=== PATIENT | male | born 1935 | race Caucasian/White ===

== ENCOUNTER → 2016-09-09 | Outpatient (CLI) | payer BC ==
[~2016-09-09] MED LIST: ATOR-54 PO; CEPH500C PO; CHOL20005 PO; CLBPO15 TOP; COEN1CAP17 PO; DPKEC500 PO; MULT-506 PO; PSYL48.59 PO; RANI300T2 PO; SILV1CRE73 TOP; SYN125 PO
[2016-09-09 19:02] LABS: BASO % 0.3 %; BASO ABS # 0.02 K/uL (0-0.2); COMPLETE YES; EOS % 3.1 %; HEMATOCRIT 41.6 % (42-52); IG% 0.2 %; LYMPH % 26.5 %; LYMPH ABS # 1.53 K/uL (1.2-3.4); MEAN CORPUSCULAR HEMOGLOBIN 32.1 pg (25-34); MEAN CORPUSCULAR HGB CONC 32.5 g/dl (32-36); MEAN PLATELET VOLUME 9.9 fL (7.4-10.4); MONO % 13.5 %; NEUT % 56.4 %; PLATELET COUNT 159 K/uL (130-400); WHITE BLOOD COUNT 5.77 K/uL (4.8-10.8)
[2016-09-17 10:37] LABS: ANA TITER 1:40 TITER (<1:40)
== END | disposition home or self-care (01) ==
LOC: C.LAB 18:02
PROVIDERS: ATTEND Physician Assistant
DX: S71.109A Unspecified open wound, unspecified thigh, initial encounter (principal); X58.XXXA Exposure to other specified factors, initial encounter

== ENCOUNTER → 2016-11-10 | Outpatient (CLI) | payer BC ==
[2016-11-10 14:44] VITALS: BP 114/71; PULSE 71; TEMP 36.6; O2SAT 96
--- NOTE | 2016-11-10 16:50 | Radiation Oncology Follow-Up ---
Radiation Oncology Follow-Up Date of Visit Nov 10, 2016. 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 Location: vertex of the scalp Permanent Comment: Development of a skin lesion on the vertex of the scalp Tangential biopsy 08/25/2015 malignant spindle cell neoplasm, consistent with atypical fibroxanthoma Wide excision 09/05/2015 scar and residual spindle cell neoplasm Recurrent malignant spindle cell neoplasm, consistent with pleomorphic dermal sarcoma 04/27/2016 Wide local excision of pleomorphic cell sarcoma of the scalp with 2 centimeter margins, defect 7 x 12 cm, placement of graft 06/11/2016 Status post completion of radiation therapy 09/15/2016 he received 6000 cGy Last Edited By: Chantel Cassidy on Sep 27, 2016 14:37 (Chantel Cassidy PA-C) History of Present Illness Mr. Jacob is a 81-year-old gentleman recently presented last spring with a lesion in the vertex scalp. The patient initially underwent a shave biopsy by Dr. Leal on 08/21/2015 which revealed a malignant spindle cell neoplasm, consistent with atypical fibroxanthoma in the differential diagnosis included a pleomorphic dermal sarcoma. The patient was seen by Dr. Jennifer Spaulding from plastic surgery who performed a reexcision on 09/04/2015 of the scar which revealed residual spindle cell neoplasm and scar extending to the peripheral margin. The patient was then followed with clinical observation. The patient subsequently had a recurrence that was initially biopsied by Dr. 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 The patient then underwent a wide local excision by Dr. Gaurav Borrego on 06/11/2016 which confirmed residual pleomorphic dermal sarcoma ; the sarcoma extended to within 0.3 millimeters of the deep inked margin however all the other margins were free from involvement. The patient subsequently underwent a reexcision with resection of a portion of the calvarium and a split-thickness skin graft on 06/16/2016; as per the operative report, no specimens were sent. We are now seeing the patient in consultation to discuss the role of postoperative radiation therapy. He completed radiation therapy 09/15/2016. He received 6000 cGy. (Chantel Cassidy PA-C) Interim History The past 6 weeks the area of the scalp continues to heal very slowly. He is followed by Dr. Spaulding and is seen every 2 weeks. He continues on daily dressing changes. Xeroform is used with a dry dressing. There is usually a small amount of serous drainage on the dressing per his . There is been no excess drainage. There is been no signs of infection. (Chantel Cassidy PA-C) Allergies Coded Allergies: Adhesives (Verified Allergy, Mild, Rash , 11/10/16) Home Medications Scheduled Atorvastatin (Lipitor), 20 MG PO DAILY Cholecalciferol (Vitamin D3), 1 TAB PO DAILY Coenzyme Q10 (Ubidecarenone) (Co Q 10), 1 CAP PO DAILY Divalproex Sodium Delay Rel (Depakote Delay Rel *), 500 MG PO BIDM Levothyroxine Sodium (Synthroid), 125 MCG PO DAILY Multivitamin (Multivitamin), 1 TAB PO DAILY Psyllium (Metamucil), 1 DOSE PO DAILY Ranitidine Hcl (Zantac), 1 TAB PO HS Scheduled PRN Clobetasol Propionate (Clobetasol Propionate), 1 APPLN TOP BID PRN for Blisters Review of Systems Gastrointestinal: Symptoms: WNL Oral: Symptoms: No Problems Respiratory: Symptoms: WNL Urinary: Symptoms: WNL Skin: Symptoms: No Problems Other Skin Symptoms: Slowly healing - dressing on top of head (Chantel Cassidy PA-C) Physical Exam Vital Signs Date Time Temp Pulse Resp B/P (MAP) Pulse Ox O2 Delivery O2 Flow Rate FiO2 11/10/16 14:44 36.6 71 16 114/71 96 General Appearance: no apparent distress, + pertinent finding (the wound and the vertex of the scalp is steadily improving. There is a 4 cm in diameter region of denuded skin. The Xeroform gauze was removed and a small amount of serous drainage was on the dressing. There were no pinpoint sites of bleeding. There is no foul odor. There is no erythema of the periphery.) (Chantel Cassidy PA-C) Laboratory Studies Test 09/09/16 18:06 White Blood Count 5.77 K/uL (4.8-10.8) Red Blood Count 4.20 M/uL (4.7-6.1) Hemoglobin 13.5 g/dL (14.0-18.0) Hematocrit 41.6 % (42-52) Mean Corpuscular Volume 99.0 fL (80-100) Mean Corpuscular Hemoglobin 32.1 pg (25-34) Mean Corpuscular Hemoglobin Concent 32.5 g/dl (32-36) Platelet Count 159 K/uL (130-400) Mean Platelet Volume 9.9 fL (7.4-10.4) Neutrophils (%) (Auto) 56.4 % Lymphocytes (%) (Auto) 26.5 % Monocytes (%) (Auto) 13.5 % Eosinophils (%) (Auto) 3.1 % Basophils (%) (Auto) 0.3 % Neutrophils # (Auto) 3.25 K/uL (1.4-6.5) Lymphocytes # (Auto) 1.53 K/uL (1.2-3.4) Monocytes # (Auto) 0.78 K/uL (0.11-0.59) Eosinophils # (Auto) 0.18 K/uL (0-0.5) Basophils # (Auto) 0.02 K/uL (0-0.2) RDW Standard Deviation 53.0 fL (36.4-46.3) RDW Coefficient of Variation 14.5 % (11.5-14.5) Immature Granulocyte % (Auto) 0.2 % Immature Granulocyte # (Auto) 0.01 K/uL (0.00-0.02) Erythrocyte Sedimentation Rate 9 mm/hr (0-14) Anti-Nuclear Antibody Screen POSITIVE (NEGATIVE) Anti-Nuclear Antibody Titer 1:40 TITER (<1:40) Anti-Nuclear Antibody Pattern NUCLEOLAR ( ) (Chantel Cassidy PA-C) Assessment & Plan Plan: The patient is also seen and examined by Dr. Aguilar. He'll continue the daily dressing changes with Xeroform and gauze. Continue follow-up with Dr. Spaulding. We asked him to return to our office in 6 months. He may call if he has any questions or concerns in the interim. (Chantel Cassidy PA-C) I agree with note created by Chantel Cassidy PA-C. I reviewed the patient's chart and information with her. I have examined and evaluated the patient. I reviewed relevant clinical information and answered the patient's and/or family' s questions. (Veeral. Aguilar MD) Total Time In Follow-Up I spent 20 minutes speaking to the patient performing examination. I spent 15 minutes reviewing information and completing this note. AK (Chantel Cassidy PA-C) I spent 15 minutes examining and counseling the patient. (Veeral. Aguilar MD) Copy To Balaji Jenkins M.D.; Gaurav Borrego M.D.; Jennifer Spaulding MD
== END | disposition home or self-care (01) ==
LOC: C.ONC 14:40
PROVIDERS: ATTEND Surgery
DX: Z08 Encounter for follow-up examination after completed treatment for malignant neoplasm (principal); Z92.3 Personal history of irradiation; Z85.89 Personal history of malignant neoplasm of other organs and systems

== ENCOUNTER → 2017-01-14 | Outpatient (CLI) | payer BC ==
[~2017-01-14] MED LIST changes: -CEPH500C PO; -SILV1CRE73 TOP
== END | disposition home or self-care (01) ==
LOC: C.LABSPEC 17:08
PROVIDERS: ATTEND Plastic Surgery
DX: S01.00XA Unspecified open wound of scalp, initial encounter (principal); X58.XXXA Exposure to other specified factors, initial encounter

== ENCOUNTER 2017-03-30 19:22 | Inpatient (IN) | payer BC, OTHER ==
[~2017-03-30] VITALS: Ht 177.8 cm; Wt 82.7 kg
[2017-03-30] MEDS ORDERED: ONDANSETRON INJ 2 MG/ML 2 ML VIAL IV STA (19:39)
[2017-03-30] MEDS ORDERED: MoRPHine SULFATE 4 MG/ML 1 ML CARP\\VIAL IV STA ×2 (19:39→22:09)
[2017-03-30] MEDS ORDERED: SODIUM CHLORIDE 0.9% 1000ML 1,000 ML IV STA (19:39)
[2017-03-30] MEDS ORDERED: VBRT100 PO (19:51)
[2017-03-30] MEDS ORDERED: DPKSR/500 PO (19:51)
[2017-03-30 20:01] LABS: BASO % 0.1 %; BASO ABS # 0.01 K/uL (0-0.2); COMPLETE YES; HEMATOCRIT 41.5 % (42-52); IG% 0.4 %; LYMPH % 6.6 %; LYMPH ABS # 0.85 K/uL (1.2-3.4); MEAN CELL VOLUME 100.2 fL (80-100); MEAN CORPUSCULAR HEMOGLOBIN 33.6 pg (25-34); MEAN CORPUSCULAR HGB CONC 33.5 g/dl (32-36); MEAN PLATELET VOLUME 10.3 fL (7.4-10.4); MONO % 9.5 %; NEUT % 83.4 %; PLATELET COUNT 163 K/uL (130-400); RED BLOOD COUNT 4.14 M/uL (4.7-6.1); WHITE BLOOD COUNT 12.86 K/uL (4.8-10.8)
[2017-03-30 20:47] LABS: ALKALINE PHOSPHATASE 209 U/L (45-117); ALT/SGPT 475 U/L (12-78); BLOOD UREA NITROGEN 18 mg/dl (7-18); CALCIUM 9.7 mg/dl (8.5-10.1); CARBON DIOXIDE 26 mmol/L (21-32); CHLORIDE 101 mmol/L (98-107); CREATININE 1.18 mg/dl (0.60-1.40); GLUCOSE 198 mg/dl (70-99); SODIUM 135 mmol/L (136-145)
[2017-03-30] MEDS ORDERED: OPTIRAY 320 IV PRN (21:15)
--- NOTE | 2017-03-30 21:35 | DIAGNOSTIC IMAGING REPORT ---
ABDOMEN AND PELVIS CT WITH IV CONTRAST CT DOSE: 741.29 mGy.cm HISTORY: Acute generalized abdominal pain abd pain TECHNIQUE: Multiaxial CT images of the abdomen and pelvis were performed following the use of intravenous contrast. A dose lowering technique was utilized adhering to the principles of ALARA. COMPARISON STUDY: None. FINDINGS: Mild dependent bibasilar consolidative opacities suggest atelectasis/scarring. Nonspecific 7 mm right hilar lymph node. No pneumatosis or pneumoperitoneum identified. Imaged inferior cardiac chambers are mildly enlarged. Coronary arterial disease. Mild symmetric bilateral gynecomastia. Prior cholecystectomy. Mild intrahepatic and nectar hepatic biliary ductal dilation is noted with the common bile duct measuring up to 12 mm transversely. There are 2 foci of increased attenuation within the distal common bile duct measuring 4 and 6 mm respectively on images 206 and 216 of series 3 suggesting choledocholithiasis. There is a least moderate diffuse pancreatic atrophy with mild stranding surrounding the pancreatic head and neck suspicious for acute pancreatitis. No pancreatic ductal dilation or focal pancreatic mass identified. Spleen is mildly enlarged, 14 cm. 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 Adrenal glands are unremarkable. Nonspecific bilateral perinephric stranding. There is of cortical scarring and parenchymal thinning are noted within the right kidney. Probable cyst of the interpolar right kidney is seen, 4 mm. No renal calculi or hydronephrosis. Ureters are unremarkable. The prostate is enlarged causing mass effect upon the floor of the urinary bladder. Small urachal remnant is noted terminating from the anterosuperior bladder. Mild wall thickening of the bladder, likely secondary to chronic bladder outlet obstruction. Moderate atherosclerosis of the aorta. No aortic aneurysm. No bulky adenopathy identified. Moderate hiatal hernia with fluid-filled distal esophagus. There is no bowel obstruction. No focal bowel wall thickening. Minimal colonic diverticulosis without diverticulitis. The appendix is not definitively seen. No secondary signs of acute appendicitis. Bowel filled. No hernia. Small bowel filled periumbilical hernia. The bones appear mildly demineralized. Multilevel changes of the spine. IMPRESSION: 1. Choledocholithiasis with two biliary stones within the distal common bile duct measuring up to 6 and 4 mm with probable mild associated acute pancreatitis. Correlate with lipase level. 2. Prior cholecystectomy with mild intrahepatic and extrahepatic biliary ductal dilation. Common bile duct measures 12 mm. 3. Mild splenomegaly. 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 4. Moderate hiatal hernia with fluid-filled distal esophagus. 5. Minimal colonic diverticulosis without diverticulitis. 6. Prostamegaly. Electronically signed by: Reilly Barlow M.D. 03/30/2017 9:34 PM Dictated Date/Time: 03/30/2017 9:14 PM
[2017-03-30 21:43] LABS: POTASSIUM 4.3 mmol/L (3.5-5.1)
[2017-03-30] MEDS ORDERED: PIPERACILLIN/TAZOBACTAM 4.5 GM/100ML D5W IV STA (21:48)
[2017-03-30 22:20] LABS: URINE APPEARANCE CLEAR (CLEAR); URINE COLOR DK YELLOW; URINE NITRITE NEG (NEG); URINE SPECIFIC GRAVITY > 1.045 (1.000-1.030); UROBILINOGEN NEG (NEG); ZZUR CULT IF INDIC CLEAN CATCH NO
[2017-03-30 22:23] LABS: URINE BILIRUBIN 2+ (NEG)
[2017-03-30 22:25] LABS: MANUAL MICROSCOPIC REQUIRED? NO; REVIEW REQ? NO
[2017-03-30] MEDS ORDERED: MAGNESIUM HYDROXIDE SUSP 30 ML UDC PO PRN (22:45)
[2017-03-30] MEDS ORDERED: ONDANSETRON INJ 2 MG/ML 2 ML VIAL IV PRN (22:45)
[2017-03-30] MEDS ORDERED: ACETAMINOPHEN 325 MG TAB PO PRN (22:45)
[2017-03-30] MEDS ORDERED: ALUMINUM/MAGNESIUM/SIMETH (MAALOX MAX) 30 ML UDC PO PRN (22:45)
--- NOTE | 2017-03-30 23:44 | EMERGENCY ROOM VISIT NOTE ---
History Report prepared by Robert: Alecia Vaughn Under the Supervision of: Dr. Jose Denise D.O. First contact with patient: 19:29 Chief Complaint: ABDOMINAL PAIN Stated Complaint: PAIN IN BACK AROUND TO ABD History of Present Illness The patient is a 81 year old male who presents to the Emergency Room with complaints of waxing and waning abdominal pain beginning 5 days ago. He states that the pain is similar to when he had gallbladder pain. He reports that taking a deep breath exacerbates his abdominal pain. The patient reports a history of a cholecystectomy, but denies a history of an appendectomy. He also reports having back pain between his shoulder blades. The patient states that laying down alleviates the pain, and cold air exacerbates the pain. He also reports having a runny nose and cough. Pt denies headache, change in vision, fevers, chest pain, shortness of breath, nausea, vomiting, diarrhea, pain with urination, and melena. Source of History: patient Onset: 5 days ago Position: abdomen Timing: waxes/wanes Modifying Factors (Worsening): other (taking a deep breath ) Associated Symptoms: + cough, + back pain, No chest pain, No SOB, No nausea , No vomiting, No diarrhea Review of Systems See HPI for pertinent positives & negatives. A total of 10 systems reviewed and were otherwise negative. Past Medical & Surgical Medical Problems: (1) Choledocholithiasis (2) Pancreatitis (3) Pleomorphic cell sarcoma Surgical Problems: (1) History of cholecystectomy Family History No pertinent family history stated. Social History Smoking Status: Never Smoker Alcohol Use: occasionally Drug Use: none Marital Status: Housing Status: lives with family Occupation Status: retired Current/Historical Medications Scheduled Atorvastatin (Lipitor), 20 MG PO DAILY Cholecalciferol (Vitamin D3), 1 TAB PO DAILY Coenzyme Q10 (Ubidecarenone) (Co Q 10), 1 CAP PO DAILY Divalproex Sodium (Depakote Etended-Release), 500 MG PO BID Doxycycline Hyclate (Doxycycline Hyclate), 100 MG PO BID Levothyroxine Sodium (Synthroid), 125 MCG PO DAILY Multivitamin (Multivitamin), 1 TAB PO DAILY Psyllium (Metamucil), 1 DOSE PO DAILY Ranitidine Hcl (Zantac), 1 TAB PO HS Scheduled PRN Clobetasol Propionate (Clobetasol Propionate), 1 APPLN TOP BID PRN for Blisters Allergies Coded Allergies: Adhesives (Verified Allergy, Mild, Rash , 11/10/16) Physical Exam Vital Signs Date Time Temp Pulse Resp B/P (MAP) Pulse Ox O2 Delivery O2 Flow Rate FiO2 03/30/17 23:01 107 18 116/72 94 03/30/17 22:08 103 18 118/63 93 Nasal Cannula 2.0 03/30/17 20:10 96 Nasal Cannula 2.0 03/30/17 20:09 89 Room Air 03/30/17 20:08 97 18 122/72 90 Room Air 03/30/17 19:24 36.4 96 18 123/84 95 Room Air Physical Exam GENERAL: Sitting up in bed, alert, well appearing, well nourished, no distress, non-toxic EYE EXAM: normal conjunctiva. OROPHARYNX: no exudate, no erythema, lips, buccal mucosa, and tongue normal and mucous membranes are moist NECK: supple, no nuchal rigidity, no adenopathy, non-tender LUNGS: Clear to auscultation. Normal chest wall mechanics HEART: no murmurs, S1 normal and S2 normal ABDOMEN: abdomen soft, tenderness in bilateral flank upon palpation, normo- active bowel sounds, no masses, no rebound or guarding. BACK: Back is symmetrical on inspection and there is no deformity, no midline tenderness, no CVA tenderness. SKIN: no rashes and no bruising UPPER EXTREMITIES: upper extremities are grossly normal. LOWER EXTREMITIES: No pitting edema. NEURO EXAM: Normal sensorium, cranial nerves II-XII grossly intact, normal speech, no gross weakness of arms, no gross weakness of legs. Medical Decision & Procedures ER Provider Diagnostic Interpretation: Radiology results as stated below per my review and the radiologist's interpretation: ABDOMEN AND PELVIS CT WITH IV CONTRAST CT DOSE: 741.29 mGy.cm HISTORY: Acute generalized abdominal pain abd pain TECHNIQUE: Multiaxial CT images of the abdomen and pelvis were performed following the use of intravenous contrast. A dose lowering technique was utilized adhering to the principles of ALARA. COMPARISON STUDY: None. FINDINGS: Mild dependent bibasilar consolidative opacities suggest atelectasis/scarring. Nonspecific 7 mm right hilar lymph node. No pneumatosis or pneumoperitoneum identified. Imaged inferior cardiac chambers are mildly enlarged. Coronary arterial disease. Mild symmetric bilateral gynecomastia. Prior cholecystectomy. Mild intrahepatic and nectar hepatic biliary ductal dilation is noted with the common bile duct measuring up to 12 mm transversely. There are 2 foci of increased attenuation within the distal common bile duct measuring 4 and 6 mm respectively on images 206 and 216 of series 3 suggesting choledocholithiasis. There is a least moderate diffuse pancreatic atrophy with mild stranding surrounding the pancreatic head and neck suspicious for acute pancreatitis. No pancreatic ductal dilation or focal pancreatic mass identified. Spleen is mildly enlarged, 14 cm. 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 Adrenal glands are unremarkable. Nonspecific bilateral perinephric stranding. There is of cortical scarring and parenchymal thinning are noted within the right kidney. Probable cyst of the interpolar right kidney is seen, 4 mm. No renal calculi or hydronephrosis. Ureters are unremarkable. The prostate is enlarged causing mass effect upon the floor of the urinary bladder. Small urachal remnant is noted terminating from the anterosuperior bladder. Mild wall thickening of the bladder, likely secondary to chronic bladder outlet obstruction. Moderate atherosclerosis of the aorta. No aortic aneurysm. No bulky adenopathy identified. Moderate hiatal hernia with fluid-filled distal esophagus. There is no bowel obstruction. No focal bowel wall thickening. Minimal colonic diverticulosis without diverticulitis. The appendix is not definitively seen. No secondary signs of acute appendicitis. Bowel filled. No hernia. Small bowel filled periumbilical hernia. The bones appear mildly demineralized. Multilevel changes of the spine. IMPRESSION: 1. Choledocholithiasis with two biliary stones within the distal common bile duct measuring up to 6 and 4 mm with probable mild associated acute pancreatitis. Correlate with lipase level. 2. Prior cholecystectomy with mild intrahepatic and extrahepatic biliary ductal dilation. Common bile duct measures 12 mm. 3. Mild splenomegaly. 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 4. Moderate hiatal hernia with fluid-filled distal esophagus. 5. Minimal colonic diverticulosis without diverticulitis. 6. Prostamegaly. Electronically signed by: Reilly Barlow M.D. 03/30/2017 9:34 PM Dictated Date/Time: 03/30/2017 9:14 PM Laboratory Results 03/30/17 19:49 Red Blood Count 4.14, Mean Corpuscular Volume 100.2, Mean Corpuscular Hemoglobin 33.6, Mean Corpuscular Hemoglobin Concent 33.5, Mean Platelet Volume 10.3, Neutrophils (%) (Auto) 83.4, Lymphocytes (%) (Auto) 6.6, Monocytes (%) ( Auto) 9.5, Eosinophils (%) (Auto) 0.0, Basophils (%) (Auto) 0.1, Neutrophils # ( Auto) 10.73, Lymphocytes # (Auto) 0.85, Monocytes # (Auto) 1.22, Eosinophils # ( Auto) 0.00, Basophils # (Auto) 0.01 03/30/17 19:49 03/30/17 21:18 Test 03/30/17 19:49 03/30/17 21:18 03/30/17 21:40 White Blood Count 12.86 K/uL (4.8-10.8) Red Blood Count 4.14 M/uL (4.7-6.1) Hemoglobin 13.9 g/dL (14.0-18.0) Hematocrit 41.5 % (42-52) Mean Corpuscular Volume 100.2 fL (80-100) Mean Corpuscular Hemoglobin 33.6 pg (25-34) Mean Corpuscular Hemoglobin Concent 33.5 g/dl (32-36) Platelet Count 163 K/uL (130-400) Mean Platelet Volume 10.3 fL (7.4-10.4) Neutrophils (%) (Auto) 83.4 % Lymphocytes (%) (Auto) 6.6 % Monocytes (%) (Auto) 9.5 % Eosinophils (%) (Auto) 0.0 % Basophils (%) (Auto) 0.1 % Neutrophils # (Auto) 10.73 K/uL (1.4-6.5) Lymphocytes # (Auto) 0.85 K/uL (1.2-3.4) Monocytes # (Auto) 1.22 K/uL (0.11-0.59) Eosinophils # (Auto) 0.00 K/uL (0-0.5) Basophils # (Auto) 0.01 K/uL (0-0.2) RDW Standard Deviation 57.8 fL (36.4-46.3) RDW Coefficient of Variation 15.7 % (11.5-14.5) Immature Granulocyte % (Auto) 0.4 % Immature Granulocyte # (Auto) 0.05 K/uL (0.00-0.02) Anion Gap 8.0 mmol/L (3-11) Estimated GFR () 67.1 Estimated GFR (Non- 57.9 BUN/Creatinine Ratio 15.0 (10-20) Calcium Level 9.7 mg/dl (8.5-10.1) Total Bilirubin 5.2 mg/dl (0.2-1) Alanine Aminotransferase (ALT/SGPT) 475 U/L (12-78) Alkaline Phosphatase 209 U/L (45-117) Total Protein 7.2 gm/dl (6.4-8.2) Albumin 3.8 gm/dl (3.4-5.0) Lipase 4039 U/L (73-393) Direct Bilirubin 4.3 mg/dl (0-0.2) Aspartate Amino Transf (AST/SGOT) 257 U/L (15-37) Urine Color DK YELLOW Urine Appearance CLEAR (CLEAR) Urine pH 6.0 (4.5-7.5) Urine Specific [place] > 1.045 (1.000-1.030) Urine Protein NEG (NEG) Urine Glucose (UA) NEG (NEG) Urine Ketones 1+ (NEG) Urine Occult Blood NEG (NEG) Urine Nitrite NEG (NEG) Urine Bilirubin 2+ (NEG) Urine Urobilinogen NEG (NEG) Urine Leukocyte Esterase NEG (NEG) Urine WBC (Auto) 1-5 /hpf (0-5) Urine RBC (Auto) 10-30 /hpf (0-4) Urine Hyaline Casts (Auto) 1-5 /lpf (0-5) Urine Epithelial Cells (Auto) 10-20 /lpf (0-5) Urine Bacteria (Auto) NEG (NEG) Laboratory results per my review. Medications Administered Medications (Trade) Dose Ordered Sig/Sadie Route Start Time Stop Time Status Last Admin Dose Admin Sodium Chloride 1,000 ml @ 999 mls/hr Q1H1M STAT IV 03/30/17 19:39 03/30/17 20:39 DC 03/30/17 19:52 999 MLS/HR Ondansetron HCl (Zofran Inj) 4 mg NOW STAT IV 03/30/17 19:39 03/30/17 19:41 DC 03/30/17 19:53 4 MG Morphine Sulfate (MoRPHine SULFATE INJ) 4 mg NOW STAT IV 03/30/17 19:39 03/30/17 19:41 DC 03/30/17 19:55 4 MG Piperacillin Sod/ Tazobactam Sod (Zosyn Iv) 4.5 gm NOW STAT IV 03/30/17 21:48 03/30/17 21:49 DC 03/30/17 22:12 4.5 GM Morphine Sulfate (MoRPHine SULFATE INJ) 4 mg NOW STAT IV 03/30/17 22:09 03/30/17 22:10 DC 03/30/17 22:16 4 MG ED Course ED COURSE: Vital signs were reviewed and showed normal vitals. The patients medical record was reviewed The above diagnostic studies were performed and reviewed. ED treatments and interventions as stated above. 1932: The patient was evaluated in room C10. A complete history and physical examination was performed. 1938: Ordered Morphine Sulfate 4 mg IV, Zofran Inj 4 mg IV, Sodium Chloride 1, 000 ml @ 999 mls/hr IV. 2147: Ordered Zosyn Iv 4.5 gm IV. 2149: Upon reevaluation, the patient is resting. I discussed the findings and the treatment plan with the patient. He expresses agreement and understanding. [facility] He will be evaluated for further management. 2151: I reviewed the patient's case with Dr. Keyes. Medical Decision Differential diagnoses includes but is not limited to gastritis, peptic ulcer disease, GERD, gallbladder disease, pancreatitis, small bowel obstruction, acute coronary syndrome, pericarditis, ischemic bowel, irritable bowel disease, irritable bowel syndrome, appendicitis, diverticulitis, malignancy, hernia, urinary tract infection, torsion, [/ectopic (if female)], perforation, trauma, infectious. Patient is an 81-year-old male with bilateral abdominal pain which has been worsening. He notes that it feels like his previous cholecystitis. Previous cholecystectomy in 2015. Vitals were stable not suggesting sepsis. Mild leukocytosis of 13,000. Bilirubin elevated at 5. Transaminitis associated with pancreatitis. CT performed shows choledocholithiasis 2. Discussed with GI. Patient was given IV Zosyn. Discussed with internal medicine. Admitted for further workup and will need ERCP. Patient was given 2 doses of IV morphine with improvement of pain. Medication Reconcilliation Current Medication List: was personally reviewed by me Blood Pressure Screening Patient's blood pressure: Normal blood pressure Consults Time Called: 2139 Consulting Physician: Dr. Mcdaniel-Resident and Returned Call: 2149 I reviewed the patient's case with Dr. Mcdaniel. She will evaluate the patient for further management. Additional Consults: Time Called: 2144 Consulted Physician: Dr. Keyes-Gastroenterology Returned Call: [phone] Additional Comments: I reviewed the patient's case with Dr. Keyes. Impression Primary Impression: Choledocholithiasis Additional Impressions: Pancreatitis Transaminitis Scribe Attestation The scribe's documentation has been prepared under my direction and personally reviewed by me in its entirety. I confirm that the note above accurately reflects all work, treatment, procedures, and medical decision making performed by me. Departure Information Dispostion Being Evaluated By Hospitalist Referrals Balaji Jenkins M.D. (PCP) Patient Instructions [facility] Problem Qualifiers Additional Impressions: Pancreatitis Chronicity: acute Pancreatitis type: unspecified pancreatitis type Acute pancreatitis complication: unspecified Qualified Codes: K85.90 - Acute pancreatitis without necrosis or infection, unspecified
[2017-03-31 00:05] VITALS: BP 135/80; PULSE 114; TEMP 37.3; O2SAT 93; Ht 177.8 cm; Wt 82.7 kg
[2017-03-31] MEDS: LACTATED RINGER'S 1000ML 1,000 ML IV SCH ×4 (00:23→21:44)
[2017-03-31] MEDS ORDERED: MoRPHine SULFATE 4 MG/ML 1 ML CARP\\VIAL IV PRN (01:30)
--- NOTE | 2017-03-31 04:19 | History and Physical ---
History & Physical Date & Time of Service: Mar 30, 2017 at 2100 Chief Complaint: Choledocholithiasis, Panreatitis Primary Care Physician: Balaji Jenkins M.D. History of Present Illness Source: patient, hospital records This is an 81 yo m with a h/o thyroid and seizure disorder that is presenting to us with waxing and waning abdominal pain which started approx 5 days prior. The pain was originially in the RUQ and now is more diffuse in nature. It is a 10/10 and worsens with any movement. The pain has suddenly worsened while he was sleeping the night before and has not improved since. He has has intermittent nausea and one bout of vomiting a few days prior to the abdominal pain starting. Denies fever, chest pain or SOB. He does note he has a history of cholecystectomy. 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 Social History Smoking Status: Never Smoker Smokeless Tobacco Use: No Alcohol Use: none Drug Use: none Marital Status: Housing status: lives with family Occupational Status: retired Immunizations History of Influenza Vaccine: Unknown History of Tetanus Vaccine?: Unknown History of Pneumococcal: Unknown History of Hepatitis B Vaccine: Unknown Multi-Drug Resistant Organisms History of MDRO: No Allergies Coded Allergies: Adhesives (Verified Allergy, Mild, Rash , 11/10/16) Home Medications Scheduled Atorvastatin (Lipitor), 20 MG PO DAILY Cholecalciferol (Vitamin D3), 1 TAB PO DAILY Coenzyme Q10 (Ubidecarenone) (Co Q 10), 1 CAP PO DAILY Divalproex Sodium (Depakote Etended-Release), 500 MG PO BID Doxycycline Hyclate (Doxycycline Hyclate), 100 MG PO BID Levothyroxine Sodium (Synthroid), 125 MCG PO DAILY Multivitamin (Multivitamin), 1 TAB PO DAILY Psyllium (Metamucil), 1 DOSE PO DAILY Ranitidine Hcl (Zantac), 1 TAB PO HS Scheduled PRN Clobetasol Propionate (Clobetasol Propionate), 1 APPLN TOP BID PRN for Blisters Review of Systems Constitutional: No fever, No chills, No sweats Eyes: No worsening of vision ENT: No hearing loss Respiratory: No cough, No sputum, No wheezing, No shortness of breath, No dyspnea on exertion, No dyspnea at rest Cardiovascular: No chest pain Abdomen: + pain, + nausea, + vomiting, No diarrhea, No constipation, No GI bleeding Musculoskeletal: No joint pain, No muscle pain Genitourinary - Male: No hematuria, No dysuria Neurologic: No weakness, No numbness/tingling, No balance problems Psychiatric: No depression symptoms Endocrine: No fatigue Hematologic / Lymphatic: No abnormal bleeding/bruising Integumentary: No rash Physical Exam Vital Signs Date Time Temp Pulse Resp B/P (MAP) Pulse Ox O2 Delivery O2 Flow Rate FiO2 03/31/17 00:05 37.3 114 18 135/80 93 Nasal Cannula 2.0 03/31/17 00:00 Nasal Cannula 2.0 03/30/17 23:01 107 18 116/72 94 03/30/17 22:08 103 18 118/63 93 Nasal Cannula 2.0 03/30/17 20:10 96 Nasal Cannula 2.0 03/30/17 20:09 89 Room Air 03/30/17 20:08 97 18 122/72 90 Room Air 03/30/17 19:24 36.4 96 18 123/84 95 Room Air General Appearance: no apparent distress Head: normocephalic, atraumatic Eyes: normal inspection ENT: normal ENT inspection Neck: supple Respiratory/Chest: normal breath sounds, no respiratory distress, no accessory muscle use Cardiovascular: no murmur, normal peripheral pulses, + tachycardia Abdomen/GI: normal bowel sounds, + tenderness (diffuse without rebound), + guarding Back: normal inspection, no CVA tenderness Extremities/Musculoskelatal: normal inspection, no calf tenderness, no pedal edema, normal range of motion Neurologic/Psych: alert, normal mood/affect, oriented x 3 Skin: normal color, warm/dry, no rash Lymphatic: no adenopathy Diagnostics Laboratory Results Results Past 24 Hours Test 03/30/17 19:49 03/30/17 21:18 03/30/17 21:40 03/31/17 00:13 Range/Units White Blood Count 12.86 4.8-10.8 K/uL Red Blood Count 4.14 4.7-6.1 M/uL Hemoglobin 13.9 14.0-18.0 g/dL Hematocrit 41.5 42-52 % Mean Corpuscular Volume 100.2 80-100 fL Mean Corpuscular Hemoglobin 33.6 25-34 pg Mean Corpuscular Hemoglobin Concent 33.5 32-36 g/dl Platelet Count 163 130-400 K/uL Mean Platelet Volume 10.3 7.4-10.4 fL Neutrophils (%) (Auto) 83.4 % Lymphocytes (%) (Auto) 6.6 % Monocytes (%) (Auto) 9.5 % Eosinophils (%) (Auto) 0.0 % Basophils (%) (Auto) 0.1 % Neutrophils # (Auto) 10.73 1.4-6.5 K/uL Lymphocytes # (Auto) 0.85 1.2-3.4 K/uL Monocytes # (Auto) 1.22 0.11-0.59 K/uL Eosinophils # (Auto) 0.00 0-0.5 K/uL Basophils # (Auto) 0.01 0-0.2 K/uL RDW Standard Deviation 57.8 36.4-46.3 fL RDW Coefficient of Variation 15.7 11.5-14.5 % Immature Granulocyte % (Auto) 0.4 % Immature Granulocyte # (Auto) 0.05 0.00-0.02 K/uL Sodium Level 135 136-145 mmol/L Potassium Level 4.3 3.5-5.1 mmol/L Chloride Level 101 98-107 mmol/L Carbon Dioxide Level 26 21-32 mmol/L Anion Gap 8.0 3-11 mmol/L Blood Urea Nitrogen 18 7-18 mg/dl Creatinine 1.18 0.60-1.40 mg/dl Estimated GFR () 67.1 Estimated GFR (Non- 57.9 BUN/Creatinine Ratio 15.0 10-20 Random Glucose 198 70-99 mg/dl Calcium Level 9.7 8.5-10.1 mg/dl Total Bilirubin 5.2 0.2-1 mg/dl Direct Bilirubin 4.3 0-0.2 mg/dl Aspartate Amino Transf (AST/SGOT) 257 15-37 U/L Alanine Aminotransferase (ALT/SGPT) 475 12-78 U/L Alkaline Phosphatase 209 45-117 U/L Total Protein 7.2 6.4-8.2 gm/dl Albumin 3.8 3.4-5.0 gm/dl Lipase 4039 73-393 U/L Urine Color DK YELLOW Urine Appearance CLEAR CLEAR Urine pH 6.0 4.5-7.5 Urine Specific [place] > 1.045 1.000-1.030 Urine Protein NEG NEG Urine Glucose (UA) NEG NEG Urine Ketones 1+ NEG Urine Occult Blood NEG NEG Urine Nitrite NEG NEG Urine Bilirubin 2+ NEG Urine Urobilinogen NEG NEG Urine Leukocyte Esterase NEG NEG Urine WBC (Auto) 1-5 0-5 /hpf Urine RBC (Auto) 10-30 0-4 /hpf Urine Hyaline Casts (Auto) 1-5 0-5 /lpf Urine Epithelial Cells (Auto) 10-20 0-5 /lpf Urine Bacteria (Auto) NEG NEG Bedside Glucose 198 70-99 mg/dl Diagnostic Radiology [~ rep ct add3]] ABDOMEN AND PELVIS CT WITH IV CONTRAST CT DOSE: 741.29 mGy.cm HISTORY: Acute generalized abdominal pain abd pain TECHNIQUE: Multiaxial CT images of the abdomen and pelvis were performed following the use of intravenous contrast. A dose lowering technique was utilized adhering to the principles of ALARA. COMPARISON STUDY: None. FINDINGS: Mild dependent bibasilar consolidative opacities suggest atelectasis/scarring. Nonspecific 7 mm right hilar lymph node. No pneumatosis or pneumoperitoneum identified. Imaged inferior cardiac chambers are mildly enlarged. Coronary arterial disease. Mild symmetric bilateral gynecomastia. Prior cholecystectomy. Mild intrahepatic and nectar hepatic biliary ductal dilation is noted with the common bile duct measuring up to 12 mm transversely. There are 2 foci of increased attenuation within the distal common bile duct measuring 4 and 6 mm respectively on images 206 and 216 of series 3 suggesting choledocholithiasis. There is a least moderate diffuse pancreatic atrophy with mild stranding surrounding the pancreatic head and neck suspicious for acute pancreatitis. No pancreatic ductal dilation or focal pancreatic mass identified. Spleen is mildly enlarged, 14 cm. 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 Adrenal glands are unremarkable. Nonspecific bilateral perinephric stranding. There is of cortical scarring and parenchymal thinning are noted within the right kidney. Probable cyst of the interpolar right kidney is seen, 4 mm. No renal calculi or hydronephrosis. Ureters are unremarkable. The prostate is enlarged causing mass effect upon the floor of the urinary bladder. Small urachal remnant is noted terminating from the anterosuperior bladder. Mild wall thickening of the bladder, likely secondary to chronic bladder outlet obstruction. Moderate atherosclerosis of the aorta. No aortic aneurysm. No bulky adenopathy identified. Moderate hiatal hernia with fluid-filled distal esophagus. There is no bowel obstruction. No focal bowel wall thickening. Minimal colonic diverticulosis without diverticulitis. The appendix is not definitively seen. No secondary signs of acute appendicitis. Bowel filled. No hernia. Small bowel filled periumbilical hernia. The bones appear mildly demineralized. Multilevel changes of the spine. IMPRESSION: 1. Choledocholithiasis with two biliary stones within the distal common bile duct measuring up to 6 and 4 mm with probable mild associated acute pancreatitis. Correlate with lipase level. 2. Prior cholecystectomy with mild intrahepatic and extrahepatic biliary ductal dilation. Common bile duct measures 12 mm. 3. Mild splenomegaly. 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 4. Moderate hiatal hernia with fluid-filled distal esophagus. 5. Minimal colonic diverticulosis without diverticulitis. 6. Prostamegaly. Impression Assessment and Plan This is an 81 yo m suffering from choledocholithiasis s/p cholecystectomy and pancreatitis Abdominal pain secondary to choledocholithiasis and pancreatitis - med surg admission - consult Gastro for possible ERCP - morphine for pain control - Lipase and CMP in am - Cipro empirically - LR @ 150cc/h and currently NPO Seizure disorder Continue Depakote 500 mg bid Hypothyroidism continue synthroid 125 mcg daily Hyperlipidemia - Continue Atorvastatin 20 mg daily GERD - continue Zantac DVT prophylaxis SCD Attending addendum: I have physically seen this patient, have supervised the medical residents activities, and agree with the H&P unless as otherwise noted. Assessment and Plan: Choledocholithiasis/Pancreatitis-- NPO IVF's Cipro IV LR at 100ml's/hr Follow serial laboratories Consult GI for ERCP Seizure disorder-- Continue Depakote Hypothyroidism-- Continue Synthroid Hyperlipidemia-- Continue atorvastatin GERD-- Continue ranitidine Level of Care Med/Surg Advanced Directives Existing Advance Directive: No Existing Living Will: Yes Existing Power of Oyster Shucker: Yes Resuscitation Status FULL RESUSCITATION VTE Prophylaxis VTE Risk Assessment Done? Y/N: Yes Risk Level: Moderate Given or contraindicated: SCD's Social Service Consult None Apply Note Total Time: Critical Care 30 - 74 minutes Additional Copies To Balaji Jenkins M.D.
[2017-03-31] MEDS: CIPROFLOXACIN / D5W 400 MG in PREMIXED IN D5W 200 ML IV SCH ×2 (06:04→18:13)
[2017-03-31] MEDS: LEVOTHYROXINE 125 MCG TAB PO SCH (06:05)
[2017-03-31 06:43] LABS: BASO % 0.1 %; BASO ABS # 0.01 K/uL (0-0.2); COMPLETE YES; IG% 0.2 %; LYMPH % 3.3 %; LYMPH ABS # 0.42 K/uL (1.2-3.4); MEAN CELL VOLUME 101.1 fL (80-100); MEAN CORPUSCULAR HEMOGLOBIN 32.8 pg (25-34); MEAN CORPUSCULAR HGB CONC 32.4 g/dl (32-36); MEAN PLATELET VOLUME 9.7 fL (7.4-10.4); MONO % 7.1 %; NEUT % 89.3 %; PLATELET COUNT 115 K/uL (130-400); RED BLOOD COUNT 3.66 M/uL (4.7-6.1)
[2017-03-31 07:18] VITALS: BP 115/74; PULSE 103; TEMP 37.3; O2SAT 90
[2017-03-31 07:30] LABS: ALB/GLOB RATIO 0.9 (0.9-2); BUN/CREATININE RATIO 17.3 (10-20); CALCIUM 8.6 mg/dl (8.5-10.1); CREATININE 1.11 mg/dl (0.60-1.40); POTASSIUM 4.3 mmol/L (3.5-5.1)
[2017-03-31] MEDS: PSYLLIUM 58.6% PWD PACK S\\F PO SCH (07:35)
[2017-03-31] MEDS: MULTIVITAMIN TAB PO SCH (07:39)
[2017-03-31] MEDS: ATORVASTATIN 20 MG TAB PO SCH (07:39)
[2017-03-31] MEDS: DIVALPROEX 500 MG EXTENDED RELEASE TAB PO SCH ×2 (07:40→20:32)
[2017-03-31] MEDS: CLOBETASOL~ORDER AWAITING ACTION SCH ×3 (07:40→23:44)
[2017-03-31] MEDS: CHOLECALCIFEROL 1000 INTER.UNIT TAB PO SCH (07:40)
[2017-03-31] MEDS ORDERED: NON-FORMULARY MEDICATION (Coenzyme Q10 (Ubidecarenone) (Co Q 10) 1 CAP) PO SCH (09:00)
--- NOTE | 2017-03-31 13:17 | GASTROINTESTINAL CONSULTATION ---
DATE OF CONSULTATION: 03/31/2017 REASON FOR CONSULTATION: Common bile duct stones and gallstone pancreatitis. HISTORY OF PRESENT ILLNESS: The patient is an 81-year-old male who had cholecystectomy 2 years ago for cholecystitis. He was found to have sludge in his gallbladder. Ever since the surgery, he has been having intermittent epigastric and back pain about twice a month, especially after eating fatty foods. Yesterday evening, the pain became so severe, it was 10/10, and he ended up coming to the hospital, where he was admitted. CT scan demonstrates 2 common duct stones, 4 and 6 mm in diameter with common bile duct measuring 12 mm. There was also evidence of pancreatitis. The pancreas is atrophic, but there was some stranding around the head and his lipase is about 7000. His appetite is poor at this time. The patient was started on IV Cipro and bowel rest and GI consultation obtained. PAST MEDICAL HISTORY: Remarkable for spindle cell cancer on his scalp. He has had excision, radiation therapy and skin grafting. He has had a laparoscopic cholecystectomy. Has a seizure disorder. MEDICATIONS: Lipitor, vitamin D, Depakote, doxycycline, Synthroid, multiple vitamin, Metamucil, Zantac. ALLERGIES: ADHESIVES. SOCIAL HISTORY: The patient is , he is retired. Does not smoke or drink. FAMILY HISTORY: Noncontributory. REVIEW OF SYSTEMS: Positive for epigastric pain and anorexia. The remainder is negative. PHYSICAL EXAMINATION: GENERAL: The patient appears in no acute distress. VITAL SIGNS: Blood pressure is 135/80, pulse 100, he is afebrile. LUNGS: Clear. HEART: Showed a normal S1 and S2. Regular rate and rhythm. ABDOMEN: Shows laparoscopic cholecystectomy scars. There is mild tenderness in the epigastric area. No mass or rebound. EXTREMITIES: Showed no clubbing, cyanosis or edema. NEUROLOGIC: Grossly normal. IMPRESSION: The patient has common bile duct stones with pancreatitis. The patient will be continued on IV fluids, IV Cipro and his aspirin will be held. He will be scheduled for an ERCP tomorrow afternoon with Dr. Chowdhury to remove the stones.
[2017-03-31 15:06] VITALS: BP 130/75; PULSE 92; TEMP 36.9; O2SAT 93
--- NOTE | 2017-03-31 15:19 | Family Medicine Progress Note ---
Progress Note Date of Service Mar 31, 2017. Subjective Pt evaluation today including: conversation w/ patient, physical exam, chart review, lab review, review of inpatient medication list Pain: Abdominal pain PO Intake: NPO Voiding: no voiding problems Mr. Jacob reports that his pain has subsided from yesterday. He states he is only experiencing mild abdominal pain at the moment, diffusely throughout his abdomen. He states he felt feverish, with chills yesterday, but feels better today. He reports that this episode of abdominal pain felt similar to the pain he had before his cholecystectomy 2 years ago, and that he has not had this type of pain since. He reports he no longer feels nauseous and has not vomited. He denies chest pain and SOB. Constitutional: + fever, + chills, + weakness Respiratory: No cough, No sputum, No wheezing, No shortness of breath Cardiovascular: No chest pain, No orthopnea, No PND, No edema Abdomen: + pain, No nausea, No vomiting, No diarrhea, No constipation All Other Systems: Reviewed and Negative Medications Current Inpatient Medications Medications (Trade) Dose Ordered Sig/Sadie Route Start Time Stop Time Status Last Admin Dose Admin Ioversol (Optiray 320) 115 ml UD PRN IV 03/30/17 21:15 04/03/17 21:14 Acetaminophen (Tylenol Tab) 650 mg Q4H PRN PO 03/30/17 22:45 04/29/17 22:44 03/31/17 07:39 650 MG Al Hydrox/Mg Hydrox/Simethicone (Maalox Max Susp) 15 ml Q4H PRN PO 03/30/17 22:45 04/29/17 22:44 Magnesium Hydroxide (Milk Of Magnesia Susp) 30 ml Q6H PRN PO 03/30/17 22:45 04/29/17 22:44 Ondansetron HCl (Zofran Inj) 4 mg Q6H PRN IV 03/30/17 22:45 04/29/17 22:44 Lactated Ringer's 1,000 ml @ 150 mls/hr Q6H40M IV 03/30/17 23:59 04/29/17 23:58 03/31/17 06:05 150 MLS/HR Atorvastatin Calcium (Lipitor Tab) 20 mg DAILY PO 03/31/17 09:00 04/30/17 08:59 12/14/17 07:39 20 MG Divalproex Sodium (Depakote Extended Rel Tab) 500 mg BID PO 03/31/17 09:00 04/30/17 08:59 03/31/17 07:40 500 MG Levothyroxine Sodium (Synthroid Tab) 125 mcg DAILYBB PO 03/31/17 06:00 04/30/17 05:59 03/31/17 06:05 125 MCG Multivitamins (Multivitamin Tab) 1 tab DAILY PO 03/31/17 09:00 04/30/17 08:59 03/31/17 07:39 1 TAB Ranitidine HCl (zANTac TAB) 300 mg HS PO 03/31/17 21:00 04/30/17 20:59 Cholecalciferol (Vitamin D Tab) 2,000 inter.unit DAILY PO 03/31/17 09:00 04/30/17 08:59 03/31/17 07:40 2,000 INTER.UNIT Miscellaneous Information (Order Awaiting Action) 1 ea QS N/A 03/31/17 08:00 04/30/17 07:59 Psyllium Hydrophilic Mucilloid (Metamucil Powder) 1 pkt DAILY PO 03/31/17 09:00 04/30/17 08:59 Morphine Sulfate (MoRPHine SULFATE INJ) 4 mg Q4H PRN IV 03/31/17 01:30 04/14/17 01:29 Ciprofloxacin/ Dextrose 400 mg/ Prmx 200 ml @ 100 mls/hr Q12H IV 03/31/17 06:00 04/02/17 05:59 03/31/17 06:04 100 MLS/HR Objective Vital Signs Date Time Temp Pulse Resp B/P (MAP) Pulse Ox O2 Delivery O2 Flow Rate FiO2 03/31/17 07:45 Room Air 03/31/17 07:18 37.3 103 16 115/74 (88) 90 Room Air 03/31/17 00:05 37.3 114 18 135/80 93 Nasal Cannula 2.0 03/31/17 00:00 Nasal Cannula 2.0 03/30/17 23:01 107 18 116/72 94 03/30/17 22:08 103 18 118/63 93 Nasal Cannula 2.0 03/30/17 20:10 96 Nasal Cannula 2.0 03/30/17 20:09 89 Room Air 03/30/17 20:08 97 18 122/72 90 Room Air 03/30/17 19:24 36.4 96 18 123/84 95 Room Air Physical Exam General Appearance: WD/WN, no apparent distress, + pertinent finding (bandage over back of head) Eyes: + pertinent finding (scleral icterus ) Respiratory/Chest: chest non-tender, lungs clear, normal breath sounds, no respiratory distress, no accessory muscle use Cardiovascular: regular rate, rhythm, no edema, no gallop, no JVD, no murmur Abdomen: normal bowel sounds, non tender, soft, no organomegaly, no pulsatile mass Laboratory Results Last 24 Hours Test 03/30/17 19:49 03/30/17 21:18 03/30/17 21:40 03/31/17 00:13 White Blood Count 12.86 K/uL Red Blood Count 4.14 M/uL Hemoglobin 13.9 g/dL Hematocrit 41.5 % Mean Corpuscular Volume 100.2 fL Mean Corpuscular Hemoglobin 33.6 pg Mean Corpuscular Hemoglobin Concent 33.5 g/dl Platelet Count 163 K/uL Mean Platelet Volume 10.3 fL Neutrophils (%) (Auto) 83.4 % Lymphocytes (%) (Auto) 6.6 % Monocytes (%) (Auto) 9.5 % Eosinophils (%) (Auto) 0.0 % Basophils (%) (Auto) 0.1 % Neutrophils # (Auto) 10.73 K/uL Lymphocytes # (Auto) 0.85 K/uL Monocytes # (Auto) 1.22 K/uL Eosinophils # (Auto) 0.00 K/uL Basophils # (Auto) 0.01 K/uL RDW Standard Deviation 57.8 fL RDW Coefficient of Variation 15.7 % Immature Granulocyte % (Auto) 0.4 % Immature Granulocyte # (Auto) 0.05 K/uL Sodium Level 135 mmol/L Potassium Level mmol/L 4.3 mmol/L Chloride Level 101 mmol/L Carbon Dioxide Level 26 mmol/L Anion Gap 8.0 mmol/L Blood Urea Nitrogen 18 mg/dl Creatinine 1.18 mg/dl Estimated GFR () 67.1 Estimated GFR (Non- 57.9 BUN/Creatinine Ratio 15.0 Random Glucose 198 mg/dl Calcium Level 9.7 mg/dl Total Bilirubin 5.2 mg/dl Direct Bilirubin mg/dl 4.3 mg/dl Aspartate Amino Transf (AST/SGOT) U/L 257 U/L Alanine Aminotransferase (ALT/SGPT) 475 U/L Alkaline Phosphatase 209 U/L Total Protein 7.2 gm/dl Albumin 3.8 gm/dl Lipase 4039 U/L Urine Color DK YELLOW Urine Appearance CLEAR Urine pH 6.0 Urine Specific [place] > 1.045 Urine Protein NEG Urine Glucose (UA) NEG Urine Ketones 1+ Urine Occult Blood NEG Urine Nitrite NEG Urine Bilirubin 2+ Urine Urobilinogen NEG Urine Leukocyte Esterase NEG Urine WBC (Auto) 1-5 /hpf Urine RBC (Auto) 10-30 /hpf Urine Hyaline Casts (Auto) 1-5 /lpf Urine Epithelial Cells (Auto) 10-20 /lpf Urine Bacteria (Auto) NEG Bedside Glucose 198 mg/dl Test 03/31/17 06:32 White Blood Count 12.90 K/uL Red Blood Count 3.66 M/uL Hemoglobin 12.0 g/dL Hematocrit 37.0 % Mean Corpuscular Volume 101.1 fL Mean Corpuscular Hemoglobin 32.8 pg Mean Corpuscular Hemoglobin Concent 32.4 g/dl Platelet Count 115 K/uL Mean Platelet Volume 9.7 fL Neutrophils (%) (Auto) 89.3 % Lymphocytes (%) (Auto) 3.3 % Monocytes (%) (Auto) 7.1 % Eosinophils (%) (Auto) 0.0 % Basophils (%) (Auto) 0.1 % Neutrophils # (Auto) 11.52 K/uL Lymphocytes # (Auto) 0.42 K/uL Monocytes # (Auto) 0.92 K/uL Eosinophils # (Auto) 0.00 K/uL Basophils # (Auto) 0.01 K/uL RDW Standard Deviation 60.7 fL RDW Coefficient of Variation 16.3 % Immature Granulocyte % (Auto) 0.2 % Immature Granulocyte # (Auto) 0.03 K/uL Sodium Level 136 mmol/L Potassium Level 4.3 mmol/L Chloride Level 104 mmol/L Carbon Dioxide Level 24 mmol/L Anion Gap 8.0 mmol/L Blood Urea Nitrogen 19 mg/dl Creatinine 1.11 mg/dl Est Creatinine Clear Calc Drug Dose 54.8 ml/min Estimated GFR () 72.3 Estimated GFR (Non- 62.4 BUN/Creatinine Ratio 17.3 Random Glucose 229 mg/dl Calcium Level 8.6 mg/dl Total Bilirubin 6.4 mg/dl Aspartate Amino Transf (AST/SGOT) 211 U/L Alanine Aminotransferase (ALT/SGPT) 397 U/L Alkaline Phosphatase 161 U/L Total Protein 5.9 gm/dl Albumin 2.8 gm/dl Globulin 3.1 gm/dl Albumin/Globulin Ratio 0.9 Lipase 7023 U/L Assessment and Plan Mr. Jacob is an 81 year old gentleman with a past medical history of seizures, hypothyroidism, hyperlipidemia, GERD, and a prior cholecystectomy who presented with 10/10 abdominal pain. He was subsequently found to have choledocholithiasis s/p cholecystectomy and pancreatitis. Abdominal pain secondary to choledocholithiasis and pancreatitis - Thank you to GI for consult - continue IV fluids, IV Cipro - ERCP tomorrow afternoon with Dr. Chowdhury to remove the stones - NPO after midnight - morphine for pain control, hold acetaminophen - Lipase 7023 - Total bili 6.4, AST 211, ALT 397, Alk phos 161 - continue Ringer's Lactate [id number] Seizure disorder - Continue Depakote 500 mg bid Hypothyroidism - continue synthroid 125 mcg daily Hyperlipidemia - Continue Atorvastatin 20 mg daily GERD - continue Zantac DVT prophylaxis: SCDs Code: Full Dispo: remains on med/surg Resident Tracking Resident Involvement: Resident Care Provided Care Provided: Adult Hospital Medicine Reviewed: Pt Seen/Exam by Me History no abdominal pain no appetite. Constitutional: denies: fever Respiratory: negative: short of breath Cardiovascular: denies chest pain General Appearance: no apparent distress Respiratory: lungs clear, no respiratory distress Cardiovascular: regular rate, rhythm Gastrointestinal: normal bowel sounds, non tender, soft Neurologic/Psychiatric: alert, oriented x 3 Skin Characteristics: warm/dry, jaundice Assessment/Plan Resident Physician Supervision Note: I independently interviewed and examined the patient and verified the sargent history and physical, reviewed labs and image studies, discussed the case with the resident Dr. Tavarez and agree with the findings and care plan.
--- NOTE | 2017-03-31 18:06 | Progress Note ---
Progress Note Date of Service Mar 31, 2017. Progress Note 81 year old patient with CBD stones and acute pancreatitis scheduled for ERCP on 04/[address] Chowdhury. Patient is in excellent health for his age prior to the acute illness. PMH significant for HLD, Hypothyroid, and a well controlled seizure disorder. No cardiopulmonary disease. Airway exam is reassuring. Labs were reviewed and other than a mild thrombocytopenia are unremarkable. Anticipate GETA on 04/01 as planned. Questions answered and consent obtained.
[2017-03-31 19:19] VITALS: O2SAT 100
[2017-03-31] MEDS: RANITIDINE HCL 150 MG TAB PO SCH (20:33)
[2017-03-31 23:14] VITALS: BP 111/68; PULSE 93; TEMP 37.3; O2SAT 92
[2017-04-01] VITALS (8 sets, daily range): BP systolic 123–137; BP diastolic 71–82; PULSE 66–92; TEMP 36.6–37.6; O2SAT 92–97
[2017-04-01] MEDS: LACTATED RINGER'S 1000ML 1,000 ML IV SCH ×4 (02:12→23:47)
[2017-04-01] MEDS ORDERED: INDOMETHACIN 50 MG SUPP PR SCH (06:00)
[2017-04-01] MEDS: LEVOTHYROXINE 125 MCG TAB PO SCH (06:00)
[2017-04-01] MEDS: CIPROFLOXACIN / D5W 400 MG in PREMIXED IN D5W 200 ML IV SCH ×2 (06:19→18:00)
[2017-04-01 06:48] LABS: MEAN CELL VOLUME 99.4 fL (80-100); MEAN CORPUSCULAR HEMOGLOBIN 32.9 pg (25-34); MEAN CORPUSCULAR HGB CONC 33.1 g/dl (32-36); PLATELET COUNT 114 K/uL (130-400); RED BLOOD COUNT 3.22 M/uL (4.7-6.1); WHITE BLOOD COUNT 8.25 K/uL (4.8-10.8)
[2017-04-01 07:22] LABS: CALCIUM 8.5 mg/dl (8.5-10.1); CREATININE 0.78 mg/dl (0.60-1.40); POTASSIUM 3.7 mmol/L (3.5-5.1)
[2017-04-01] MEDS: ATORVASTATIN 20 MG TAB PO SCH (07:22)
[2017-04-01] MEDS: DIVALPROEX 500 MG EXTENDED RELEASE TAB PO SCH ×2 (07:22→20:57)
[2017-04-01] MEDS: CLOBETASOL~ORDER AWAITING ACTION SCH ×2 (07:22→16:00)
[2017-04-01] MEDS: PSYLLIUM 58.6% PWD PACK S\\F PO SCH (07:23)
[2017-04-01] MEDS: MULTIVITAMIN TAB PO SCH (07:23)
[2017-04-01] MEDS: CHOLECALCIFEROL 1000 INTER.UNIT TAB PO SCH (07:23)
--- NOTE | 2017-04-01 09:05 | Clinical Documentation Query ---
CLINICAL DOCUMENTATION QUERY Dr. SOTO, In your clinical opinion is this patient being managed for: ( ) SIRS due to pancreatitis ( ) Not Agree ( ) Other explanation of clinical findings (Please Explain) ( ) Unable to determine (Please Define) ( ) Need to Discuss The medical record reflects the following clinical findings, treatment, and risk factors. Clinical Indicators:81 yo male presenting with a 5 day hx of waxing and waning abd pain. WBC 12.86, lipase 4039-rising to 7023. HR 96-114. Self reported feeling feverish with chills prior to ER presentation. Treatment: 1L NSS bolus then continuous, IV zosyn, IV cipro, NPO, IV morphine, IV zofran, GI consult with plan for ERCP, Indocin suppository pre ERCP Risk Factors: age, gallstone pancreatitis SIRS criteria are present in many hospitalized patients, including those who never develop infection and never incur adverse outcomes. SIRS may simply reflect an appropriate host response that is frequently adaptive. *SIRS may be clinically indicated by any 2 of the 4 following indicators in the presence of an infectious process: 1.Temperature >38*C or <36C 2.Heart Rate >90/min 3.Respiratory Rate >20/min or PaCO2 <32 mm Hg 4.WBC >12,000/mm3 or <4000/mm3 or >10% immature bands Please clarify and document your clinical opinion in the progress notes and discharge summary. Terms such as "probable", "suspected", "likely", "questionable", "possible", or "still to be ruled out" are acceptable. IF IN AGREEMENT, YOU MUST DOCUMENT ABOVE DIAGNOSTIC STATEMENT IN DAILY PROGRESS NOTES AND DISCHARGE SUMMARY. This document is not part of the patient's record. Thank You, Joya Guerra, RN [phone]
--- NOTE | 2017-04-01 09:08 | Clinical Documentation Query ---
CLINICAL DOCUMENTATION QUERY Dr. KHAN, In your clinical opinion is this patient being managed for: (x ) SIRS due to pancreatitis ( ) Not Agree ( ) Other explanation of clinical findings (Please Explain) ( ) Unable to determine (Please Define) ( ) Need to Discuss The medical record reflects the following clinical findings, treatment, and risk factors. Clinical Indicators:81 yo male presenting with a 5 day hx of waxing and waning abd pain. WBC 12.86, lipase 4039-rising to 7023. HR 96-114. Self reported feeling feverish with chills prior to ER presentation. Treatment: 1L NSS bolus then continuous, IV zosyn, IV cipro, NPO, IV morphine, IV zofran, GI consult with plan for ERCP, Indocin suppository pre ERCP Risk Factors: age, gallstone pancreatitis SIRS criteria are present in many hospitalized patients, including those who never develop infection and never incur adverse outcomes. SIRS may simply reflect an appropriate host response that is frequently adaptive. *SIRS may be clinically indicated by any 2 of the 4 following indicators in the presence of an infectious process: 1.Temperature >38*C or <36C 2.Heart Rate >90/min 3.Respiratory Rate >20/min or PaCO2 <32 mm Hg 4.WBC >12,000/mm3 or <4000/mm3 or >10% immature bands Please clarify and document your clinical opinion in the progress notes and discharge summary. Terms such as "probable", "suspected", "likely", "questionable", "possible", or "still to be ruled out" are acceptable. IF IN AGREEMENT, YOU MUST DOCUMENT ABOVE DIAGNOSTIC STATEMENT IN DAILY PROGRESS NOTES AND DISCHARGE SUMMARY. This document is not part of the patient's record. Thank You, Joya Guerra, RN [phone]
--- NOTE | 2017-04-01 15:51 | Family Medicine Progress Note ---
Progress Note Date of Service Apr 01, 2017. Subjective Pt evaluation today including: conversation w/ patient, physical exam, chart review, lab review, review of inpatient medication list Pain: No pain reported PO Intake: NPO Voiding: no voiding problems Mr. Jacob reports he feels slightly better today. He denies abdominal pain, fever , chills, nausea or vomiting. He states his mouth feels dry and that he has a dry cough associated with this. Otherwise, he states his stomach feels empty. Constitutional: No fever, No chills Respiratory: + cough, No sputum, No wheezing, No shortness of breath Cardiovascular: No chest pain Abdomen: No pain, No nausea, No vomiting All Other Systems: Reviewed and Negative Medications Current Inpatient Medications Medications (Trade) Dose Ordered Sig/Sadie Route Start Time Stop Time Status Last Admin Dose Admin Ioversol (Optiray 320) 115 ml UD PRN IV 03/30/17 21:15 04/03/17 21:14 Acetaminophen (Tylenol Tab) 650 mg Q4H PRN PO 03/30/17 22:45 04/29/17 22:44 Future Hold 03/31/17 07:39 650 MG Al Hydrox/Mg Hydrox/Simethicone (Maalox Max Susp) 15 ml Q4H PRN PO 03/30/17 22:45 04/29/17 22:44 Magnesium Hydroxide (Milk Of Magnesia Susp) 30 ml Q6H PRN PO 03/30/17 22:45 04/29/17 22:44 Ondansetron HCl (Zofran Inj) 4 mg Q6H PRN IV 03/30/17 22:45 04/29/17 22:44 Lactated Ringer's 1,000 ml @ 125 mls/hr Q8H IV 03/30/17 23:59 04/29/17 23:58 04/01/17 02:12 150 MLS/HR Atorvastatin Calcium (Lipitor Tab) 20 mg DAILY PO 03/31/17 09:00 04/30/17 08:59 03/31/17 07:39 20 MG Divalproex Sodium (Depakote Extended Rel Tab) 500 mg BID PO 03/31/17 09:00 04/30/17 08:59 03/31/17 20:32 500 MG Levothyroxine Sodium (Synthroid Tab) 125 mcg DAILYBB PO 03/31/17 06:00 04/30/17 05:59 03/31/17 06:05 125 MCG Multivitamins (Multivitamin Tab) 1 tab DAILY PO 03/31/17 09:00 04/30/17 08:59 03/31/17 07:39 1 TAB Ranitidine HCl (zANTac TAB) 300 mg HS PO 03/31/17 21:00 04/30/17 20:59 03/31/17 20:33 300 MG Cholecalciferol (Vitamin D Tab) 2,000 inter.unit DAILY PO 03/31/17 09:00 04/30/17 08:59 03/31/17 07:40 2,000 INTER.UNIT Miscellaneous Information (Order Awaiting Action) 1 ea QS N/A 03/31/17 08:00 04/30/17 07:59 Psyllium Hydrophilic Mucilloid (Metamucil Powder) 1 pkt DAILY PO 03/31/17 09:00 04/30/17 08:59 Morphine Sulfate (MoRPHine SULFATE INJ) 4 mg Q4H PRN IV 03/31/17 01:30 04/14/17 01:29 Ciprofloxacin/ Dextrose 400 mg/ Prmx 200 ml @ 100 mls/hr Q12H IV 03/31/17 06:00 04/02/17 05:59 04/01/17 06:19 100 MLS/HR Indomethacin (Indocin Suppository) 100 mg PREOP NM 04/01/17 06:00 04/01/17 18:00 Objective Vital Signs Date Time Temp Pulse Resp B/P (MAP) Pulse Ox O2 Delivery O2 Flow Rate FiO2 04/01/17 06:57 37.6 92 18 124/71 (88) 92 Room Air 03/31/17 23:40 Room Air 03/31/17 23:14 37.3 93 16 111/68 (82) 92 Room Air 03/31/17 19:19 100 Room Air 03/31/17 15:15 Room Air 03/31/17 15:06 36.9 92 16 130/75 (93) 93 Room Air Physical Exam General Appearance: WD/WN, no apparent distress Eyes: + pertinent finding (improvement in scleral icterus from yesterday) Respiratory/Chest: chest non-tender, lungs clear, normal breath sounds, no respiratory distress, no accessory muscle use Cardiovascular: regular rate, rhythm, no edema, no gallop, no JVD, no murmur Abdomen: normal bowel sounds, non tender, soft, no organomegaly, no pulsatile mass Laboratory Results Last 24 Hours Test 04/01/17 06:17 White Blood Count 8.25 K/uL Red Blood Count 3.22 M/uL Hemoglobin 10.6 g/dL Hematocrit 32.0 % Mean Corpuscular Volume 99.4 fL Mean Corpuscular Hemoglobin 32.9 pg Mean Corpuscular Hemoglobin Concent 33.1 g/dl RDW Standard Deviation 59.1 fL RDW Coefficient of Variation 16.2 % Platelet Count 114 K/uL Mean Platelet Volume 10.0 fL Sodium Level 137 mmol/L Potassium Level 3.7 mmol/L Chloride Level 104 mmol/L Carbon Dioxide Level 26 mmol/L Anion Gap 6.0 mmol/L Blood Urea Nitrogen 16 mg/dl Creatinine 0.78 mg/dl Est Creatinine Clear Calc Drug Dose 78.0 ml/min Estimated GFR () 98.8 Estimated GFR (Non- 85.3 BUN/Creatinine Ratio 20.0 Random Glucose 136 mg/dl Calcium Level 8.5 mg/dl Total Bilirubin 2.8 mg/dl Direct Bilirubin 2.2 mg/dl Aspartate Amino Transf (AST/SGOT) 128 U/L Alanine Aminotransferase (ALT/SGPT) 302 U/L Alkaline Phosphatase 129 U/L Total Protein 5.2 gm/dl Albumin 2.3 gm/dl Assessment and Plan Mr. Jacob is an 81 year old gentleman with a past medical history of seizures, hypothyroidism, hyperlipidemia, GERD, and a prior cholecystectomy who presented with 10/10 abdominal pain. He was subsequently found to have choledocholithiasis s/p cholecystectomy and pancreatitis. Abdominal pain secondary to choledocholithiasis and pancreatitis SIRS due to pancreatitis - Thank you to GI for consult - continue IV fluids, IV Cipro - ERCP today at [address] Chowdhury to remove the stones - morphine for pain control, hold acetaminophen - Lipase 7023 - LFTs improved - Total bili 2.8, AST 128, ALT 302, Alk phos 129 - continue Ringer's Lactate at 125cc/h Seizure disorder - Continue Depakote 500 mg bid Hypothyroidism - continue synthroid 125 mcg daily Hyperlipidemia - Continue Atorvastatin 20 mg daily GERD - continue Zantac DVT prophylaxis: SCDs, Lovenox SQ starting tomorrow Code: Full Dispo: remains on med/surg Resident Tracking Resident Involvement: Resident Care Provided Care Provided: Adult Hospital Medicine Reviewed: Pt Seen/Exam by Me History abdominal pain none. feeling hungry Constitutional: denies: fever Respiratory: negative: short of breath Cardiovascular: denies chest pain General Appearance: no apparent distress Respiratory: lungs clear, no respiratory distress Cardiovascular: regular rate, rhythm Neurologic/Psychiatric: alert, oriented x 3 Skin Characteristics: warm/dry Assessment/Plan Resident Physician Supervision Note: I independently interviewed and examined the patient and verified the sargent history and physical, reviewed labs and image studies, discussed the case with the resident Dr. Tavarez and agree with the findings and care plan.
[2017-04-01 17:02] LABS: INR 1.1 (0.9-1.1); PARTIAL THROMBOPLASTIN RATIO 1.1; PROTHROMBIN TIME (PATIENT) 11.2 SECONDS (9.0-12.0)
[2017-04-01] MEDS ORDERED: MIDAZOLAM HCL 1 MG/ML 2ML VIAL ONE (17:36)
[2017-04-01] MEDS ORDERED: FENTANYL CITRATE INJ 50 MCG/1 ML 2 ML VIAL ONE (17:36)
[2017-04-01] MEDS ORDERED: ONDANSETRON INJ 2 MG/ML 2 ML VIAL IV PRN (17:45)
[2017-04-01] MEDS ORDERED: EpHEDrine SULFATE INJ 50 MG/ML AMP IV PRN (17:45)
[2017-04-01] MEDS ORDERED: FENTANYL CITRATE INJ 50 MCG/1 ML 2 ML VIAL IV PRN (17:45)
[2017-04-01] MEDS ORDERED: ATROPINE SULFATE 0.1 MG/ML 5ML SYR IV PRN (17:45)
--- NOTE | 2017-04-01 18:04 | History & Physical Bridge Note ---
H&P Re-Evaluation Bridge Note: I have examined the patient, reviewed the History & Physical and in the interval since the performance of the History & Physical I have noted the following changes of clinical significance AAO x23 Nl s1s2 Lungs CTa Abd soft NT/ND = Bs - CCE consent obtained risks /benefits alternatives d/w pt agrees to proceed : No changes noted
[2017-04-01] MEDS ORDERED: SUCCINYLCHOLINE CHLORIDE 20 MG/ML 10 ML VIAL IV ONE (18:27)
[2017-04-01] MEDS ORDERED: ONDANSETRON INJ 2 MG/ML 2 ML VIAL ONE (18:27)
[2017-04-01] MEDS ORDERED: PROPOFOL IV EMULSION 10 MG/ML 20 ML VIAL IV ONE (18:27)
[2017-04-01] MEDS ORDERED: LIDOCAINE HCL 2% 2 ML VIAL (20MG/ML) ONE (18:27)
[2017-04-01] MEDS ORDERED: ROCURONIUM BROMIDE 10 MG/ML 5 ML VIAL IV ONE (18:27)
[2017-04-01] MEDS ORDERED: DEXAMETHASONE SOD INJ 4 MG/ML VIAL ONE (18:27)
--- NOTE | 2017-04-01 19:13 | DIAGNOSTIC IMAGING REPORT ---
ERCP BILIARY DUCTAL CLINICAL HISTORY: 81 years-old Male presenting with EXPLORE DUCTS. TECHNIQUE: Fluoroscopy was provided for an intraoperative cholangiogram status post cholecystectomy. Contrast was injected through the cystic duct remnant. COMPARISON: CT from 03/30/2017. FINDINGS: An endoscope projects to the level of the distal descending duodenum. A catheter has been introduced into the common duct, which is partially opacified with contrast. Several filling defects evident in the distal common duct. Subsequently, a balloon was used to clear the apparent filling defects. Contrast extends into the small bowel. There is no intrahepatic bile duct dilatation. Fluoroscopy dosage (mGy): 41.84. Fluoroscopy time: 123.8 seconds. Number of fluoroscopic spot images: 6. IMPRESSION: Fluoroscopy provided for an intraoperative cholangiogram status post cholecystectomy. Additional filling defects at the beginning of the intraoperative cholangiogram without persistent choledocholithiasis at the conclusion of the procedure. Electronically signed by: Ronaldo Thompson M.D. 04/01/2017 7:12 PM Dictated Date/Time: 04/01/2017 7:10 PM
[2017-04-01] MEDS: RANITIDINE HCL 150 MG TAB PO SCH (20:57)
--- NOTE | 2017-04-01 21:10 | GI REPORT ---
Procedure Date: 04/01/2017 6:25 PM Procedure: ERCP Indications: Bile duct stone(s) Medicines: General Anesthesia Complications: No immediate complications. Estimated blood loss: Minimal. Estimated Blood Loss: Estimated blood loss was minimal. Procedure: Pre-Anesthesia Assessment: - Prior to the procedure, a History and Physical was performed, and patient medications and allergies were reviewed. The patient's tolerance of previous anesthesia was also reviewed. The risks and benefits of the procedure and the sedation options and risks were discussed with the patient. All questions were answered, and informed consent was obtained. Prior Anticoagulants: The patient has taken no previous anticoagulant or antiplatelet agents. ASA Grade Assessment: II - A patient with mild systemic disease. After reviewing the risks and benefits, the patient was deemed in satisfactory condition to undergo the procedure. After obtaining informed consent, the scope was passed under direct vision. Throughout the procedure, the patient's blood pressure, pulse, and oxygen saturations were monitored continuously. The Scope was introduced through the mouth, and advanced to the duodenum and used to inject contrast into the bile duct. The ERCP was accomplished without difficulty. The patient tolerated the procedure well. Findings: A child development assistant film of the abdomen was obtained. Surgical clips were seen in the area of the right upper quadrant of the abdomen. The esophagus was successfully intubated under direct vision. The scope was advanced to a normal major papilla in the descending duodenum without detailed examination of the pharynx, larynx and associated structures, and upper GI tract. The upper GI tract was grossly normal. A straight 0.035 inch Tracer [employer] Direct wire was passed into the biliary tree. The short-nosed traction sphincterotome was passed over the guidewire and the bile duct was then deeply cannulated. Contrast was injected. I personally interpreted the bile duct images. Ductal flow of contrast was adequate. Image quality was adequate. Contrast extended to the entire biliary tree. Opacification of the entire biliary tree was successful. The maximum diameter of the ducts was 6 mm. The lower third of the main bile duct contained one stone, which was 6 mm in diameter. A 4 mm biliary sphincterotomy was made with a short-tip traction sphincterotome using ERBE electrocautery. There was no post-sphincterotomy bleeding. The biliary tree was swept with an 8.5 mm balloon and 11.5 mm balloon starting at the bifurcation. All stones were removed. A standard esophagogastroduodenoscopy scope was used for the examination of the upper gastrointestinal tract. The scope was passed under direct vision through the upper GI tract. The esophagus and gastroesophageal junction were examined with white light. 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 These changes involved the mucosa at the upper extent of the gastric folds (40 cm from the incisors) extending to the Z-line (38 cm from the incisors). Hiatal narrowing was identified at 43 cm. The maximum longitudinal extent of these esophageal mucosal changes was 2 cm in length. Localized prominent gastric folds were found in the gastric antrum. The examined duodenum was normal. Biopsies were performed at 39 cm from the incisors through the esophagogastroduodenoscope with a cold forceps for histology. Biopsy was performed in the prepyloric region of the stomach through the esophagogastroduodenoscope with a cold forceps for histology. Impression: - A sphincterotomy was performed. - The biliary tree was swept. - Mucosal changes consistent with Andersen's esophagus. - Enlarged gastric folds. - Normal examined duodenum. - Biopsies were performed at 39 cm from the incisors. - Biopsy was performed in the prepyloric region of the stomach. - Choledocholithiasis was found. Complete removal was accomplished by biliary sphincterotomy and balloon extraction. - THE PD was neither instrumented nor opacified. No biliary samples taken. The 8.5 and 11.5 mm balloons easily traversed the bile duct. No stents placed. Final occlusion cholangiogram revealed no persistent fixed or mobile filling defects. Recommendation: - Return patient to [facility] for ongoing care. - Await path results. - Use a proton pump inhibitor PO daily. - Full liquid diet today. - The patient should not require a repeat ERCP. MD Virgil Nicholas MD 04/01/2017 9:09:35 PM This report has been signed electronically. Note Initiated On: 04/01/2017 6:25 PM I attest to the content of the Intraoperative Record and orders documented therein, exceptions below
[2017-04-02 03:51] VITALS: BP 116/69; TEMP 36.6; O2SAT 94
[2017-04-02] MEDS: CIPROFLOXACIN / D5W 400 MG in PREMIXED IN D5W 200 ML IV SCH (06:07)
[2017-04-02] MEDS: LEVOTHYROXINE 125 MCG TAB PO SCH (06:11)
[2017-04-02] MEDS: CLOBETASOL~ORDER AWAITING ACTION SCH ×3 (07:08→16:00)
[2017-04-02 07:09] VITALS: BP 124/74; PULSE 73; TEMP 36.5; O2SAT 98
[2017-04-02 08:25] LABS: HEMATOCRIT 29.3 % (42-52); MEAN CELL VOLUME 98.7 fL (80-100); MEAN CORPUSCULAR HGB CONC 33.4 g/dl (32-36); MEAN PLATELET VOLUME 9.7 fL (7.4-10.4); PLATELET COUNT 115 K/uL (130-400); RED BLOOD COUNT 2.97 M/uL (4.7-6.1); WHITE BLOOD COUNT 6.84 K/uL (4.8-10.8)
[2017-04-02] MEDS: ENOXAPARIN 40 MG/0.4 ML SYR SQ SCH (08:36)
[2017-04-02] MEDS: CHOLECALCIFEROL 1000 INTER.UNIT TAB PO SCH (08:36)
[2017-04-02] MEDS: DIVALPROEX 500 MG EXTENDED RELEASE TAB PO SCH ×2 (08:36→21:24)
[2017-04-02] MEDS: ATORVASTATIN 20 MG TAB PO SCH (08:36)
[2017-04-02] MEDS: MULTIVITAMIN TAB PO SCH (08:36)
[2017-04-02] MEDS: PSYLLIUM 58.6% PWD PACK S\\F PO SCH (08:36)
[2017-04-02] MEDS: LACTATED RINGER'S 1000ML 1,000 ML IV SCH (08:40)
[2017-04-02 08:59] LABS: BUN/CREATININE RATIO 23.8 (10-20); CALCIUM 8.1 mg/dl (8.5-10.1); CREATININE 0.64 mg/dl (0.60-1.40); POTASSIUM 3.8 mmol/L (3.5-5.1)
[2017-04-02] MEDS ORDERED: PANTOprazole SOD 40 MG TAB PO ONE (11:20)
[2017-04-02 11:36] VITALS: BP 107/64; PULSE 60; TEMP 36.5; O2SAT 96
--- NOTE | 2017-04-02 11:46 | GASTROENTEROLOGY PROGRESS NOTE ---
DATE: 04/02/2017 DATE: 04/02/2017 SUBJECTIVE: The patient's abdominal pain has resolved. He is feeling a little bit hungry, he has been tolerating full liquids. OBJECTIVE: His sphincterotomy and stone extraction from his bile duct yesterday by Dr. Garza was successful. He did notice a possible Andersen's and some thickened folds in the stomach which were biopsied. Those biopsies are pending. Liver tests have improved significantly today. His vital signs are normal. IMPRESSION: The patient had pancreatitis with common bile duct stones. The stones have been removed and he is improving. Plan on advancing him to a low fat diet today and if he tolerates that, he should be able to go home soon.
--- NOTE | 2017-04-02 13:52 | Family Medicine Progress Note ---
Progress Note Date of Service Apr 02, 2017. Subjective Pt evaluation today including: conversation w/ patient, physical exam, chart review, lab review Pain: denies abdominal pain today PO Intake: tolerating full liquid diet Voiding: no voiding problems This AM Mr. Jacob denied any abdominal pain, and was tolerating his full liquid diet without any n/v. Reported passing flatus but not having a BM yet. Reported a chronic and mild dry cough whenever he drinks cold liquids Constitutional: No fever, No chills Respiratory: + cough, No shortness of breath Cardiovascular: No chest pain Abdomen: No pain, No nausea, No vomiting Male : No dysuria Medications Current Inpatient Medications Medications (Trade) Dose Ordered Sig/Sadie Route Start Time Stop Time Status Last Admin Dose Admin Ioversol (Optiray 320) 115 ml UD PRN IV 03/30/17 21:15 04/03/17 21:14 Acetaminophen (Tylenol Tab) 650 mg Q4H PRN PO 03/30/17 22:45 04/29/17 22:44 Future Hold 03/31/17 07:39 650 MG Al Hydrox/Mg Hydrox/Simethicone (Maalox Max Susp) 15 ml Q4H PRN PO 03/30/17 22:45 04/29/17 22:44 Magnesium Hydroxide (Milk Of Magnesia Susp) 30 ml Q6H PRN PO 03/30/17 22:45 04/29/17 22:44 Ondansetron HCl (Zofran Inj) 4 mg Q6H PRN IV 03/30/17 22:45 04/29/17 22:44 Atorvastatin Calcium (Lipitor Tab) 20 mg DAILY PO 03/31/17 09:00 04/30/17 08:59 04/02/17 08:36 20 MG Divalproex Sodium (Depakote Extended Rel Tab) 500 mg BID PO 03/31/17 09:00 04/30/17 08:59 04/02/17 08:36 500 MG Levothyroxine Sodium (Synthroid Tab) 125 mcg DAILYBB PO 03/31/17 06:00 04/30/17 05:59 04/02/17 06:11 125 MCG Multivitamins (Multivitamin Tab) 1 tab DAILY PO 03/31/17 09:00 04/30/17 08:59 04/02/17 08:36 1 TAB Ranitidine HCl (zANTac TAB) 300 mg HS PO 03/31/17 21:00 04/30/17 20:59 04/01/17 20:57 300 MG Cholecalciferol (Vitamin D Tab) 2,000 inter.unit DAILY PO 03/31/17 09:00 04/30/17 08:59 04/02/17 08:36 2,000 INTER.UNIT Miscellaneous Information (Order Awaiting Action) 1 ea QS N/A 03/31/17 08:00 04/30/17 07:59 Psyllium Hydrophilic Mucilloid (Metamucil Powder) 1 pkt DAILY PO 03/31/17 09:00 04/30/17 08:59 Morphine Sulfate (MoRPHine SULFATE INJ) 4 mg Q4H PRN IV 03/31/17 01:30 04/14/17 01:29 Enoxaparin Sodium (Lovenox Inj) 40 mg QAM SQ 04/02/17 09:00 05/02/17 08:59 04/02/17 08:36 40 MG Pantoprazole Sodium (Protonix Tab) 40 mg QAM PO 04/03/17 09:00 04/06/17 08:59 Objective Vital Signs Date Time Temp Pulse Resp B/P (MAP) Pulse Ox O2 Delivery O2 Flow Rate FiO2 04/02/17 11:36 36.5 60 18 107/64 (78) 96 Room Air 04/02/17 07:09 36.5 73 16 124/74 (91) 98 Room Air 04/02/17 07:05 Room Air 04/02/17 03:51 36.6 16 116/69 (85) 94 Room Air 04/01/17 23:45 Room Air 04/01/17 22:53 37.0 81 17 129/74 (92) 94 Room Air 04/01/17 21:53 37.0 78 18 123/73 (90) 93 Room Air 04/01/17 20:18 36.6 66 18 137/81 (99) 96 Nasal Cannula 2.0 04/01/17 19:55 36.6 81 18 133/75 (94) 96 Room Air 04/01/17 19:50 37.2 82 16 133/82 (99) 97 Nasal Cannula 2.0 04/01/17 19:50 Nasal Cannula 2.0 04/01/17 19:45 37.8 86 18 142/82 96 Nasal Cannula 04/01/17 19:35 86 18 142/78 94 Nasal Cannula 04/01/17 19:25 92 18 150/79 94 Oxymask 10 04/01/17 19:15 95 18 148/81 94 Oxymask 10 04/01/17 19:08 37.7 103 18 147/86 95 Oxymask 10 04/01/17 17:27 37.7 86 16 132/68 (89) 93 Room Air 04/01/17 16:15 Room Air 04/01/17 15:42 37.1 84 17 132/77 (95) 93 Room Air Physical Exam General Appearance: no apparent distress Eyes: normal inspection, sclerae normal Neck: supple Respiratory/Chest: lungs clear, normal breath sounds Cardiovascular: regular rate, rhythm Abdomen: normal bowel sounds, non tender, soft Extremities: no pedal edema Neurologic/Psychiatric: alert Laboratory Results 04/02/17 08:04 04/02/17 08:04 Test 04/01/17 16:40 04/02/17 08:04 Prothrombin Time 11.2 SECONDS (9.0-12.0) Prothromb Time International Ratio 1.1 (0.9-1.1) Activated Partial Thromboplast Time 27.8 SECONDS (21.0-31.0) Partial Thromboplastin Ratio 1.1 Red Blood Count 2.97 M/uL (4.7-6.1) Mean Corpuscular Volume 98.7 fL (80-100) Mean Corpuscular Hemoglobin 33.0 pg (25-34) Mean Corpuscular Hemoglobin Concent 33.4 g/dl (32-36) RDW Standard Deviation 57.3 fL (36.4-46.3) RDW Coefficient of Variation 15.9 % (11.5-14.5) Mean Platelet Volume 9.7 fL (7.4-10.4) Anion Gap 7.0 mmol/L (3-11) Est Creatinine Clear Calc Drug Dose 95.1 ml/min Estimated GFR () 107.2 Estimated GFR (Non- 92.5 BUN/Creatinine Ratio 23.8 (10-20) Calcium Level 8.1 mg/dl (8.5-10.1) Total Bilirubin 1.2 mg/dl (0.2-1) Direct Bilirubin 0.8 mg/dl (0-0.2) Aspartate Amino Transf (AST/SGOT) 52 U/L (15-37) Alanine Aminotransferase (ALT/SGPT) 199 U/L (12-78) Alkaline Phosphatase 108 U/L (45-117) Total Protein 5.1 gm/dl (6.4-8.2) Albumin 2.0 gm/dl (3.4-5.0) Assessment and Plan Mr. Jacob is an 81yoM with hx of seizures, hypothyroidism, hyperlipidemia, GERD, and a prior cholecystectomy who presented with 10/10 abdominal pain. Found to have pancreatitis and choledocholithiasis now s/p sphincterotomy and stone extraction from common bile duct. Abdominal pain secondary to choledocholithiasis and pancreatitis SIRS due to pancreatitis - GI consulted - s/p ERCP with sphincterotomy and stone extraction day 1 - Tolerated full liquid diet - advanced to low fat diet - Morphine PRN for pain control, holding acetaminophen - Lipase 7023 - recheck tomorrow AM - LFTs improving - Total bili 1.2, Direct Bili 0.8, AST 52, ALT 199, Alk phos 108 - 04/02 Seizure disorder - Continue Depakote 500 mg bid Hypothyroidism - continue Synthroid 125 mcg daily Hyperlipidemia - Continue Atorvastatin 20 mg daily GERD - Started on Protonix 40mg QAM per GI given possible Andersen's and some thickened folds in the stomach which were biopsied - continue Zantac DVT prophylaxis: SCDs, Lovenox SQ Code: Full Dispo: remains on med/surg pending diet advancement and clinical improvement Continued [facility] stay due to: other (pending clinical improvement and advancement of diet) Discharge planning: home Resident Involvement: Resident Care Provided Care Provided: Adult Hospital Medicine Reviewed: Pt Seen/Exam by Me History no concerns overnight Constitutional: denies: fever Respiratory: negative: short of breath Cardiovascular: denies chest pain Gastrointestinal/Abdominal: negative: abdominal pain General Appearance: no apparent distress Respiratory: lungs clear, no respiratory distress Cardiovascular: regular rate, rhythm Gastrointestinal: normal bowel sounds, non tender, soft Neurologic/Psychiatric: alert, oriented x 3 Skin Characteristics: warm/dry Assessment/Plan Resident Physician Supervision Note: I independently interviewed and examined the patient and verified the sargent history and physical, reviewed labs and image studies, discussed the case with the resident Dr. Mckay and agree with the findings and care plan.
[2017-04-02 14:47] VITALS: BP 126/78; PULSE 76; TEMP 36.5; O2SAT 96
[2017-04-02] MEDS: RANITIDINE HCL 150 MG TAB PO SCH (21:24)
[2017-04-02 22:58] VITALS: BP 127/75; PULSE 71; TEMP 36.9; O2SAT 96
[2017-04-03] MEDS: LEVOTHYROXINE 125 MCG TAB PO SCH (05:42)
[2017-04-03 06:10] LABS: HEMATOCRIT 31.8 % (42-52); MEAN CELL VOLUME 98.5 fL (80-100); MEAN CORPUSCULAR HEMOGLOBIN 32.8 pg (25-34); MEAN CORPUSCULAR HGB CONC 33.3 g/dl (32-36); MEAN PLATELET VOLUME 10.1 fL (7.4-10.4); PLATELET COUNT 145 K/uL (130-400); RED BLOOD COUNT 3.23 M/uL (4.7-6.1); WHITE BLOOD COUNT 6.33 K/uL (4.8-10.8)
[2017-04-03 06:45] LABS: BUN/CREATININE RATIO 20.1 (10-20); CREATININE 0.83 mg/dl (0.60-1.40); POTASSIUM 3.8 mmol/L (3.5-5.1)
[2017-04-03 06:48] LABS: ALB/GLOB RATIO 0.6 (0.9-2)
[2017-04-03 07:21] VITALS: BP 126/80; PULSE 70; TEMP 37; O2SAT 97
[2017-04-03] MEDS: MULTIVITAMIN TAB PO SCH (08:47)
[2017-04-03] MEDS: ATORVASTATIN 20 MG TAB PO SCH (08:48)
[2017-04-03] MEDS: DIVALPROEX 500 MG EXTENDED RELEASE TAB PO SCH (08:48)
[2017-04-03] MEDS: CHOLECALCIFEROL 1000 INTER.UNIT TAB PO SCH (08:48)
[2017-04-03] MEDS: PSYLLIUM 58.6% PWD PACK S\\F PO SCH (08:52)
[2017-04-03] MEDS: ENOXAPARIN 40 MG/0.4 ML SYR SQ SCH (08:53)
[2017-04-03] MEDS: CLOBETASOL~ORDER AWAITING ACTION SCH ×2 (08:53)
[2017-04-03] MEDS ORDERED: PANTOprazole SOD 40 MG TAB PO SCH (09:00)
[2017-04-03] MEDS ORDERED: PRT40 PO (11:03)
--- NOTE | 2017-04-03 11:16 | Discharge Instructions ---
Discharge Instructions Date of Service Apr 03, 2017. Admission Reason for Admission: Choledocholithiasis, Panreatitis Discharge Discharge Diagnosis / Problem: pancreatitis and choledocholithiasis Discharge Goals Goal(s): Decrease discomfort, Diagnostic testing, Therapeutic intervention Activity Recommendations Activity Limitations: resume your previous activity . Instructions / Follow-Up Instructions / Follow-Up Mr. Jacob you were admitted with severe abdominal pain. You were found to have gallstones blocking your bile duct despite the fact that you had your gallbladder removed. The blockage was also causing pancreatitis (inflammation of your pancreas). You were seen by the GI doctors and had a procedure called ERCP. The stones were removed and they also collected biopsies of your esophagus and stomach because there was concern for inflammation based on looking at the regions with the endoscope (tube with camera). After the procedure your pain and lab work improved significantly prior to discharge. -Please follow up with GI doctors (Dr. Bowman or Luciana) in 1-2 weeks for stomach and esophagus biopsy results -Please take Protonix 40mg daily until you see the GI doctors to reduce the acid in your stomach which could be inflaming your esophagus and stomach per the GI doctors recommendation -Follow up with your reconstructive surgeon Dr. Jennifer Spaulding for your scalp wound care as previously scheduled -Take your clobestasol cream for your back rash (bullous pemphigoid) and follow up with your truck unloader if not improving -Continue taking your home medication as prescribed prior to your admission -Follow up with your primary care doctor in about a week for further care Current Hospital Diet Patient's current hospital diet: Low Fat Diet Discharge Diet Recommended Diet: Regular Diet, AHA Diet (Heart Healthy) Procedures Procedures Performed: Endoscopic Retrograde Cholangiopancreatogram with Stone extraction;Sphincterotomy; EGD with Biopsies Pending Studies Studies pending at discharge: yes List of pending studies: Stomach and esophagus biopsy results - follow up with GI doctor Dr. Bowman Medical Emergencies . Who to Call and When: Medical Emergencies: If at any time you feel your situation is an emergency, please call 911 immediately. . Non-Emergent Contact Non-Emergency issues call your: Primary Care Provider . . "Provider Documentation" section prepared by Eliz Mckay. . VTE Core Measure Inpt VTE Proph given/why not?: SCD's
[2017-04-03 11:20] VITALS: BP 126/80; PULSE 70; TEMP 37; O2SAT 97
--- NOTE | 2017-04-03 13:23 | Discharge Summary ---
Discharge Summary Date of Service Apr 03, 2017. Discharge Summary Admission Date: Mar 30, 2017 at 22:34 Discharge Date: Apr 03, 2017 Discharge Disposition: Home Principal Diagnosis: choledocholithiasis and pancreatitis Problems/Secondary Diagnoses: seizure disorder hypothyroidism hyperlipidemia GERD Immunizations: Have You Had Influenza Vaccine: Unknown History of Tetanus Vaccine?: Unknown History of Pneumococcal: Unknown History of Hepatitis B Vaccine: Unknown Procedures: ERCP with sphincterotomy and stone extraction from common bile duct Consultations: GI - Dr. Chowdhury and Gracie Medication Reconciliation New Medications: Pantoprazole (Pantoprazole Sodium) 40 Mg Tab 40 MG PO QAM for 30 Days, #30 TAB Continued Medications: Atorvastatin (Lipitor) 20 Mg Tab 20 MG PO DAILY, TAB Cholecalciferol (Vitamin D3) 2,000 Unit Tab 1 TAB PO DAILY Clobetasol Propionate (Clobetasol Propionate) 45 Appln/15 Gm Oint 1 APPLN TOP BID PRN for Blisters for 7 Days, #15 GM Coenzyme Q10 (Ubidecarenone) (Co Q 10) 100 Mg Cap 1 CAP PO DAILY Divalproex Sodium (Depakote Etended-Release) 500 Mg Tabcr 500 MG PO BID Doxycycline Hyclate (Doxycycline Hyclate) 100 Mg Tab 100 MG PO BID Levothyroxine Sodium (Synthroid) 125 Mcg Tab 125 MCG PO DAILY Multivitamin (Multivitamin) Tab 1 TAB PO DAILY, TAB Psyllium (Metamucil) 48.57 % Pow 1 DOSE PO DAILY Ranitidine Hcl (Zantac) 300 Mg Tab 1 TAB PO HS for 90 Days, #90 TAB 3 Refills Discharge Exam This morning Mr. Jacob denied any abdominal pain, n/v. He was tolerating his low fat diet, passing flatus and had a BM. He reported a pruritic rash on his back consistent with hx of previous bulbous pemphigoid rash (which he treats with clobetasol). Review of Systems: Constitutional: No fever, No chills Respiratory: No shortness of breath Cardiovascular: No chest pain Abdomen: No pain, No nausea, No vomiting, No diarrhea, No constipation Genitourinary - Male: No dysuria Physical Exam: General Appearance: no apparent distress Eyes: normal inspection, sclerae normal Respiratory/Chest: lungs clear, normal breath sounds Cardiovascular: regular rate, rhythm Abdomen / GI: normal bowel sounds, non tender, soft Extremities: no pedal edema Neurologic/Psychiatric: alert, oriented x 3 Skin: + rash (diffuse erythematous papular rash on back ), + pertinent finding (dressing on scalp wound) Hospital Course Mr. Jacob is an 81yoM with hx of seizures, hypothyroidism, hyperlipidemia, GERD, and a prior cholecystectomy who presented with 10/10 abdominal pain. Found to have pancreatitis and choledocholithiasis s/p ERCP with sphincterotomy and stone extraction from common bile duct. Abdominal pain resolved s/p ERCP procedure. 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 Discharge Instructions Please refer to the electronic Patient Visit Report (Discharge Instructions) for additional information. Additional Copies To Balaji Jenkins M.D. Reviewed: Pt Seen/Exam by Me History no abdominal pain, tolerated solids well Constitutional: denies: fever Respiratory: negative: short of breath Cardiovascular: denies chest pain General Appearance: no apparent distress Respiratory: lungs clear, no respiratory distress Cardiovascular: regular rate, rhythm Gastrointestinal: soft Neurologic/Psychiatric: alert, oriented x 3 Skin Characteristics: other (scalp ulcer +) Assessment/Plan Resident Physician Supervision Note: I independently interviewed and examined the patient and verified the sargent history and physical, reviewed labs and image studies, discussed the case with the resident Dr. Mckay and agree with the findings and care plan. Time spent in discharge 40 min
--- NOTE | 2017-04-06 10:00 | Anesthesiology Progress Note ---
Anesthesia Post Op Note Date & Time Apr 06, 2017 at 10:00 Vital Signs Pain Intensity: 0.0 Notes Mental Status: alert / awake / arousable, participated in evaluation Pt Amnestic to Procedure: Yes Nausea / Vomiting: adequately controlled Pain: adequately controlled Airway Patency, RR, SpO2: stable & adequate BP & HR: stable & adequate Hydration State: stable & adequate Anesthetic Complications: no major complications apparent
--- NOTE | 2017-04-06 14:11 | EDITING REQUIRED CODING QUERY ---
SEPSIS To promote full compliance with coding requirements relating to patient care, physician participation is requested in all cases of loan consultant uncertainty. Please assist us with the question(s) below: In responding to this query, please exercise your independent professional judgement. The fact that a question is asked does not imply that any particular answer is desired or expected. We appreciate your clarification on this issue. Throughout the medical record, you have clearly documented a localized infection and your patient has clinical evidence of a generalized sepsis or severe sepsis. The term urosepsis is a nonspecific entity and is coded as an UTI. If the patient has sepsis, severe sepsis, from an urinary source or some other source, please clarify in your response below. The medical record reflects the following clinical findings: (With dates as appropriate) (Body temperature of >38.3 C(101 F) or <36 C(96.8F), pulse >90/minute, respirations >20/minute, WBC count >12,000 or <4,000, altered mental status, significant edema or positive fluid balance, hyperglycemia without diabetes, hypotension, metabolic acidosis (elev. lactate level, anion gap or reduced blood pH), shock, positive blood culture (enter organism) ( )Bacteremia (Nonspecific laboratory finding of bacteria in the blood) Specify Organism ( ) Present on Admission ( ) Not present on admission ( ) Unable to clinically determine ( ) Septicemia (Systemic disease associated with the presence of pathogenic microorganisms in the blood): Specify Organism ( ) Present on Admission ( ) Not present on admission ( ) Unable to clinically determine ( ) Sepsis Specify Organism Specify Associated Condition/Diagnosis ( ) Present on Admission ( ) Not present on admission ( ) Unable to clinically determine ( ) Severe Sepsis (Sepsis associated with acute organ dysfunction) Specify Organism Specify Associated Condition/Diagnosis ( ) Present on Admission ( ) Not present on admission ( ) Unable to clinically determine ( ) Septic Shock (Severe sepsis with acute circulatory failure, unexplained by other causes) ( ) Present on Admission ( ) Not present on admission ( ) Unable to clinically determine ( x ) Other, patient has: SIRS
--- NOTE | 2017-04-08 06:56 | EDITING REQUIRED CODING QUERY ---
CODING QUERY To promote full compliance with coding requirements relating to patient care, provider participation is requested in all cases of estimator lumber uncertainty. Please assist us with the question(s) below: Coding Question(s): In your clinical opinion is this patient being managed for: ( x ) SIRS due to pancreatitis ( ) Not Agree ( ) Other explanation of clinical findings (Please Explain) ( ) Unable to determine (Please Define) ( ) Need to Discuss Please clarify and document your clinical opinion in the progress notes and discharge summary. Terms such as "probable", "suspected", "likely", "questionable", "possible", or "still to be ruled out" are acceptable. IF IN AGREEMENT, YOU MUST DOCUMENT ABOVE DIAGNOSTIC STATEMENT IN DAILY PROGRESS NOTES AND DISCHARGE SUMMARY. Physician's Response(s): Thank you Mirna Mares Principal Diagnosis: "_that condition established after study, to be chiefly responsible for occasioning the admission of the patient to the hospital for care." Co-Existing Principal Diagnosis: "_when two or more diagnoses equally meet the criteria for principal diagnosis as determined by the circumstances of admission, diagnostic work up, and/or therapy provided, and the Alphabetic Index, Tabular List, or another coding guideline does not provide sequencing direction, any one of the diagnoses may be sequenced first." "When the physician has documented what appears to be a current diagnosis in the body of the record, but has not included the diagnosis in the final diagnostic statement, the physician should be asked whether the diagnosis should be added." (Source Coding [facility] 2 QTR90. p3-4)
== END 2017-04-03 13:50 | disposition home or self-care (01) | DRG 439 ==
LOC: C.EDB 19:23 → C.MSN 22:34 → ENRESERV 22:40
PROVIDERS: ADMIT Hospitalist; ATTEND Family Medicine
PROC: 0F798DZ Dilation of Common Bile Duct with Intraluminal Device, Via Natural or Artificial Opening Endoscopic (ICD-10-PCS; principal; 2017-04-01 10:45)
DX: K85.10 Biliary acute pancreatitis without necrosis or infection (principal); R65.10 Systemic inflammatory response syndrome (SIRS) of non-infectious origin without acute organ dysfunction; K44.9 Diaphragmatic hernia without obstruction or gangrene; R74.0 Nonspecific elevation of levels of transaminase and lactic acid dehydrogenase [LDH]; G40.909 Epilepsy, unspecified, not intractable, without status epilepticus; E03.9 Hypothyroidism, unspecified; E78.5 Hyperlipidemia, unspecified; K21.9 Gastro-esophageal reflux disease without esophagitis; Z90.49 Acquired absence of other specified parts of digestive tract

== ENCOUNTER → 2017-05-05 | Outpatient (CLI) | payer BC ==
[~2017-05-05] MED LIST changes: -DPKEC500 PO; +DPKSR/500 PO; +PRT40 PO; +VBRT100 PO; +ciprofloxacin
[2017-05-05 13:32] VITALS: BP 135/73; PULSE 71; TEMP 36.3; O2SAT 99
--- NOTE | 2017-05-06 08:14 | Radiation Oncology Follow-Up ---
Radiation Oncology Follow-Up Date of Visit May 05, 2017. 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 Location: vertex of the scalp Permanent Comment: Development of a skin lesion on the vertex of the scalp Tangential biopsy 08/25/2015 malignant spindle cell neoplasm, consistent with atypical fibroxanthoma Wide excision 09/05/2015 scar and residual spindle cell neoplasm Recurrent malignant spindle cell neoplasm, consistent with pleomorphic dermal sarcoma 04/27/2016 Wide local excision of pleomorphic cell sarcoma of the scalp with 2 centimeter margins, defect 7 x 12 cm, placement of graft 06/11/2016 Status post completion of radiation therapy 09/15/2016 he received 6000 cGy Last Edited By: Chantel Cassidy on Sep 27, 2016 14:37 History of Present Illness Mr. Jacob with a lesion in the vertex scalp. The patient initially underwent a shave biopsy by Dr. Leal on 08/21/2015 which revealed a malignant spindle cell neoplasm, consistent with atypical fibroxanthoma in the differential diagnosis included a pleomorphic dermal sarcoma. The patient was seen by Dr. Jennifer Spaulding from plastic surgery who performed a reexcision on 09/04/2015 of the scar which revealed residual spindle cell neoplasm and scar extending to the peripheral margin. The patient was then followed with clinical observation. The patient subsequently had a recurrence that was initially biopsied by Dr. 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 The patient then underwent a wide local excision by Dr. Gaurav Borrego on 06/11/2016 which confirmed residual pleomorphic dermal sarcoma; the sarcoma extended to within 0.3 millimeters of the deep inked margin however all the other margins were free from involvement. The patient subsequently underwent a reexcision with resection of a portion of the calvarium and a split-thickness skin graft on 04/2016; as per the operative report, no specimens were sent. We are now seeing the patient in consultation to discuss the role of postoperative radiation therapy. He completed radiation therapy 09/15/2016. He received 6000 cGy. Interim History He is been followed closely by Dr. Spaulding. He stated on his last visit area was cleaned. He has no pain. He does have some mild itching. He continues to wear a dressing. Xeroform is placed with a dry dressing. This is mainly worn when he is out. When he is home he lets this open. He has not noticed any raised area there've been no concerns of any recurrence on follow-up examinations. He denies headaches.. Allergies Coded Allergies: Adhesives (Verified Allergy, Mild, Rash , 11/10/16) Home Medications Scheduled Atorvastatin (Lipitor), 20 MG PO DAILY Cholecalciferol (Vitamin D3), 1 TAB PO DAILY Coenzyme Q10 (Ubidecarenone) (Co Q 10), 1 CAP PO DAILY Divalproex Sodium (Depakote Etended-Release), 500 MG PO BID Doxycycline Hyclate (Doxycycline Hyclate), 100 MG PO BID Levothyroxine Sodium (Synthroid), 125 MCG PO DAILY Multivitamin (Multivitamin), 1 TAB PO DAILY Pantoprazole (Pantoprazole Sodium), 40 MG PO QAM Psyllium (Metamucil), 1 DOSE PO DAILY Ranitidine Hcl (Zantac), 1 TAB PO HS Scheduled PRN Clobetasol Propionate (Clobetasol Propionate), 1 APPLN TOP BID PRN for Blisters Miscellaneous Medications [ciprofloxacin], 8 % Review of Systems Gastrointestinal: Symptoms: WNL Oral: Symptoms: No Problems Respiratory: Symptoms: WNL Urinary: Symptoms: WNL Comments: some dribbling Skin: Other Skin Symptoms: still has open wound on scalp, seen by Dr. Spaulding2 wks go Physical Exam Vital Signs Date Time Temp Pulse Resp B/P (MAP) Pulse Ox O2 Delivery O2 Flow Rate FiO2 05/05/17 13:32 36.3 71 16 135/73 99 Fatigue: None General Appearance: no apparent distress Eyes: normal inspection, EOMI ENT: normal ENT inspection, hearing grossly normal Neck: no adenopathy Skin: + pertinent finding (there is are small healing wounds at the vertex of the scalp. These are steadily smaller in size. The larger wound has a small amount eschar. There is no erythema or edema. There are no signs of infection. ) Pain Management Patient Reports Pain: No Pain Location: None Patient Preferred Pain Scale: 0 - 10 Initial Pain Intensity: 0.0 Pain Management Plan He has no pain therefore requires no pain management. Laboratory Laboratory Results: not applicable Pathology Pathology Results: not applicable Imaging Imaging Studies: not applicable Assessment & Plan He was seen and examined by Dr. Aguilar. He'll continue regular follow-up with Dr. Spaulding. Continue follow-up with his primary care physician. We asked him to return to our office in 1 year. He may call if he has the questions or concerns in the interim. Assessment & Plan (Attending) ADDENDUM: I agree with note created by Chantel Cassidy PA-C. I reviewed the patient's chart and information with her. I have examined and evaluated the patient. I reviewed relevant clinical information and answered the patient's and /or family's questions. NEWSPAPER CARRIER Total Time In Follow-Up I spent 15 minutes speaking to the patient and performing examination. I spent 15 minutes reviewing information in completing this note. AK Total Time (Attending) In Follow-Up I spent 15 minutes examining and counseling the patient. NEWSPAPER CARRIER Copy To Balaji Jenkins M.D.; Gaurav Borrego M.D.; Jennifer Spaulding MD
== END | disposition home or self-care (01) ==
LOC: C.ONC 13:22
PROVIDERS: ATTEND Physician Assistant Medical
DX: Z08 Encounter for follow-up examination after completed treatment for malignant neoplasm (principal); Z92.3 Personal history of irradiation; Z85.89 Personal history of malignant neoplasm of other organs and systems

== ENCOUNTER → 2017-07-14 | Outpatient (CLI) | payer BC | END | disposition home or self-care (01) | LOC: C.PATHSPEC 18:04 | PROVIDERS: ATTEND Plastic Surgery | DX: L57.0 Actinic keratosis (principal) ==

== ENCOUNTER 2018-12-04 20:31 | Inpatient (IN) ==
[2018-12-04] MEDS ORDERED: fentaNYL citrate 100 MCG/2 ML VIAL IV STA ×2 (20:50→21:56)
[2018-12-04] MEDS ORDERED: CEFAZOLIN 3000MG/72.5 ML BAG IV ONE (21:26)
[2018-12-04] MEDS ORDERED: CEFAZOLIN 3,000 MG in DEXTROSE 5% 50 ML IV STA (21:26)
--- NOTE | 2018-12-04 21:29 | XRay Report ---
LEFT WRIST 2 VIEWS CLINICAL HISTORY: Fall with left wrist injury/deformity. FINDINGS: AP and crosstable lateral views of the left wrist are compared to study dated 08/23/2018. The skeletal structures are osteopenic. There is an impacted and comminuted fracture of the distal radia l metaphysis with intra-articular extension. There is dorsal and radial distraction of the distal fra gments, which are overriding. There is also avulsion of the ulnar styloid. Overlying soft tissue jacqueline a is noted. Degenerative narrowing seen at the radiocarpal articulation. Arthritic change is present throughout the wrist. IMPRESSION: 1. Impacted, comminuted, distracted, and overriding fracture of the distal radial metaphysis with int raarticular extension. 2. There is avulsion of the ulnar styloid. Electronically signed by: Yvan Emery M.D. 12/04/2018 9:28 PM
[2018-12-04 21:47] LABS: Basophils # (auto) 0.01 K/uL (0-0.2); Basophils % (auto) 0.1 %; Eosinophils # (auto) 0.05 K/uL (0-0.5); Eosinophils % (auto) 0.6 %; Hematocrit (blood only) 37.5 % (42-52); Hemoglobin 13.2 g/dL (14.0-18.0); Immature Granulocytes # (auto) 0.02 K/uL (0.00-0.02); Immature Granulocytes % (auto) 0.3 %; Lymphocytes # (auto) 1.19 K/uL (1.2-3.4); Lymphocytes % (auto) 15.4 %; Mean Corpuscular Hgb Conc 35.2 g/dL (32-36); Mean Corpuscular Volume 94.2 fL (80-100); Mean Platelet Volume 9.3 fL (7.4-10.4); Monocytes # (auto) 0.82 K/uL (0.11-0.59); Monocytes % (auto) 10.6 %; Neutrophils # (auto) 5.64 K/uL (1.4-6.5); Platelet Count 142 K/uL (130-400); RDW Coefficient of Variation 14.7 % (11.5-14.5); RDW Standard Deviation 50.3 fL (36.4-46.3); Red Blood Count 3.98 M/uL (4.7-6.1); White Blood Count 7.73 K/uL (4.8-10.8)
--- NOTE | 2018-12-04 21:47 | CT Scan Report ---
CT SCAN OF THE BRAIN WITHOUT IV CONTRAST CLINICAL HISTORY: Fall. COMPARISON STUDY: No priors. TECHNIQUE: Unenhanced axial CT scan of the brain is performed from the vertex to the skull base. A do se lowering technique was utilized adhering to the principles of ALARA. CT DOSE: 2000.69 mGy.cm FINDINGS: Brain parenchyma: There are age-related involutional changes noting mild subcortical and periventric ular microangiopathic change. There is no hemorrhage, mass effect, or evidence of acute territorial i schemia by CT criteria. [place]-white matter differentiation is preserved. No extra-axial fluid collecti on is seen. Ventricles, sulci, cisterns: Prominent secondary to involutional change. Intracranial vasculature: There is atherosclerotic calcification of the cavernous carotid and vertebr al arteries. Calvarium: The skeletal structures are osteopenic. No depressed calvarial fracture is seen. There is a superficial calvarial defect identified at the posterior vertex which is reportedly chronic. Soft tissues: A cutaneous defect is noted at the posterior vertex is reportedly chronic. Sinuses and mastoids: The visualized paranasal sinuses are clear. The mastoid air cells are well pneu matized. Orbits: The bony orbits are grossly intact. There is evidence of bilateral ocular lens surgery. IMPRESSION: There is no hemorrhage, mass effect, or evidence of acute territorial ischemia by CT ruby turner. Electronically signed by: Yvan Emery M.D. 12/04/2018 9:46 PM
--- NOTE | 2018-12-04 21:53 | CT Scan Report ---
CT SCAN OF THE CERVICAL SPINE CLINICAL HISTORY: Fall. COMPARISON STUDY: No priors. TECHNIQUE: CT scan of the cervical spine is performed from the skull base to the upper thoracic spine . Images are reviewed in the axial, sagittal, and coronal planes. IV contrast was not administered fo r this examination. A dose lowering technique was utilized adhering to the principles of ALARA. FINDINGS: Skeletal structures: The skeletal structures are osteopenic. There is no evidence of fracture or subl uxation involving the cervical spine. Vertebral body height is maintained. There is minimal anterolis thesis at C5-C6. Alignment is otherwise preserved. There is straightening of the cervical lordosis. A nterior osteophytes are seen throughout. The odontoid process and lateral masses are intact. The atla ntoaxial articulation is preserved noting productive degenerative change. The spinous processes appea r intact. There is moderate to advanced multilevel cervical spondylosis. Uncovertebral and facet arth ropathy contribute to neural foraminal stenosis at most levels. Intervertebral discs: Moderate disc space narrowing is seen at C3-C4, C4-C5, C6-C7 and C7-T1. Central canal: Posterior disc osteophyte complexes at C4-C5, C6-C7, and C7-T1 may contribute to mild acquired compromise of the central canal. Soft tissues: The prevertebral and paraspinous soft tissues are within normal limits. The thyroid gla nd is atrophic. There is atherosclerotic calcification of the carotid bulbs. Calvarium: The visualized calvarium at the skull base appears intact. Brain parenchyma: Partially visualized brain parenchyma the skull base is within normal limits. Sinuses and mastoids: The visualized paranasal sinuses are clear. The mastoid air cells are well pneu matized. Lung apices: Clear as visualized. IMPRESSION: 1. There is no evidence of fracture or subluxation involving the cervical spine. 2. Osteopenia and spondylotic change as above. Electronically signed by: Yvan Emery M.D. 12/04/2018 9:51 PM
[2018-12-04 21:55] LABS: BUN Creatinine Ratio 13.5 (10-20); Calcium 8.9 mg/dl (8.5-10.1); Creatinine Clr Calc Pharmacy 67.3 ml/min; Est GFR (African American) 88.3; Est GFR (Non-African American) 76.2; Potassium 4.4 mmol/L (3.5-5.1)
--- NOTE | 2018-12-04 21:56 | Emergency Department Note ---
History of Present Illness General Chief complaint: Wrist Pain History of Present Illness Maximum Pain Intensity: 4 This patient is an 83-year-old male that presents the emergency department via ALS for evaluation of left wrist pain after a mechanical fall. The patient was going down concrete steps when he missed 1 falling down a few steps. He tried to catch himself with his left hand. The patient reports a history of a left wrist fracture a few months ago. He saw Dr. Grant who reduce the fracture. He denies any numbness or tingling. He reports the pain is throbbing and a 4/10. He did not receive any medications in the ambulance prior to arrival. Patient does not remember hitting his head, however he does note that he saw stars afterwards. He denies any neck pain. No difficulty breathing. He is having some pain in the mid back, which he think is a result of a mechanical fall that he had in his backyard 4 days ago. Home Medications Home Medications Medication Instructions Recorded Confirmed Type atorvastatin [Lipitor] 20 mg PO QAM #0 tab 07/05/14 12/04/18 History cholecalciferol (vitamin D3) 2,000 unit PO QAM #0 07/05/14 12/04/18 History coenzyme Q10 [CoQ-10] 30 mg PO QAM #0 07/05/14 12/04/18 History levothyroxine [Synthroid] 125 mcg PO QAM #0 07/13/16 12/04/18 History multivitamin 1 tab PO QAM #0 tab 07/13/16 12/04/18 History psyllium 1 tbsp PO QPM #0 08/23/16 12/04/18 History ranitidine HCl [Zantac] 150 mg PO HS 90 Days #90 tab 08/23/16 12/04/18 History calcium citrate 200 mg (950 mg) 200 mg PO HS 07/05/18 12/04/18 History tablet docusate sodium 100 mg capsule 100 mg PO BID 07/05/18 12/04/18 History magnesium citrate 125 mg capsule 125 mg PO PM cap 07/05/18 12/04/18 History divalproex ER 500 mg 500 mg PO BID 90 Days #180 tab 11/17/18 12/04/18 Rx tablet,extended release 24 hr pantoprazole 20 mg PO QAM 12/04/18 12/04/18 History Allergies Allergy/AdvReac Type Severity Reaction Status Date / Time adhesive Allergy Mild Rash Verified 12/04/18 23:11 Past Med/Surg History Medical History ASCVD (arteriosclerotic cardiovascular disease) CAD (coronary artery disease) GERD (gastroesophageal reflux disease) HLD (hyperlipidemia) HTN (hypertension) Hypothyroidism Seizure disorder Social History Preferred Language: Swazi Communication Ability: Effective Fiber Optic Splicer Required: No Beliefs That Will Affect Care: None marital status: Current Living Situation: Spouse Feels Safe at Home: Yes Smoking Status: Never smoker Second Hand Exposure: No ; Hx Alcohol Use: Yes Alcohol type: beer Hx Substance Use: No Review of Systems A total of 10 systems reviewed and were otherwise negative Physical Exam Vital Signs Vital Signs - 24 hr 12/04/18 20:52 12/04/18 22:04 12/04/18 22:58 Sepsis Recent Fever Within 48 Hours No Sepsis New/Unexplained Change in Mental Status No Sepsis Action Taken by Nursing No Action Required Pulse Rate 90 Pulse Rate [Finger] 84 Respiratory Rate 20 20 20 Respiratory Effort / Characteristics Non-Labored Spontaneous Non-Labored Non-Labored Spontaneous Respiratory Depth Normal Normal Normal Respiratory Pattern Regular Regular Regular Blood Pressure 167/87 H Blood Pressure [Right Arm] 144/81 H 130/79 Blood Pressure Mean 113 Blood Pressure Mean [Right Arm] 102 96 Blood Pressure Position Lying Blood Pressure Position [Right Arm] Lying Lying Pulse Oximetry 95 93 94 Oxygen Delivery Method Room Air Room Air Room Air Constitutional WD/WN, vitals as above Eyes EOM intact bilaterally ENMT external ear and nose normal, oropharynx normal Neck trachea midline Respiratory normal respiratory effort, lungs clear to auscultation Cardiovascular RRR, no murmur, no edema Gastrointestinal (Abdomen) normal bowel sounds, soft, nontender, no hepatosplenomegaly Musculoskeletal Obvious deformity with radial deviation noted to the left wrist. Radial pulse +2. The patient is able to wiggle his fingers. Capillary refill in the fingers less than 2 seconds. No tenderness elicited over the cervical spine. Skin no rashes, warm and dry Neurologic Alert and oriented x3. No focal motor deficits. Psychiatric Acting appropriately Course Patient was seen and examined Vital signs including blood pressure were reviewed medications list was verified with patient Labs were obtained, and a saline lock was established The patient was ordered fentanyl 50 mcg IV Upon reevaluation, the pain was better but coming back. He was ordered an additional dose of fentanyl 75 mcg IV. He was also ordered Ancef 3 g IV Orthopedics was consulted. They agreed to come and evaluate the patient. The patient was updated multiple times. He was resting comfortably. The fracture was reduced by orthopedics. Please see their note. Postreduction films were satisfactory. An ambulatory trial was performed. The patient was having difficulty ambulating to the bathroom. The case was discussed with case management. He was subsequently discussed with the [facility]. They kindly agreed to evaluate the patient for possible inpatient management. Consultations Consultation #1: Dr. Engle Consultation #2: Dr. Arguello Additional Consultation(s): Shiraz Valencia PA-C Administered Medications Discontinued Medications Hydrocodone Bitart/Acetaminophen (Marion 5/325) 1 tab PO Q4H PRN PRN Reason: Pain Stop: 12/21/18 08:21 Last Admin: 12/07/18 21:07 Dose: 1 tab Documented by: [id number] Admin: 12/07/18 13:08 Dose: 1 tab Documented by: [id number] Atorvastatin Calcium (Lipitor) 20 mg PO QAM [facility] Stop: 01/04/19 08:59 Last Admin: 12/08/18 09:01 Dose: 20 mg Documented by: [id number] Admin: 12/07/18 08:40 Dose: 20 mg Documented by: [id number] Admin: 12/06/18 08:39 Dose: 20 mg Documented by: [id number] Cosigned by: [id number] Admin: 12/05/18 09:11 Dose: 20 mg Documented by: [id number] Bupivacaine HCl/Epinephrine Bitart (Bupivacaine/Epinephrine 0.25%) 15 ml INJ ONCE [facility] Stop: 01/04/19 16:14 Last Admin: 12/05/18 16:00 Dose: 15 ml Documented by: [id number] Calcium Citrate (Citracal) 950 mg PO HS [facility] Stop: 01/04/19 20:59 Last Admin: 12/07/18 21:07 Dose: 950 mg Documented by: [id number] Admin: 12/06/18 21:29 Dose: 950 mg Documented by: [id number] Admin: 12/05/18 21:34 Dose: 950 mg Documented by: [id number] Divalproex Sodium (Depakote Extended Release) 500 mg PO BID [facility] Stop: 01/04/19 08:59 Last Admin: 12/08/18 09:01 Dose: 500 mg Documented by: [id number] Admin: 12/07/18 21:07 Dose: 500 mg Documented by: [id number] Admin: 12/07/18 08:40 Dose: 500 mg Documented by: [id number] Admin: 12/06/18 21:30 Dose: 500 mg Documented by: [id number] Admin: 12/06/18 08:38 Dose: 500 mg Documented by: [id number] Cosigned by: [id number] Admin: 12/05/18 21:34 Dose: 500 mg Documented by: [id number] Admin: 12/05/18 09:12 Dose: 500 mg Documented by: [id number] Docusate Sodium (Colace) 100 mg PO BID ROMINA Stop: 01/04/19 08:59 Last Admin: 12/08/18 09:01 Dose: 100 mg Documented by: [id number] Admin: 12/07/18 21:07 Dose: 100 mg Documented by: [id number] Admin: 12/07/18 08:40 Dose: 100 mg Documented by: [id number] Admin: 12/06/18 21:29 Dose: 100 mg Documented by: [id number] Admin: 12/06/18 08:37 Dose: 100 mg Documented by: [id number] Cosigned by: [id number] Admin: 12/05/18 21:34 Dose: 100 mg Documented by: [id number] Admin: 12/05/18 09:11 Dose: 100 mg Documented by: [id number] Fentanyl Citrate (Fentanyl Citrate) 50 mcg IV NOW STA Stop: 12/04/18 20:51 Last Admin: 12/04/18 21:12 Dose: 50 mcg Documented by: [id number] Fentanyl Citrate (Fentanyl Citrate) 75 mcg IV NOW STA Stop: 12/04/18 21:57 Last Admin: 12/04/18 22:04 Dose: 75 mcg Documented by: [id number] Cefazolin Sodium 3,000 mg/ (Dextrose) 72.5 mls @ 130 mls/hr IV ONE STA Stop: 12/04/18 21:59 Last Infusion: 12/04/18 22:45 Dose: 0 mls/hr Documented by: [id number] Admin: 12/04/18 22:04 Dose: 130 mls/hr Documented by: [id number] Lactated Ringer's (Lr) 1,000 mls @ 80 mls/hr IV .[id number] [facility]INA Stop: 01/04/19 01:16 Last Infusion: 12/05/18 17:34 Dose: 0 mls/hr Documented by: [id number] Admin: 12/05/18 13:52 Dose: 80 mls/hr Documented by: [id number] Infusion: 12/05/18 13:52 Dose: 80 mls/hr Documented by: [id number] Admin: 12/05/18 01:54 Dose: 80 mls/hr Documented by: [id number] Acetaminophen (Ofirmev) 1,000 mg in 100 mls @ 400 mls/hr IV Q8H [facility] Stop: 01/04/19 09:59 Last Infusion: 12/06/18 02:00 Dose: 0 mls/hr Documented by: [id number] Admin: 12/06/18 01:45 Dose: 400 mls/hr Documented by: [id number] Infusion: 12/05/18 18:53 Dose: 0 mls/hr Documented by: [id number] Admin: 12/05/18 18:21 Dose: 400 mls/hr Documented by: [id number] Infusion: 12/05/18 10:39 Dose: 0 mls/hr Documented by: [id number] Admin: 12/05/18 10:14 Dose: 400 mls/hr Documented by: [id number] Cefazolin Sodium (Ancef 2000mg) 2,000 mg in 15 mls @ 3.75 mls/min IV PREOP ONE Stop: 12/05/18 14:22 Last Admin: 12/05/18 14:37 Dose: 3.75 mls/min Documented by: [id number] Sodium Chloride (Nss 1000ml) 1,000 mls @ 100 mls/hr IV .Q10H [facility] Stop: 12/06/18 17:39 Last Admin: 12/06/18 05:11 Dose: Not Given Documented by: [id number] Infusion: 12/06/18 05:11 Dose: 0 mls/hr Documented by: [id number] Infusion: 12/05/18 22:10 Dose: 100 mls/hr Documented by: [id number] Admin: 12/05/18 18:20 Dose: 100 mls/hr Documented by: [id number] Cefazolin Sodium (Ancef 2000mg) 2,000 mg in 15 mls @ 3.75 mls/min IV Q8H ROMINA; Protocol Stop: 12/06/18 06:33 Last Admin: 12/06/18 05:10 Dose: 3.75 mls/min Documented by: [id number] Admin: 12/05/18 22:05 Dose: 3.75 mls/min Documented by: [id number] Insulin Aspart (Novolog Flexpen) 0 units SC Q6 [facility] Stop: 01/04/19 05:59 Last Admin: 12/05/18 18:20 Dose: 2 units Documented by: [id number] Cosigned by: [id number] Admin: 12/05/18 12:06 Dose: Not Given Documented by: [id number] Cosigned by: [id number] Admin: 12/05/18 06:26 Dose: 1 units Documented by: [id number] Cosigned by: [id number] Insulin Aspart (Novolog Flexpen) 0 units SC ACHS [facility] Stop: 01/04/19 05:59 Last Admin: 12/08/18 13:01 Dose: 3 units Documented by: [id number] Cosigned by: [id number] Admin: 12/08/18 09:06 Dose: 2 units Documented by: [id number] Cosigned by: [id number] Admin: 12/07/18 21:12 Dose: 2 units Documented by: [id number] Cosigned by: [id number] Admin: 12/07/18 18:54 Dose: 4 units Documented by: [id number] Cosigned by: [id number] Admin: 12/07/18 12:49 Dose: 3 units Documented by: [id number] Cosigned by: [id number] Admin: 12/07/18 09:05 Dose: 2 units Documented by: [id number] Cosigned by: [id number] Admin: 12/06/18 21:33 Dose: 2 units Documented by: [id number] Cosigned by: [id number] Admin: 12/06/18 18:29 Dose: 2 units Documented by: [id number] Cosigned by: [id number] Admin: 12/06/18 13:29 Dose: 4 units Documented by: [id number] Cosigned by: [id number] Admin: 12/06/18 08:49 Dose: 2 units Documented by: [id number] Cosigned by: [id number] Admin: 12/05/18 21:35 Dose: 1 units Documented by: [id number] Cosigned by: [id number] Levothyroxine Sodium (Synthroid) 125 mcg PO DAILYBB [facility] Stop: 01/04/19 06:29 Last Admin: 12/08/18 05:27 Dose: 125 mcg Documented by: [id number] Admin: 12/07/18 05:57 Dose: 125 mcg Documented by: [id number] Admin: 12/06/18 05:09 Dose: 125 mcg Documented by: [id number] Admin: 12/05/18 06:07 Dose: 125 mcg Documented by: [id number] Lidocaine HCl (Xylocaine 2% Preserved) 30 ml INFIL ONE ONE Stop: 12/04/18 22:31 Last Admin: 12/04/18 22:45 Dose: 30 ml Documented by: [id number] Magnesium Citrate (Citrate) 148 ml PO PM [facility] Stop: 01/04/19 20:59 Last Admin: 12/07/18 21:07 Dose: Not Given Documented by: [id number] Admin: 12/06/18 21:32 Dose: Not Given Documented by: [id number] Admin: 12/05/18 21:36 Dose: Not Given Documented by: [id number] Morphine Sulfate (Morphine Sulfate) 4 mg IV Q4H PRN PRN Reason: Pain Stop: 12/19/18 01:16 Last Admin: 12/07/18 06:06 Dose: 4 mg Documented by: [id number] Admin: 12/06/18 20:06 Dose: 4 mg Documented by: [id number] Admin: 12/06/18 14:51 Dose: 4 mg Documented by: [id number] Admin: 12/06/18 09:35 Dose: 4 mg Documented by: [id number] Admin: 12/05/18 08:07 Dose: 4 mg Documented by: [id number] Admin: 12/05/18 02:22 Dose: 4 mg Documented by: [id number] Multivitamins (Multivitamin Tab) 1 tab PO QAM [facility] Stop: 01/04/19 08:59 Last Admin: 12/08/18 09:01 Dose: 1 tab Documented by: [id number] Admin: 12/07/18 08:40 Dose: 1 tab Documented by: [id number] Admin: 12/06/18 08:40 Dose: 1 tab Documented by: [id number] Cosigned by: [id number] Admin: 12/05/18 09:11 Dose: 1 tab Documented by: [id number] Pantoprazole Sodium (Protonix) 20 mg PO QAM [facility] Stop: 01/04/19 08:59 Last Admin: 12/08/18 09:01 Dose: 20 mg Documented by: [id number] Admin: 12/07/18 08:39 Dose: 20 mg Documented by: [id number] Admin: 12/06/18 08:40 Dose: 20 mg Documented by: [id number] Cosigned by: [id number] Admin: 12/05/18 09:11 Dose: 20 mg Documented by: [id number] Psyllium Hydrophilic Mucilloid (Metamucil) 1 pkt PO QPM [facility] Stop: 01/04/19 20:59 Last Admin: 12/07/18 21:06 Dose: 1 pkt Documented by: [id number] Admin: 12/06/18 21:29 Dose: 1 pkt Documented by: [id number] Admin: 12/05/18 21:34 Dose: Not Given Documented by: [id number] Ranitidine HCl (Zantac) 150 mg PO HS [facility] Stop: 01/04/19 20:59 Last Admin: 12/07/18 21:07 Dose: 150 mg Documented by: [id number] Admin: 12/06/18 21:29 Dose: 150 mg Documented by: [id number] Admin: 12/05/18 21:34 Dose: 150 mg Documented by: [id number] Vitamin D (Vitamin D3) 2,000 units PO QAM [facility] Stop: 01/04/19 08:59 Last Admin: 12/08/18 09:01 Dose: 2,000 units Documented by: [id number] Admin: 12/07/18 08:39 Dose: 2,000 units Documented by: [id number] Admin: 12/06/18 08:42 Dose: 2,000 units Documented by: [id number] Cosigned by: [id number] Admin: 12/05/18 09:11 Dose: 2,000 units Documented by: [id number] Medical Decision Making Medical Records Attestation: I reviewed the patient's medical records. Home Medications Current Medication List: was personally reviewed by me Laboratory Data Attestation: I reviewed the patient's lab results. Result diagrams: 12/06/18 07:24 12/06/18 07:24 Lab Results 12/04/18 12/04/18 12/04/18 Range/Units 21:26 21:26 21:50 WBC 7.73 (4.8-10.8) K/uL RBC 3.98 L (4.7-6.1) M/uL Hgb 13.2 L (14.0-18.0) g/dL Hct 37.5 L (42-52) % MCV 94.2 (80-100) fL MCH 33.2 (25-34) pg MCHC 35.2 (32-36) g/dL RDW Std Deviation 50.3 H (36.4-46.3) fL RDW Coeff of Noe 14.7 H (11.5-14.5) % Plt Count 142 (130-400) K/uL MPV 9.3 (7.4-10.4) fL Immature Gran % (Auto) 0.3 % Neut % (Auto) 73.0 % Lymph % (Auto) 15.4 % [place] % (Auto) 10.6 % Eos % (Auto) 0.6 % Baso % (Auto) 0.1 % Immature Gran # (Auto) 0.02 (0.00-0.02) K/uL Neut # (Auto) 5.64 (1.4-6.5) K/uL Lymph # (Auto) 1.19 L (1.2-3.4) K/uL [place] # (Auto) 0.82 H (0.11-0.59) K/uL Eos # (Auto) 0.05 (0-0.5) K/uL Baso # (Auto) 0.01 (0-0.2) K/uL PT Cancelled INR Cancelled Sodium 133 L (136-145) mmol/L Potassium 4.4 (3.5-5.1) mmol/L Chloride 99 (98-107) mmol/L Carbon Dioxide 25 (21-32) mmol/L Anion Gap 10.0 (3-11) BUN 13 (7-18) mg/dl Creatinine 0.93 (0.6-1.4) mg/dl Est Cr Clr Drug Dosing 67.3 ml/min Est GFR ( Amer) 88.3 Est GFR (Non-Af Amer) 76.2 BUN/Creatinine Ratio 13.5 (10-20) Glucose 211 H (70-99) mg/dl Calcium 8.9 (8.5-10.1) mg/dl Imaging Data Attestation: I personally reviewed and interpreted this imaging study as follows: Radiologist's Impression: Wrist x-ray IMPRESSION: 1. Impacted, comminuted, distracted, and overriding fracture of the distal radial metaphysis with intraarticular extension. 2. There is avulsion of the ulnar styloid. Electronically signed by: Yvan Emery M.D. 12/04/2018 9:28 PM Dictated: 12/04/182125 Transcribed: 12/04/182125 CT brain without contrast IMPRESSION: There is no hemorrhage, mass effect, or evidence of acute territorial ischemia by CT criteria. Electronically signed by: Yvan Emery M.D. 12/04/2018 9:46 PM Dictated: 12/04/182136 Transcribed: 12/04/182136 CT chest without contrast IMPRESSION: 1. There is trace left hemothorax. 2. There is no airspace consolidation typical for pneumonia or pneumothorax. 3. There are left-sided rib fractures and a left scapular fracture as above. 4. Comminuted left wrist fractures are partially visualized. 5. There are mild and age indeterminant compression deformities in the thoracic spine as detailed above. No retropulsed fragments are identified. 6. Additional findings as above. CT cervical spine without contrast IMPRESSION: 1. There is no evidence of fracture or subluxation involving the cervical spine. 2. Osteopenia and spondylotic change as above. Electronically signed by: Yvan Emery M.D. 12/04/2018 9:51 PM Dictated: 12/04/182147 Transcribed: 12/04/182147 Prescription Drug Monitoring [place] Drug Monitoring Program reviewed and no issues identified Blood Pressure Blood Pressure Findings: Normal blood pressure MDM Narrative Differential diagnosis: Head injury, wrist fracture, open fracture, neurovascular compromise, wound infection, neck injury, intrathoracic injury, among others This patient is an 83-year-old male presents to the emergency department with left wrist pain after a mechanical fall. On exam, the wrist was deformed. There is also a laceration involved. X-rays confirmed a wrist fracture. This is likely an open fracture. The patient was covered with antibiotics. He was seen by orthopedics to reduce the fracture at the bedside. As the patient had a fall 4 days ago and was complaining of chest discomfort, more imaging was obtained. This is consistent with multiple rib fractures and a left scapular fracture. There was a trace hemothorax. The case was discussed with thoracic surgery in addition to the medical team. It was felt that he was likely a sev ere fall risk. For this reason, it was felt that inpatient management was more appropriate. The patient will be evaluated by the medical team for possible admission. Impression & Plan Open fracture of wrist Discharge Plan Visit Data *Final* Discharge Date/Time: 12/05/18 01:05 Chief Complaint: Wrist Pain ED Provider: Aurora Campos ED Midlevel Provider: Crystal Riggs Discharge Problem: Open fracture of wrist Patient Disposition: Admitted As Inpatient Discharge Instructions Interventions: ED Discharge Assessment Last Done: 12/05/18 01:05
--- NOTE | 2018-12-04 22:08 | CT Scan Report ---
CT SCAN OF THE CHEST WITHOUT IV CONTRAST CLINICAL HISTORY: Fall. Thoracic back pain. COMPARISON STUDY: Chest x-ray dated 07/05/2014. TECHNIQUE: CT scan of the thorax was performed from the thoracic inlet to the upper abdomen. Images are reviewed in the axial, sagittal, and coronal planes. IV contrast was not administered for this ex amination as per the referring clinician. A dose lowering technique was utilized ad[facility]. The examination is degraded by streak artifact from the left arm which could not be elevated above the chest. FINDINGS: Thyroid: Atrophic. Thoracic aorta: There is atherosclerotic calcification of the thoracic aorta, which is normal in manjit catherine and demonstrates standard 3-vessel arch anatomy. Heart: The heart is normal in size and without pericardial effusion. The coronary arteries are densel y calcified. The pulmonary trunk is normal in caliber. Lungs and pleural spaces: There is trace hemothorax at the left lung base with associated atelectasis . Atelectasis is also seen at the right lung base. There is no airspace consolidation typical for pne umonia or pneumothorax identified. The trachea and central airways are clear. Mediastinum: There is no mediastinal hematoma or lymphadenopathy. Kelly: Not well assessed with IV contrast. Axillae: There is no axillary lymphadenopathy. Upper abdomen: Cholecystectomy clips are noted in the right upper quadrant. There is a small hiatal h ernia. 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 Skeletal structures: The skeletal structures are osteopenic. No lytic or blastic bony lesions are see n. Advanced arthritic change is seen in the shoulders. The left first rib is diminutive. There are mi ld and age indeterminant superior endplate compression deformities of T4, T5, and T7. No retropulsed fragments are identified. Left wrist fractures are visualized as the left arm overlies the abdomen. T here is a minimally distracted fracture of the left posterior 10th rib. There are also mildly distrac latosha fractures of the left posterior 5th and 6th ribs. There is also a nondistracted fracture through the inferior left scapula. IMPRESSION: 1. There is trace left hemothorax. 2. There is no airspace consolidation typical for pneumonia or pneumothorax. 3. There are left-sided rib fractures and a left scapular fracture as above. 4. Comminuted left wrist fractures are partially visualized. 5. There are mild and age indeterminant compression deformities in the thoracic spine as detailed abo ve. No retropulsed fragments are identified. 6. Additional findings as above. Electronically signed by: Yvan Emery M.D. 12/04/2018 10:06 PM
[2018-12-04] MEDS ORDERED: LIDOCAINE HCL 2% 2 ML VIAL/AMP(20MG/ML) INFIL ONE (22:15)
[2018-12-04] MEDS ORDERED: LIDOCAINE HCL 2% (LOCAL) INJ 50 ML VIAL INFIL ONE (22:30)
--- NOTE | 2018-12-04 23:19 | Orthopedic Consultation ---
Date of Consultation December 04, 2018 Assessment & Plan (1) Open fracture of left distal radius: He received 3 g of Ancef in the ER. He was then reduced under hematoma block. Postreduction x-rays showed acceptable alignment with still some radial deviation. The ulnar wound was cleaned and covered with a Xeroform dressing. He was placed in a coaptation splint. There was discussions about admission to the hospital given his recent falls. I talked to him and his and told him that this would likely require open reduction internal fixation to help speed up his recovery. I will see him in the office on Tuesday to discuss surgical treatment options. Present on Admission?: Yes History of Present Illness Reason for Consultation: Displaced, open, left distal radius fracture. History of Present Illness Graciela is a pleasant 83-year-old male who initially fell back in April 2018. He sustained a comminuted left distal radius fracture. He was treated conservatively by Dr. Grant. Unfortunately he fell again on sustaining injuries to his right chest. He then fell again tonight onto his left distal radius. He said he was walking into the house when he tripped on his concrete stairs. He had significant deformity of his left wrist. He came to the emergency room. Radiographs demonstrated a displaced, unstable, three- part left distal radius fracture. There was a small pinhole opening on the ulnar aspect. CT of his chest also showed fractures of 3 ribs on the right side and his right scapula. Orthopedics was consulted to evaluate and treat. Allergies Allergy/AdvReac Type Severity Reaction Status Date / Time adhesive Allergy Mild Rash Verified 12/04/18 23:11 Home Medications Home Medications Medication Instructions Recorded Confirmed Type ATORVASTATIN (LIPITOR) 20 mg PO DAILY #0 tab 07/05/14 07/05/18 History CHOLECALCIFEROL (VITAMIN D3) 1 tab PO DAILY #0 07/05/14 07/05/18 History COENZYME Q10 (UBIDECARENONE) (CO Q 1 cap PO DAILY #0 07/05/14 07/05/18 History 10) Levothyroxine Sodium (Synthroid) 125 mcg PO DAILY #0 07/13/16 07/05/18 History Multivitamin 1 tab PO DAILY #0 tab 07/13/16 07/05/18 History PSYLLIUM (METAMUCIL) 1 dose PO DAILY #0 08/23/16 07/05/18 History Ranitidine Hcl (ZANTAC) 1 tab PO HS 90 Days #90 tab 08/23/16 07/05/18 History Pantoprazole (Pantoprazole Sodium) 40 mg PO QAM 30 Days #30 tab 04/03/17 07/05/18 Rx calcium citrate 200 mg (950 mg) 200 mg PO BID 07/05/18 07/05/18 History tablet docusate sodium 100 mg capsule 100 mg PO BID 07/05/18 07/05/18 History magnesium citrate 125 mg capsule 125 mg PO BID cap 07/05/18 07/05/18 History divalproex ER 500 mg 500 mg PO BID 90 Days #180 tab 11/17/18 Rx tablet,extended release 24 hr Patient History Medical History GERD (gastroesophageal reflux disease) Social History Feels Safe at Home: Yes Smoking Status: Never smoker Review of Systems Review of Systems: All systems reviewed & are unremarkable except as noted in HPI & below Physical Exam Musculoskeletal: On physical examination of the left wrist, there is a significant gross deformity. There is radial deviation of the right distal radius. There is a small pinhole opening over the ulnar styloid with a small skin tear in the area as well. He has active motion of all of his fingers he denies any numbness. Results & Data Vital Signs (Past 12 Hours) Vital Signs Pulse Pulse Resp BP BP Pulse Ox 12/04/18 22:58 84 20 130/79 94 12/04/18 22:04 20 144/81 H 93 12/04/18 20:52 90 20 167/87 H 95 Diagnostic Findings X-rays of the left wrist show a radial and dorsal displaced left distal radius fracture. There is a 3 part intra-articular comminuted distal radius fracture. There is also some signs of radiocarpal arthritis. PG Care Time/CCT Total # of Minutes Spent Total Time Spent with Patient: Total time spent is greater than 50% in coordination of care (as documented) at patient's floor/unit and/or counseling patient:
--- NOTE | 2018-12-04 23:21 | Operative Report ---
Post Operative Report Pre & Post Diagnosis Three-part intra-articular open left distal radius fracture Postoperative diagnosis is the same Procedure Closed reduction and splinting of a left distal radius fracture Surgeon Yunior Engle, Registered Phlebotomist Part Time None Estimated Blood Loss 0 Findings Consistent with Post-Op Diagnosis Specimens None Indications Luiz is an 83-year-old male who fell this evening sustaining a open comminuted left distal radius fracture. Description of Procedure The patient was given a successful hematoma block using 20 cc of 2% lidocaine. After appropriate analgesia was obtained the fracture was reduced. When I was happy with the reduction he was placed in a coaptation splint. Postreduction radiographs showed acceptable alignment of the fracture. He tolerated the procedure well. I attest to the content of the Intraoperative Record and any orders documented therein. Any exceptions are noted below.
--- NOTE | 2018-12-05 00:44 | History & Physical Report ---
Date of Service December 05, 2018 Assessment & Plan (1) Falls: 83-year-old male was admitted on 05 December 2018 for multiple fractures, trace left hemithorax, and concerns about fall risk. Falls, open fracture of left distal radius: Following a mechanical fall earlier this evening. Had a previous fall four days ago as well as back in April. He suffered a left wrist fracture back then as well and has since completed a course of hand and fall risk physical therapy. Patient is on calcium and vitamin D at home. - In summary of ED work-up, afebrile, not tachycardic, moderately hypertensive initially, with borderline low room SpO2. WBC 7. Hemoglobin 13 (with comparisons more anemic). Sodium 133. CT of the head notes no acute findings. CT of the cervical spine notes no evidence of fracture but positive osteopenia and spondylitic changes. - Left wrist x-rays note an impacted, comminuted, distracted, and overriding fracture of the distal radial metaphysis with intra-articular extension as well as avulsion of the ulnar styloid. - In ED, treated with Ancef, fentanyl, local lidocaine, and underwent reduction by orthopedics (Dr. Engle). Dr. Engle mention the possibility of taking the patient to the OR later today (). - Keep NPO. Gentle IVF. Morphine and Zofran both prn. Formal consult to orthopedics. Consider recommending he gets new glasses with traditional trifocals. Consult PT & OT (particularly interested in his gait). Multiple fractures, trace left hemothorax: CT of the chest notes compression deformities of the T4, T5, and T7 spine, left posterior 5th, 6th, and 10th ribs fractures, and inferior left scapular fracture. - Will ask the thoracic surgery service to see him in the morning. Ongoing medical issues: - Hyperlipidemia: Continue home Lipitor. - GERD: Continue home pantoprazole and Zantac. - Seizure disorder: Grand mal, last in 1989. Continue home divalproex ER. - Hypothyroidism: Continue home Synthroid. Code status: Full code. Diet: N.p.o. prior to anticipated surgery. DVT prophy: SCDs for now. PT/OT: Ordered. Disbo: Admit to [facility]. - Patients (Sharonda, ) requests someone call her in the morning about the possible OR time. (2) Open fracture of left distal radius: (3) Thoracic spine fracture: (4) Left rib fracture: (5) Left scapula fracture: (6) Hyperlipidemia: (7) GERD (gastroesophageal reflux disease): (8) Seizure: (9) Hypothyroid: History of Present Illness Primary Care Provider: Balaji Jenkins 83-year-old male presents with acute left wrist pain following a fall earlier this evening. In a brief review of recent events, patient suffered a mechanical fall back in April and broke his left wrist. He says that he underwent physical therapy for both his wrist as well as for fall prevention over the subsequent weeks. He then suffered another fall this past 15Aug which he says was due to his ankle rolling causing him to fall backwards. He denies any loss of consciousness or head injury at that time. He has had ongoing left posterior shoulder and rib pain since then but thought it was just a bruise. He has been able to do most of his normal ADLs up until this evening. He says this evening he went to step up onto a step when he does not think his foot completely made it on there. He recalls falling, not passing out, but he did hit his head and "see stars". He immediately had left wrist pain as well, prompting this ED evaluation. At the time of this H&P, the patient already underwent reduction and splinting of his left wrist by orthopedics. He says he continues to have some left posterior shoulder and rib pain, particularly with deep inspiration, but denies direct chest pain, shortness of breath, or other focal acute pain/concerns. We discussed that there is some question of him dragging his left leg at times when he ambulates. Patient is unclear about this. At present, he denies any focal weakness, numbness, tingling, or low back pain. We also discussed that he has transition glasses for his vision. There is some question of if he has problems ambulating while wearing his glasses. - Past medical history includes GERD, choledocholithiasis, pancreatitis, left wrist fracture. 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 - Social history includes non-smoker, denies alcohol use, and lives at home with spouse. Allergies Allergy/AdvReac Type Severity Reaction Status Date / Time adhesive Allergy Mild Rash Verified 12/04/18 23:11 Home Medications Home Medications Medication Instructions Recorded Confirmed Type atorvastatin [Lipitor] 20 mg PO QAM #0 tab 07/05/14 12/04/18 History cholecalciferol (vitamin D3) 2,000 unit PO QAM #0 07/05/14 12/04/18 History coenzyme Q10 [CoQ-10] 30 mg PO QAM #0 07/05/14 12/04/18 History levothyroxine [Synthroid] 125 mcg PO QAM #0 07/13/16 12/04/18 History multivitamin 1 tab PO QAM #0 tab 07/13/16 12/04/18 History psyllium 1 tbsp PO QPM #0 08/23/16 12/04/18 History ranitidine HCl [Zantac] 150 mg PO HS 90 Days #90 tab 08/23/16 12/04/18 History calcium citrate 200 mg (950 mg) 200 mg PO HS 07/05/18 12/04/18 History tablet docusate sodium 100 mg capsule 100 mg PO BID 07/05/18 12/04/18 History magnesium citrate 125 mg capsule 125 mg PO PM cap 07/05/18 12/04/18 History divalproex ER 500 mg 500 mg PO BID 90 Days #180 tab 11/17/18 12/04/18 Rx tablet,extended release 24 hr pantoprazole 20 mg PO QAM 12/04/18 12/04/18 History Past Med/Surg History Medical History ASCVD (arteriosclerotic cardiovascular disease) CAD (coronary artery disease) GERD (gastroesophageal reflux disease) HLD (hyperlipidemia) HTN (hypertension) Hypothyroidism Seizure disorder Social History Preferred Language: Indian Communication Ability: Effective Cook Helper Required: No Beliefs That Will Affect Care: None Current Living Situation: Spouse Feels Safe at Home: Yes Safety Concerns: Feels Safe At This Time Smoking Status: Never smoker Do You Dip or Chew Tobacco: No ; Second Hand Exposure: No ; Hx Alcohol Use: Yes Alcohol type: beer Hx Substance Use: No Review of Systems Review of Systems: Constitutional: Denies fevers, chills, focal weakness Eyes: Denies any visual loss or diplopia ENT: Denies any ear/nose/throat pain or difficulty speaking or swallowing Respiratory: Denies any dyspnea, cough, hemoptysis Cardiovascular: Denies any chest pain or feeling of edema Gastrointestinal: Denies any abdominal pain, nausea/vomiting/diarrhea Musculoskeletal: Positive left wrist pain. Positive for left posterior shoulder and rib pain. Skin: Denies any known acute rashes or lesions Neuro: Denies any headache, acute focal weakness or numbness, or difficulties with speech or swallow. Hematologic: Denies any easy bleeding or bruising Physical Exam Physical Exam: GENERAL: Awake, alert, well-appearing, in no acute distress. HENT: Normocephalic, atraumatic. Oropharynx unremarkable. EYES: Normal conjunctiva. Sclera non-icteric. NECK: Inspection normal. Supple and full ROM. No nuchal rigidity. CARDIAC: +S1S2 RRR, no murmurs. RESPIRATORY: Clear to auscultation. No wheezes or rales. Normal respiratory effort. GI: +BS, soft, non-distended. No tenderness to palpation. No rebound or guarding. EXTREMITIES: Left wrist is in a splint and the left arm is in a sling. Good movement of all digits and left hand. Distal cap refill and sensation intact. Regarding bilateral lower extremities, 2+ dorsalis pedis pulses, strength 5/5 on foot dorsi and plantar flexion, can raise bilateral legs off the bed against resistance, and sensation grossly equally intact bilaterally. NEURO: No gross neuro deficits. Results & Data Vital Signs (Past 12 Hours) Vital Signs Pulse Pulse Resp BP BP Pulse Ox 12/05/18 00:29 88 20 135/77 94 12/04/18 22:58 84 20 130/79 94 12/04/18 22:04 20 144/81 H 93 12/04/18 20:52 90 20 167/87 H 95 Laboratory Results 12/04/18 12/04/18 12/04/18 Range/Units 21:50 21:26 21:26 WBC 7.73 (4.8-10.8) K/uL RBC 3.98 L (4.7-6.1) M/uL Hgb 13.2 L (14.0-18.0) g/dL Hct 37.5 L (42-52) % MCV 94.2 (80-100) fL MCH 33.2 (25-34) pg MCHC 35.2 (32-36) g/dL RDW Std Deviation 50.3 H (36.4-46.3) fL RDW Coeff of Noe 14.7 H (11.5-14.5) % Plt Count 142 (130-400) K/uL MPV 9.3 (7.4-10.4) fL Immature Gran % (Auto) 0.3 % Neut % (Auto) 73.0 % Lymph % (Auto) 15.4 % [place] % (Auto) 10.6 % Eos % (Auto) 0.6 % Baso % (Auto) 0.1 % Immature Gran # (Auto) 0.02 (0.00-0.02) K/uL Neut # (Auto) 5.64 (1.4-6.5) K/uL Lymph # (Auto) 1.19 L (1.2-3.4) K/uL [place] # (Auto) 0.82 H (0.11-0.59) K/uL Eos # (Auto) 0.05 (0-0.5) K/uL Baso # (Auto) 0.01 (0-0.2) K/uL PT Cancelled INR Cancelled Sodium 133 L (136-145) mmol/L Potassium 4.4 (3.5-5.1) mmol/L Chloride 99 (98-107) mmol/L Carbon Dioxide 25 (21-32) mmol/L Anion Gap 10.0 (3-11) BUN 13 (7-18) mg/dl Creatinine 0.93 (0.6-1.4) mg/dl Est Cr Clr Drug Dosing 67.3 ml/min Est GFR ( Amer) 88.3 Est GFR (Non-Af Amer) 76.2 BUN/Creatinine Ratio 13.5 (10-20) Glucose 211 H (70-99) mg/dl Calcium 8.9 (8.5-10.1) mg/dl Medications Administered Discontinued Medications Fentanyl Citrate (Fentanyl Citrate) 50 mcg IV NOW STA Stop: 12/04/18 20:51 Last Admin: 12/04/18 21:12 Dose: 50 mcg Documented by: [id number] Fentanyl Citrate (Fentanyl Citrate) 75 mcg IV NOW STA Stop: 12/04/18 21:57 Last Admin: 12/04/18 22:04 Dose: 75 mcg Documented by: [id number] Cefazolin Sodium 3,000 mg/ (Dextrose) 72.5 mls @ 130 mls/hr IV ONE STA Stop: 12/04/18 21:59 Last Infusion: 12/04/18 22:45 Dose: 0 mls/hr Documented by: [id number] Admin: 12/04/18 22:04 Dose: 130 mls/hr Documented by: [id number] Lidocaine HCl (Xylocaine 2% Preserved) 30 ml INFIL ONE ONE Stop: 12/04/18 22:31 Last Admin: 12/04/18 22:45 Dose: 30 ml Documented by: [id number] Code Status & VTE Plan Code Status Full code VTE Prophylaxis Plan VTE Prophylaxis will be ordered: Yes Supervising Physician Co-Signing Physician Notes Attending addendum: I have physically seen this patient, have supervised the medical residents activities, and agree with the H&P unless as otherwise noted. Assessment and Plan: Left wrist fracture- Reduced in the ED by Dr. Engle. Tentatively for the OR tomorrow Admit to medical floor, and make n.p.o. Pain control with acetaminophen for mild pain or temperature. Morphine IV as needed for severe pain. Consult Dr. Engle. Multiple left rib fractures, left scapular fracture, T4-7 compression fractures, and trace left hemothorax. Consult thoracic surgery Dr. Taveras. Diabetes mellitus-new diagnosis- Placed on Accu-Cheks before meals and at bedtime/every 6 hours, with NovoLog coverage per scale. Check hemoglobin A1c. Remainder of orders and notations as noted. PG Care Time/CCT Total # of Minutes Spent Total Time Spent with Patient: Total time spent is greater than 50% in coordination of care (as documented) at patient's floor/unit and/or counseling patient: Resident Activity Tracking Resident Involvement: Resident Care Provided Care Provided: Adult Hospital Medicine
[2018-12-05] MEDS ORDERED: ONDANSETRON INJ 2 MG/ML 2 ML VIAL IV PRN ×2 (01:17→16:37)
--- NOTE | 2018-12-05 01:29 | Emergency Department Note ---
ED Visit Note I have personally seen and evaluated the patient with the PA. I agree with the diagnosis and management decisions and have been personally involved in the case. Patient's case was discussed with Dr. Engle who evaluated the patient in the emergency department. Patient had received IV Ancef. Patient's wrist was reduced using a hematoma block as he is not an excellent candidate for conscious sedation. Patient had last eaten at 5 PM and has multiple comorbidities. Case was subsequently discussed with Dr. Madden of internal medicine who agreed to evaluate the patient for admission. Patient will require surgical management and likely transition to rehab due to frequent falls, rib fractures and wrist fracture. Please see Crystal Riggs PA-C's notes for further details of the history, physical and visit. .
[2018-12-05] MEDS: LACTATED RINGER'S 1,000 ML IV SCH ×2 (01:54→13:52)
[2018-12-05] MEDS: MoRPHine SULFATE 4 MG/ML 1 ML CARP\\VIAL IV PRN ×2 (02:22→08:07)
[2018-12-05] MEDS ORDERED: CARBOHYDRATES FOR HYPOGLYCEMIA PO PRN (02:22)
[2018-12-05] MEDS ORDERED: GLUCAGON FOR INJ 1 MG VIAL SQ PRN (02:22)
[2018-12-05] MEDS ORDERED: GLUCOSE 40% GEL 15 GM TUBE PO PRN (02:22)
[2018-12-05] MEDS ORDERED: GLUCOSE 10 TABS/TUBE PO PRN (02:22)
[2018-12-05] MEDS ORDERED: DEXTROSE 50% 50 ML SYRINGE IV PRN (02:22)
[2018-12-05] MEDS ORDERED: Nursing to Pharmacy Communication ONE ×2 (03:07→18:29)
[2018-12-05] MEDS: LEVOTHYROXINE SODIUM 125 MCG TABLET PO SCH (06:07)
[2018-12-05] MEDS: INSULIN ASPART 100 UNITS/ML 3 ML PEN SC SCH ×4 (06:26→21:35)
--- NOTE | 2018-12-05 06:29 | XRay Report ---
XR wrist LT 2V HISTORY: 83 years-old Male s/p reduction of wrist fx acute left wrist fracture status post fall COMPARISON: Left wrist radiographs of same day at 9:11 PM TECHNIQUE: 2 views of the left wrist FINDINGS: Status post reduction and casting of the acute intra-articular distal radial fracture. There is mildl y improved alignment with persistent dorsal lateral displacement and mild impaction. Subcortical cyst ic changes of the distal ulna redemonstrated with positive ulnar variance. The ulnar styloid is also likely fractured. 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 Findings bony detail is partially obscured secondary t o casting material. IMPRESSION: Mildly improved alignment with persistent dorsal lateral displacement and impaction statu s post reduction and casting. The above report was generated using voice recognition software. It may contain grammatical, syntax o r spelling errors. Electronically signed by: Reilly Barlow M.D. 12/05/2018 6:28 AM
[2018-12-05 07:29] LABS: Estimated Average Glucose 160 mg/dl; Hemoglobin A1C 7.2 % (4.5-5.6)
[2018-12-05] MEDS ORDERED: INSULIN ASPART 100 UNITS/ML 3 ML PEN SC SCH (07:30)
[2018-12-05] MEDS ORDERED: NON-FORMULARY MEDICATION (Coenzyme Q10 [Coq-10] 30 MG) PO SCH (09:00)
[2018-12-05] MEDS: CHOLECALCIFEROL 1,000 UNITS TAB PO SCH (09:11)
[2018-12-05] MEDS: DOCUSATE SODIUM 100 MG CAP PO SCH ×2 (09:11→21:34)
[2018-12-05] MEDS: PANTOprazole 40 MG TAB PO SCH (09:11)
[2018-12-05] MEDS: ATORVASTATIN 20 MG TAB PO SCH (09:11)
[2018-12-05] MEDS: MULTIVITAMIN TAB PO SCH (09:11)
[2018-12-05] MEDS: DIVALPROEX EXTENDED RELEASE 500 MG TAB PO SCH ×2 (09:12→21:34)
[2018-12-05] MEDS: ACETAMINOPHEN 1,000 MG/100 ML VIAL IV SCH ×2 (10:14→18:21)
--- NOTE | 2018-12-05 10:51 | Consultation Report ---
DATE OF CONSULTATION: 12/05/2018 REASON FOR CONSULTATION: Rib fractures with possible hemothorax. HISTORY OF PRESENT ILLNESS: This is an 83-year-old male who says that he fell last week. He says that when he landed, he did land on his left side. He says that his fall was the result of taking a misstep when he was stepping on a step stool. The patient fell again last night again taking a misstep. This time, he landed hard on his wrist on his left upper extremity and therefore presented to the Emergency Department. The patient did have various diagnostics performed including a cervical spine CT scan, which did not show any evidence of fractures or subluxations in the cervical spine. He had a CT scan of his head that showed no acute hemorrhage, mass effect or signs of acute stroke. He had a CT scan of his chest which showed a trace left hemothorax. There is no evidence of pneumonia or pneumothorax. He did have a left scapular and left-sided rib fractures. The left-sided ribs 10, 5, and 6 were noted to have fractures. In addition, the patient had wrist x-rays that showed a comminuted and distracted fracture of the distal radial metaphysis. He did have labs performed where CBC revealed hemoglobin and hematocrit of 13.2 and 37.5. His white blood cell count and platelet count were both noted to be within the normal range. He did have a chemistry profile where sodium was 133. Potassium, BUN and creatinine were noted to be within the normal range. The patient has had his wrist fracture addressed by Dr. Engle in the Emergency Department and he has subsequently been admitted due to his falls and continued orthopedic care. We have been asked to see due to rib fractures and possible hemothorax. I did question the patient on numerous symptoms, he said with his falls that he said he did hit his head, but not very hard and he denies any headache. He also denies any loss of consciousness. He denies any diplopia or blurry vision. He denies tinnitus, vertigo or epistaxis. He denies any malocclusion of his jaw or malalignment of his jaw. He denies any chest pain. He says prior to his fall, he did not experience any palpitations, shortness of breath, dizziness or blacking out. He denies nausea, vomiting, abdominal pain or dysuria. He does not report any leg pain, but does note pain in his left wrist. He does not report any history of stroke, seizure, migraine headache, DVT or PE, anxiety, or depression. At the time of my exam, the patient was resting comfortably in bed and he said his pain was currently controlled at this time. PAST MEDICAL HISTORY: Includes the followin. GERD. ALLERGIES: HE HAS LISTED ALLERGIES TO ADHESIVES THAT CAUSED RASH. HOME MEDICATIONS: Include: 1. Lipitor 20 mg daily. 2. Calcium citrate 200 mg at bedtime. 3. Vitamin D 2000 units daily. 4. Coenzyme Q10 30 mg daily. 5. Divalproex 500 mg twice daily. 6. Colace 100 mg twice daily. 7. Synthroid 125 mcg daily. 8. Mag citrate 125 mcg daily. 9. Multivitamin daily. 10. Protonix 20 mg daily. 11. Psyllium 1 tablespoon daily. 12. Ranitidine 150 mg at bedtime. SOCIAL HISTORY: The patient says that he tried smoking 1 time in his life, but otherwise he is a lifetime nonsmoker. FAMILY HISTORY: His grandmother suffered from heart disease. REVIEW OF SYSTEMS: As noted above. PHYSICAL EXAMINATION: VITAL SIGNS: The patient's blood pressure is 118/74, pulse 83 and regular, respirations are 20 and nonlabored. He is afebrile. Temperature 36.9, pulse ox 92% on room air. GENERAL: He is alert. He is oriented x3, in no distress. HEENT: There are no signs of head trauma. Eyes: His pupils are equal, reactive to light. Extraocular motions are intact. Ears: His auditory acuity is grossly intact. Nose: There is no evidence of nasal trauma. Mouth: Has dry mucous membranes. NECK: Supple. There is no tracheal shift or stridor. CARDIOVASCULAR: Regular rate and rhythm. LUNGS: Revealed that they were overall clear to auscultation without rales, rhonchi or wheezing with only a slight decrease at the bases. ABDOMEN: Soft, nontender, nondistended. EXTREMITIES: Revealed the patient's left arm was in an orthopedic cast/splint. He did have palpable pedal pulses and a palpable right radial pulse. I could not palpate the left radial pulse due to his orthopedic splint, but he was able to move all extremities. NEUROLOGIC: Revealed no focal deficits. He could move all 4 extremities and follow simple commands and he was alert and oriented x3. DIAGNOSTIC DATA: As noted above. IMPRESSION: An 83-year-old male status post fall. PLAN: The patient suffered rib fractures and I have discussed with him the mainstay of treatment for rib fractures is pulmonary toilet with mobilization as able along with pain control and use of his incentive spirometer. I expressed to him the importance of using his incentive spirometer, immobilization, so he does not get a pneumonia. I do realize that immobilization may prove somewhat challenging due to his acute fall and wrist fracture, but again expressed to him the importance of this. He does have a trace pleural effusion on his CAT scan which likely represents blood; however, there is some very small amount that I have not think warrants any intervention. I think following serial chest x-rays would be prudent to make sure he does not have a worsening of pleural effusion, and if this occurs, we will deal with it. For the remainder of the patient's care, we will defer to the primary and orthopedic services.
--- NOTE | 2018-12-05 11:53 | Hospitalist Progress Note ---
Date of Service December 05, 2018 Assessment & Plan (1) Open fracture of left distal radius: - Resulting from a mechanical fall - has had multiple falls this year; had a L wrist fracture at the beginning of the year which was managed conservatively - XR with impacted, comminuted, distracted, and overriding fracture o distal radial metaphysis with intraarticular extension and avulsion of ulnar styloid - was reduced in ED - Possible need for surgical intervention/ORIF this afternoon - currently NPO - Orthopedics following - appreciate surgical management - PT/OT evaluations Present on Admission?: Yes (2) Thoracic spine fracture: - Presence of compression deformities - T4, T5, T7 - does not appear to be bothered by this back can consider back brace if pain increases with movements Present on Admission?: Yes (3) Left rib fracture: - Imaging with L posterior fx of 5th, 6th, and 10th ribs - Presence of trace effusion likely hemothorax - conservative measures at this time and serial XR - no respiratory compromise at this time - Pulmonary toilet and pain management - Thoracic consult placed - appreciate assistance and outpatient F/U Present on Admission?: Yes (4) Left scapula fracture: - Conservative measures at this time; pain control Present on Admission?: Yes (5) Type 2 diabetes mellitus: - A1c 7.2 - Reports he was started on Metformin but was only given a one month supply which he completed and it does not have refills and therefore has not utilized this medication for some time - Cover with insulin while inpatient - can refer back to PCP on whether this is going to be continued Present on Admission?: Yes (6) Hypothyroid: - reports outpatient check of TSH recently was WNL - Levothyroxine 125 mg daily Present on Admission?: Yes (7) Hyperlipidemia: - STABLE - Atorvastatin 20 mg daily Present on Admission?: Yes (8) Seizure disorder: - Last grand mal seizure - 1989 - Divalproex 500 mg BID (9) DVT prophylaxis: - SCDs Disposition: Await possible surgical intervention; PT/OT evaluations to assist with disposition Subjective Reports he feels well just tired as he was admitted early this AM. He reports his pain is under control at this time. Denies SOB. Awaiting decision for surgical repair. Review of Systems Constitutional: + fatigue; no fever and no chills Ear, Nose, Mouth, Throat: no nasal congestion, no sore throat and no dysphagia Respiratory: no cough, no dyspnea and no hemoptysis Cardiovascular: no chest pain, no palpitations and no lightheadedness Gastrointestinal: no abdominal pain, no nausea, no vomiting, no constipation and no diarrhea/loose stools Genitourinary: no dysuria Musculoskeletal: + joint pain (intermittent L wrist) Integumentary: no rash Neurologic: no tingling and no numbness Physical Exam Constitutional: WD/WN, vitals as above Eyes: + anicteric sclerae ENMT: Ears: no hearing impairment Neck: normal visual inspection and trachea midline Respiratory: normal respiratory effort, lungs clear to auscultation Cardiovascular: RRR, no murmur, no edema Gastrointestinal (Abdomen): Inspection/Auscultation: normal bowel sounds Percussion/Palpation: abdomen soft; abdomen nontender Musculoskeletal: Head/Neck/Chest: normocephalic and head atraumatic Skin: no rashes, warm and dry Neurologic: moves all extremities Psychiatric: A+Ox3, euthymic affect Results & Data Vital Signs (Past 12 Hours) Vital Signs Temp Pulse Pulse Resp BP BP Pulse Ox 12/05/18 06:51 36.9 C 83 20 118/74 92 12/05/18 01:05 76 20 135/77 95 12/05/18 00:29 88 20 135/77 94 PG Care Time/CCT Total # of Minutes Spent Total Time Spent with Patient: Total time spent is greater than 50% in coordination of care (as documented) at patient's floor/unit and/or counseling patient:
[2018-12-05] MEDS ORDERED: PROPOFOL IV EMULSION 10 MG/ML 20 ML VIAL IV ONE (13:17)
[2018-12-05] MEDS ORDERED: DEXAMETHASONE SOD INJ 4 MG/ML VIAL ONE ×2 (13:17→14:20)
[2018-12-05] MEDS ORDERED: fentaNYL citrate 100 MCG/2 ML VIAL ONE (13:17)
[2018-12-05] MEDS ORDERED: ONDANSETRON INJ 2 MG/ML 2 ML VIAL ONE (13:17)
[2018-12-05] MEDS ORDERED: LIDOCAINE HCL 2% 2 ML VIAL/AMP(20MG/ML) INFIL ONE (13:17)
[2018-12-05] MEDS ORDERED: BUPIVACAINE/EPINEPHRINE 0.25% 1:200,000 30 ML VIAL ONE (13:26)
--- NOTE | 2018-12-05 13:58 | Anesthesiology Consultation ---
Date of Service December 05, 2018 Assessment & Plan Chart Review Chart Review: Acceptable Risk for Surgery and Patient NOT seen in Pre Admission Testing Consults Requested none ASA ASA4 Proposed Anesthesia Anesthesia Type: General Regional Regional Laterality: Left Site: Supraclavicular History Surgery Operation Date: 12/05/18 07:00 Proposed Procedures p Open Reduction Internal Fixation Arm Left - Yunior Engle, Height/Weight Height: 5 ft 8 in Weight: 84 kg Allergies Allergy/AdvReac Type Severity Reaction Status Date / Time adhesive Allergy Mild Rash Verified 12/04/18 23:11 Medications Home Medications Medication Instructions Recorded Confirmed Last Taken atorvastatin [Lipitor] 20 mg PO QAM #0 tab 07/05/14 12/04/18 12/04/18 cholecalciferol (vitamin D3) 2,000 unit PO QAM #0 07/05/14 12/04/18 12/04/18 coenzyme Q10 [CoQ-10] 30 mg PO QAM #0 07/05/14 12/04/18 12/04/18 levothyroxine [Synthroid] 125 mcg PO QAM #0 07/13/16 12/04/18 12/04/18 multivitamin 1 tab PO QAM #0 tab 07/13/16 12/04/18 12/04/18 psyllium 1 tbsp PO QPM #0 08/23/16 12/04/18 12/03/18 ranitidine HCl [Zantac] 150 mg PO HS 90 Days #90 tab 08/23/16 12/04/18 12/03/18 calcium citrate 200 mg (950 mg) 200 mg PO HS 07/05/18 12/04/18 12/03/18 tablet docusate sodium 100 mg capsule 100 mg PO BID 07/05/18 12/04/18 12/04/18 magnesium citrate 125 mg capsule 125 mg PO PM cap 07/05/18 12/04/18 12/03/18 divalproex ER 500 mg 500 mg PO BID 90 Days #180 tab 11/17/18 12/04/18 12/04/18 tablet,extended release 24 hr pantoprazole 20 mg PO QAM 12/04/18 12/04/18 12/04/18 Active Medications Generic Name Dose Route Start Last Admin Trade Name Freq PRN Reason Stop Dose Admin Atorvastatin Calcium 20 mg 12/05/18 09:00 12/05/18 09:11 Lipitor PO 01/04/19 08:59 20 mg QAM ROMINA Administration Divalproex Sodium 500 mg 12/05/18 09:00 12/05/18 09:12 Depakote Extended Release PO 01/04/19 08:59 500 mg BID ROMINA Administration Docusate Sodium 100 mg 12/05/18 09:00 12/05/18 09:11 Colace PO 01/04/19 08:59 100 mg BID ROMINA Administration Lactated Ringer's 1,000 mls @ 80 mls/hr 12/05/18 01:17 12/05/18 13:52 Lr IV 01/04/19 01:16 80 mls/hr .[id number] ORMINA Administration Acetaminophen 1,000 mg in 100 mls @ 400 mls/hr 12/05/18 10:00 12/05/18 10:39 Ofirmev IV 01/04/19 09:59 Infused Q8H ROMINA Infusion Insulin Aspart 0 units 12/05/18 06:00 12/05/18 12:06 Novolog Flexpen SC 01/04/19 05:59 Not Given Q6 ROMINA Levothyroxine Sodium 125 mcg 12/05/18 06:30 12/05/18 06:07 Synthroid PO 01/04/19 06:29 125 mcg DAILYBB ROMINA Administration Morphine Sulfate 4 mg 12/05/18 01:17 12/05/18 08:07 Morphine Sulfate IV 12/19/18 01:16 4 mg Q4H PRN Administration Pain Multivitamins 1 tab 12/05/18 09:00 12/05/18 09:11 Multivitamin Tab PO 01/04/19 08:59 1 tab QAM ROMINA Administration Pantoprazole Sodium 20 mg 12/05/18 09:00 12/05/18 09:11 Protonix PO 01/04/19 08:59 20 mg QAM ROMINA Administration Vitamin D 2,000 units 12/05/18 09:00 12/05/18 09:11 Vitamin D3 PO 01/04/19 08:59 2,000 units QAM ROMINA Administration NPO Date Last Intake of Fluids: 12/04/18 Time Last Intake of Fluids: 23:59 Last Intake of Fluids Comment: sips of water with pills this AM Date Last Intake of Solids: 12/04/18 Time Last Intake of Solids: 18:00 Last Intake of Solids Comment: per patient statement Past Medical History Medical History ASCVD (arteriosclerotic cardiovascular disease) CAD (coronary artery disease) GERD (gastroesophageal reflux disease) HLD (hyperlipidemia) HTN (hypertension) Hypothyroidism Seizure disorder Exercise / Class Metabolic Activity III < 4 Walking/Shop/Light housework Past Anesthesia History No Hx of Anesthesia Complications and No Family Hx of Anesthesia Complications History of PONV No Hx of PONV and No Hx of Motion Sickness Social History Smoking Status: Never smoker Do You Dip or Chew Tobacco: No Hx Alcohol Use: Yes Alcohol type: beer alcohol intake frequency: holidays/special occasions only Alcohol Intake Frequency Comment: twice/year. Hx Substance Use: No substance use type: does not use Physical Exam Vital Signs Last Vital Signs Temp 36.9 C 12/05/18 06:51 Pulse 83 12/05/18 06:51 Resp 20 12/05/18 06:51 BP 118/74 12/05/18 06:51 Pulse Ox 92 12/05/18 06:51 Testing Laboratory Results 12/04/18 21:26 12/04/18 21:26 PT Cancelled 12/04/18 21:50 INR Cancelled 12/04/18 21:50 Hemoglobin A1c 7.2 % (4.5-5.6) H 12/05/18 06:52 12/05/18 12/05/18 12/05/18 11:56 06:10 02:16 POC Glucose 128 H 169 H 154 H
[2018-12-05] MEDS ORDERED: MIDAZOLAM HCL 1 MG/ML 2ML VIAL ONE (14:12)
--- NOTE | 2018-12-05 14:15 | History & Physical Bridge Note ---
Date of Service December 05, 2018 History & Physical Bridge Note I have examined the patient, reviewed the History & Physical and in the interval since the performance of the History & Physical I have noted the following changes of clinical significance: no changes noted
[2018-12-05] MEDS ORDERED: CEFAZOLIN 2000MG 2,000 MG/15 ML SYR IV ONE (14:19)
[2018-12-05] MEDS ORDERED: ROPIVACAINE 0.5% 5 MG/ML 30 ML VIAL ONE (14:20)
[2018-12-05] MEDS ORDERED: EPINEPHrine INJ 1 MG/ML AMP ONE (14:20)
--- NOTE | 2018-12-05 16:09 | Fluoroscopy Report ---
INTRAOPERATIVE RADIOGRAPHS CLINICAL HISTORY: Open reduction and internal fixation of the left wrist. Fluoroscopy time: 49 seconds. FINDINGS: 2 spot fluoroscopic views of left wrist are correlated with radiographs dated 12/04/2018. Th ere has been buttress plate fixation of a distal radial metaphyseal fracture with holiness of near -anatomic alignment. Numerous cortical lag screws transfix the buttress plate. There is also an avuls ion fracture the ulnar styloid. Overlying soft tissue edema is noted. IMPRESSION: Intraoperative images from open reduction and internal fixation of the distal left radius as above. Electronically signed by: Yvan Emery M.D. 12/05/2018 4:08 PM
--- NOTE | 2018-12-05 16:09 | Fluoroscopy Report ---
INTRAOPERATIVE RADIOGRAPHS CLINICAL HISTORY: Open reduction and internal fixation of the left wrist. Fluoroscopy time: 49 seconds. FINDINGS: 2 spot fluoroscopic views of left wrist are correlated with radiographs dated 12/04/2018. Th ere has been buttress plate fixation of a distal radial metaphyseal fracture with denominational of near -anatomic alignment. Numerous cortical lag screws transfix the buttress plate. There is also an avuls ion fracture the ulnar styloid. Overlying soft tissue edema is noted. IMPRESSION: Intraoperative images from open reduction and internal fixation of the distal left radius as above. Electronically signed by: Yvan Emery M.D. 12/05/2018 4:08 PM
[2018-12-05] MEDS ORDERED: BUPIVACAINE/EPINEPHRINE 0.25% 10 ML VIAL INJ SCH (16:15)
--- NOTE | 2018-12-05 16:20 | Operative Report ---
Post Operative Report Pre & Post Diagnosis Operation Date: 12/05/18 07:00 Pre-Op Diagnosis: Open three-part intra-articular left distal radius fracture Post-Op Diagnosis: Open 3 part intra-articular left distal radius fracture Procedure Operation Date: 12/05/18 07:00 Actual Procedures p irrigation and debridement with open Reduction Internal Fixation Left distal radius(Left) - Yunior Engle DO Surgeon Yunior Engle DO [employer] None Estimated Blood Loss 20 Findings Consistent with Post-Op Diagnosis Specimens None Complications none Disposition Disposition: Recovery Room Indications Graciela is a pleasant 83-year-old male who fell hard yesterday sustaining a displaced open left distal radius fracture. He did have a history of a left distal radius fracture about 8 months ago that was treated conservatively in a splint. Unfortunately this fracture is much more unstable. He was admitted to the hospital and after discussions with him and his , he has elected to proceed with an open reduction and internal fixation of his left distal radius. Description of Procedure On December 05, 2018 he was brought down from his hospital bed to the preoperative holding area. The operative extremity identified and signed. Is given a regional block and a preoperative antibiotic. Is seen back to the operating room and laid on the table in supine position. He was put under general anesthesia. The left wrist was then prepped and draped in sterile fashion. A timeout was done. The patient and the operative extremity was properly identified. The open ulnar wound was treated first. It was a type I open fracture with a very small pinhole down to the ulna. There was a skin tear on the side as well. The total wound was about 2 cm. The wound was debrided and then irrigated with 1 L of normal saline solution. The wound was then closed with 3-0 nylon suture. Patient was then turned to the distal radius. A volar approach was used. Incision was made directly over the flexor carpi radialis. The radialis was retracted radially and all other tendons were retracted ulnarly. The supinator was elevated off the distal radius. The fracture was easily identified. It was a complex three-part intra-articular fracture. A Synthes 3 hole variable angle distal radial locking plate was then placed. Appropriate placement was checked under fluoroscopy. A single screw was placed in a combination hole. The fract ure was reduced to the plate. I was happy with the plate positioning and the reduction of the fracture. Distal locking screws were then placed. 2 more proximal locking screws were then placed. Final fluoroscopic images showed anatomic alignment of the distal radius. The wound was then irrigated. Tourniquet was deflated. Hemostasis was obtained. The fascia was closed with 2-0 Vicryl suture. Skin was closed with 3-0 nylon suture. He was then placed in a volar splint. He was then extubated and transferred to a [facility]. He was taken to the postanesthesia care unit in stable condition. He tolerated the procedure well. I attest to the content of the Intraoperative Record and any orders documented therein. Any exceptions are noted below.
--- NOTE | 2018-12-05 16:28 | Orthopedic Progress Note ---
Date of Service December 05, 2018 Assessment & Plan (1) Open fracture of left distal radius: He did very well with the surgery. He can be in a short arm splint. He can use his fingers but I do not want any excessive gripping or lifting with the left hand at this time. He can do gentle weightbearing on it but not much. He can move his elbow. I would like him to get the Ancef antibiotics for 2 doses postoperatively. He will then be orthopedically stable for discharge. He will follow-up with orthopedics in 2 weeks. I will remove the sutures at that time and either place him in a cast or splint. Orthopedic discharge instructions were placed in the discharge summary. Present on Admission?: Yes Tang Owens was seen and examined at bedside before surgery. I had discussions with he and his about the risks and benefits of the surgery and they elected to proceed. He went on to the operating room and underwent an open reduction and internal fixation of his left wrist later today. Physical Exam Musculoskeletal: On examination of his left wrist, he is now in a short arm trauma splint. Results & Data Vital Signs (Past 12 Hours) Vital Signs Temp Pulse Resp BP Pulse Ox 12/05/18 14:11 36.9 C 96 H 18 152/88 H 93 12/05/18 06:51 36.9 C 83 20 118/74 92 PG Care Time/CCT Total # of Minutes Spent Total Time Spent with Patient: Total time spent is greater than 50% in coordination of care (as documented) at patient's floor/unit and/or counseling patient:
[2018-12-05] MEDS ORDERED: PROMETHAZINE HCL 12.5 MG in SODIUM CHLORIDE 0.9% 50 ML IV PRN (16:37)
[2018-12-05] MEDS ORDERED: ATROPINE SULFATE 0.1 MG/ML 10ML SYR IV PRN (16:37)
[2018-12-05] MEDS ORDERED: LABETALOL HCL IV 5 MG/ML 20ML IV PRN (16:37)
[2018-12-05] MEDS ORDERED: fentaNYL citrate 100 MCG/2 ML VIAL IV PRN (16:37)
[2018-12-05] MEDS ORDERED: ePHEDrine sulfate 50 MG/ML AMP IV PRN (16:37)
[2018-12-05] MEDS ORDERED: NALOXONE HCL 0.4 MG/1 ML VIAL/CARP IV PRN ×2 (16:37→17:23)
[2018-12-05] MEDS ORDERED: FLUMAZENIL 0.1 MG/1 ML 10 ML VIAL IV PRN (16:37)
--- NOTE | 2018-12-05 16:57 | Anesthesiology Progress Note ---
Date of Service December 05, 2018 Anesthesia Post Procedure Vital Signs Vital Signs: Temp Pulse Pulse Pulse Resp BP BP 12/05/18 16:50 94 H 19 142/83 H 12/05/18 16:40 96 H 15 150/96 H 12/05/18 16:34 36.9 C 92 H 18 154/95 H 12/05/18 14:11 36.9 C 96 H 18 152/88 H 12/05/18 06:51 36.9 C 83 20 118/74 12/05/18 01:05 76 20 135/77 12/05/18 00:29 88 20 135/77 12/04/18 22:58 84 20 130/79 12/04/18 22:04 20 144/81 H 12/04/18 20:52 90 20 167/87 H Pulse Ox 12/05/18 16:50 96 12/05/18 16:40 97 12/05/18 16:34 96 12/05/18 14:11 93 12/05/18 06:51 92 12/05/18 01:05 95 12/05/18 00:29 94 12/04/18 22:58 94 12/04/18 22:04 93 12/04/18 20:52 95 Pain Intensity Left Wrist: Pain Intensity: 8 Transfer of Care Handoff Completed per policy Notes Mental Status: alert / awake / arousable Patient Amnestic to Procedure: Yes Nausea / Vomiting: adequately controlled Pain: adequately controlled Airway Patency, RR, SpO2: stable & adequate BP & HR: stable & adequate Hydration State: stable & adequate Anesthetic Complications: no major complications apparent
[2018-12-05] MEDS: SODIUM CHLORIDE 0.9% 1000ML 1,000 ML IV SCH (18:20)
[2018-12-05] MEDS: PSYLLIUM 58.6% POWDER PACKET PO SCH (21:34)
[2018-12-05] MEDS: CALCIUM CITRATE 950 MG TAB PO SCH (21:34)
[2018-12-05] MEDS: MAGNESIUM CITRATE 296 ML/BTL PO SCH (21:36)
[2018-12-05] MEDS: CEFAZOLIN 2000MG 2,000 MG/15 ML SYR IV SCH (22:05)
[2018-12-06] MEDS: ACETAMINOPHEN 1,000 MG/100 ML VIAL IV SCH (01:45)
[2018-12-06] MEDS: LEVOTHYROXINE SODIUM 125 MCG TABLET PO SCH (05:09)
[2018-12-06] MEDS: CEFAZOLIN 2000MG 2,000 MG/15 ML SYR IV SCH (05:10)
[2018-12-06] MEDS: SODIUM CHLORIDE 0.9% 1000ML 1,000 ML IV SCH (05:11)
--- NOTE | 2018-12-06 07:28 | XRay Report ---
XR chest 1V portable CLINICAL HISTORY: rib fractures COMPARISON STUDY: Chest CT December 04, 2018. FINDINGS: There is no pneumothorax. Multiple acute appearing left-sided rib fractures are again noted , as shown on chest CT of December 04, 2018. A trace left pleural effusion is noted. Bibasilar opacitie s are again noted. Left basilar opacity has slightly increased. Cardiomediastinal silhouette is stabl e. There is no evidence for pulmonary edema. IMPRESSION: 1. No pneumothorax. Trace left pleural effusion. 2. Redemonstration of multiple acute appearing left-sided rib fractures as shown on prior chest CT. 3. Bibasilar opacities, greater on the left. Left basilar opacity has increased since CT of November. Electronically signed by: Gregg Saldivar M.D. 12/06/2018 7:26 AM
[2018-12-06 07:49] LABS: Hematocrit (blood only) 35.9 % (42-52); Hemoglobin 11.9 g/dL (14.0-18.0); Mean Corpuscular Hgb Conc 33.1 g/dL (32-36); Mean Corpuscular Volume 96.2 fL (80-100); Mean Platelet Volume 9.6 fL (7.4-10.4); Platelet Count 121 K/uL (130-400); RDW Coefficient of Variation 15.2 % (11.5-14.5); RDW Standard Deviation 53.6 fL (36.4-46.3); Red Blood Count 3.73 M/uL (4.7-6.1); White Blood Count 7.41 K/uL (4.8-10.8)
[2018-12-06 08:14] LABS: BUN Creatinine Ratio 14.5 (10-20); Calcium 8.8 mg/dl (8.5-10.1); Creatinine Clr Calc Pharmacy 65.4 ml/min; Est GFR (African American) 89.5; Est GFR (Non-African American) 77.2; Potassium 4.1 mmol/L (3.5-5.1)
[2018-12-06 08:19] LABS: Ferritin 140.2 ng/ml (8-388)
[2018-12-06] MEDS: DOCUSATE SODIUM 100 MG CAP PO SCH ×2 (08:37→21:29)
--- NOTE | 2018-12-06 08:37 | Anesthesiology Progress Note ---
Date of Service December 06, 2018 Anesthesia Post Procedure Vital Signs Vital Signs: Temp Pulse Pulse Resp BP Pulse Ox 12/06/18 07:46 37 C 84 18 114/64 94 12/05/18 23:30 94 12/05/18 23:25 37 C 95 H 16 122/72 89 L 12/05/18 21:23 37.4 C 91 H 16 133/78 91 12/05/18 19:20 36.9 C 83 16 105/68 95 12/05/18 18:28 36.9 C 87 16 130/77 92 12/05/18 17:50 36.7 C 93 H 16 155/93 H 92 12/05/18 17:20 36.8 C 96 H 18 146/81 H 92 12/05/18 17:10 37.4 C 94 H 16 128/89 94 12/05/18 17:00 94 H 16 144/83 H 94 12/05/18 16:50 94 H 19 142/83 H 96 12/05/18 16:40 96 H 15 150/96 H 97 12/05/18 16:34 36.9 C 92 H 18 154/95 H 96 12/05/18 14:11 36.9 C 96 H 18 152/88 H 93 Pain Intensity Left Wrist: Pain Intensity: 0 Notes Mental Status: alert / awake / arousable and participated in evaluation Patient Amnestic to Procedure: Yes Nausea / Vomiting: adequately controlled Pain: adequately controlled Airway Patency, RR, SpO2: stable & adequate BP & HR: stable & adequate Hydration State: stable & adequate Anesthetic Complications: no major complications apparent and Pt Satisfied with anesthetic care
[2018-12-06] MEDS: DIVALPROEX EXTENDED RELEASE 500 MG TAB PO SCH ×2 (08:38→21:30)
[2018-12-06] MEDS: ATORVASTATIN 20 MG TAB PO SCH (08:39)
[2018-12-06] MEDS: PANTOprazole 40 MG TAB PO SCH (08:40)
[2018-12-06] MEDS: MULTIVITAMIN TAB PO SCH (08:40)
[2018-12-06] MEDS: CHOLECALCIFEROL 1,000 UNITS TAB PO SCH (08:42)
[2018-12-06] MEDS: INSULIN ASPART 100 UNITS/ML 3 ML PEN SC SCH ×4 (08:49→21:33)
[2018-12-06 09:06] LABS: Folate (Folic Acid) 19.99 ng/ml (>5.38)
[2018-12-06] MEDS: MoRPHine SULFATE 4 MG/ML 1 ML CARP\\VIAL IV PRN ×3 (09:35→20:06)
--- NOTE | 2018-12-06 16:32 | Hospitalist Progress Note ---
Date of Service December 06, 2018 Assessment & Plan (1) Falls: (2) Open fracture of left distal radius: - Resulting from a mechanical fall - has had multiple falls this year; had a L wrist fracture at the beginning of the year which was managed conservatively - XR with impacted, comminuted, distracted, and overriding fracture o distal radial metaphysis with intraarticular extension and avulsion of ulnar styloid - was reduced in ED - S/P ORIF on 12/05 - Orthopedics following - appreciate surgical management -- Continue short arm splint, allows movement of fingers but no excessive gripping or lifting; gentle weightbearing; can move elbow - F/U in 2 weeks with suture removal - PT/OT evaluations (3) Thoracic spine fracture: - Presence of compression deformities - T4, T5, T7 - Given the concurrent rib fractures a back brace may be uncomfortable to wear (4) Left rib fracture: - Imaging with L posterior fx of 5th, 6th, and 10th ribs - Presence of trace effusion likely hemothorax - conservative measures at this time and serial XR - no evidence of worsening infusion on repeat CXR today - no respiratory compromise at this time - Pulmonary toilet and pain management - Thoracic consult placed - appreciate assistance and outpatient F/U (5) Left scapula fracture: - Conservative measures at this time; pain control (6) Type 2 diabetes mellitus: - A1c 7.2 - Reports he was started on Metformin but was only given a one month supply which he completed and it does not have refills and therefore has not utilized this medication for some time - Cover with insulin while inpatient - can refer back to PCP on whether this is going to be continued Present on Admission?: Yes (7) Seizure disorder: - Last grand mal seizure - 1989 - Divalproex 500 mg BID (8) Hyperlipidemia: - STABLE - Atorvastatin 20 mg daily (9) Hypothyroid: - reports outpatient check of TSH recently was WNL - Levothyroxine 125 mg daily (10) DVT prophylaxis: - SCDs Disposition: PT/OT - patient anticipates return home at D/C; appreciate case management discussion Subjective Reports more pain today in the wrist, back, and shoulder. States he did not do as well with OT related to getting groggy from pain medication. Was working with PT after my visit. He anticipates returning home on D/C. Tolerating diet without issue and reports sleeping alright overnight. Review of Systems Constitutional: no fever and no chills Respiratory: no cough and no dyspnea Cardiovascular: no chest pain Gastrointestinal: no abdominal pain, no nausea, no vomiting, no constipation and no diarrhea/loose stools Genitourinary: no dysuria Musculoskeletal: + joint pain (L wrist) Pain in L back/shoulder Integumentary: no rash Physical Exam Constitutional: WD/WN, vitals as above Eyes: + anicteric sclerae ENMT: Ears: no hearing impairment Neck: normal visual inspection and trachea midline Respiratory: normal respiratory effort, lungs clear to auscultation Cardiovascular: RRR, no murmur, no edema Gastrointestinal (Abdomen): Inspection/Auscultation: normal bowel sounds Percussion/Palpation: abdomen soft; abdomen nontender Musculoskeletal: Head/Neck/Chest: normocephalic and head atraumatic slight swelling of L fingers but movement intact; fingers appropriate temperature and cap refill immediate Skin: no rashes, warm and dry Neurologic: moves all extremities Psychiatric: A+Ox3, euthymic affect Results & Data Vital Signs (Past 12 Hours) Vital Signs Temp Pulse Pulse Resp BP Pulse Ox 12/06/18 15:27 37.3 C 89 18 121/61 91 12/06/18 12:04 37.1 C 84 18 138/78 93 12/06/18 07:46 37 C 84 18 114/64 94 PG Care Time/CCT Total # of Minutes Spent Total Time Spent with Patient: Total time spent is greater than 50% in coordination of care (as documented) at patient's floor/unit and/or counseling patient:
[2018-12-06] MEDS: PSYLLIUM 58.6% POWDER PACKET PO SCH (21:29)
[2018-12-06] MEDS: CALCIUM CITRATE 950 MG TAB PO SCH (21:29)
[2018-12-06] MEDS: MAGNESIUM CITRATE 296 ML/BTL PO SCH (21:32)
[2018-12-07] MEDS: LEVOTHYROXINE SODIUM 125 MCG TABLET PO SCH (05:57)
[2018-12-07] MEDS: MoRPHine SULFATE 4 MG/ML 1 ML CARP\\VIAL IV PRN (06:06)
[2018-12-07] MEDS: PANTOprazole 40 MG TAB PO SCH (08:39)
[2018-12-07] MEDS: CHOLECALCIFEROL 1,000 UNITS TAB PO SCH (08:39)
[2018-12-07] MEDS: MULTIVITAMIN TAB PO SCH (08:40)
[2018-12-07] MEDS: DOCUSATE SODIUM 100 MG CAP PO SCH ×2 (08:40→21:07)
[2018-12-07] MEDS: ATORVASTATIN 20 MG TAB PO SCH (08:40)
[2018-12-07] MEDS: DIVALPROEX EXTENDED RELEASE 500 MG TAB PO SCH ×2 (08:40→21:07)
--- NOTE | 2018-12-07 08:48 | Surgery Progress Note ---
Date of Service December 07, 2018 Assessment & Plan (1) Left rib fracture: -continue pain control measures -pt. has small hemothorax noted on CT scan of chest as well as follow-up CXR -as he has no SOB and pulse ox >90% on room air, along with the fact that hemothorax is small, no intervention planned at this time -following discharge we will see this pt. in the office in 1-2 weeks with a repeat CXR (2) Left scapula fracture: -please see plan above Subjective Pt. denies chest wall pain or SOB. Physical Exam Respiratory: normal respiratory effort; no respiratory distress and no labored breathing BS have slight decrease on left with some crackles Results & Data Vital Signs (Past 12 Hours) Vital Signs Temp Pulse Resp BP Pulse Ox 12/07/18 07:00 37 C 84 18 139/78 92 12/06/18 23:15 37.2 C 93 H 16 136/72 92
[2018-12-07] MEDS: INSULIN ASPART 100 UNITS/ML 3 ML PEN SC SCH ×4 (09:05→21:12)
[2018-12-07] MEDS: HYDROCODONE/ACETAMOPHEN 5/325MG TAB PO PRN ×2 (13:08→21:07)
--- NOTE | 2018-12-07 16:08 | Hospitalist Progress Note ---
Date of Service December 07, 2018 Assessment & Plan (1) Open fracture of left distal radius: - Resulting from a mechanical fall - has had multiple falls this year; had a L wrist fracture at the beginning of the year which was managed conservatively - XR with impacted, comminuted, distracted, and overriding fracture of distal radial metaphysis with intraarticular extension and avulsion of ulnar styloid - was reduced in ED - S/P ORIF on 12/05 - Orthopedics following - appreciate surgical management -- Continue short arm splint, allows movement of fingers but no excessive gripping or lifting; gentle weightbearing; can move elbow - F/U in 2 weeks with suture removal - Pain is better controlled today - continue Tylenol and [place] PRN - PT/OT evaluations - planning on rehab stay on D/C (2) Thoracic spine fracture: - Presence of compression deformities - T4, T5, T7 - Given the concurrent rib fractures/scapula fx a back brace may be uncomfortable to wear (3) Left rib fracture: - Imaging with L posterior fx of 5th, 6th, and 10th ribs - Presence of trace effusion likely hemothorax - conservative measures at this time and serial XR - no evidence of worsening infusion on repeat CXR today - no respiratory compromise at this time - Pulmonary toilet and pain management - Thoracic consult placed - appreciate assistance and outpatient F/U (4) Left scapula fracture: - Conservative measures at this time; pain control (5) Type 2 diabetes mellitus: - A1c 7.2 - Reports he was started on Metformin but was only given a one month supply which he completed and it does not have refills and therefore has not utilized this medication for some time - Cover with insulin while inpatient - can refer back to PCP on whether this is going to be continued (6) Seizure disorder: - Last grand mal seizure - 1989 - Divalproex 500 mg BID (7) Hyperlipidemia: - STABLE - Atorvastatin 20 mg daily (8) Hypothyroid: - reports outpatient check of TSH recently was WNL - Levothyroxine 125 mg daily (9) DVT prophylaxis: - SCDs Disposition: Planning on rehab on D/C; pending auth can D/C likely tomorrow Subjective Pt reports his pain is doing better. His back is most bothersome and worse with laying in the bed which likely correlates to his ribs. He is tolerating a diet. Planning on a short rehab stay on D/C. Review of Systems Constitutional: no fever and no chills Respiratory: no cough and no dyspnea Cardiovascular: no chest pain, no palpitations, no lightheadedness and no edema Gastrointestinal: no abdominal pain, no nausea, no vomiting, no constipation and no diarrhea/loose stools Genitourinary: no dysuria Musculoskeletal: + joint pain (L wrist) Pain in L back/shoulder - mostly with laying in the bed Integumentary: no rash Neurologic: no tingling and no numbness Physical Exam Constitutional: WD/WN, vitals as above Eyes: + anicteric sclerae ENMT: Ears: no hearing impairment Neck: normal visual inspection and trachea midline Respiratory: normal respiratory effort, lungs clear to auscultation Cardiovascular: RRR, no murmur, no edema Gastrointestinal (Abdomen): Inspection/Auscultation: normal bowel sounds Percussion/Palpation: abdomen soft; abdomen nontender Musculoskeletal: Head/Neck/Chest: normocephalic and head atraumatic L wrist in splint/michael wrap with movement to fingers intact; mildly edematous fingers but immediate cap refill Skin: no rashes, warm and dry Neurologic: moves all extremities Psychiatric: A+Ox3, euthymic affect Results & Data Vital Signs (Past 12 Hours) Vital Signs Temp Pulse Resp BP Pulse Ox 12/07/18 15:07 36.9 C 84 18 125/69 92 12/07/18 07:00 37 C 84 18 139/78 92 PG Care Time/CCT Total # of Minutes Spent Total Time Spent with Patient: Total time spent is greater than 50% in coordination of care (as documented) at patient's floor/unit and/or counseling patient:
[2018-12-07] MEDS: PSYLLIUM 58.6% POWDER PACKET PO SCH (21:06)
[2018-12-07] MEDS: CALCIUM CITRATE 950 MG TAB PO SCH (21:07)
[2018-12-07] MEDS: MAGNESIUM CITRATE 296 ML/BTL PO SCH (21:07)
[2018-12-08] MEDS: LEVOTHYROXINE SODIUM 125 MCG TABLET PO SCH (05:27)
[2018-12-08] MEDS ORDERED: ACETAMINOPHEN 325 MG TAB PO PRN (08:26)
[2018-12-08] MEDS: PANTOprazole 40 MG TAB PO SCH (09:01)
[2018-12-08] MEDS: DIVALPROEX EXTENDED RELEASE 500 MG TAB PO SCH (09:01)
[2018-12-08] MEDS: DOCUSATE SODIUM 100 MG CAP PO SCH (09:01)
[2018-12-08] MEDS: ATORVASTATIN 20 MG TAB PO SCH (09:01)
[2018-12-08] MEDS: CHOLECALCIFEROL 1,000 UNITS TAB PO SCH (09:01)
[2018-12-08] MEDS: MULTIVITAMIN TAB PO SCH (09:01)
[2018-12-08] MEDS: INSULIN ASPART 100 UNITS/ML 3 ML PEN SC SCH ×2 (09:06→13:01)
--- NOTE | 2018-12-08 09:23 | Surgery Progress Note ---
Date of Service December 08, 2018 Assessment & Plan (1) Left rib fracture: -continue pain control measures -pt. has small hemothorax noted on CT scan of chest as well as follow-up CXR -pulse ox remains >90% on room air, and he is not SOB -hemothorax in imaging is is small, no intervention planned at this time -we will see this pt. in the office in 1-2 weeks from discharge with a repeat CXR (2) Left scapula fracture: -please see plan above Subjective Pt. denies chest wall pain. He is nt SOB. Physical Exam Respiratory: normal respiratory effort; no respiratory distress and no labored breathing a few crackles noted at left base. Cardiovascular: Rate/Rhythm: regular rate and regular rhythm Results & Data Vital Signs (Past 12 Hours) Vital Signs Temp Pulse Pulse Resp BP Pulse Ox 12/08/18 08:38 36.7 C 98 H 18 138/86 94 12/08/18 00:00 146/80 H 12/07/18 23:34 36.8 C 95 H 16 169/84 H 93
--- NOTE | 2018-12-08 17:01 | Discharge Summary ---
Date of Service December 08, 2018 Admission HPI Per Admitting Provider 83-year-old male presents with acute left wrist pain following a fall earlier this evening. In a brief review of recent events, patient suffered a mechanical fall back in April and broke his left wrist. He says that he underwent physical therapy for both his wrist as well as for fall prevention over the subsequent weeks. He then suffered another fall this past 15Aug which he says was due to his ankle rolling causing him to fall backwards. He denies any loss of consciousness or head injury at that time. He has had ongoing left posterior shoulder and rib pain since then but thought it was just a bruise. He has been able to do most of his normal ADLs up until this evening. He says this evening he went to step up onto a step when he does not think his foot completely made it on there. He recalls falling, not passing out, but he did hit his head and "see stars". He immediately had left wrist pain as well, prompting this ED evaluation. At the time of this H&P, the patient already underwent reduction and splinting of his left wrist by orthopedics. He says he continues to have some left posterior shoulder and rib pain, particularly with deep inspiration, but denies direct chest pain, shortness of breath, or other focal acute pain/concerns. We discussed that there is some question of him dragging his left leg at times when he ambulates. Patient is unclear about this. At present, he denies any focal weakness, numbness, tingling, or low back pain. We also discussed that he has transition glasses for his vision. There is some question of if he has problems ambulating while wearing his glasses. - Past medical history includes GERD, choledocholithiasis, pancreatitis, left wrist fracture. 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 - Social history includes non-smoker, denies alcohol use, and lives at home with spouse. Principal Diagnosis Open L Wrist Fx; Multiple Rib Fx; L Scapular Fx; Thoracic Compression Fx; Hemothorax Discharge Exam Constitutional WD/WN, vitals as above Eyes + anicteric sclerae ENMT Ears: no hearing impairment Neck normal visual inspection and trachea midline Respiratory normal respiratory effort, lungs clear to auscultation Cardiovascular RRR, no murmur, no edema Gastrointestinal (Abdomen) Inspection/Auscultation: normal bowel sounds Percussion/Palpation: abdomen soft; abdomen nontender Musculoskeletal Head/Neck/Chest: normocephalic and head atraumatic L arm in sling and michael wrap, movement intact to fingers but evidence of edema in fingers. Cap refill immediate and fingers equal temperature Skin no rashes, warm and dry Neurologic moves all extremities Psychiatric A+Ox3, euthymic affect Discharge Data Allergies Allergy/AdvReac Type Severity Reaction Status Date / Time adhesive Allergy Mild Rash Verified 12/04/18 23:11 Consultations 12/04/18 23:25 ED Decision to Admit Stat 12/05/18 01:17 Consult Orthopedic Surgery Routine Consult Thoracic Surgery Routine 12/05/18 17:23 Consult Case Management - Discharge Planning Routine Procedures Performed Operation Date: 12/05/18 07:00 Actual Procedures p Open Reduction Internal Fixation Left Wrist(Left) - Yunior Engle, Ordered Studies 12/04/18 20:50 CT cervical spine wo con Stat CT chest wo con Stat CT head/brain wo con Stat 12/05/18 11:00 FL fluoroscopy <1hr Routine FL wrist LT 3V RTN Routine 12/05/18 14:21 US - OR guided needle placemen Stat Hospital Course (1) Open fracture of left distal radius: - Resulting from a mechanical fall - has had multiple falls this year; had a L wrist fracture at the beginning of the year which was managed conservatively - XR with impacted, comminuted, distracted, and overriding fracture of distal radial metaphysis with intraarticular extension and avulsion of ulnar styloid - was reduced in ED but now S/P ORIF on 12/05 - Orthopedics followed- Dr. Engle -- Continue short arm splint, allows movement of fingers but no excessive gripping or lifting; gentle weightbearing; can move elbow - F/U in 2 weeks with suture removal - Pain well controlled - can continue Tylenol and/or [place] PRN (2) Thoracic spine fracture: - Presence of compression deformities - T4, T5, T7 - Given the concurrent rib fractures/scapula fx a back brace may be uncomfortable to wear as it seems the pain is more scapular/rib as his pain is more bothersome when sitting with his back against the bed/chair (3) Left rib fracture: - Imaging with L posterior fx of 5th, 6th, and 10th ribs - Presence of trace effusion likely hemothorax - conservative measures at this time and serial XR - no evidence of worsening infusion on repeat CXR - no respiratory compromise at this time - Pulmonary toilet and pain management - Thoracic followed - planning on F/U as outpatient with F/U CXR (4) Left scapula fracture: - Conservative measures at this time; pain control (5) Type 2 diabetes mellitus: - A1c 7.2 - Reports he was started on Metformin but was only given a one month supply which he completed and it does not have refills and therefore has not utilized this medication for some time - Has required minimal coverage of insulin in-house - recommended to rehab to continue sliding scale coverage if necessary and can defer back to PCP if the plan is to continue Metformin or do another option (6) Seizure disorder: - Last grand mal seizure - 1989 - Divalproex 500 mg BID (7) Hyperlipidemia: - STABLE - Atorvastatin 20 mg daily (8) Hypothyroid: - reports outpatient check of TSH recently was WNL - Levothyroxine 125 mg daily (9) DVT prophylaxis: - SCDs Disposition: [facility] Total Time Total Time Spent Total Time Spent (In Minutes): Greater than 30 minutes Discharge Plan Discharge Items Patient Disposition: Transfer Inpatient Rehab Fac Reason For Visit: WRIST PAIN Discharge Diagnosis: Open Left Wrist Fracture; Rib Fx; Scapular Fx; Compression Fx Discharge Goals: Decrease discomfort, Improve function and Increase independence Activity: Per 'Additional Instructions' section Non-emergency contact: Primary Care Provider Call non-emergency contact if: you have any medication questions, your symptoms worsen and you have a fever Follow-up/Referrals: Balaji Jenkins [Primary Care Provider] - 12/13/18 10:50 am (Please, follow up at Dr. Jenkins's office with his associate, Dr. Sukumar Duarte, on TuesdayDecember 13 at 10:50 am. *If you need to change this appointment, call the office at [phone].) Yunior Engle DO [Physician] - 12/19/18 3:15 pm (Please, follow up with Dr. Engle on TuesdayDecember 19 at 3:15 pm. *The address is [address] in [place]. If you need to change this appointment, call the office at [phone].) Diet: Carb Consistent or DM2 Addtl Provider Instructions: ORTHOPEDIC INSTRUCTIONS Activity Recommendations: You may use your fingers while in the splint. You may do gentle range of motion of your elbow. No gripping or lifting. No excessive weightbearing on the left wrist. Dressing Care: Leave the splint intact until follow-up in the office in 2 weeks. Showering: He may shower but do not get the splint wet. Things To Watch For: 1. Drainage from the incision site that occurs more than one week after your surgery. 2. Increased redness at the incision site. 3. Fever above 102 degrees Fahrenheit. 4. Unusual chest pain or shortness of breath. 5. Call [facility] at with any of the above problems Follow-Up Visit: Follow-up with Dr. Engle 2 weeks after your day of surgery. Please call to make an appointment or be sure your rehab facility has made one. If you have any questions call (1) Open fracture of left distal radius: - Resulting from a mechanical fall - has had multiple falls this year; had a L wrist fracture at the beginning of the year which was managed conservatively - XR with impacted, comminuted, distracted, and overriding fracture of distal radial metaphysis with intraarticular extension and avulsion of ulnar styloid - was reduced in ED and now S/P ORIF on 12/05 - Orthopedics followed - please reference recommendations above provided by Dr. Engle and follow-up instructions - Pain is better controlled but doesn't use much pain medications - continue Tylenol for mild pain, can use [place] for more severe pain - pain from ribs/scapula seem to be the more bothersome injury (2) Thoracic spine fracture: - Presence of compression deformities - T4, T5, T7 - Given the concurrent rib fractures/scapula fx a back brace may be uncomfortable to wear and it seems pain is more brought on by laying in bed which may correlate more to the ribs/scapula instead of the compression deformities (3) Left rib fracture: - Imaging with L posterior fx of 5th, 6th, and 10th ribs - Presence of trace effusion likely hemothorax - conservative measures at this time - repeat CXR in hospital does not reveal worsening and no respiratory compromise - Recommend incentive spirometry - Thoracic surgery followed - will call with F/U appointment in about one week with plans to obtain CXR prior to appointment (4) Left scapula fracture: - Conservative measures at this time; pain control (5) Type 2 diabetes mellitus: - A1c 7.2 - Reports he was started on Metformin but was only given a one month supply which he completed and it does not have refills and therefore has not utilized this medication for some time; he is not certain if the plan was to continue this or reassess prior to further prescription - Did use insulin here but required little in coverage; could continue glucose checks and facility sliding scale with follow-up with PCP to further discuss ongoing/long-term management (6) Seizure disorder: - Last grand mal seizure - 1989 - Divalproex 500 mg BID (7) Hyperlipidemia: - Atorvastatin 20 mg daily (8) Hypothyroid: - Levothyroxine 125 mg daily Prescriptions: New hydrocodone-acetaminophen [[place]] 5-325 mg Tablet 1 tab PO Q4H PRN (Reason: pain) 3 Days Qty: 18 RF: 0 Continued calcium citrate 200 mg (950 mg) tablet 200 mg PO HS RF: 0 magnesium citrate 125 mg capsule 125 mg PO PM RF: 0 docusate sodium [Dulcolax Stool Softener (dss)] 100 mg capsule 100 mg PO BID RF: 0 atorvastatin [Lipitor] 20 mg Tablet 20 mg PO QAM Qty: 0 RF: 0 coenzyme Q10 [CoQ-10] 30 mg Capsule 30 mg PO QAM Qty: 0 RF: 0 cholecalciferol (vitamin D3) 2,000 unit Tablet 2,000 unit PO QAM Qty: 0 RF: 0 multivitamin Tablet 1 tab PO QAM Qty: 0 RF: 0 levothyroxine [Synthroid] 125 mcg Tablet 125 mcg PO QAM Qty: 0 RF: 0 ranitidine HCl [Zantac] 150 mg Tablet 150 mg PO HS 90 Days Qty: 90 RF: 3 psyllium Powder 1 tbsp PO QPM Qty: 0 RF: 0 divalproex 500 mg tablet extended release 24 hr 500 mg PO BID 90 Days Qty: 180 RF: 3 pantoprazole 20 mg tablet,delayed release (DR/EC) 20 mg PO QAM RF: 0 Stand-Alone Forms: [facility]/Other Patient Handouts: Surgery Prevent DVT After Discharge Orders: Discharge Order (Routine); Ordered 12/08/18 Ordered By: Yoko Pratt Skilled Items Patient informed of condition?: Yes DNR: No Discharge Level of Care: Acute rehab Communicable Disease: No Discharge Prognosis: Stable Admission Data Admit Date/Time: 12/05/18 00:23 Attending Provider: Kurt Patino Admit Provider: Reilly Kim Primary Care Provider: Balaji Jenkins Other Providers: Gavin Arguello ; Yunior Engle ; Jose Antonio Taveras Service: Surgical Services Other Interventions: Discharge Summary Assessment (RN) Last Done: 12/08/18 15:26 Pending Studies at Discharge: No DC Date/Time DO NOT enter until pt leaves facility: 12/08/18 16:08 Supervising Physician Co-Signing Physician Notes Attending note: patient seen and examined with Yoko Pratt PA-C. I agree with her discharge summary. I personally reviewed the labs and imaging findings. Patient ready for discharge to rehab, pain is controlled. He is eating better. Participating in therapy. - Ulnar fracture, s/p ORIF: continue with splint, follow up in two weeks with Dr. Engle - Left rib fractures with small hemothorax: stable for several days, thoracic surgery recommends follow up CXR and see in office
== END 2018-12-08 16:08 | DRG 958 ==
LOC: ED 20:31 → SUATTDRO 12-05 00:23 → 3W 12-05 00:23
DX: S52.572B Other intraarticular fracture of lower end of left radius, initial encounter for open fracture type I or II; Y93.01 Activity, walking, marching and hiking; R29.6 Repeated falls; S27.1XXA Traumatic hemothorax, initial encounter; E78.5 Hyperlipidemia, unspecified; E03.9 Hypothyroidism, unspecified; W10.9XXA Fall (on) (from) unspecified stairs and steps, initial encounter; E11.65 Type 2 diabetes mellitus with hyperglycemia; S22.050A Wedge compression fracture of T5-T6 vertebra, initial encounter for closed fracture; Y92.89 Other specified places as the place of occurrence of the external cause; S22.060A Wedge compression fracture of T7-T8 vertebra, initial encounter for closed fracture; S22.42XA Multiple fractures of ribs, left side, initial encounter for closed fracture; K21.9 Gastro-esophageal reflux disease without esophagitis; S42.102A Fracture of unspecified part of scapula, left shoulder, initial encounter for closed fracture; S22.040A Wedge compression fracture of fourth thoracic vertebra, initial encounter for closed fracture; G40.909 Epilepsy, unspecified, not intractable, without status epilepticus

== ENCOUNTER 2023-04-03 09:05 | Inpatient (IN) ==
--- OUTSIDE RECORDS SUMMARY | 2023-04-03 09:11 | External Medical Summary | Continuity of Care Document ---
Author Name Unknown Organization [address] [place] [phone] Care Team Providers Care Diagnostic Medical Sonographer Name Role Phone Balaji Jenkins Primary Care Physician [phone] [facility]counter [facility] [id number] Date(s): 12/24/22 - 12/24/22 [facility] [address] [facility] 207 [facility] [address] [facility] 207 [place] [address] [phone] Encounter Diagnosis Uncontrolled type 2 diabetes mellitus with hyperglycemia(Discharge Diagnosis) - 12/24/22 Body mass index [BMI] 25.0-25.9, adult(Discharge Diagnosis) - 12/24/22 Discharge Disposition: Home or Self Care Attending Physician: MD Christa, [place] Allergies, Adverse Reactions, Alerts No Known Allergies Assessment and Plan Extracted from: Title:DM2 f/u Author:DO Almonte Vinay Date:12/24 1.Uncontrolled type 2 diab etes mellitus with hyperglycemia chronic, not controlled but improving Goal:improvement A1c<8 -Much improved A1c since starting metformin, almost at goal. -cont. januvia -inc. metformin to 500mg bid -recheck a1c in 2 months -f/u 3 months Immunizations Given and Recorded Vaccine Date Status Refusal Reason SARS-CoV-2 (COVID-19) mRNA BNT-162b2 vax 1 03/04/21 Recorded SARS-CoV-2 (COVID-19) ChAdOx1 vaccine 06/27/20 Rec orded SARS-CoV-2 (COVID-19) ChAdOx1 vaccine 06/06/20 Rec orded influenza virus vaccine, inactivated 01/16/20 Scott rded influenza virus vaccine, inactivated 01/31/19 Scott rded influenza virus vaccine, inactivated 01/30/18 Give n influenza virus vaccine, inactivated 02/16/17 Scott rded influenza virus vaccine, inactivated 03/04/16 Give n influenza virus vaccine, inactivated 05/08/15 Give n influenza virus vaccine, inactivated 12/27/13 Give n influenza virus vaccine, inactivated 03/02/13 Scott rded zoster vaccine, inactivated 2 02/01/19 Recorded zoster vaccine, inactivated 08/28/18 Given tetanus toxoids-diphtheria, Td (Adult) 05/03/18 Gi kael tetanus/diphtheria/pertuss, acel (Tdap) 05/03/18 R ecorded tetanus/diphtheria/pertuss, acel (Tdap) 05/26/06 R ecorded pneumococcal 13-valent vaccine 02/14/14 Given influenza virus vaccine, H1N1 03/01/12 Recorded zoster vaccine live 11/22/08 Recorded pneumococcal 23-valent vaccine 05/26/07 Recorded pneumococcal 23-valent vaccine 05/26/06 Recorded 1Result Comment: 2022-02-09: Historical information-source unspecified 2Result Comment: at Pharmacy Medications Actonel 35 mg oral tablet Start: 07/27/22 12:57:00 EDT, 1 tab, PO, q7days, Disp# 13 tab, Refills: 3, Pharmacy: [facility] Start Date: 07/27/22 Stop Date: 07/22/23 Status: Ordered atorvastatin 20 mg oral tablet Start: 10/18/22 15:53:00 EDT, 1 tab, PO, Daily, Disp# 90 tab, Refills: 3, Pharmacy: [facility] Start Date: 10/18/22 Status: Ordered ciclopirox 8% topical solution Start: 02/09/22 14:13:00 EDT Start Date: 02/09/22 Status: Ordered Colace 100 mg oral capsule Start: 07/15/20 10:46:00 EDT, 1 cap, PO, Daily, PRN: as needed for constipation Start Date: 07/15/20 Status: Ordered CoQ10 Start: 05/25/16 10:56:00, 100mg daily Start Date: 05/25/16 Status: Ordered DELICA 33G LANCETS Start: 12/20/17 15:53:01 EDT, See Instructions, Disp# 200, Refills: 3, TEST BLOOD SUGAR TWICE DAILYAS DIRECTED., Pharmacy: [facility], TEST BLOOD SUGAR TWICE DAILY DIRECTED. Start Date: 12/20/17 Status: Ordered Depakote Start: 05/25/16 10:56:00, 500 mg =, PO, Daily Start Date: 05/25/16 Status: Ordered dutasteride 0.5 mg oral capsule Start: 12/24/21 10:57:00 EDT, 1 cap, PO, Daily Start Date: 12/24/21 Status: Ordered Januvia 100 mg oral tablet Start: 07/27/22 12:57:00 EDT, 1 tab, PO, Daily, Disp# 90 tab, Refills: 3, Pharmacy: [facility] Start Date: 07/27/22 Stop Date: 07/22/23 Status: Ordered levothyroxine 125 mcg (0.125 mg) oral tablet Start: 07/27/22 12:57:00 EDT, 1 tab, PO, Daily, Disp# 90 tab, Refills: 0, Pharmacy: [facility] Start Date: 07/27/22 Status: Ordered MetFORMIN (Eqv-Glucophage XR) 500 mg oral tablet, extended release Start: 12/24/22 15:25:00 EDT, 1 tab, PO, bid, Disp# 180 tab, Refills: 3, Pharmacy: [facility] Start Date: 12/24/22 Stop Date: 12/19/23 Status: Ordered multivitamin Start: 05/25/16 10:56:00, See Instructions, 1 daily Start Date: 05/25/16 Status: Ordered Myrbetriq 50 mg oral tablet, extended release Start: 02/09/22 14:13:00 EDT Start Date: 02/09/22 Status: Ordered One Touch Delica (33G) Lancets Start: 08/11/16 11:22:00, See Instructions, Disp# 3 box, Refills: 3, for use with glucometer to check blood gluscose. Diagnosis code E13.9, Pharmacy: [facility] Start Date: 08/11/16 Status: Ordered One Touch Delica Plus (33G) Lancets Start: 01/19/22 11:38:00 EDT, See Instructions, Disp# 200 each, Refills: 2, Test Blood Sugars Twicea day E11.9, Note to Pharmacy: please fill 90 day supply, Pharmacy: [facility] Start Date: 01/19/22 Status: Ordered One Touch Ultra 2 Glucose Monitor Start: 08/11/16 11:22:00, See Instructions, Disp# 1 unit, Refills: 0, Use as instructed. Dx Code E13.9 - for use monitoring blood glucose levels, Pharmacy: [facility] Start Date: 08/11/16 Status: Ordered One Touch Ultra 2 Glucose Monitor Start: 04/06/21 16:27:00 EST, See Instructions, Disp# 1 each, Refills: 0, CUrrent glucometer megan,Pharmacy: [facility] Start Date: 04/06/21 Status: Ordered One Touch Ultra Blue Test Strips Start: 01/19/22 11:38:00 EDT, See Instructions, Disp# 100 strip, Refills: 3, for use with glucometer to check blood glose levels. Diagnosis code E13.9 pt to check Blood glucose twice daily, Pharmacy:[facility] Start Date: 01/19/22 Status: Ordered Penlac Nail Lacquer 8% topical solution Start: 01/27/22 14:47:00 EDT, 1 appl, topical, Daily, Disp# 6.6 mL, Refills: 4, Pharmacy: [id number] Start Date: 01/27/22 Stop Date: 05/16/24 Status: Ordered Pepcid 20 mg oral tablet Start: 08/10/21 11:58:00 EDT, 1 tab, PO, bid, Disp# 180 tab, Refills: 3, Pharmacy: [facility] Start Date: 08/10/21 Stop Date: 08/05/22 Status: Ordered Protonix 20 mg oral delayed release tablet Start: 10/18/22 15:53:00 EDT, 1 tab, PO, Daily, Disp# 90 tab, Refills: 3, Pharmacy: [facility] Start Date: 10/18/22 Status: Ordered tamsulosin 0.4 mg oral capsule Start: 10/18/22 15:53:00 EDT, 1 cap, PO, Daily, Disp# 90 cap, Refills: 3, Pharmacy: [facility] Start Date: 10/18/22 Status: Ordered Vitamin D3 Start: 05/25/16 10:57:00, 2,000 Int_Unit =, PO, Daily Start Date: 05/25/16 Status: Ordered Mental Status 12/24/22 Barriers to Learning one year None evide nt Mandatory Health Literacy Documentation Yes Health Literacy Communication Barriers N ever Primary Language Austrian Problem List Condition Confirmation Course Effective Dates Status H ealth Status Informant Callus Confirmed Active Diabetes 1 Confirmed Active Dysphagia Confirmed Active Epilepsy (disorder) Confirmed Active Falls Confirmed Active Fracture, radius Confirmed Active Chronic GERD Confirmed Active 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 Heart murmur previously undiagnosed Confirmed Active Hypothyroid Confirmed Active Balance disorder Confirmed Active Urinary frequency Confirmed Active 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 Tinea unguium Confirmed Active Osteopenia Confirmed Active Diabetic eye exam Confirmed Active SEIZURE DISORDER Confirmed Active Positive colorectal cancer screening using Cologuard test Confirmed Active TINNITUS Confirmed Active Type 2 diabetes mellitus with mild nonproliferative diabetic retinopathy without macular edema, unspecified eye Confirmed Active Uncontrolled type 2 diabetes mellitus with hyperglycemia Confirmed Active 1Type II Diagnosis Diagnosis Type Effective Dates Health Status Clinical Service Informant Uncontrolled type 2 diabetes mellitus with hyperglycemia Discharge Diagnosis 12/24/22 Body mass index [BMI] 25.0-25.9, adult Discharge Diagnosis 12/24/22 Non-Specified Procedures Procedure Date Related Diagnosis Body Site Status Shave biopsy and cauterization of skin 09/16/22 Completed Colonoscopy 1 06/23/22 Completed Mohs' micrographic surgery 06/01/22 Completed Shave biopsy of skin 04/29/22 Comp leted Diabetic retinal eye exam 2 04/07/22 Completed Electrodesiccation with curettage 3 01/07/22 Completed Excision 4 01/07/22 Completed Shave biopsy and cauterization of skin 12/24/21 Completed Mohs micrographic surgery 11/25/21 Completed Shave biopsy and cauterization of skin 10/06/21 Completed Cardiac echo 5 08/04/21 Completed Barium swallow 6 04/13/21 Complete d Shave biopsy of skin 10/14/20 Comp leted Shave biopsy of skin 08/12/20 Comp leted Diabetic retinal eye exam 02/05/20 Completed ENDO CHOLANGIOPANCREATOGRAPH 7 04/01/17 Completed ERCP 8, 9, 10 04/01/[address] of abdomen and pelvis 11, 12, 13, 14 03/30/17 Completed Basal cell carcinoma 15 04/18/15 C ompleted Cholecystectomy 07/08/14 Completed Extracapsular cataract remov al with insertion of intraocular lens prosthesis (1 stage procedure), manual or mechanical technique (eg, irrigation and aspiration or phacoemulsification) 16 04/08/14 Complete d Extraction of after cataract by discission 17 02/21/14 Completed rem lesion under left tongue 05/10/12 Completed bone density 03/30/12 Completed colonoscopy 07/17/08 Completed root canal 06/2306/17/07 Completed basal cell left shoulder 04/18/76 Completed mammary gland removal 04/18/74 Com pleted ganglion cyst 04/18/57 Completed T & A 04/18/39 Completed Diverticulectomy Complete d Mohs surgery 18 Completed sizure disorder-Dr. Vito Chan ompleted 1Impression: one polyp at the recto-sigmoid colon in the transverse colon no specimens collected 2My assessment is type 2 diabetes mellitus with trace background retinopathy, corneal endothelial dystrophy, pseudophakia, asteroid hyalosis OS. Vitreous degeneration OU. 3right forearm 4BCC right shoulder 5Echo TransTHORacic TTE Complete Report Signatures Finalized by Dr. Rigoberto Perdomo MD on 08/04/2021 09:41 AM [place] Act 112: No-No further action needed Summary 1. Small, underfilled left ventricle. 2. Hyperdynamic LV systolic function with no regional wall motion abnormalities. 3. Ejection fraction as calculated by Biplane Simpsons method is 75%. 4. Moderate concentric left ventricular hypertrophy. 5. Grade I diastolic dysfunction of the left ventricle (impaired relaxation pattern) with normal left atrial pressure. 6. Normal right ventricular size and function. 7. No significant valvular abnormalities. 8. Insufficient data for estimation of pulmonary artery systolic pressures. 9. No prior studies for comparison. 6Silent aspiration with the initial swallow. Therefore, the study was terminated early. A small to moderate Zenker's diverticulum. 7normal examined duodenum, choledoncholithiasis - DR Chowdhury 8Pathology results: A) Stomach, antrum, "prominent antral fold" (biopsy): 1) Multiple benign strips of antral mucosa with no pathologic Dx are seen. 2) The clinical Hx of a prominent antral fold is noted. 3) The clinical Hx of choledocolithiasis and pancreatitis is also noted. B) Esophagus, 39cm "rule out barretts" (biopsy): 1) Moderate chronic active esophagitis with benign glandular epithelium is seen. 2 Intestinal metaplasia, dysplasia and carcinoma are all not seen on levels x3. 3) The minuestrips of stratified squamous epithelium identified in this case are simply too minute to assess for the presence or absence of chronic reflux esophagitis. 4) No tumor is seen. 9F/U wt Dr. Bowman 10A sphinterotomy was perfomred. The biliary tree was swept. Mucosal changes consistent with Andersen's esophagus. Enlarged gastric folds. Normal examined duodenum. Biopsies were performed at 39cm from the incisors. Biopsy was performed in the prepyloric region of the stomach. Choledocholithiasis was found. Complete removal was accomplished by biliary shpinterotomy and balloon extraction. The PD was neiter instrumented nor opacified. No biliary samples taken. The 8.5 and 11.5 mm balloons easily transvered the bile duct. No stents placed. Final occulsion cholangiogram revealed no persistent fixed or mobile filling defects. 11Impression: 1. Choledocholithiasis with two biliary stones within the distal cmmon bile duct measuring up to 6 and 4 mm with probable mild associated acute pancreatits. Correlate with lipase level. 2. Prior cholecystectomy with mild intrahepatic and extrahepatic biliary ductal dilation. Common bile duct dilation. Common bile duct measures 12 mm. 3. Mild splenomegaly. 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 4. Moderate hiatal hernia with fluid-filled distal esophagus. 5. Minimal colonic diverticulosis wihout diverticulitis. 6. Prostamegaly. 12clinical history of choledocolithiasis and pancreatitis is noted. moderate chronic active esophagitis with benign glandular epithelium is seen. 13stomach- promenent antral fold 14multiple strips of anral mucosa with no pathological diagnosis are seen. 15BCCA n postrior neck removed. MPF 16right eye 17left eye 18RIGHT Nasal area for Basal Cell CA Vital Signs Most recent to oldest [Reference Range]: 1 Height 175.5 cm (12/24/22 2:54 PM) Patient Weight 77.4 kg (12/24/22 2:54 PM) Body Mass Index 25.13 kg/m2 (12/24/22 2:54 PM) Heart Rate 91 bpm (12/24/22 2:54 PM) Respiratory Rate 12 br/min (12/24/22 2:54 PM) Blood Pressure 118/78mmHg (12/24/22 2:54 PM) Cuff Pulse Pressure 40 mmHg (12/24/22 2:54 PM) Social History Social History Type Response Smoking Status Never smoked cigaret zachary Sex Male FCM Outpt Note * DO Almonte Vinay: PERFORM MD Christa, [place]: MODIFY Event Display: FCM Outpt Note Authored Date: [id number] Chief Complaint F/U History of Present Illness 87 yo male presents to clinic for f/u diabetes. -currently on Januvia 100mgqpm and metformin 500mg qam. Last A1c August 2022 was 8.2, much improved from previous. Denies diarrhea. -checks morning BSG once a week. This past weekend it was in the 140s. Review of Systems As stated above in HPI and below: Constitutional: denies fevers, chills, fatigue CV: denies chest pain Resp: denies shortness of breath GI: denies abdominal pain,nausea, vomiting, constipation, diarrhea : denies pain with urination, change in urinary frequency Physical Exam Vitals & Measurements HR:91(Monitored) RR:12 BP:118/78 SpO2:98% HT:175.5cm WT:77.4kg WT:77.400kg(Dosing) BMI:25.13 PHQ2 Data(Data Documented on:12/24/2022 14:54) Emotional health assessment NEGATIVE General:in no acute distress, pleasant Lungs:CTAB Cardiovascular:RRR.No murmurs. Assessment/Plan 1.Uncontrolled type 2 diabetes mellitus with hyperglycemia chronic, not controlled but improving Goal:improvement A1c<8 -Much improved A1c since starting metformin, almost at goal. -cont. januvia -inc. metformin to 500mg bid -recheck a1c in 2 months -f/u 3 months Attestation Patient's case reviewed in detail with Dr. Almonte, agree with detail of history and physical as documented above. Plan reviewed in detail with providing resident physician.Agree with the plan of care. Problem List/Past Medical History Ongoing [place] tattoo Balance disorder Callus Chronic GERD Diabetes Diabetic eye exam Dysphagia Epilepsy (disorder) Erectile dysfunction Falls Fracture, radius HDL measurement Heart murmur previously undiagnosed History of sarcoma Hypothyroid Malignant neoplasm of soft tissue (disorder) NONSPECIFIC REACTION TO TUBERCULIN SKIN TEST WITHOUT ACTIVE TUBERCULOSIS Osteopenia Overweight Positive colorectal cancer screening using Cologuard test Positive PPD PSA measurement SEIZURE DISORDER Tinea unguium TINNITUS Type 2 diabetes mellitus with mild nonproliferative diabetic retinopathy without macular edema, unspecified eye Uncontrolled type 2 diabetes mellitus with hyperglycemia Urinary frequency Historical Basal cell carcinoma Basal cell carcinoma Bullous pemphigoid Fracture, Colles, left, closed Hypothyroidism Pneumonia Polyp of colon Right ankle pain Procedure/Surgical History Shave biopsy and cauterization of skin (09/16/2022)Colonoscopy (06/23/2022)Mohs' micrographic surgery (06/01/2022)Shave biopsy of skin (04/29/2022)Diabetic retinal eye exam (04/07/2022)Electrodesiccation with curettage (01/07/2022)Excision (01/07/2022)Shave biopsy and cauterization of skin (12/24/2021)Mohs micrographic surgery (11/25/2021)Shave biopsy and cauterization of skin (10/06/2021)Cardiac echo (08/04/2021)Barium swallow (04/13/2021)Shave biopsy of skin (10/14/2020)Shave biopsy of skin (08/12/2020)Diabetic retinal eye exam (02/05/2020)ENDO CHOLANGIOPANCREATOGRAPH (04/01/2017)ERCP (04/01/2017)CT of abdomen and pelvis (03/30/2017)Basal cell carcinoma (04/18/2015)Cholecystectomy (07/08/2014)Extracapsular cataract removal with insertion of intraocular lens prosthesis (1 stage procedure), manual or mechanical technique (eg, irrigation and aspiration or phacoemulsification) (04/08/2014)Extraction of after cataract by discission (02/21/2014)rem lesion under left tongue (05/10/2012)bone density (03/30/2012)colonoscopy (07/17/2008)root canal 06/23 (06/17/2007)basal cell left shoulder (04/18/1976)mammary gland removal (04/18/1974) ganglion cyst (04/18/1957) T & A (04/18/1939) Mohs surgery sizure disorder-Dr. Liceaiverticulectomy Medications atorvastatin(atorvastatin 20 mg oral tablet), 20 mg= 1 tab, PO, Daily, 3 refills cholecalciferol(Vitamin D3), 2000 Int_Unit, PO, Daily ciclopirox topical(Penlac Nail Lacquer 8% topical solution), 1 appl, topical, Daily, 4 refills ciclopirox topical(ciclopirox 8% topical solution) diabetes supplies(One Touch Ultra Blue Test Strips), See Instructions, 3 refills diabetes supplies(One Touch Delica Plus (33G) Lancets), See Instructions, 2 refills diabetes supplies(One Touch Ultra 2 Glucose Monitor), See Instructions diabetic supplies(One Touch Ultra 2 Glucose Monitor), See Instructions diabetic supplies(One Touch Delica (33G) Lancets), See Instructions, 3 refills divalproex sodium(Depakote), 500 mg, PO, Daily docusate(Colace 100 mg oral capsule), 100 mg= 1 cap, PO, Daily, PRN dutasteride(dutasteride 0.5 mg oral capsule), 0.5 mg= 1 cap, PO, Daily famotidine(Pepcid 20 mg oral tablet), 20 mg= 1 tab, PO, bid, 3 refills levothyroxine(levothyroxine 125 mcg (0.125 mg) oral tablet), 125 mcg= 1 tab, PO, Daily metFORMIN(MetFORMIN (Eqv-Glucophage XR) 500 mg oral tablet, extended release), 500 mg= 1 tab, PO, bid, 3 refills mirabegron(Myrbetriq 50 mg oral tablet, extended release) multivitamin, See Instructions pantoprazole(Protonix 20 mg oral delayed release tablet), 20 mg= 1 tab, PO, Daily, 3 refills risedronate(Actonel 35 mg oral tablet), 35 mg= 1 tab, PO, q7days, 3 refills SITagliptin(Januvia 100 mg oral tablet), 100 mg= 1 tab, PO, Daily, 3 refills tamSULOsin(tamsulosin 0.4 mg oral capsule), 0.4 mg= 1 cap, PO, Daily, 3 refills ubiquinone(CoQ10) unlisted medication(DELICA 33G LANCETS), See Instructions, 3 refills Allergies NKA Social History Smoking Status Never smoked cigarettes Alcohol - No Risk Use:Current Type:Beer Frequency:1-2 times per year 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 CVA: Father. High Blood Pressure: Mother. Hypertension: Mother. Macular degeneration.: Mother. NIDDM (non-insulin dependent diabetes mellitus): Father. Osteoarthritis: Daughter. Stroke: Mother. Health Status Family Member(s) Family Member(s) Relationship: Mother, Name: , Age: 97 Years, Cause: CVA, Legionair[place] Relationship: Father, Name: deceassed, Age: 85 Years, Cause: CVA Immunizations Vaccine Date Status SARS-CoV-2 (COVID-19) mRNA BNT-162b2 vax 03/04/2021 Recorded Comments : 2022-02-09: Historical information-source unspecified SARS-CoV-2 (COVID-19) ChAdOx1 vaccine 06/27/2020 Recorded SARS-CoV-2 (COVID-19) ChAdOx1 vaccine 06/06/2020 Recorded influenza virus vaccine, inactivated 01/16/2020 Recorded zoster vaccine, inactivated 02/01/2019 Recorded Comments : at Pharmacy influenza virus vaccine, inactivated 01/31/2019 Recorded zoster vaccine, inactivated 08/28/2018 Given tetanus toxoids-diphtheria, Td (Adult) 05/03/2018 Given tetanus/diphtheria/pertuss, acel (Tdap) 05/03/2018 Recorded influenza virus vaccine, inactivated 01/30/2018 Given influenza virus vaccine, inactivated 02/16/2017 Recorded influenza virus vaccine, inactivated 03/04/2016 Given influenza virus vaccine, inactivated 05/08/2015 Given pneumococcal 13-valent vaccine 02/14/2014 Given influenza virus vaccine, inactivated 12/27/2013 Given influenza virus vaccine, inactivated 03/02/2013 Recorded influenza virus vaccine, H1N1 03/01/2012 Recorded zoster vaccine live 11/22/2008 Recorded pneumococcal 23-valent vaccine 2007 Recorded tetanus/diphtheria/pertuss, acel (Tdap) 2006 Recorded pneumococcal 23-valent vaccine 2006 Recorded Recommendations Health Maintenance Pending(in the next year) OverDue Adult Influenza Vaccine due10/16/22and every 1year Due Adult COVID-19 Vaccination due12/24/22Unknown Frequency Falls Plan of Care due12/24/22Unknown Frequency Due In Future Medicare Annual Wellness Visit not due until02/11/23and every 1year Diabetic Eye Exam not due until04/07/23and every 1year Diabetes Management A1c not due until11/15/23and every 1year Body Mass Index not due until12/24/23and every 1year Satisfied(in the past 1 year) Satisfied Body Mass Index on12/24/22.Satisfied by CHUCHO Rahman Paul Diabetes Management A1c on11/15/22.Satisfied by Contributor_system, [email or web address] Diabetes Nephropathy Management on08/18/22.Satisfied by Contributor_system, [email or web address] Lipid Screening on02/17/22.Satisfied by Contributor_system, [email or web address] Medicare Annual Wellness Visit on02/11/22.Satisfied by SYSTEM Electronic Signature on File Electronically Reviewed/Signed by: Billy Almonte MD Author Signature Dt/Tm:12/24/2022 03:32 PM Resident Department of Family Medicine Electronically Reviewed/Signed by: Shayy Goodwin MD Cosigner Signature Dt/Tm: 12/25/2022 01:42 AM Department of Family Medicine [facility] Patient Care team information Care Team Personnel Name: MD Alice, Balaji Benton Position: Physician - Family Med Member Role: Primary Care Provider Address: Address: [address] [place] [address] [place] Name: MD Jared, Qamar Lucas Position: Physician - Pathologist/Derm Member Role: Lifetime Relationship Address: Address: [address] [place] [id number] [place] Name: MD Guerra Dongsheng Position: Physician - Family Med Member Role: Lifetime Relationship Address: Address: [address] [place] [address] [place] Name: Ktaeryna Dia Jason A Position: Pharmacist Member Role: Pharmacy - Lifetime Address: Address: [place] [address] [place] Care Team Related Persons Name: DAVID FRAZIER Address: [facility] Address: home [address] [place], [place] [id number] Name: DAVID FRAZIER Address: home [address] [facility] [address] [place] [address]
--- OUTSIDE RECORDS SUMMARY | 2023-04-03 09:11 | External Medical Summary | Continuity of Care Document ---
Author Name Unknown Organization [address] [place] [id number] Care Team Providers Care Tow Mate Name Role Phone Balaji Jenkins Primary Care Physician [phone] Encounter [facility] [id number] Date(s): 03/23/23 - 03/23/23 [facility] 207 [facility] [address] [facility] [address] [place] [address] [phone] Encounter Diagnosis Type 2 diabetes mellitus with hyperglycemia(Final) - Discharge Disposition: Home or Self Care Attending Physician: MD Bender Christopher Allergies, Adverse Reactions, Alerts No Known Allergies Immunizations Given and Recorded Vaccine Date Status [...] q7days, Disp# 13 tab, Refills: 3, Pharmacy: [facility] Start Date: 07/27/22 Stop Date: 07/22/23 Status: Ordered atorvastatin 20 mg oral tablet Start: 10/18/22 15:53:00 EDT, 1 tab, PO, Daily, Disp# 90 tab, Refills: 3, Pharmacy: [facility] Start Date: 10/18/22 Status: Ordered [...] TEST BLOOD SUGAR TWICE DAILYAS DIRECTED., Pharmacy: [facility], TEST BLOOD SUGAR TWICE DAILY [...] Daily, Disp# 90 tab, Refills: 3, Pharmacy: [facility] Start Date: 07/27/22 Stop Date: 07/22/23 Status: Ordered Kerydin 5% topical solution Start: 01/26/23 16:03:00 EDT, See Instructions, Disp# 10 mL, Refills: 5, Apply to affected toenailsonce per day for 6 months to 1 year Start Date: 01/26/23 Status: Ordered levothyroxine 125 mcg (0.125 mg) oral tablet Start: 07/27/22 12:57:00 EDT, 1 tab, PO, Daily, Disp# 90 tab, Refills: 0, Pharmacy: [facility] Start Date: 07/27/22 Status: Ordered MetFORMIN (Eqv-Glucophage XR) 500 mg oral tablet, extended release Start: 12/24/22 15:25:00 EDT, 1 tab, PO, bid, Disp# 180 tab, Refills: 3, Pharmacy: [facility] Start Date: 12/24/22 Stop Date: [...] check blood gluscose. Diagnosis code E13.9, Pharmacy: [facility] Start Date: 08/11/16 Status: Ordered One Touch Delica Plus (33G) Lancets Start: 01/19/22 11:38:00 EDT, See Instructions, Disp# 200 each, Refills: 2, Test Blood Sugars Twicea day E11.9, Note to Pharmacy: please fill 90 day supply, Pharmacy: [facility] Start Date: 01/19/22 Status: Ordered One Touch Ultra 2 Glucose Monitor Start: 08/11/16 11:22:00, See Instructions, Disp# 1 unit, Refills: 0, Use as instructed. Dx Code E13.9 - for use monitoring blood glucose levels, Pharmacy: [facility] Start Date: 08/11/16 Status: Ordered One Touch Ultra 2 Glucose Monitor Start: 04/06/21 16:27:00 EST, See Instructions, Disp# 1 each, Refills: 0, CUrrent glucometer megan,Pharmacy: [facility] Start Date: 04/06/21 Status: Ordered One Touch Ultra Blue Test Strips Start: 01/19/22 11:38:00 EDT, See Instructions, Disp# 100 strip, Refills: 3, for use with glucometer to check blood glose levels. Diagnosis code E13.9 pt to check Blood glucose twice daily, Pharmacy:[facility] Start Date: 01/19/22 Status: Ordered Penlac Nail Lacquer 8% topical solution Start: 01/27/22 14:47:00 EDT, 1 appl, topical, Daily, Disp# 6.6 mL, Refills: 4, [id number] Start Date: 01/27/22 Stop Date: 05/16/24 Status: Ordered Pepcid 20 mg oral tablet Start: 08/10/21 11:58:00 EDT, 1 tab, PO, bid, Disp# 180 tab, Refills: 3, Pharmacy: [facility] Start Date: 08/10/21 Stop Date: 08/05/22 Status: Ordered Protonix 20 mg oral delayed release tablet Start: 10/18/22 15:53:00 EDT, 1 tab, PO, Daily, Disp# 90 tab, Refills: 3, Pharmacy: [facility] Start Date: 10/18/22 Status: Ordered tamsulosin 0.4 mg oral capsule Start: 10/18/22 15:53:00 EDT, 1 cap, PO, Daily, Disp# 90 cap, Refills: 3, Pharmacy: [facility] Start Date: 10/18/22 Status: Ordered Vitamin D3 Start: 05/25/16 10:57:00, 2,000 Int_Unit =, PO, Daily Start Date: 05/25/16 Status: Ordered Problem List Condition Confirmation Course Effective Dates [...] Confirmed Active Diabetic eye exam Confirmed Active Positive colorectal cancer screening using Cologuard test Confirmed Active TINNITUS Confirmed Active Type 2 diabetes mellitus with mild nonproliferative diabetic retinopathy without macular edema, unspecified eye Confirmed Active 1Type II Procedures Procedure Date Related Diagnosis Body Site [...] Zenker's diverticulum. 7normal examined duodenum, choledoncholithiasis - Inverssharath 8A sphinterotomy was perfomred. The biliary tree was [...] no persistent fixed or mobile filling defects. 9Pathology results: A) Stomach, antrum, "prominent antral fold" [...] reflux esophagitis. 4) No tumor is seen. 10F/U wt Dr. Bowman 11Impression: 1. Choledocholithiasis with two biliary stones [...] esophagitis with benign glandular epithelium is seen. 13multiple strips of anral mucosa with no pathological diagnosis are seen. 14stomach- promenent antral fold 15BCCA n postrior neck removed. MPF 16right eye 17left eye 18RIGHT Nasal area for Basal Cell CA Results Laboratory List Name Date Hemoglobin A1C (HEMOGLOBIN, A1C) 03/23/23 Most recent to oldest [Reference Range]: 1 Estimated Average Glucose 166 mg/dL (03/23/23 1:27 PM) HbA1c [<5.7 %] 7.4 % 1 *HI* (03/23/23 1:27 PM) 1Result Comment: ADA Recommended Dubois Reference Range: Normal: <5.7% Prediabetes: 5.7-6.4% Diabetes: >6.4% Social History Social History Type Response Smoking Status Never smoked cigaret zachary Sex Male Patient Care team information Care Team Personnel Name: MD Alice, Balaji Benton Position: Physician - Family Med Member Role: Primary Care Provider Address: Address: [address] [place] [address] [place] Name: MD Jared, Qamar Lucas Position: Physician - Pathologist/Derm Member Role: Lifetime Relationship Address: Address: [address] [place] [address] [place] Name: MD Guerra Dongsheng Position: Physician - Family Med Member Role: Lifetime Relationship Address: Address: [address] [place] [address] [place] Name: Kateryna Dia Jason A Position: Pharmacist BCMA Member Role: Pharmacy - Lifetime Address: Address: [place] [address] [place] [address] [place] Care Team Related Persons Name: DAVID FRAZIER Address: home [address] [facility] [address] [place] [address] Name: DAVID FRAZIER Address: [place] Address: home [address] [place] [phone]
--- OUTSIDE RECORDS SUMMARY | 2023-04-03 09:11 | External Medical Summary | Continuity of Care Document ---
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) - 12/13/22 Discharge Disposition: Home or Self Care Attending Physician: MD José, Audelia Allergies, Adverse Reactions, Alerts No Known Allergies Assessment and Plan Extracted from: Title:Office Visit Note Author:MD José, Ca ssandra Date:12/13/22 1.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 of an SCCIS at his L frontal scalp, allowed to heal via secondary intention on 11/15/22 - fully healed, transition to routine skin care, discussed expected continued improvement in appearance with time RTC PRM for above, as scheduled for skin exam 01/20/23 Immunizations Given and Recorded Vaccine Date Status [...] q7days, Disp# 13 tab, Refills: 3, Pharmacy: [facility] Start Date: 07/27/22 Stop Date: 07/22/23 Status: Ordered atorvastatin 20 mg oral tablet Start: 10/18/22 15:53:00 EDT, 1 tab, PO, Daily, Disp# 90 tab, Refills: 3, Pharmacy: [facility] Start Date: 10/18/22 Status: Ordered ciclopirox [...] TEST BLOOD SUGAR TWICE DAILYAS DIRECTED., Pharmacy: [facility], TEST BLOOD SUGAR TWICE DAILY DIRECTED. Start Date: 12/20/17 Status: Ordered Depakote Start: 05/25/16 10:56:00, 500 mg =, PO, Daily Start Date: 05/25/16 Status: Ordered dutasteride 0.5 mg oral capsule Start: 12/24/21 10:57:00 EDT, 1 cap, PO, Daily Start Date: 12/24/21 Status: Ordered Januvia 100 mg oral tablet Start: 07/27/22 12:57:00 EDT, 1 tab, PO, Daily, Disp# 90 tab, Refills: 3, Pharmacy: [facility] Start Date: 07/27/22 Stop Date: 07/22/23 Status: Ordered levothyroxine 125 mcg (0.125 mg) oral tablet Start: 07/27/22 12:57:00 EDT, 1 tab, PO, Daily, Disp# 90 tab, Refills: 0, Pharmacy: [facility] Start Date: 07/27/22 Status: Ordered MetFORMIN (Eqv-Glucophage XR) 500 mg oral tablet, extended release Start: 08/17/22 16:13:00 EDT, 1 tab, PO, Daily, Disp# 30 tab, Refills: 5, Pharmacy: [facility] Start Date: 08/17/22 Status: Ordered multivitamin Start: 05/25/16 10:56:00, See Instructions, 1 daily Start Date: 05/25/16 Status: Ordered Myrbetriq 50 mg oral tablet, extended release Start: 02/09/22 14:13:00 EDT Start Date: 02/09/22 Status: Ordered One Touch Delica (33G) Lancets Start: 08/11/16 11:22:00, See Instructions, Disp# 3 box, Refills: 3, for use with glucometer to check blood gluscose. Diagnosis code E13.9, Pharmacy: [facility] Start Date: 08/11/16 Status: Ordered One Touch Delica Plus (33G) Lancets Start: 01/19/22 11:38:00 EDT, See Instructions, Disp# 200 each, Refills: 2, Test Blood Sugars Twicea day E11.9, Note to Pharmacy: please fill 90 day supply, Pharmacy: [facility] Start Date: 01/19/22 Status: Ordered One Touch Ultra 2 Glucose Monitor Start: 08/11/16 11:22:00, See Instructions, Disp# 1 unit, Refills: 0, Use as instructed. Dx Code E13.9 - for use monitoring blood glucose levels, Pharmacy: [facility] Start Date: 08/11/16 Status: Ordered One Touch Ultra 2 Glucose Monitor Start: 04/06/21 16:27:00 EST, See Instructions, Disp# 1 each, Refills: 0, CUrrent glucometer broke,Pharmacy: [facility] Start Date: 04/06/21 Status: Ordered One Touch Ultra Blue Test Strips Start: 01/19/22 11:38:00 EDT, See Instructions, Disp# 100 strip, Refills: 3, for use with glucometer to check blood glose levels. Diagnosis code E13.9 pt to check Blood glucose twice daily, Pharmacy:[facility] Start Date: 01/19/22 Status: Ordered Penlac Nail Lacquer 8% topical solution Start: 01/27/22 14:47:00 EDT, 1 appl, topical, Daily, Disp# 6.6 mL, Refills: 4, [id number] Start Date: 01/27/22 Stop Date: 05/16/24 Status: Ordered Pepcid 20 mg oral tablet Start: 08/10/21 11:58:00 EDT, 1 tab, PO, bid, Disp# 180 tab, Refills: 3, Pharmacy: [facility] Start Date: 08/10/21 Stop Date: 08/05/22 Status: Ordered Protonix 20 mg oral delayed release tablet Start: 10/18/22 15:53:00 EDT, 1 tab, PO, Daily, Disp# 90 tab, Refills: 3, Pharmacy: [facility] Start Date: 10/18/22 Status: Ordered tamsulosin 0.4 mg oral capsule Start: 10/18/22 15:53:00 EDT, 1 cap, PO, Daily, Disp# 90 cap, Refills: 3, Pharmacy: [facility] Start Date: 10/18/22 Status: Ordered Vitamin D3 Start: 05/25/16 10:57:00, 2,000 Int_Unit =, PO, Daily Start Date: 05/25/16 Status: Ordered Mental Status 12/13/22 Barriers to Learning one year None evide nt Mandatory Health Literacy Documentation Yes Health Literacy Communication Barriers N ever Primary Language Cook Islander Problem List Condition Confirmation Course Effective Dates [...] Diagnosis Diagnosis Type Effective Dates Health Status Cl inical Service Informant History of squamous cell carcinoma in situ (SCCIS) of skin Discharge Diagnosis 12/13/22 Procedures Procedure Date Related Diagnosis Body Site [...] 18RIGHT Nasal area for Basal Cell CA Social History Social History Type Response Smoking Status Never smoked cigaret zachary Sex Male Dermatology Outpatient Note * MD José, Audelia: PERFORM Event Display: Dermatology Outpt Note Authored Date: [id number] Chief Complaint 3-4 week f/u from mohs frontal scalp, no new concerns History of Present Illness Patient is an 87 yo CM, presents for follow-up s/p Mohs surgery of an SCCIS at his L frontal scalp,allowed to heal via secondary intention on 11/15/22 Patient and report that he is doing well, surgical site seems to be fully healed. Wonder ifit still needs a dressing. 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 of an SCCIS at his L frontal scalp, allowed to heal via secondary intention on 11/15/22 - fully healed, transition to routine skin care, discussed expected continued improvement in appearance with time RTC PRM for above, as scheduled for skin exam 01/20/23 Problem List/Past Medical History Ongoing Amalgam tattoo [...] extended release), 500 mg= 1 tab, PO, Daily, 5 refills mirabegron(Myrbetriq 50 mg oral tablet, extended [...] year 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 [employer] Highest education:Some college Exercise - Regular exercise [...] due10/16/22and every 1year Due Adult COVID-19 Vaccination due12/13/22Unknown Frequency Falls Plan of Care due12/13/22Unknown Frequency Due In Future Medicare Annual Wellness Visit not due until02/11/23and every 1year Diabetic Eye Exam not due until04/07/23and every 1year Body Mass Index not due until08/17/23and every 1year Diabetes Management A1c not due until11/15/23and every 1year Satisfied(in the past 1 year) Satisfied Body Mass Index on08/17/22.Satisfied by MAURISIO [place] Paula Diabetes Management A1c on11/15/22.Satisfied by Contributor_system, [email or web address] Diabetes Nephropathy Management on08/18/22.Satisfied by Contributor_system, [email or web address] Lipid Screening on02/17/22.Satisfied by Contributor_system, [email or web address] Medicare Annual Wellness Visit on02/11/22.Satisfied by SYSTEM Electronic Signature on File Electronically Reviewed/Signed by: Audelia Kumar MD Author Signature Dt/Tm:12/13/2022 09:29 PM Department of Dermatology CS Patient Care team information Care Team Personnel Name: MD Alice, Balaji Benton Position: Physician - Family Med Member Role: Primary Care Provider Address: Address: [facility] [address] [place] [address] [place] Name: MD Coleman Matthew F Position: Physician - Pathologist/Derm Member Role: Lifetime Relationship Address: Address: [address] [place] [address] Name: MD Charlie, Sulaiman Position: Physician - Family Med Member Role: Lifetime Relationship Address: Address: [address] [facility] [address] [place] [address] Name: Kateryna Dia Jason A Position: Pharmacist Member Role: Pharmacy - Lifetime Address: Address: [facility] [address] [place] [address] Care Team Related Persons Name: DAVID FRAZIER Address: [place] Address: home [address] [place], [place] [phone] Name: DAVID FRAZIER Address: home [address] [facility] [address] [place] [address]
--- OUTSIDE RECORDS SUMMARY | 2023-04-03 09:11 | External Medical Summary | Continuity of Care Document ---
Author Name Unknown Organization [facility] [id number] Address [address] [place] [id number] Care Team Providers Care Performing Artist Name Role Phone Balaji Jenkins Primary Care Physician [phone] [id number] Date(s): 01/26/23 - 01/26/23 [facility] [address] [place] [phone] Encounter Diagnosis Diabetes(Discharge Diagnosis) - 01/26/23 Tinea unguium(Discharge Diagnosis) - 01/26/23 Callus(Discharge Diagnosis) - 01/26/23 Discharge Disposition: Home or Self Care Attending Physician: LESLEY Ware Christina L Referring Physician: MD Jenkins Michael P Allergies, Adverse Reactions, Alerts No Known Allergies Assessment and Plan Extracted from: Title:Follow Up Visit Author:LESLEY Ware, Muna Nicole Date:01/26/23 1.Diabetes 2.Tinea unguium -Patient unable to provide self care to toenails due todiabetes - verbal consent obtained for debridement -Recommend toenail debridement -Patient had toenails of bilateral digits 1-5 debrided using nail nippers to tolerance, no bleeding noted -Patient instructed to use emery board to nails once per week -Patient had no ingrown toenails or infection noted -Patient is to follow up in4 months for treatment if needed in the future Prescription for new antifungal medication given todayfor topical treatment of onychomycosis 3.Callus Not present at today's visit Immunizations Given and Recorded Vaccine Date Status [...] q7days, Disp# 13 tab, Refills: 3, Pharmacy: [facility] Start Date: 07/27/22 Stop Date: 07/22/23 Status: Ordered atorvastatin 20 mg oral tablet Start: 10/18/22 15:53:00 EDT, 1 tab, PO, Daily, Disp# 90 tab, Refills: 3, Pharmacy: [facility] Start Date: 10/18/22 Status: Ordered [...] TEST BLOOD SUGAR TWICE DAILYAS DIRECTED., Pharmacy: [facility], TEST BLOOD SUGAR TWICE DAILY [...] Daily, Disp# 90 tab, Refills: 3, Pharmacy: [facility] Start Date: 07/27/22 Stop Date: 07/22/23 Status: Ordered Kerydin 5% topical solution Start: 01/26/23 16:03:00 EDT, See Instructions, Disp# 10 mL, Refills: 5, Apply to affected toenailsonce per day for 6 months to 1 year Start Date: 01/26/23 Status: Ordered levothyroxine 125 mcg (0.125 mg) oral tablet Start: 07/27/22 12:57:00 EDT, 1 tab, PO, Daily, Disp# 90 tab, Refills: 0, Pharmacy: [facility] Start Date: 07/27/22 Status: Ordered MetFORMIN (Eqv-Glucophage XR) 500 mg oral tablet, extended release Start: 12/24/22 15:25:00 EDT, 1 tab, PO, bid, Disp# 180 tab, Refills: 3, Pharmacy: [facility] Start Date: 12/24/22 Stop Date: [...] check blood gluscose. Diagnosis code E13.9, Pharmacy: [facility] Start Date: 08/11/16 Status: Ordered One Touch Delica Plus (33G) Lancets Start: 01/19/22 11:38:00 EDT, See Instructions, Disp# 200 each, Refills: 2, Test Blood Sugars Twicea day E11.9, Note to Pharmacy: please fill 90 day supply, Pharmacy: [facility] Start Date: 01/19/22 Status: Ordered One Touch Ultra 2 Glucose Monitor Start: 08/11/16 11:22:00, See Instructions, Disp# 1 unit, Refills: 0, Use as instructed. Dx Code E13.9 - for use monitoring blood glucose levels, Pharmacy: [facility] Start Date: 08/11/16 Status: Ordered One Touch Ultra 2 Glucose Monitor Start: 04/06/21 16:27:00 EST, See Instructions, Disp# 1 each, Refills: 0, CUrrent glucometer broke,Pharmacy: [facility] Start Date: 04/06/21 Status: Ordered One Touch Ultra Blue Test Strips Start: 01/19/22 11:38:00 EDT, See Instructions, Disp# 100 strip, Refills: 3, for use with glucometer to check blood glose levels. Diagnosis code E13.9 pt to check Blood glucose twice daily, Pharmacy:[facility] Start Date: 01/19/22 Status: Ordered Penlac Nail Lacquer 8% topical solution Start: 01/27/22 14:47:00 EDT, 1 appl, topical, Daily, Disp# 6.6 mL, Refills: 4, Pharmacy: [facility] #[id number] Start Date: 01/27/22 Stop Date: 05/16/24 Status: Ordered Pepcid 20 mg oral tablet Start: 08/10/21 11:58:00 EDT, 1 tab, PO, bid, Disp# 180 tab, Refills: 3, Pharmacy: [facility] Start Date: 08/10/21 Stop Date: 08/05/22 Status: Ordered Protonix 20 mg oral delayed release tablet Start: 10/18/22 15:53:00 EDT, 1 tab, PO, Daily, Disp# 90 tab, Refills: 3, Pharmacy: [facility] Start Date: 10/18/22 Status: Ordered tamsulosin 0.4 mg oral capsule Start: 10/18/22 15:53:00 EDT, 1 cap, PO, Daily, Disp# 90 cap, Refills: 3, Pharmacy: [facility] Start Date: 10/18/22 Status: Ordered Vitamin D3 Start: 05/25/16 10:57:00, 2,000 Int_Unit =, PO, Daily Start Date: 05/25/16 Status: Ordered Mental Status 01/26/23 Barriers to Learning one year None evide nt Mandatory Health Literacy Documentation Yes Health Literacy Communication Barriers N ever Primary Language Citizen Of [place] Problem List Condition Confirmation Course Effective Dates [...] Dates Health Status Cl inical Service Informant Diabetes Discharge Diagnosis 01/26/23 Tinea unguium Discharge Diagnosis 01/26/23 Callus Discharge Diagnosis 01/26/23 Procedures Procedure Date Related Diagnosis Body Site [...] esophagitis. 4) No tumor is seen. 9F/U [facility] Dr. Bowman 10A sphinterotomy was perfomred. The [...] Status Never smoked cigaret zachary Sex Male Ortho Outpt Note * LESLEY Ware, Bel Nicole: PERFORM Event Display: Ortho Outpt Note Authored Date: [id number] Chief Complaint nail care Primary Care Provider MD Alice, Balaji Benton Subjective Patient is a very pleasant 87-year-old male presenting today for diabetic foot care low risk diabetic last seen October 20, 2022. No acute concerns noted today. Review of Systems Diabetes Objective Physical Exam Problem focused bilateral feet: Dorsalis pedis pulse difficult to palpate secondary to mild swelling, posterior tibial pulse nonpalpable secondary toswelling. Bilateral lower extremity edema noted this is nonpitting. Feet have a coolness distally. Pedal hair is absent. Skin turgor is good to all distal extremities. Capillary refill time is less than 3 seconds to all digits. Protective sensation is decreased proprioception is decreasedgross sensation is intact. Monofilament test shows decreased sensation to distal extremitiesgross sensation intact to distal extremitieshistory of diabetic neuropathy with numbness and tingling noted per patient. No open wounds or lesions on the feet. Skin is clean and dry. Interspaces clean dry and intact without maceration or breakdown Toenails digits 1 through 5 ofbilateral feet with thickening greater than 1 mm, dystrophy, subungual debris, elongation and pain recommend debridement Historically callus present submetatarsal 1 right foot not present at today's visit Assessment/Plan 1.Diabetes 2.Tinea unguium -Patient unable to provide self care to toenails due todiabetes - verbal consent obtained for debridement -Recommend toenail debridement -Patient had toenails of bilateral digits 1-5 debrided using nail nippers to tolerance, no bleedingnoted -Patient instructed to use emery board to nails once per week -Patient had no ingrown toenails or infection noted -Patient is to follow up in4 months for treatment if needed in the future Prescription for new antifungal medication given todayfor topical treatment of onychomycosis 3.Callus Not present at today's visit Electronic Signature on File Electronically Reviewed/Signed by: Bel Ware DPM Author Signature Dt/Tm:01/26/2023 04:05 PM Division of Sports Medicine CLR Patient Care team information Care Team Personnel Name: MD Alice, Balaji Benton Position: Physician - Family Med Member Role: Primary Care Provider Address: Address: [address] [address] [place] Name: MD Jared, Qamar Lucas Position: Physician - Pathologist/Derm Member Role: Lifetime Relationship Address: Address: [address] [place] [address] [place] Name: MD Guerra Dongsheng Position: Physician - Family Med Member Role: Lifetime Relationship Address: Address: [place] [address] [place] Name: Kateryna Dia Jason A Position: Pharmacist BCMA Member Role: Pharmacy - Lifetime Address: Address: [address] [address] [place] Care Team Related Persons Name: DAVID FRAZIER Address: [place] Address: home [address] [place], [place] [id number] Name: DAVID FRAZIER Address: home [address] [facility] [facility] [facility] [place] [address]
--- OUTSIDE RECORDS SUMMARY | 2023-04-03 09:11 | External Medical Summary | Continuity of Care Document ---
Author Name Unknown Organization [facility] [address] Address [address] [place], [place] [id number] Care Team Providers Care Program Services Assistant Name Role Phone Balaji Jenkins Primary Care Physician [phone] [id number] 12/22/22 - 12/22/22 [facility] [address] [facility] [address], [facility] 1 [place], [place] [phone] Encounter Diagnosis Epilepsy, unspecified, not intractable, without status epilepticus(Final) - Discharge Disposition: Home or Self Care Attending Physician: Vito THOMAS MD, Emile P Referring Physician: Vito THOMAS MD, Emile P Allergies, Adverse Reactions, Alerts No Known [...] q7days, Disp# 13 tab, Refills: 3, Pharmacy: [facility] Start Date: 07/27/22 Stop Date: 07/22/23 Status: Ordered atorvastatin 20 mg oral tablet Start: 10/18/22 15:53:00 EDT, 1 tab, PO, Daily, Disp# 90 tab, Refills: 3, Pharmacy: [facility] Start Date: 10/18/22 Status: Ordered [...] TEST BLOOD SUGAR TWICE DAILYAS DIRECTED., Pharmacy: [facility], TEST BLOOD SUGAR TWICE DAILY [...] Daily, Disp# 90 tab, Refills: 3, Pharmacy: [facility] Start Date: 07/27/22 Stop Date: 07/22/23 Status: Ordered levothyroxine 125 mcg (0.125 mg) oral tablet Start: 07/27/22 12:57:00 EDT, 1 tab, PO, Daily, Disp# 90 tab, Refills: 0, Pharmacy: [facility] Start Date: 07/27/22 Status: Ordered MetFORMIN (Eqv-Glucophage XR) 500 mg oral tablet, extended release Start: 12/24/22 15:25:00 EDT, 1 tab, PO, bid, Disp# 180 tab, Refills: 3, Pharmacy: [facility] Start Date: 12/24/22 Stop Date: [...] check blood gluscose. Diagnosis code E13.9, Pharmacy: [facility] Start Date: 08/11/16 Status: Ordered One Touch Delica Plus (33G) Lancets Start: 01/19/22 11:38:00 EDT, See Instructions, Disp# 200 each, Refills: 2, Test Blood Sugars Twicea day E11.9, Note to Pharmacy: please fill 90 day supply, Pharmacy: [facility] Start Date: 01/19/22 Status: Ordered One Touch Ultra 2 Glucose Monitor Start: 08/11/16 11:22:00, See Instructions, Disp# 1 unit, Refills: 0, Use as instructed. Dx Code E13.9 - for use monitoring blood glucose levels, Pharmacy: [facility] Start Date: 08/11/16 Status: Ordered One Touch Ultra 2 Glucose Monitor Start: 04/06/21 16:27:00 EST, See Instructions, Disp# 1 each, Refills: 0, CUrrent glucometer broke,Pharmacy: [facility] Start Date: 04/06/21 Status: Ordered One Touch Ultra Blue Test Strips Start: 01/19/22 11:38:00 EDT, See Instructions, Disp# 100 strip, Refills: 3, for use with glucometer to check blood glose levels. Diagnosis code E13.9 pt to check Blood glucose twice daily, Pharmacy:[facility] Start Date: 01/19/22 Status: Ordered Penlac Nail Lacquer 8% topical solution Start: 01/27/22 14:47:00 EDT, 1 appl, topical, Daily, Disp# 6.6 mL, Refills: 4, [id number] Start Date: 01/27/22 Stop Date: 05/16/24 Status: Ordered Pepcid 20 mg oral tablet Start: 08/10/21 11:58:00 EDT, 1 tab, PO, bid, Disp# 180 tab, Refills: 3, Pharmacy: [facility] Start Date: 08/10/21 Stop Date: 08/05/22 Status: Ordered Protonix 20 mg oral delayed release tablet Start: 10/18/22 15:53:00 EDT, 1 tab, PO, Daily, Disp# 90 tab, Refills: 3, Pharmacy: [facility] Start Date: 10/18/22 Status: Ordered tamsulosin 0.4 mg oral capsule Start: 10/18/22 15:53:00 EDT, 1 cap, PO, Daily, Disp# 90 cap, Refills: 3, Pharmacy: [facility] Start Date: 10/18/22 Status: Ordered [...] 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 4) No tumor is seen. 9F/U [facility] Dr. Bowman 10A sphinterotomy was perfomred. The [...] Cell CA Results Laboratory List Name Date Complete Blood Count w Differential (CBC ,DIFFH) 12/22/22 Comprehensive Metabolic Panel (COMP META B PANEL) 12/22/22 Request to FAX Report (First Location) ( ACC NO TO BE FAXED) 12/22/22 Request to FAX Report (First Location) ( ACC NO TO BE FAXED) 12/22/22 Valproic Acid Level (VALPROIC ACID) Most recent to oldest [Reference Range]: 1 2 eGFR CKD-EPI [>60 mL/min/1.73 m2] 90 mL/ min/1.73 m2 1 (12/22/22 8:24 AM) Estimated CrCl 75.98 mL/min (12/22/22 9:10 AM) Phone No [phone] (12/22/22 8:24 AM) [phone] 3 (12/22/22 8:24 AM) Faxed on: 12/23/22 09:03 (12/22/22 8:24 AM) 12/23/22 09:03 (12/22/22 8:24 AM) MPV [9.0-12.2 fL] 9.3 fL (12/22/22 8:24 AM) Immature Gran% 0.8 % (12/22/22 8:24 AM) Neut% 56.2 % (12/22/22 8:24 AM) Lymph% 30.6 % (12/22/22 8:24 AM) Nome% 11.0 % (12/22/22 8:24 AM) Baso% 0.2 % (12/22/22 8:24 AM) Eos% 1.2 % (12/22/22 8:24 AM) Immat Gran, Abs [0-0.4 K/uL] 0.05 K/uL 4 (12/22/22 8:24 AM) Neut, Abs [2.0-7.7 K/uL] 3.32 K/uL (12/22/22 8:24 AM) Lymph, Abs [1.0-3.4 K/uL] 1.81 K/uL (12/22/22 8:24 AM) Nome, Abs [0-1.0 K/uL] 0.65 K/uL (12/22/22 8:24 AM) Baso, Abs [0-0.1 K/uL] 0.01 K/uL (12/22/22 8:24 AM) Eos, Abs [0-0.5 K/uL] 0.07 K/uL (12/22/22 8:24 AM) Type of Diff: AUTO *Unknown* (12/22/22 8:24 AM) RDW [11.5-14.2 %] 14.9 % *HI* (12/22/22 8:24 AM) Anion Gap [5-14 mmol/L] 5 mmol/L (12/22/22 8:24 AM) Alb [3.5-5.0 g/dL] 4.0 g/dL (12/22/22 8:24 AM) Alk Phos [38-126 unit/L] 37 unit/L *LOW* (12/22/22 8:24 AM) ALT [<50 unit/L] 16 unit/L (12/22/22 8:24 AM) AST [15-46 unit/L] 21 unit/L (12/22/22 8:24 AM) BUN [7-20 mg/dL] 11 mg/dL (12/22/22 8:24 AM) Ca [8.4-10.2 mg/dL] 9.0 mg/dL (12/22/22 8:24 AM) Cl- [96-107 mmol/L] 97 mmol/L (12/22/22 8:24 AM) HCO3 [22-30 mmol/L] 29 mmol/L (12/22/22 8:24 AM) Cret [0.70-1.30 mg/dL] 0.70 mg/dL (12/22/22 8:24 AM) Glu [74-106 mg/dL] 143 mg/dL *HI* (12/22/22 8:24 AM) Hct [39-48 %] 40.5 % (12/22/22 8:24 AM) Hgb [13.0-17.0 g/dL] 13.3 g/dL (12/22/22 8:24 AM) K [3.5-5.1 mmol/L] 4.5 mmol/L (12/22/22 8:24 AM) MCH [28-33 pg] 31.4 pg (12/22/22 8:24 AM) MCHC [32-36 g/dL] 32.8 g/dL (12/22/22 8:24 AM) MCV [81-96 fL] 95.5 fL (12/22/22 8:24 AM) Na [137-145 mmol/L] 131 mmol/L *LOW* (12/22/22 8:24 AM) Plts [150-350 K/uL] 116 K/uL *LOW* (12/22/22 8:24 AM) RBC [4.40-5.60 M/uL] 4.24 M/uL *LOW* (12/22/22 8:24 AM) T Bili [0.2-1.3 mg/dL] 0.4 mg/dL (12/22/22 8:24 AM) Prot [6.3-8.2 g/dL] 6.5 g/dL (12/22/22 8:24 AM) Valproate [50-120 ug/mL] 70 ug/mL (12/22/22 8:24 AM) WBC [4.0-10.4 K/uL] 5.91 K/uL (12/22/22 8:24 AM) 1Result Comment: Testing Performed By: [facility] [address], [address] [place] [address] 2Result Comment: Testing Performed By: Dept of [facility] [address], [address] [place] [address] 3Result Comment: Testing Performed By: Dept of [facility] [address], [address] [place] [address] 4Result Comment: Testing Performed By: Dept of [facility] [address], [address] [place] [address] Social History Social History Type Response Smoking Status Never smoked cigaret zachary Sex Male Patient Care team information Care Team Personnel Name: MD Alice, Balaji Benton Position: Physician - Family Med Member Role: Primary Care Provider Address: Address: [address] [place] [address] [place] Name: MD Jared, Qamar Lucas Position: Physician - Pathologist/Derm Member Role: Lifetime Relationship Address: Address: [address] [place] [address] [place] Name: MD Charlie, Sulaiman Position: Physician - Family Med Member Role: Lifetime Relationship Address: Address: [address] [place] [address] [place] Name: Kateryna Dia Jason A Position: Pharmacist Member Role: Pharmacy - Lifetime Address: Address: [address] [address] [place] Care Team Related Persons Name: DAVID FRAZIER Address: [place] Address: home [address] [place], [place] [phone] Name: DAVID FRAZIER Address: home [address] [facility] [address] [place] [address]
--- OUTSIDE RECORDS SUMMARY | 2023-04-03 09:11 | External Medical Summary | Continuity of Care Document ---
Author Name Unknown Organization [address] [place] [id number] Care Team Providers Care Donor Support Technician Name Role Phone Balaji Jenkins Primary Care Physician [phone] [facility] [id number] Date(s): 03/25/23 - 03/25/23 [facility] 0 [facility] 207 [facility] [address] [facility] [address] [place] [address] [phone] Encounter Diagnosis Diabetes(Discharge Diagnosis) - 03/25/23 Epilepsy (disorder)(Discharge Diagnosis) - 03/25/23 Discharge Disposition: Home or Self Care Attending Physician: MD Christa, [place] Allergies, Adverse Reactions, Alerts No Known Allergies [...] q7days, Disp# 13 tab, Refills: 3, Pharmacy: [facility] Start Date: 07/27/22 Stop Date: 07/22/23 Status: Ordered atorvastatin 20 mg oral tablet Start: 10/18/22 15:53:00 EDT, 1 tab, PO, Daily, Disp# 90 tab, Refills: 3, Pharmacy: [facility] Start Date: 10/18/22 Status: Ordered [...] TEST BLOOD SUGAR TWICE DAILYAS DIRECTED., Pharmacy: [facility], TEST BLOOD SUGAR TWICE DAILY [...] Daily, Disp# 90 tab, Refills: 3, Pharmacy: [facility] Start Date: 07/27/22 Stop Date: 07/22/23 Status: Ordered Kerydin 5% topical solution Start: 01/26/23 16:03:00 EDT, See Instructions, Disp# 10 mL, Refills: 5, Apply to affected toenailsonce per day for 6 months to 1 year Start Date: 01/26/23 Status: Ordered levothyroxine 125 mcg (0.125 mg) oral tablet Start: 07/27/22 12:57:00 EDT, 1 tab, PO, Daily, Disp# 90 tab, Refills: 0, Pharmacy: [facility] Start Date: 07/27/22 Status: Ordered MetFORMIN (Eqv-Glucophage XR) 500 mg oral tablet, extended release Start: 12/24/22 15:25:00 EDT, 1 tab, PO, bid, Disp# 180 tab, Refills: 3, Pharmacy: [facility] Start Date: 12/24/22 Stop Date: [...] check blood gluscose. Diagnosis code E13.9, Pharmacy: [facility] Start Date: 08/11/16 Status: Ordered One Touch Delica Plus (33G) Lancets Start: 01/19/22 11:38:00 EDT, See Instructions, Disp# 200 each, Refills: 2, Test Blood Sugars Twicea day E11.9, Note to Pharmacy: please fill 90 day supply, Pharmacy: [facility] Start Date: 01/19/22 Status: Ordered One Touch Ultra 2 Glucose Monitor Start: 08/11/16 11:22:00, See Instructions, Disp# 1 unit, Refills: 0, Use as instructed. Dx Code E13.9 - for use monitoring blood glucose levels, Pharmacy: [facility] Start Date: 08/11/16 Status: Ordered One Touch Ultra 2 Glucose Monitor Start: 04/06/21 16:27:00 EST, See Instructions, Disp# 1 each, Refills: 0, CUrrent glucometer broke,Pharmacy: [facility] Start Date: 04/06/21 Status: Ordered One Touch Ultra Blue Test Strips Start: 01/19/22 11:38:00 EDT, See Instructions, Disp# 100 strip, Refills: 3, for use with glucometer to check blood glose levels. Diagnosis code E13.9 pt to check Blood glucose twice daily, Pharmacy:[facility] Start Date: 01/19/22 Status: Ordered Penlac Nail Lacquer 8% topical solution Start: 01/27/22 14:47:00 EDT, 1 appl, topical, Daily, Disp# 6.6 mL, Refills: 4, Pharmacy: [facility] #[id number] Start Date: 01/27/22 Stop Date: 05/16/24 Status: Ordered Pepcid 20 mg oral tablet Start: 08/10/21 11:58:00 EDT, 1 tab, PO, bid, Disp# 180 tab, Refills: 3, Pharmacy: [facility] Start Date: 08/10/21 Stop Date: 08/05/22 Status: Ordered Protonix 20 mg oral delayed release tablet Start: 10/18/22 15:53:00 EDT, 1 tab, PO, Daily, Disp# 90 tab, Refills: 3, Pharmacy: [facility] Start Date: 10/18/22 Status: Ordered tamsulosin 0.4 mg oral capsule Start: 10/18/22 15:53:00 EDT, 1 cap, PO, Daily, Disp# 90 cap, Refills: 3, Pharmacy: [facility] Start Date: 10/18/22 Status: Ordered Vitamin D3 Start: 05/25/16 10:57:00, 2,000 Int_Unit =, PO, Daily Start Date: 05/25/16 Status: Ordered Mental Status 03/25/23 Barriers to Learning one year None evide nt Mandatory Health Literacy Documentation Yes Health Literacy Communication Barriers N ever Primary Language [place] Problem List Condition Confirmation Course Effective Dates [...] edema, unspecified eye Confirmed Active 1Type II Diagnosis Diagnosis Type Effective Dates Health Status Cl inical Service Informant Diabetes Discharge Diagnosis 03/25/23 Epilepsy (disorder) Discharge Diagnosis 03/25/23 Procedures Procedure Date Related Diagnosis Body Site [...] canal 06/2306/17/07 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 The biliary tree [...] esophagitis. 4) No tumor is seen. 10F/U [facility] Dr. Bowman 11Impression: 1. Choledocholithiasis with two [...] Most recent to oldest [Reference Range]: 1 Patient Weight 78.9 kg (03/25/23 3:10 PM) Temperature [36.5-37.9 DegC] 36.6 DegC (03/25/23 3:10 PM) Heart Rate 110 bpm (03/25/23 3:10 PM) Respiratory Rate 18 br/min (03/25/23 3:10 PM) Blood Pressure 126/76mmHg (03/25/23 3:10 PM) Cuff Pulse Pressure 50 mmHg (03/25/23 3:10 PM) Social History Social History Type Response Smoking Status Never smoked cigaret zachary Sex Male Patient Care team information Care Team Personnel Name: MD Jenkins Michael P Position: Physician - Family Med Member Role: Primary Care Provider Address: Address: [address] [place] [address] Name: MD Coleman Matthew F Position: Physician - Pathologist/Derm Member Role: Lifetime Relationship Address: Address: [address] [facility] [address] [place] [address] Name: MD Guerra Dongsheng Position: Physician - Family Med Member Role: Lifetime Relationship Address: Address: [address] [facility] [address] [place] [address] Name: Kateryna Dia Jason A Position: Pharmacist BCMA Member Role: Pharmacy - Lifetime Address: Address: [facility] [address] [place] [address] Care Team Related Persons Name: DAVID FRAZIER Address: home [address] [facility] [address] [address] [place] [address] Name: DAVID FRAZIER Address: [place] Address: home [address] [place], [place] [id number]
--- OUTSIDE RECORDS SUMMARY | 2023-04-03 09:11 | External Medical Summary | Continuity of Care Document ---
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 Discharge Disposition: Home or Self Care Attending Physician: MD Kumar Cassandra Referring Physician: MD Kumar Cassandra Allergies, Adverse Reactions, Alerts No Known Allergies [...] q7days, Disp# 13 tab, Refills: 3, Pharmacy: [facility] Start Date: 07/27/22 Stop Date: 07/22/23 Status: Ordered atorvastatin 20 mg oral tablet Start: 10/18/22 15:53:00 EDT, 1 tab, PO, Daily, Disp# 90 tab, Refills: 3, Pharmacy: [facility] Start Date: 10/18/22 Status: [...] TEST BLOOD SUGAR TWICE DAILYAS DIRECTED., Pharmacy: [facility], TEST BLOOD SUGAR TWICE [...] Daily, Disp# 90 tab, Refills: 3, Pharmacy: [facility] Start Date: 07/27/22 Stop Date: 07/22/23 Status: Ordered levothyroxine 125 mcg (0.125 mg) oral tablet Start: 07/27/22 12:57:00 EDT, 1 tab, PO, Daily, Disp# 90 tab, Refills: 0, Pharmacy: [facility] Start Date: 07/27/22 Status: Ordered MetFORMIN (Eqv-Glucophage XR) 500 mg oral tablet, extended release Start: 08/17/22 16:13:00 EDT, 1 tab, PO, Daily, Disp# 30 tab, Refills: 5, Pharmacy: [facility] Start Date: 08/17/22 Status: Ordered multivitamin Start: 05/25/16 10:56:00, See Instructions, 1 daily Start Date: 05/25/16 Status: Ordered Myrbetriq 50 mg oral tablet, extended release Start: 02/09/22 14:13:00 EDT Start Date: 02/09/22 Status: Ordered One Touch Delica (33G) Lancets Start: 08/11/16 11:22:00, See Instructions, Disp# 3 box, Refills: 3, for use with glucometer to check blood gluscose. Diagnosis code E13.9, Pharmacy: [facility] Start Date: 08/11/16 Status: Ordered One Touch Delica Plus (33G) Lancets Start: 01/19/22 11:38:00 EDT, See Instructions, Disp# 200 each, Refills: 2, Test Blood Sugars Twicea day E11.9, Note to Pharmacy: please fill 90 day supply, Pharmacy: [facility] Start Date: 01/19/22 Status: Ordered One Touch Ultra 2 Glucose Monitor Start: 08/11/16 11:22:00, See Instructions, Disp# 1 unit, Refills: 0, Use as instructed. Dx Code E13.9 - for use monitoring blood glucose levels, Pharmacy: [facility] Start Date: 08/11/16 Status: Ordered One Touch Ultra 2 Glucose Monitor Start: 04/06/21 16:27:00 EST, See Instructions, Disp# 1 each, Refills: 0, CUrrent glucometer megan,Pharmacy: [facility] Start Date: 04/06/21 Status: Ordered One Touch Ultra Blue Test Strips Start: 01/19/22 11:38:00 EDT, See Instructions, Disp# 100 strip, Refills: 3, for use with glucometer to check blood glose levels. Diagnosis code E13.9 pt to check Blood glucose twice daily, Pharmacy:[facility] Start Date: 01/19/22 Status: Ordered Penlac Nail Lacquer 8% topical solution Start: 01/27/22 14:47:00 EDT, 1 appl, topical, Daily, Disp# 6.6 mL, Refills: 4, Pharmacy: [facility] #[id number] Start Date: 01/27/22 Stop Date: 05/16/24 Status: Ordered Pepcid 20 mg oral tablet Start: 08/10/21 11:58:00 EDT, 1 tab, PO, bid, Disp# 180 tab, Refills: 3, Pharmacy: [facility] Start Date: 08/10/21 Stop Date: 08/05/22 Status: Ordered Protonix 20 mg oral delayed release tablet Start: 10/18/22 15:53:00 EDT, 1 tab, PO, Daily, Disp# 90 tab, Refills: 3, Pharmacy: [facility] Start Date: 10/18/22 Status: Ordered tamsulosin 0.4 mg oral capsule Start: 10/18/22 15:53:00 EDT, 1 cap, PO, Daily, Disp# 90 cap, Refills: 3, Pharmacy: [facility] Start Date: 10/18/22 Status: Ordered Vitamin D3 Start: 05/25/16 10:57:00, 2,000 Int_Unit =, PO, Daily Start Date: 05/25/16 Status: Ordered Mental Status 11/15/22 Barriers to Learning one year None evide nt Mandatory Health Literacy Documentation Yes Health Literacy Communication Barriers N ever Primary Language Maltese Problem List Condition Confirmation Course Effective Dates Status H ealth Status Informant Callus Confirmed Active Diabetes 1 Confirmed Active Dysphagia Confirmed Active Falls Confirmed Active Fracture, radius Confirmed Active Chronic GERD Confirmed Active 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 4) No tumor is seen. 9F/U [facility] Dr. Bowman 10A sphinterotomy was perfomred. The [...] Never smoked cigaret zachary Sex Male Dermatology Outpt Proc * MD Kumar Cassandra: PERFORM, SIGN, VERIFY MD Jenkins Michael P: REVIEW Event Display: Dermatology Outpt Proc Authored Date: [id number] Patient: BRANDY FRAZIER Age: 87 years Sex: Male : 1935 Associated Diagnoses: None Author: MD Kumar Cassandra Visit Information Nurse/MA: Visit Information [facility] number: [id number] [facility] Pathology accession number: [id number] [facility] Banana Ripening Room Supervisor: CHUCHO Cooney Lauren A [facility] Surgeon: MD Kumar Cassandra [facility] Referring Physician: MD Kumar Cassandra [facility] Family Physician: MD Jenkins Michael P . Referral information: Referring Physician: MD Kumar Cassandra. Family physician information: Primary Care Physician: MD Jenkins Michael P . Location: [place]. Health Status Allergies: Allergic Reactions (Selected) NKA. Current medication: (Selected) Prescriptions Prescribed Actonel 35 mg oral tablet: 1 tab, PO, q7days, for 90 day, 13 tab, 3 Refill(s) DELICA 33G LANCETS: See Instructions, TEST BLOOD SUGAR TWICE DAILY DIRECTED., 200 unknown unit, 3 Refill(s) Januvia 100 mg oral tablet: 1 tab, PO, Daily, for 90 day, 90 tab, 3 Refill(s) MetFORMIN (Eqv-Glucophage XR) 500 mg oral tablet, extended release: 1 tab, PO, Daily, 30 tab, 5 Refill(s) One Touch Delica (33G) Lancets: See Instructions, for use with glucometer to check blood gluscose. Diagnosis code E13.9, 3 box, 3 Refill(s) One Touch Delica Plus (33G) Lancets: See Instructions, Test Blood Sugars Twice a day E11.9, 200 each, 2 Refill(s) One Touch Ultra 2 Glucose Monitor: See Instructions, CUrrent glucometer broke, 1 each, 0 Refill(s) One Touch Ultra 2 Glucose Monitor: See Instructions, Use as instructed. Dx Code E13.9 - for use monitoring blood glucose levels, 1 unit, 0 Refill(s) One Touch Ultra Blue Test Strips: See Instructions, for use with glucometer to check blood glose levels. Diagnosis code E13.9 pt to check Blood glucose twice daily, 100 strip, 3 Refill(s) Penlac Nail Lacquer 8% topical solution: 1 appl, topical, Daily, for 24 weeks, 6.6 mL, 4 Refill(s) Pepcid 20 mg oral tablet: 1 tab, PO, bid, for 90 day, 180 tab, 3 Refill(s) Protonix 20 mg oral delayed release tablet: 1 tab, PO, Daily, 90 tab, 3 Refill(s) atorvastatin 20 mg oral tablet: 1 tab, PO, Daily, 90 tab, 3 Refill(s) levothyroxine 125 mcg (0.125 mg) oral tablet: 1 tab, PO, Daily, 90 tab, 0 Refill(s) tamsulosin 0.4 mg oral capsule: 1 cap, PO, Daily, 90 cap, 3 Refill(s) Documented Medications Documented CoQ10: 100mg daily Colace 100 mg oral capsule: 1 cap, PO, Daily, PRN: as needed for constipation Depakote: 500 mg, PO, Daily Myrbetriq 50 mg oral tablet, extended release: Vitamin D3: 2,000 Int_Unit, PO, Daily ciclopirox 8% topical solution: dutasteride 0.5 mg oral capsule: 1 cap, PO, Daily multivitamin: See Instructions, 1 daily. Problem list: Medical (Selected) SEIZURE DISORDER / ICD-9-CM 345.10 / Confirmed TINNITUS / ICD-9-CM 388.3 / Confirmed Hypothyroid / SNOMED CT 406290975 / Confirmed Diabetes / SNOMED CT 113960392 / Confirmed Chronic GERD / SNOMED CT 142901756 / Confirmed Fracture, radius / SNOMED CT 56528648 / Confirmed Osteopenia / SNOMED CT 353589690 / Confirmed Urinary frequency / SNOMED CT 897839818 / Confirmed Diabetic eye exam / SNOMED CT 522255377 / Confirmed Tinea unguium / SNOMED CT 4562174562 / Confirmed Dysphagia / SNOMED CT 81903094 / Confirmed Balance disorder / SNOMED CT 7255048471 / Confirmed Callus / SNOMED CT 726921748 / Confirmed Heart murmur previously undiagnosed / SNOMED CT 203786748 / Confirmed Falls / SNOMED CT 1086360 / Confirmed Positive colorectal cancer screening using Cologuard test / SNOMED CT 6865548388 / Confirmed Uncontrolled type 2 diabetes mellitus with hyperglycemia / SNOMED CT 6228922305 / Confirmed Type 2 diabetes mellitus with mild nonproliferative diabetic retinopathy without macular edema, unspecified eye / SNOMED CT 006873670 / Confirmed History of sarcoma / SNOMED CT 6401226000 / Confirmed All Problems (Selected) SEIZURE DISORDER / ICD-9-CM 345.10 / Confirmed TINNITUS / ICD-9-CM 388.3 / Confirmed Hypothyroid / SNOMED CT 133935877 / Confirmed Diabetes / SNOMED CT 826286413 / Confirmed Chronic GERD / SNOMED CT 348020435 / Confirmed Fracture, radius / SNOMED CT 82654109 / Confirmed Osteopenia / SNOMED CT 182163225 / Confirmed Urinary frequency / SNOMED CT 999230702 / Confirmed Diabetic eye exam / SNOMED CT 315398367 / Confirmed Tinea unguium / SNOMED CT 8451973454 / Confirmed Dysphagia / SNOMED CT 71937712 / Confirmed Balance disorder / SNOMED CT 8938072200 / Confirmed Callus / SNOMED CT 360276165 / Confirmed Heart murmur previously undiagnosed / SNOMED CT 271443558 / Confirmed Falls / SNOMED CT 2510005 / Confirmed Positive colorectal cancer screening using Cologuard test / SNOMED CT 6138048202 / Confirmed Uncontrolled type 2 diabetes mellitus with hyperglycemia / SNOMED CT 4827167422 / Confirmed Type 2 diabetes mellitus with mild nonproliferative diabetic retinopathy without macular edema, unspecified eye / SNOMED CT 092195765 / Confirmed History of sarcoma / SNOMED CT 3799374195 / Confirmed. Mohs Surgical Information Operation: Surgical excision of cutaneous malignancy using continuous microscopic control (Mohs Micrographic Surgery). Diagnosis: Squamous cell carcinoma in situ (SCCIS) of scalp (UIR11-PR D04.4, Discharge, Medical). Nurse/MA: Surgical Information Mohs Surgical Diagnosis: Other: SCCIS Mohs Surgical Location: Left, Other: Frontal Scalp Mohs Previous Treatment: None Mohs Preop Size of Tumor Length: 1.3 cm Mohs Preop Size of Tumor Width: 1 cm Mohs Stage 1 Specimen: 1 Mohs Final defect size Length: 1.9 cm Mohs Final defect size Width: 1.6 cm Mohs Size of repair: Secondary Intention . Indications for Mohs surgery: Large size, Ill-defined margins. Comments: moderate risk location. Appropriate Use Criteria (AUC): 8 . Anesthetic: 0.5% lidocaine with epinephrine and bicarbonate. Clinical description: 1.3 cm pink focally crusted patch. Adenopathy: No preauricular, submandibular or anterior/posterior cervical lymphadenopathy. Procedure: Informed consent was obtained which included explanation of the Mohs surgery procedure, reasons why Mohs surgery was preferable to alternatives such as standard excision, and wound management, associated risks, scarring, and potential need for further surgery. The patient verbalized understanding and all questions were answered. The biopsy site/lesion was outlined, and the location was re-confirmed by the patient using a hand held mirror. The operative site was then prepped with antiseptic solution, draped, and anesthetized with a infiltration of local anesthetic. Following this, the clinically apparent portion of the tumor was surgically removed. A thin layer of tissue was then surgically excised around the tumor. Hemostasis was obtained with electrocautery, or aluminum chloride, and a pressure dressing was placed on the wound. Bipolar forceps were used in patients with an implanted electrical device. A reference map was drawn and the excised tissue was cut into an appropriate number of sections for examination in the Mohs micrographic laboratory. Edges of each tissue section were dyed with tissue marking ink inorder to achieve precise orientation. These tissue sections were then processed and stained to produce slides for evaluation of the entire peripheral and deep margins of the excised tissue. The prepared microscopic sections were then examined by the Mohs surgeon. Procedural Time Out: Patient identified with name and date of , Procedure verified, Correct site, if applicable. Stages: Stage 1 included multiple microscopic sections of 1 tissue specimens, At this point, no further tumor cells were identified. Tumor eradication was complete after a total of 1 stage(s) of surgery. Wound management: A discussion was held with the patient about reconstruction options and wound healing, addressing functional and cosmetic concerns along with benefits and potential risks of each approach., After full discussion of the options, it was decided to allow this wound to heal by second intention. Additional anesthesia was administered to allow for curettage of actinic keratoses identified on Mohs pathology. The wound was cleansed and a pressure dressing was applied and the patient was instructed in postoperative care. . Procedure Tolerated: Well, Without complications, Estimated blood loss 10 ml. Postoperative follow up: 3 to 4 weeks for follow-up wound check, then as scheduled for skin exam.. Photo: . 2022-11-15 09:38:28 2022-11-15 10:26:08 Mohs Surgical Information Second Site Nurse/MA: Surgical Information 2nd Site . Electronic Signature on File CC: Balaji Jenkins MD [facility] [place] [id number] Electronically Reviewed/Signed by: Audelia Kumar MD Author Signature Dt/Tm:11/15/2022 05:17 PM Department of Dermatology CS * CHUCHO Cooney, Karlene Hirsch: PERFORM Event Display: Dermatology Outpt Proc Authored Date: [id number] DERMATOLOGY MOHS MAPPING IMAGES Name: BRANDY FRAZIER Patient Number: [id number] : 1935 Date of Service: 11/15/2022 _ Electronic Signature on File Electronically Reviewed/Signed by: Karlene Cooney Author Signature Dt/Tm:11/15/2022 02:57 PM Electronically Reviewed/Signed by: Audelia Kumar MD Cosigner Signature Dt/Tm: 11/15/2022 05:36 PM Department of Dermatology LAC Patient Care team information Care Team Personnel Name: MD Alice, Balaji Benton Position: Physician - Family Med Member Role: Primary Care Provider Address: Address: [address] [facility] [address] [place] [address] [place] Name: MD Jared, Qamar Lucas Position: Physician - Pathologist/Derm Member Role: Lifetime Relationship Address: Address: [address] [place] [address] [place] Name: MD Guerra Dongsheng Position: Physician - Family Med Member Role: Lifetime Relationship Address: Address: [address] [address] [place] Name: Kateryna Dia Jason A Position: Pharmacist Member Role: Pharmacy - Lifetime Address: Address: [address] [address] [place] Care Team Related Persons Name: DAVID FRAZIER Address: home [address] [facility] [address] [place] [address] Name: DAVID FRAZIER Address: [facility] [place] Address: home [address] [place], [place] [phone]
--- OUTSIDE RECORDS SUMMARY | 2023-04-03 09:11 | External Medical Summary | Continuity of Care Document ---
Author Name Unknown Organization [facility] [address] [facility] 2 Address [address], [place] [phone] Care Team Providers Care Injection Molding Operator Name Role Phone Balaji Jenkins Primary Care Physician [phone] Encounter [facility] [id number] Date(s): 01/20/23 - 01/20/23 [facility] [address], [place] [phone] Discharge Disposition: Home or Self Care Attending [...] q7days, Disp# 13 tab, Refills: 3, Pharmacy: [facility] Start Date: 07/27/22 Stop Date: 07/22/23 Status: Ordered atorvastatin 20 mg oral tablet Start: 10/18/22 15:53:00 EDT, 1 tab, PO, Daily, Disp# 90 tab, Refills: 3, Pharmacy: [facility] Start Date: 10/18/22 Status: Ordered ciclopirox [...] TEST BLOOD SUGAR TWICE DAILYAS DIRECTED., Pharmacy: [facility], TEST BLOOD SUGAR TWICE DAILY DIRECTED. Start Date: 12/20/17 Status: Ordered Depakote Start: 05/25/16 10:56:00, 500 mg =, PO, Daily Start Date: 05/25/16 Status: Ordered dutasteride 0.5 mg oral capsule Start: 12/24/21 10:57:00 EDT, 1 cap, PO, Daily Start Date: 12/24/21 Status: Ordered Januvia 100 mg oral tablet Start: 07/27/22 12:57:00 EDT, 1 tab, PO, Daily, Disp# 90 tab, Refills: 3, Pharmacy: [facility] Start Date: 07/27/22 Stop Date: 07/22/23 Status: Ordered levothyroxine 125 mcg (0.125 mg) oral tablet Start: 07/27/22 12:57:00 EDT, 1 tab, PO, Daily, Disp# 90 tab, Refills: 0, Pharmacy: [facility] Start Date: 07/27/22 Status: Ordered MetFORMIN (Eqv-Glucophage XR) 500 mg oral tablet, extended release Start: 12/24/22 15:25:00 EDT, 1 tab, PO, bid, Disp# 180 tab, Refills: 3, Pharmacy: [facility] Start Date: 12/24/22 Stop Date: 12/19/23 [...] check blood gluscose. Diagnosis code E13.9, Pharmacy: [facility] Start Date: 08/11/16 Status: Ordered One Touch Delica Plus (33G) Lancets Start: 01/19/22 11:38:00 EDT, See Instructions, Disp# 200 each, Refills: 2, Test Blood Sugars Twicea day E11.9, Note to Pharmacy: please fill 90 day supply, Pharmacy: [facility] Start Date: 01/19/22 Status: Ordered One Touch Ultra 2 Glucose Monitor Start: 08/11/16 11:22:00, See Instructions, Disp# 1 unit, Refills: 0, Use as instructed. Dx Code E13.9 - for use monitoring blood glucose levels, Pharmacy: [facility] Start Date: 08/11/16 Status: Ordered One Touch Ultra 2 Glucose Monitor Start: 04/06/21 16:27:00 EST, See Instructions, Disp# 1 each, Refills: 0, CUrrent glucometer broke,Pharmacy: [facility] Start Date: 04/06/21 Status: Ordered One Touch Ultra Blue Test Strips Start: 01/19/22 11:38:00 EDT, See Instructions, Disp# 100 strip, Refills: 3, for use with glucometer to check blood glose levels. Diagnosis code E13.9 pt to check Blood glucose twice daily, Pharmacy:[facility] Start Date: 01/19/22 Status: Ordered Penlac Nail Lacquer 8% topical solution Start: 01/27/22 14:47:00 EDT, 1 appl, topical, Daily, Disp# 6.6 mL, Refills: 4, [facility]: [id number] Start Date: 01/27/22 Stop Date: 05/16/24 Status: Ordered Pepcid 20 mg oral tablet Start: 08/10/21 11:58:00 EDT, 1 tab, PO, bid, Disp# 180 tab, Refills: 3, Pharmacy: [facility] Start Date: 08/10/21 Stop Date: 08/05/22 Status: Ordered Protonix 20 mg oral delayed release tablet Start: 10/18/22 15:53:00 EDT, 1 tab, PO, Daily, Disp# 90 tab, Refills: 3, Pharmacy: [facility] Start Date: 10/18/22 Status: Ordered tamsulosin 0.4 mg oral capsule Start: 10/18/22 15:53:00 EDT, 1 cap, PO, Daily, Disp# 90 cap, Refills: 3, Pharmacy: [facility] Start Date: 10/18/22 Status: Ordered Vitamin D3 Start: 05/25/16 10:57:00, 2,000 Int_Unit =, PO, Daily Start Date: 05/25/16 Status: Ordered Mental Status 01/20/23 Barriers to Learning one year None evide nt Mandatory Health Literacy Documentation Yes Health Literacy Communication Barriers N ever Primary Language Swiss Problem List Condition Confirmation Course Effective Dates [...] No tumor is seen. 9F/U [facility] Dr. Bowman 10A sphinterotomy was [...] Member Role: Primary Care Provider Address: Address: [address] [place] [address] [place] Name: MD Jared, Qamar Lucas Position: Physician - Pathologist/Derm Member Role: Lifetime Relationship Address: Address: [address] [place] [address] [place] Name: MD Charlie, Sulaiman Position: Physician - Family Med Member Role: Lifetime Relationship Address: Address: [address] [place] [address] Name: Kateryna Dia Jason A Position: Pharmacist BCMA Member Role: Pharmacy - Lifetime Address: Address: [facility] [address] [place] [address] [place] Care Team Related Persons Name: DAVID FRAZIER Address: home [address] [facility] [place] [address] Name: DAVID FRAZIER Address: [place] Address: home [address] [place], [place] [phone]
--- OUTSIDE RECORDS SUMMARY | 2023-04-03 09:12 | External Medical Summary | Continuity of Care Document ---
Author Name Unknown Organization [facility] [address] 1 Address [address] [place], [place] [id number] Care Team Providers Care Medical Professionals Name Role Phone Balaji Jenkins Primary Care Physician [phone] [id number] Date[facility]s): 11/15/22 - 11/15/22 [facility] [address] 1 [facility] [address] Fuentes, [facility] 1 [place], [place] [phone] Encounter Diagnosis Type 2 diabetes mellitus with hyperglycemia(Final) - Discharge Disposition: Home or Self Care Attending Physician: MD Linton Jonathan D Referring Physician: MD Linton Jonathan D Allergies, Adverse Reactions, Alerts No Known Allergies [...] Given tetanus toxoids-diphtheria, Td (Adult) 05/03/18 Gi kale tetanus/diphtheria/pertuss, acel (Tdap) 05/03/18 R ecorded tetanus/diphtheria/pertuss, [...] q7days, Disp# 13 tab, Refills: 3, Pharmacy: [facility] Start Date: 07/27/22 Stop Date: 07/22/23 Status: Ordered atorvastatin 20 mg oral tablet Start: 10/18/22 15:53:00 EDT, 1 tab, PO, Daily, Disp# 90 tab, Refills: 3, Pharmacy: [facility] Start Date: 10/18/22 Status: Ordered [...] TEST BLOOD SUGAR TWICE DAILYAS DIRECTED., Pharmacy: [facility], TEST BLOOD SUGAR TWICE DAILY [...] Daily, Disp# 90 tab, Refills: 3, Pharmacy: [facility] Start Date: 07/27/22 Stop Date: 07/22/23 Status: Ordered levothyroxine 125 mcg (0.125 mg) oral tablet Start: 07/27/22 12:57:00 EDT, 1 tab, PO, Daily, Disp# 90 tab, Refills: 0, Pharmacy: [facility] Start Date: 07/27/22 Status: Ordered MetFORMIN (Eqv-Glucophage XR) 500 mg oral tablet, extended release Start: 08/17/22 16:13:00 EDT, 1 tab, PO, Daily, Disp# 30 tab, Refills: 5, Pharmacy: [facility] Start Date: 08/17/22 Status: Ordered multivitamin Start: 05/25/16 10:56:00, See Instructions, 1 daily Start Date: 05/25/16 Status: Ordered Myrbetriq 50 mg oral tablet, extended release Start: 02/09/22 14:13:00 EDT Start Date: 02/09/22 Status: Ordered One Touch Delica (33G) Lancets Start: 08/11/16 11:22:00, See Instructions, Disp# 3 box, Refills: 3, for use with glucometer to check blood gluscose. Diagnosis code E13.9, Pharmacy: [facility] Start Date: 08/11/16 Status: Ordered One Touch Delica Plus (33G) Lancets Start: 01/19/22 11:38:00 EDT, See Instructions, Disp# 200 each, Refills: 2, Test Blood Sugars Twicea day E11.9, Note to Pharmacy: please fill 90 day supply, Pharmacy: [facility] Start Date: 01/19/22 Status: Ordered One Touch Ultra 2 Glucose Monitor Start: 08/11/16 11:22:00, See Instructions, Disp# 1 unit, Refills: 0, Use as instructed. Dx Code E13.9 - for use monitoring blood glucose levels, Pharmacy: [facility] Start Date: 08/11/16 Status: Ordered One Touch Ultra 2 Glucose Monitor Start: 04/06/21 16:27:00 EST, See Instructions, Disp# 1 each, Refills: 0, CUrrent glucometer bromonserrat,Pharmacy: [facility] Start Date: 04/06/21 Status: Ordered One Touch Ultra Blue Test Strips Start: 01/19/22 11:38:00 EDT, See Instructions, Disp# 100 strip, Refills: 3, for use with glucometer to check blood glose levels. Diagnosis code E13.9 pt to check Blood glucose twice daily, Pharmacy:[facility] Start Date: 01/19/22 Status: Ordered Penlac Nail Lacquer 8% topical solution Start: 01/27/22 14:47:00 EDT, 1 appl, topical, Daily, Disp# 6.6 mL, Refills: 4, [facility] [address] [id number] Start Date: 01/27/22 Stop Date: 05/16/24 Status: Ordered Pepcid 20 mg oral tablet Start: 08/10/21 11:58:00 EDT, 1 tab, PO, bid, Disp# 180 tab, Refills: 3, Pharmacy: [facility] Start Date: 08/10/21 Stop Date: 08/05/22 Status: Ordered Protonix 20 mg oral delayed release tablet Start: 10/18/22 15:53:00 EDT, 1 tab, PO, Daily, Disp# 90 tab, Refills: 3, Pharmacy: [facility] Start Date: 10/18/22 Status: Ordered tamsulosin 0.4 mg oral capsule Start: 10/18/22 15:53:00 EDT, 1 cap, PO, Daily, Disp# 90 cap, Refills: 3, Pharmacy: [facility] Start Date: 10/18/22 Status: Ordered [...] esophagitis. 4) No tumor is seen. 9F/U [facility] Dr. Bowman 10A sphinterotomy was perfomred. [...] List Name Date Hemoglobin A1C (HEMOGLOBIN, A1C) 11/15/22 Most recent to oldest [Reference Range]: 1 Estimated Average Glucose 189 mg/dL 1 (11/15/22 11:15 AM) HbA1c [4.0-6.0 %] 8.2 % *HI* (11/15/22 11:15 AM) 1Result Comment: Testing Performed By: Dept of Pathology [facility] Aaron Fuentes, [address] [place] [id number] Social History Social History Type Response Smoking Status Never smoked cigaret zachary Sex Male Patient Care team information Care Team Personnel Name: MD Alice, Balaji Benton Position: Physician - Family Med Member Role: Primary Care Provider Address: Address: [address] [place] [address] [place] Name: MD Coleman Matthew F Position: Physician - Pathologist/Derm Member Role: Lifetime Relationship Address: Address: [address] [place] [address] [place] Name: MD Guerra Dongsheng Position: Physician - Family Med Member Role: Lifetime Relationship Address: Address: [address] [place] [address] [place] Name: Kateryna Dia Jason A Position: Pharmacist Member Role: Pharmacy - Lifetime Address: Address: [address] [address] [place] Care Team Related Persons Name: DAVID FRAZIER Address: [place] Address: home [address] [place], [place] [id number] Name: DAVID FRAZIER Address: home [address] [facility] [address] [place] [address]
--- OUTSIDE RECORDS SUMMARY | 2023-04-03 09:12 | External Medical Summary | Continuity of Care Document ---
Author Name Unknown Organization [place] [id number] Address [address] [place] [id number] Care Team Providers Care Chartered Wealth Manager Name Role Phone Balaji Jenkins Primary Care Physician [phone] [id number] Date(s[facility] 10/20/22 - 10/20/22 [facility] 0 [place] [id number] [facility] [address] [facility], [address] [address] Encounter Diagnosis Callus(Discharge Diagnosis) - 10/20/22 Diabetes(Discharge Diagnosis) - 10/20/22 Tinea unguium(Discharge Diagnosis) - 10/20/22 Discharge Disposition: Home or Self Care Attending Physician: LESLEY Ware Christina L Referring Physician: MD Jenkins Michael P Allergies, Adverse Reactions, Alerts No Known Allergies Assessment and Plan Extracted from: Title:Follow Up Visit Author:LESLEY Ware, Muna Nicole Date:10/20/22 1.Callus Area debrided with #15 blade to tolerance, no bleeding or cellulitis noted verbal consent obtained for debridement with witness Recommend moisturizing lotion to feet daily Recommend offloading pads over the area for pressure relief 2.Diabetes 3.Tinea unguium -Patient unable to provide self care to toenails due todiabetes - verbal consent obtained for debridement -Recommend toenail debridement -Patient had toenails of bilateral digits 1-5 debrided using nail nippers to tolerance, no bleeding noted -Patient instructed to use emery board to nails once per week -Patient had no ingrown toenails or infection noted -Patient is to follow up in 2-3 months for treatment if needed in the future Immunizations Given and Recorded Vaccine Date Status [...] q7days, Disp# 13 tab, Refills: 3, Pharmacy: [facility] Start Date: 07/27/22 Stop Date: 07/22/23 Status: Ordered atorvastatin 20 mg oral tablet Start: 10/18/22 15:53:00 EDT, 1 tab, PO, Daily, Disp# 90 tab, Refills: 3, Pharmacy: [facility] Start Date: 10/18/22 Status: Ordered [...] TEST BLOOD SUGAR TWICE DAILYAS DIRECTED., Pharmacy: [facility], TEST BLOOD SUGAR TWICE DAILY [...] Daily, Disp# 90 tab, Refills: 3, Pharmacy: [facility] Start Date: 07/27/22 Stop Date: 07/22/23 Status: Ordered levothyroxine 125 mcg (0.125 mg) oral tablet Start: 07/27/22 12:57:00 EDT, 1 tab, PO, Daily, Disp# 90 tab, Refills: 0, Pharmacy: [facility] Start Date: 07/27/22 Status: Ordered MetFORMIN (Eqv-Glucophage XR) 500 mg oral tablet, extended release Start: 08/17/22 16:13:00 EDT, 1 tab, PO, Daily, Disp# 30 tab, Refills: 5, Pharmacy: [facility] Start Date: 08/17/22 Status: Ordered multivitamin Start: 05/25/16 10:56:00, See Instructions, 1 daily Start Date: 05/25/16 Status: Ordered Myrbetriq 50 mg oral tablet, extended release Start: 02/09/22 14:13:00 EDT Start Date: 02/09/22 Status: Ordered One Touch Delica (33G) Lancets Start: 08/11/16 11:22:00, See Instructions, Disp# 3 box, Refills: 3, for use with glucometer to check blood gluscose. Diagnosis code E13.9, Pharmacy: [facility] Start Date: 08/11/16 Status: Ordered One Touch Delica Plus (33G) Lancets Start: 01/19/22 11:38:00 EDT, See Instructions, Disp# 200 each, Refills: 2, Test Blood Sugars Twicea day E11.9, Note to Pharmacy: please fill 90 day supply, Pharmacy: [facility] Start Date: 01/19/22 Status: Ordered One Touch Ultra 2 Glucose Monitor Start: 08/11/16 11:22:00, See Instructions, Disp# 1 unit, Refills: 0, Use as instructed. Dx Code E13.9 - for use monitoring blood glucose levels, Pharmacy: [facility] Start Date: 08/11/16 Status: Ordered One Touch Ultra 2 Glucose Monitor Start: 04/06/21 16:27:00 EST, See Instructions, Disp# 1 each, Refills: 0, CUrrent glucometer broke,Pharmacy: [facility] Start Date: 04/06/21 Status: Ordered One Touch Ultra Blue Test Strips Start: 01/19/22 11:38:00 EDT, See Instructions, Disp# 100 strip, Refills: 3, for use with glucometer to check blood glose levels. Diagnosis code E13.9 pt to check Blood glucose twice daily, Pharmacy:[facility] Start Date: 01/19/22 Status: Ordered Penlac Nail Lacquer 8% topical solution Start: 01/27/22 14:47:00 EDT, 1 appl, topical, Daily, Disp# 6.6 mL, Refills: 4, [facility]: [id number] Start Date: 01/27/22 Stop Date: 05/16/24 Status: Ordered Pepcid 20 mg oral tablet Start: 08/10/21 11:58:00 EDT, 1 tab, PO, bid, Disp# 180 tab, Refills: 3, Pharmacy: [facility] Start Date: 08/10/21 Stop Date: 08/05/22 Status: Ordered Protonix 20 mg oral delayed release tablet Start: 10/18/22 15:53:00 EDT, 1 tab, PO, Daily, Disp# 90 tab, Refills: 3, Pharmacy: [facility] Start Date: 10/18/22 Status: Ordered tamsulosin 0.4 mg oral capsule Start: 10/18/22 15:53:00 EDT, 1 cap, PO, Daily, Disp# 90 cap, Refills: 3, Pharmacy: [facility] Start Date: 10/18/22 Status: Ordered Vitamin D3 Start: 05/25/16 10:57:00, 2,000 Int_Unit =, PO, Daily Start Date: 05/25/16 Status: Ordered Mental Status 10/20/22 Barriers to Learning one year None evide nt Mandatory Health Literacy Documentation Yes Health Literacy Communication Barriers N ever Primary Language Hungarian Problem List Condition Confirmation Course Effective Dates [...] Dates Health Status Cl inical Service Informant Callus Discharge Diagnosis 10/20/22 Diabetes Discharge Diagnosis 10/20/22 Tinea unguium Discharge Diagnosis 10/20/22 Procedures Procedure Date Related Diagnosis Body Site [...] diverticulum. 7normal examined duodenum, choledoncholithiasis - DR Inverso 8Pathology results: A) Stomach, antrum, "prominent antral [...] esophagitis. 4) No tumor is seen. 9F/U [facility] Dr. Bowman 10A sphinterotomy was perfomred. [...] Event Display: Ortho Outpt Note Authored Date: [id number] Chief Complaint nail care Primary Care Provider MD Alice, Balaji Benton Subjective Patient is a very pleasant 87-year-old male presenting today for care, low risk diabetic, last seenMar2022. No acute concerns noted today. Review of [...] or breakdown Toenails digits 1 through 5 ofboth feet with thickening greater than 1 mm, pain, elongation, dystrophy recommend debridement. Callus present submetatarsal 1 right foot recommend debridement Assessment/Plan 1.Callus Area debrided with #15 blade to tolerance, no bleeding or cellulitis noted verbal consent obtained for debridement with witness Recommend moisturizing lotion to feet daily Recommend offloading pads over the area for pressure relief 2.Diabetes 3.Tinea unguium -Patient unable to provide self care to toenails due todiabetes - verbal consent obtained for debridement -Recommend toenail debridement -Patient had toenails of bilateral digits 1-5 debrided using nail nippers to tolerance, no bleedingnoted -Patient instructed to use emery board to nails once per week -Patient had no ingrown toenails or infection noted -Patient is to follow up in 2-3 months for treatment if needed in the future Electronic Signature on File Electronically Reviewed/Signed by: Bel Ware DPM Author Signature Dt/Tm:10/20/2022 02:40 PM Division of Sports Medicine CLR Patient Care team information Care Team Personnel Name: MD Jenkins Michael P Position: Physician - Family Med Member Role: Primary Care Provider Address: Address: [address] [place] [address] Name: MD Coleman Matthew F Position: Physician - Pathologist/Derm Member Role: Lifetime Relationship Address: Address: [address] [address] [place] Name: MD Guerra Dongsheng Position: Physician - Family Med Member Role: Lifetime Relationship Address: Address: [address] [address] Name: Kateryna Dia Jason A Position: Pharmacist Member Role: Pharmacy - Lifetime Address: Address: [facility] [address] [place] [address] Care Team Related Persons Name: DAVID FRAZIER Address: home [address] [place] [address] Name: DAVID FRAZIER Address: [place] Address: home [address] [place], [place] [id number]
--- OUTSIDE RECORDS SUMMARY | 2023-04-03 09:12 | External Medical Summary | Continuity of Care Document ---
Author Name Unknown Organization [facility] [address] Address [address] [place], [place] [id number] Care Team Providers Care Filenet Developer Name Role Phone Balaji Jenkins Primary Care Physician [phone] [id number] Date(s): 11/15/22 - 11/15/22 [facility] [address] [facility] [address], [facility] 1 [place], [phone] Encounter Diagnosis Benign prostatic hyperplasia without lower urinary tract symptoms(Final) - Discharge Disposition: Home or Self Care Attending Physician: MD Whitaker Charles M Referring Physician: MD Whitaker Charles M Allergies, Adverse Reactions, Alerts No Known Allergies [...] q7days, Disp# 13 tab, Refills: 3, Pharmacy: [facility] Start Date: 07/27/22 Stop Date: 07/22/23 Status: Ordered atorvastatin 20 mg oral tablet Start: 10/18/22 15:53:00 EDT, 1 tab, PO, Daily, Disp# 90 tab, Refills: 3, Pharmacy: [facility] Start Date: 10/18/22 Status: Ordered [...] TEST BLOOD SUGAR TWICE DAILYAS DIRECTED., Pharmacy: [facility], TEST BLOOD SUGAR TWICE DAILY [...] Daily, Disp# 90 tab, Refills: 3, Pharmacy: [facility] Start Date: 07/27/22 Stop Date: 07/22/23 Status: Ordered levothyroxine 125 mcg (0.125 mg) oral tablet Start: 07/27/22 12:57:00 EDT, 1 tab, PO, Daily, Disp# 90 tab, Refills: 0, Pharmacy: [facility] Start Date: 07/27/22 Status: Ordered MetFORMIN (Eqv-Glucophage XR) 500 mg oral tablet, extended release Start: 08/17/22 16:13:00 EDT, 1 tab, PO, Daily, Disp# 30 tab, Refills: 5, Pharmacy: [facility] Start Date: 08/17/22 Status: Ordered multivitamin Start: 05/25/16 10:56:00, See Instructions, 1 daily Start Date: 05/25/16 Status: Ordered Myrbetriq 50 mg oral tablet, extended release Start: 02/09/22 14:13:00 EDT Start Date: 02/09/22 Status: Ordered One Touch Delica (33G) Lancets Start: 08/11/16 11:22:00, See Instructions, Disp# 3 box, Refills: 3, for use with glucometer to check blood gluscose. Diagnosis code E13.9, Pharmacy: [facility] Start Date: 08/11/16 Status: Ordered One Touch Delica Plus (33G) Lancets Start: 01/19/22 11:38:00 EDT, See Instructions, Disp# 200 each, Refills: 2, Test Blood Sugars Twicea day E11.9, Note to Pharmacy: please fill 90 day supply, Pharmacy: [facility] Start Date: 01/19/22 Status: Ordered One Touch Ultra 2 Glucose Monitor Start: 08/11/16 11:22:00, See Instructions, Disp# 1 unit, Refills: 0, Use as instructed. Dx Code E13.9 - for use monitoring blood glucose levels, Pharmacy: [facility] Start Date: 08/11/16 Status: Ordered One Touch Ultra 2 Glucose Monitor Start: 04/06/21 16:27:00 EST, See Instructions, Disp# 1 each, Refills: 0, CUrrent glucometer bromonserrat,Pharmacy: [facility] Start Date: 04/06/21 Status: Ordered One Touch Ultra Blue Test Strips Start: 01/19/22 11:38:00 EDT, See Instructions, Disp# 100 strip, Refills: 3, for use with glucometer to check blood glose levels. Diagnosis code E13.9 pt to check Blood glucose twice daily, Pharmacy:[facility] Start Date: 01/19/22 Status: Ordered Penlac Nail Lacquer 8% topical solution Start: 01/27/22 14:47:00 EDT, 1 appl, topical, Daily, Disp# 6.6 mL, Refills: 4, [id number] Start Date: 01/27/22 Stop Date: 05/16/24 Status: Ordered Pepcid 20 mg oral tablet Start: 08/10/21 11:58:00 EDT, 1 tab, PO, bid, Disp# 180 tab, Refills: 3, Pharmacy: [facility] Start Date: 08/10/21 Stop Date: 08/05/22 Status: Ordered Protonix 20 mg oral delayed release tablet Start: 10/18/22 15:53:00 EDT, 1 tab, PO, Daily, Disp# 90 tab, Refills: 3, Pharmacy: [facility] Start Date: 10/18/22 Status: Ordered tamsulosin 0.4 mg oral capsule Start: 10/18/22 15:53:00 EDT, 1 cap, PO, Daily, Disp# 90 cap, Refills: 3, Pharmacy: [facility] Start Date: 10/18/22 Status: Ordered [...] Mohs surgery 18 Completed sizure disorder-Dr. Vito Chna ompleted 1Impression: one polyp at the recto-sigmoid [...] esophagitis. 4) No tumor is seen. 9F/U [facility] Dr. Bowman 10A sphinterotomy was perfomred. The [...] Cell CA Results Laboratory List Name Date Prostate Specific Antigen (PSA, TOTAL) Request to FAX Report (First Location) ( ACC NO TO BE FAXED) 11/15/22 Most recent to oldest [Reference Range]: 1 PSA, Total [<7.21 ng/mL] 1.42 ng/mL (11/15/22 11:14 AM) Phone No [phone] (11/15/22 11:14 AM) Faxed on: 11/16/22 09:49 (11/15/22 11:14 AM) 1Result Comment: Testing Performed By: [facility] Aaron Fuentes, [address] [place], [place] [address]ramona Fuentes, [place] [address] Social History Social History Type Response Smoking Status Never smoked cigaret zachary Sex Male Patient Care team information Care Team Personnel Name: MD Alice, Balaji Benton Position: Physician - Family Med Member Role: Primary Care Provider Address: Address: [address] [place] [address] [place] Name: MD Coleman Matthew F Position: Physician - Pathologist/Derm Member Role: Lifetime Relationship Address: Address: [address] [place] [address] [place] Name: MD Guerra Dongsheng Position: Physician - Family Med Member Role: Lifetime Relationship Address: Address: [address] [place] [address] [place] Name: Kateryna Dia Jason A Position: Pharmacist Member Role: Pharmacy - Lifetime Address: Address: [address] [address] [place] Care Team Related Persons Name: DAVID FRAZIER Address: [place] Address: home [address] [place], [place] [phone] Name: DAVID FRAZIER Address: home [address] [facility] [address] [place] [address]
[2023-04-03] MEDS ORDERED: CEFEPIME 2,000 MG/20 ML VIAL IV STA (09:30)
--- NOTE | 2023-04-03 09:34 | Emergency Department Note ---
Impression & Plan Generalized weakness, Ambulatory dysfunction, COVID-19, Hypomagnesemia ED Provider Note HISTORY OF PRESENT ILLNESS: Patient is an 87-year-old male presenting with generalized weakness. Patient reportedly has been feeling generally unwell for the last few days. reports that yesterday the patient was significantly weaker than normal. He was so weak that he slid out of his recliner and they had to call the neighbor to help get him up off the ground. No reported chest pain or shortness of breath. No abdominal pain, nausea or vomiting. He developed a fever of 100.9F yesterday. He was attempting to ambulate up their flight of stairs to get to the bathroom and the reports that he became too weak that he was unable to get off the last step. Reports that he lowered himself to the ground and then again had to call their neighbor. States that today the patient was too weak to get up out of bed. No recent sick contact exposures. He has had a dry, nonproductive cough. ROS: as above PHYSICAL EXAM: Constitutional: Patient appears in no acute distress. HENT: Head: Normocephalic and atraumatic. Eyes: EOMI, PERRL Mouth/Throat: Mucous membranes moist. Neck: Trachea midline. Neck supple. Cardiovascular: Tachycardic with regular rhythm. No murmurs, rubs or gallops. Intact distal pulses. Pulmonary/Chest: No respiratory distress. Breath sounds clear and equal bilaterally. No wheezes or rales. Abdominal: Abdomen soft, no tenderness, rebound or guarding. Musculoskeletal: No edema, tenderness or deformity noted. Skin: Warm and dry. No rash, erythema, pallor or cyanosis Psychiatric: Appropriate mood and affect for situation. Neurological: Alert and keenly responsive. CN II-XII grossly intact, moving all extremities equally and fully. MDM: - Vitals signs showed tachycardia - History obtained via patient and patient's . Patient presents with generalized weakness. Patient has reportedly been feeling generally unwell for the last few days. reports the patient has had a significant decline. He had difficulties getting up and around in the last 48 hours and they had to call his neighbor to help get him up. No chest pain or shortness of breath. He did have a fever starting last night. He states he had a dry, nonproductive cough. - Chronic conditions affecting care: CAD; seizure disorder; HTN; HLD; hypothyroidism; DM-2 - Differential diagnoses include, but are not limited to: pneumonia; viral syndrome; UTI; bacteremia; electrolyte abnormality; ACS - Order placed for continuous cardiac monitoring. At this time, monitor showed rate of 100 bpm with normal sinus rhythm, per my interpretation. - External medical records reviewed. Hospitalist progress note dated 12/07/2018 was reviewed. Patient had been admitted for multiple musculoskeletal fractures, including left distal radius, thoracic spine, left rib and left scapular fractures. He was being medically managed by the medicine service for his diabetes, seizure disorder and hyperlipidemia - EKG interpreted by myself showed normal sinus rhythm. Rate tachycardic at 117 bpm. Prolonged QT at 398. No acute ischemic changes. - Laboratory workup interpreted by myself showed normal WBC; elevated lactate (lactate 3.2); hypomagnesemia (Mg 1.5); normal troponin; normal procalcitonin - Blood cultures obtained - Patient given 2100 cc NS per ideal body weight sepsis fluid resuscitation - Empirically given IV cefepime. - CXR negative for pneumonia, per my interpretation. Radiology does note some pulmonary vascular congestion - UA negative for infection - Given 1g IV magnesium in ER. - Viral panel positive for COVID -19 - Given patient's weakness and ambulatory dysfunction at home, will admit to hospitalist service - Discussion was had with manager medicare marketing about patient's case and need for admission - Hospitalist consulted for admission - Patient admitted to [facility] hospitalist service for further evaluation and management. 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 Hypothyroidism Ribs, multiple fractures hx-after 1 fall in 2019 Scapula fracture hx Seizure disorder last seizure in 1989 Urinary incontinence Surgical History History of esophagogastroduodenoscopy (EGD) History of surgical removal of ganglion cyst Hx of basal cell carcinoma excision years ago Hx of bilateral cataract extraction Hx of colonoscopy Hx of excision of Zenker's diverticulum S/P cholecystectomy (~09/2016) September 2016 S/P ORIF (open reduction internal fixation) fracture (12/05/18) Left wrist 12/05/18 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 Family History Father Diabetes Stroke Mother Hypertension Stroke Grandmother Cancer Colorectal cancer Sister Cancer Breast cancer Social History Smoking Status: Never smoker Second Hand Exposure: Yes (hx-work years ago); Do You Dip or Chew Tobacco: No; Hx Alcohol Use: Yes Alcohol type: beer Hx Substance Use: No Preferred Language: Vietnamese Communication Ability: Effective Visual Impairment: Limited [employer] Department Manager Required: No Beliefs That Will Affect Care: None marital status: Current Living Situation: Spouse Feels Safe at Home: Yes Assistive Devices: Denture - Upper, Glasses and Walker Allergies Allergies Allergy/AdvReac Type Severity Reaction Status Date / Time No Known Allergies Allergy Verified 04/03/23 11:57 Home Meds Home Medications Medication Instructions Recorded Confirmed atorvastatin 20 mg tablet (Lipitor) 20 mg PO QAM #0 tabs 07/05/14 04/03/23 cholecalciferol (vitamin D3) 50 2,000 unit PO QAM ##0 07/05/14 04/03/23 mcg (2,000 unit) tablet levothyroxine 125 mcg tablet 125 mcg PO QAM ##0 07/13/16 04/03/23 (Synthroid) multivitamin 1 tab PO BID #0 tabs 07/13/16 04/03/23 docusate sodium 100 mg capsule 100 mg PO QAM 07/05/18 04/03/23 (Dulcolax Stool Softener (docusate)) pantoprazole 20 mg tablet,delayed 20 mg PO QAM 12/04/18 04/03/23 release tamsulosin 0.4 mg capsule (Flomax) 0.4 mg PO HS 03/21/19 04/03/23 risedronate 35 mg tablet 35 mg PO Q7D 05/27/21 04/03/23 sitagliptin phosphate 100 mg 100 mg PO HS 08/26/21 04/03/23 tablet (Januvia) coenzyme Q10 100 mg capsule (Co 100 mg PO QAM 06/16/22 04/03/23 Q-10) metformin 500 mg tablet,extended 500 mg PO BID 04/03/23 04/03/23 release 24 hr tavaborole 5 % topical solution 1 applic topical HS 04/03/23 04/03/23 with applicator Previous Rx's Medication Instructions Recorded divalproex 500 mg tablet,extended 500 mg PO BID 90 days #180 tabs 07/26/22 release 24 hr dutasteride 0.5 mg capsule 0.5 mg PO DAILY #90 caps 11/03/22 mirabegron 50 mg tablet,extended 50 mg PO DAILY #90 tabs 11/03/22 release 24 hr (Myrbetriq) Results & Data (ED) Vital Signs Vital Signs - 24 hr 04/03/23 09:12 04/03/23 09:26 04/03/23 09:30 Temperature 37.1 C Temperature Source Oral Pulse Rate 116 H 117 H 114 H Pulse Rate from SpO2 Sensor 106 H Respiratory Rate 13 15 Respiratory Effort / Characteristics Non-Labored Spontaneous Respiratory Depth Normal Blood Pressure 137/83 109/61 Blood Pressure Mean 101 77 Pulse Oximetry 93 90 Oxygen Delivery Method Room Air Room Air Sepsis Recent Fever Within 48 Hours Yes Sepsis New/Unexplained Change in Mental Status Yes Sepsis Action Taken by Nursing Physician Notified 04/03/23 10:00 04/03/23 10:30 04/03/23 11:00 Temperature Temperature Source Pulse Rate 117 H 123 H 117 H Pulse Rate from SpO2 Sensor 114 H 114 H 118 H Respiratory Rate 14 14 16 Respiratory Effort / Characteristics Respiratory Depth Blood Pressure 130/70 137/93 126/82 Blood Pressure Mean 90 107 96 Pulse Oximetry 92 93 90 Oxygen Delivery Method Room Air Room Air Room Air Sepsis Recent Fever Within 48 Hours Sepsis New/Unexplained Change in Mental Status Sepsis Action Taken by Nursing 04/03/23 11:30 Temperature Temperature Source Pulse Rate 113 H Pulse Rate from SpO2 Sensor 114 H Respiratory Rate 18 Respiratory Effort / Characteristics Respiratory Depth Blood Pressure 120/69 Blood Pressure Mean 86 Pulse Oximetry 94 Oxygen Delivery Method Room Air Sepsis Recent Fever Within 48 Hours Sepsis New/Unexplained Change in Mental Status Sepsis Action Taken by Nursing Laboratory Data 04/03/23 09:20 04/03/23 09:20 Lab Results 04/03/23 04/03/23 04/03/23 Range/Units 09:20 09:43 09:55 WBC 8.00 (4.8-10.8) K/ul RBC 4.10 L (4.70-6.10) M/uL Hgb 12.9 L (14.0-18.0) g/dl Hct 39.0 L (42.0-52.0) % MCV 95.1 (80.0-100.0) fL MCH 31.5 (25.0-34.0) pg MCHC 33.1 (32.0-36.0) g/dL RDW Std Deviation 53.5 H (36.4-46.3) fL RDW Coeff of Noe 15.2 H (11.5-14.5) % Plt Count 128 L (130-400) K/uL MPV 9.8 (9.4-12.4) fL Immature Gran % (Auto) 1.3 % Neut % (Auto) 77.5 % Lymph % (Auto) 5.5 % [place] % (Auto) 15.4 % Eos % (Auto) 0.0 % Baso % (Auto) 0.3 % Neut # (Auto) 6.21 (1.40-6.50) K/uL Lymph # (Auto) 0.44 L (1.20-3.40) K/uL [place] # (Auto) 1.23 H (0.11-0.59) K/uL Eos # (Auto) 0.00 (0.00-0.50) K/uL Baso # (Auto) 0.02 (0.00-0.20) K/uL Immature Gran # (Auto) 0.10 (0.01-0.20) K/uL VBG pH 7.42 H (7.36-7.41) VBG pCO2 47 (38-50) mmHg VBG pO2 26 mmHg VBG HCO3 31 mmol/L VBG O2 Saturation < 60.0 % VBG Base Excess 5.1 mEq/L Sodium 133 L (136-145) mmol/L Potassium 4.1 (3.5-5.1) mmol/L Chloride 98 (98-107) mmol/L Carbon Dioxide 25 (21-32) mmol/L Anion Gap 10 (3-11) BUN 15 (6-23) mg/dl Creatinine 0.82 (0.6-1.4) mg/dl Est Cr Clr Drug Dosing 62.6 ml/min Est GFR ( Amer) 92.8 ml/min Est GFR (Non-Af Amer) 80.1 ml/min BUN/Creatinine Ratio 18.3 (10-20) Glucose 204 H (70-99(Fasting)) mg/dl Lactate 3.2 H* (0.4-2.0) mmol/L Calcium 9.7 (8.6-10.3) mg/dl Magnesium 1.5 L (1.7-2.4) mg/dl Total Bilirubin 0.5 (0.2-1.0) mg/dl Direct Bilirubin 0.1 (0-0.2) mg/dl AST 20 (13-39) U/L ALT 17 (7-52) U/L Alkaline Phosphatase 31 L (34-104) U/L Troponin I High Sens 9.0 (0-20) pg/ml Total Protein 6.2 (6.0-8.3) gm/dl Albumin 4.0 (3.4-5.0) gm/dl Procalcitonin 0.15 (0-0.5) ng/ml Urine Color Urine Appearance (Clear) Urine pH (4.5-7.5) Ur Specific [place] (1.000-1.030) Urine Protein (Negative) Urine Glucose (UA) (Negative) Urine Ketones (Negative) Urine Blood (Negative) Urine Nitrite (Negative) Urine Bilirubin (Negative) Urine Urobilinogen (Negative) Ur Leukocyte Esterase (Negative) Urine RBC (0-4) /hpf Urine WBC (0-5) /hpf Ur Epithelial Cells (0-5) /lpf Urine Bacteria (Negative) Hyaline Casts (0-5) /lpf Adenovirus (PCR) Not Detected (NotDetected) B. pertussis DNA (PCR) Not Detected (NotDetected) B.parapertussis DNA PCR Not Detected (NotDetected) C. pneumoniae DNA (PCR) Not Detected (NotDetected) Coronavirus OC43 (PCR) Not Detected (NotDetected) Coronavirus HKU1 (PCR) Not Detected (NotDetected) Coronavirus 229E (PCR) Not Detected (NotDetected) SARS-CoV-2 (PCR) DETECTED A* (NotDetected) Coronavirus NL63 (PCR) Not Detected (NotDetected) Human Metapneumovir PCR Not Detected (NotDetected) Influenza Type A (PCR) Not Detected (NotDetected) Influenza Type B (PCR) Not Detected (NotDetected) M. pneumoniae (PCR) Not Detected (NotDetected) Parainfluenza 1 (PCR) Not Detected (NotDetected) Parainfluenza 2 (PCR) Not Detected (NotDetected) Parainfluenza 3 (PCR) Not Detected (NotDetected) Parainfluenza 4 (PCR) Not Detected (NotDetected) RSV (PCR) Not Detected (NotDetected) Entero/Rhino (PCR) Not Detected (NotDetected) 04/03/23 04/03/23 Range/Units 10:42 11:28 WBC (4.8-10.8) K/ul RBC (4.70-6.10) M/uL Hgb (14.0-18.0) g/dl Hct (42.0-52.0) % MCV (80.0-100.0) fL MCH (25.0-34.0) pg MCHC (32.0-36.0) g/dL RDW Std Deviation (36.4-46.3) fL RDW Coeff of Noe (11.5-14.5) % Plt Count (130-400) K/uL MPV (9.4-12.4) fL Immature Gran % (Auto) % Neut % (Auto) % Lymph % (Auto) % [place] % (Auto) % Eos % (Auto) % Baso % (Auto) % Neut # (Auto) (1.40-6.50) K/uL Lymph # (Auto) (1.20-3.40) K/uL [place] # (Auto) (0.11-0.59) K/uL Eos # (Auto) (0.00-0.50) K/uL Baso # (Auto) (0.00-0.20) K/uL Immature Gran # (Auto) (0.01-0.20) K/uL VBG pH (7.36-7.41) VBG pCO2 (38-50) mmHg VBG pO2 mmHg VBG HCO3 mmol/L VBG O2 Saturation % VBG Base Excess mEq/L Sodium (136-145) mmol/L Potassium (3.5-5.1) mmol/L Chloride (98-107) mmol/L Carbon Dioxide (21-32) mmol/L Anion Gap (3-11) BUN (6-23) mg/dl Creatinine (0.6-1.4) mg/dl Est Cr Clr Drug Dosing ml/min Est GFR ( Amer) ml/min Est GFR (Non-Af Amer) ml/min BUN/Creatinine Ratio (10-20) Glucose (70-99(Fasting)) mg/dl Lactate 2.1 H* (0.4-2.0) mmol/L Calcium (8.6-10.3) mg/dl Magnesium (1.7-2.4) mg/dl Total Bilirubin (0.2-1.0) mg/dl Direct Bilirubin (0-0.2) mg/dl AST (13-39) U/L ALT (7-52) U/L Alkaline Phosphatase (34-104) U/L Troponin I High Sens (0-20) pg/ml Total Protein (6.0-8.3) gm/dl Albumin (3.4-5.0) gm/dl Procalcitonin (0-0.5) ng/ml Urine Color Yellow Urine Appearance Clear (Clear) Urine pH 5.5 (4.5-7.5) Ur Specific [place] >= 1.030 (1.000-1.030) Urine Protein 1+ H (Negative) Urine Glucose (UA) 2+ H (Negative) Urine Ketones 3+ H (Negative) Urine Blood Negative (Negative) Urine Nitrite Negative (Negative) Urine Bilirubin Negative (Negative) Urine Urobilinogen Negative (Negative) Ur Leukocyte Esterase Negative (Negative) Urine RBC 0-4 (0-4) /hpf Urine WBC 0-5 (0-5) /hpf Ur Epithelial Cells 10-20 H (0-5) /lpf Urine Bacteria Negative (Negative) Hyaline Casts 5-10 H (0-5) /lpf Adenovirus (PCR) (NotDetected) B. pertussis DNA (PCR) (NotDetected) B.parapertussis DNA PCR (NotDetected) C. pneumoniae DNA (PCR) (NotDetected) Coronavirus OC43 (PCR) (NotDetected) Coronavirus HKU1 (PCR) (NotDetected) Coronavirus 229E (PCR) (NotDetected) SARS-CoV-2 (PCR) (NotDetected) Coronavirus NL63 (PCR) (NotDetected) Human Metapneumovir PCR (NotDetected) Influenza Type A (PCR) (NotDetected) Influenza Type B (PCR) (NotDetected) M. pneumoniae (PCR) (NotDetected) Parainfluenza 1 (PCR) (NotDetected) Parainfluenza 2 (PCR) (NotDetected) Parainfluenza 3 (PCR) (NotDetected) Parainfluenza 4 (PCR) (NotDetected) RSV (PCR) (NotDetected) Entero/Rhino (PCR) (NotDetected) Administered Medications Discontinued Medications Sodium Chloride (Nss) 1,000 mls @ 999 mls/hr IV .[id number] ROMINA Stop: 04/03/23 11:36 Last Admin: 04/03/23 11:29 Dose: 999 mls/hr Documented By: Infusion: 04/03/23 11:03 Dose: Infused Documented By: Admin: 04/03/23 10:02 Dose: 999 mls/hr Documented By: KERRI Cefepime HCl (Maxipime) 2,000 mg in 20 mls @ 5 mls/min IV NOW STA; Protocol Stop: 04/03/23 09:33 Last Admin: 04/03/23 10:02 Dose: 5 mls/min Documented By: KERRI Magnesium Sulfate/Dextrose (Magnesium Sulfate / D5w) 1 gm in 100 mls @ 100 mls/hr IV NOW STA Stop: 04/03/23 11:08 Last Infusion: 04/03/23 11:44 Dose: Infused Documented By: Admin: 04/03/23 10:39 Dose: 100 mls/hr Documented By: KERRI Imaging Data Radiologist's Impression: Chest X-Ray 04/03/23 09:30 SINGLE VIEW CHEST CLINICAL HISTORY: Sepsis FINDINGS: An AP, portable, upright chest radiograph is compared to study dated 01/02/2019. Correlation is made with chest CT dated 12/04/2018 The heart is enlarged indenting atherosclerotic calcification of the thoracic aorta. There is mild pulmonary vascular congestion. Suspect trace pleural effusions. Dependent airspace opacities are noted at both lung bases. No pneumothorax is seen. The skeletal structures are osteopenic. The bony thorax is grossly intact. Arthritic change is noted in the shoulders and spine. Cholecystectomy clips are seen in the right upper quadrant. 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 IMPRESSION: 1. Cardiomegaly with pulmonary vascular congestion. 2. Suspect trace pleural effusions. 3. Dependent airspace opacities likely represent atelectasis. Correlate clinically. ACT 112: Negative or not required by law. Electronically signed by: Yvan Emery M.D. 04/03/2023 9:56 AM Discharge Plan Visit Data Chief Complaint: Weakness ED Provider: Clare Torres Discharge Problem: Generalized weakness, Ambulatory dysfunction, COVID-19, Hypomagnesemia Forms Stand Alone Forms: My [facility] Prescriptions Prescriptions: No Action docusate sodium [Dulcolax Stool Softener (dss)] 100 mg capsule 100 mg PO QAM atorvastatin [Lipitor] 20 mg Tablet 20 mg PO QAM Qty: 0 cholecalciferol (vitamin D3) 2,000 unit Tablet 2,000 unit PO QAM Qty: 0 multivitamin Tablet 1 tab PO BID Qty: 0 levothyroxine [Synthroid] 125 mcg Tablet 125 mcg PO QAM Qty: 0 divalproex 500 mg tablet extended release 24 hr 500 mg PO BID 90 Days Qty: 180 3RF dutasteride 0.5 mg capsule 0.5 mg PO DAILY Qty: 90 3RF Myrbetriq 50 mg tablet extended release 24 hr 50 mg PO DAILY Qty: 90 3RF tamsulosin [Flomax] 0.4 mg capsule 0.4 mg PO HS risedronate 35 mg tablet 35 mg PO Q7D Rx Instructions: Tuesday Januvia 100 mg tablet 100 mg PO HS pantoprazole 20 mg tablet,delayed release (DR/EC) 20 mg PO QAM coenzyme Q10 [Co Q-10] 100 mg Capsule 100 mg PO QAM metformin 500 mg tablet extended release 24 hr 500 mg PO BID tavaborole 5 % solution with applicator 1 applic TOPICAL HS Referrals Referrals: Balaji Jenkins [Primary Care Provider] -
[2023-04-03 09:45] LABS: Basophils # (auto) 0.02 K/uL (0.00-0.20); Basophils % (auto) 0.3 %; Hemoglobin 12.9 g/dl (14.0-18.0); Immature Granulocytes % (auto) 1.3 %; Lymphocytes # (auto) 0.44 K/uL (1.20-3.40); Lymphocytes % (auto) 5.5 %; Mean Corpuscular Hemoglobin 31.5 pg (25.0-34.0); Mean Corpuscular Hgb Conc 33.1 g/dL (32.0-36.0); Mean Corpuscular Volume 95.1 fL (80.0-100.0); Mean Platelet Volume 9.8 fL (9.4-12.4); Monocytes # (auto) 1.23 K/uL (0.11-0.59); Monocytes % (auto) 15.4 %; Neutrophils # (auto) 6.21 K/uL (1.40-6.50); Neutrophils % (auto) 77.5 %; Platelet Count 128 K/uL (130-400); RDW Coefficient of Variation 15.2 % (11.5-14.5); RDW Standard Deviation 53.5 fL (36.4-46.3)
--- NOTE | 2023-04-03 09:57 | XRay Report ---
SINGLE VIEW CHEST CLINICAL HISTORY: Sepsis FINDINGS: An AP, portable, upright chest radiograph is compared to study dated 01/02/2019. Correlation is made with chest CT dated 12/04/2018 The heart is enlarged indenting atherosclerotic calcification of the thoracic aorta. There is mild pulmonary vascular congestion. Suspect trace pleural effusions. Dependent airspace opacities are noted at both lung bases. No pneumothorax is seen. The skeletal stru ctures are osteopenic. The bony thorax is grossly intact. Arthritic change is noted in the shoulders and spine. Cholecystectomy clips are seen in the right upper quadrant. An 11 mm peripherally calcifie d splenic artery aneurysm is again seen in the left upper quadrant. IMPRESSION: 1. Cardiomegaly with pulmonary vascular congestion. 2. Suspect trace pleural effusions. 3. Dependent airspace opacities likely represent atelectasis. Correlate clinically. ACT 112: Negative or not required by law. Electronically signed by: Yvan Eemry M.D. 04/03/2023 9:56 AM
[2023-04-03 10:01] LABS: Alanine Aminotransferase 17 U/L (7-52); Alkaline Phosphatase 31 U/L (34-104); Anion Gap 10 (3-11); Aspartate Aminotransferase 20 U/L (13-39); BUN Creatinine Ratio 18.3 (10-20); Bilirubin Direct 0.1 mg/dl (0-0.2); Bilirubin,Total 0.5 mg/dl (0.2-1.0); Blood Urea Nitrogen 15 mg/dl (6-23); Calcium 9.7 mg/dl (8.6-10.3); Carbon Dioxide 25 mmol/L (21-32); Chloride 98 mmol/L (98-107); Creatinine Clr Calc Pharmacy 62.6 ml/min; Est GFR (African American) 92.8 ml/min; Est GFR (Non-African American) 80.1 ml/min; Glucose 204 mg/dl (70-99(Fasting)); Magnesium 1.5 mg/dl (1.7-2.4); Potassium 4.1 mmol/L (3.5-5.1); Sodium 133 mmol/L (136-145); Total Protein 6.2 gm/dl (6.0-8.3)
[2023-04-03] MEDS: SODIUM CHLORIDE 0.9% 1,000 ML IV SCH ×3 (10:02→16:16)
[2023-04-03] MEDS ORDERED: MAGNESIUM SULFATE / D5W 1 GM/100 ML BAG IV STA (10:09)
[2023-04-03 10:16] LABS: Base Excess VBG 5.1 mEq/L; HCO3 VBG 31 mmol/L; Oxygen Saturation VBG < 60.0 %; PCO2 VBG 47 mmHg (38-50); PO2 VBG 26 mmHg; pH VBG 7.42 (7.36-7.41)
[2023-04-03 11:07] LABS: Appearance Urine Clear (Clear); Bilirubin Urine Negative (Negative); Blood Urine Negative (Negative); Color Urine Yellow; Glucose Urine UA 2+ (Negative); Ketones Urine 3+ (Negative); Leukocyte Esterase Urine Negative (Negative); Nitrite Urine Negative (Negative); Protein Urine 1+ (Negative); Specific Gravity Urine >= 1.030 (1.000-1.030); Urobilinogen Urine Negative (Negative); pH Urine 5.5 (4.5-7.5)
[2023-04-03 11:16] LABS: RBC Urine 0-4 /hpf (0-4); WBC Urine 0-5 /hpf (0-5)
[2023-04-03 11:16] LABS: Adenovirus PCR Not Detected (NotDetected); Bordetella parapertussis PCR Not Detected (NotDetected); Bordetella pertussis PCR Not Detected (NotDetected); Chlamydia pneumoniae PCR Not Detected (NotDetected); Coronavirus 229E PCR Not Detected (NotDetected); Coronavirus HKU1 PCR Not Detected (NotDetected); Coronavirus NL63 PCR Not Detected (NotDetected); Coronavirus OC43PCR Not Detected (NotDetected); Human Metapneumovirus PCR Not Detected (NotDetected); Influenza A PCR Not Detected (NotDetected); Influenza B PCR Not Detected (NotDetected); Mycoplasma pneumoniae PCR Not Detected (NotDetected); Parainfluenza Virus 1 PCR Not Detected (NotDetected); Parainfluenza Virus 2 PCR Not Detected (NotDetected); Parainfluenza Virus 3 PCR Not Detected (NotDetected); Parainfluenza Virus 4 PCR Not Detected (NotDetected); Respiratory Syncytial VirusPCR Not Detected (NotDetected); Rhinovirus/Enterovirus PCR Not Detected (NotDetected)
[2023-04-03 11:17] LABS: Bacteria Urine Negative (Negative)
[2023-04-03 11:52] LABS: Coronavirus CoV-2 (COVID19)PCR DETECTED (NotDetected)
--- NOTE | 2023-04-03 12:09 | History & Physical Report ---
Date of Service April 03, 2023 Assessment & Plan (1) COVID-19: Plan: Suspect he is in the acute phase of his illness given fever started last night No prior COVID infections Lactate improved after IV fluids, given CXR changes as noted above will defer ongoing fluids at this time. Start Paxlovid BID for 5 days (2) Ambulatory dysfunction: Plan: No prior EMG/NCS as outpatient - not clearly peripheral neuropathy from diabetes is also having back pain with some positional component suggestive of spinal stenosis Recommend follow-up as an outpatient with EMG/NCS testing - no further workup planned as inpatient PT/OT (3) Hypomagnesemia: Plan: Magnesium level 1.5 on admission Mag sulfate 2 g IV given Repeat with a.m. labs (4) Type 2 diabetes mellitus: Plan: Hemoglobin A1c 8.2 in October, repeat with a.m. labs Hold outpatient medications Sitagliptin and metformin Start Lantus 5 units subcu BID NovoLog: --Goal BSG Range: Low 110 mg/dL, High 140 mg/dL --Correction Factor: 45 mg/dL/unit --Carbohydrate ratio = 15 g/unit --BSGs ACHS if eating, q6h if npo Adjust pending serial BSG's ACHS (5) Seizure disorder: Plan: Continue divalproex extended release 500 mg p.o. BID No seizures since (6) Tremor: (7) GERD (gastroesophageal reflux disease): (8) Hypothyroid: Plan: Continue levothyroxine (9) Hyperlipidemia: Plan: Hold atorvastatin due to interaction with Paxlovid (10) BPH NOS w ur obs/LUTS: Plan: Switch dutasteride to finasteride due to interaction with Paxlovid Reduced tamsulosin dosing as prescribed due to interaction with Paxlovid Reduce Mirabegron to 50% outpatient dose due to interaction with Paxlovid Plan VTE prophylaxis - Lovenox 40 mg subcu daily Diet - type 2 diabetes Disposition - admit to [facility] Admission and Anticipated Discharge Date Admission Date: April 03, 2023 History of Present Illness Chief Complaint: Fever, generalized weakness Primary Care Provider: Balaji Jenkins Graciela Jacob is an 87 year old male with ongoing bilateral lower extremity weakness who presents to the ER with much worse weakness over the last 2 days to the point he is unable to get around his house any more. Over the same time period he has developed a dry cough and had chills for the first time last night with fever this morning. He notes a sore throat for the last 1.5 weeks with decreased appetite and not drinking as much over this time frame. He denies any significant shortness of breath, sinus pain, ear ache, postnasal drip, chest pain, abdominal pain, nausea, vomiting, diarrhea or urinary symptoms. Difficult to get a good timeline from the patient and his regarding his bilateral lower extremity weakness as initially they feel this has been going on for the last 6-12 months. They report he went to [facility] for this but on review this was after his prior hospitalization in 2019 so I wonder whether it has been going on for much longer. They report [facility] recommended he uses a walker at that time but it was more for balance than weakness and he was able to get away with using a cane up until this year they requested a walker from their PCP. To their knowledge this bilateral lower extremity weakness has never been worked up. They are under neurology but no EMS/NCS study seen and they note they have never mentioned it to any of their doctors (although as noted earlier they said they requested a walker from their PCP). He notes improvement in the weakness with standing up straight. 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 Allergies Allergy/AdvReac Type Severity Reaction Status Date / Time No Known Allergies Allergy Verified 04/03/23 11:57 Home Medications Medication Instructions Recorded Confirmed Type atorvastatin 20 mg tablet (Lipitor) 20 mg PO QAM #0 tabs 07/05/14 04/03/23 History cholecalciferol (vitamin D3) 50 2,000 unit PO QAM ##0 07/05/14 04/03/23 History mcg (2,000 unit) tablet levothyroxine 125 mcg tablet 125 mcg PO QAM ##0 07/13/16 04/03/23 History (Synthroid) multivitamin 1 tab PO BID #0 tabs 07/13/16 04/03/23 History docusate sodium 100 mg capsule 100 mg PO QAM 07/05/18 04/03/23 History (Dulcolax Stool Softener (docusate)) pantoprazole 20 mg tablet,delayed 20 mg PO QAM 12/04/18 04/03/23 History release tamsulosin 0.4 mg capsule (Flomax) 0.4 mg PO HS 03/21/19 04/03/23 History risedronate 35 mg tablet 35 mg PO Q7D 05/27/21 04/03/23 History sitagliptin phosphate 100 mg 100 mg PO HS 08/26/21 04/03/23 History tablet (Januvia) coenzyme Q10 100 mg capsule (Co 100 mg PO QAM 06/16/22 04/03/23 History Q-10) divalproex 500 mg tablet,extended 500 mg PO BID 90 days #180 tabs 07/26/22 04/03/23 Rx release 24 hr dutasteride 0.5 mg capsule 0.5 mg PO DAILY #90 caps 11/03/22 04/03/23 Rx mirabegron 50 mg tablet,extended 50 mg PO DAILY #90 tabs 11/03/22 04/03/23 Rx release 24 hr (Myrbetriq) metformin 500 mg tablet,extended 500 mg PO BID 04/03/23 04/03/23 History release 24 hr nirmatrelvir 300 mg (150 mg See Rx Instructions PO .COMPLEX 04/03/23 Rx x2)-ritonavir 100 mg tablet,dose #30 ea pack (Paxlovid) tavaborole 5 % topical solution 1 applic topical HS 04/03/23 04/03/23 History with applicator Past Med/Surg History Medical History Arthritis ASCVD (arteriosclerotic cardiovascular disease) CAD (coronary artery disease) Diabetes GERD (gastroesophageal reflux disease) GERD (gastroesophageal reflux disease) History of falling HLD (hyperlipidemia) HTN (hypertension) 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 Hypothyroidism Ribs, multiple fractures hx-after 1 fall in 2019 Scapula fracture hx Seizure disorder last seizure in 1989 Urinary incontinence Surgical History History of esophagogastroduodenoscopy (EGD) History of surgical removal of ganglion cyst Hx of basal cell carcinoma excision years ago Hx of bilateral cataract extraction Hx of colonoscopy Hx of excision of Zenker's diverticulum S/P cholecystectomy (~09/2016) September 2016 S/P ORIF (open reduction internal fixation) fracture (08/20/19) Left wrist 12/05/18 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 Family History Father Diabetes Stroke Mother Hypertension Stroke Grandmother Cancer Colorectal cancer Sister Cancer Breast cancer Social History Smoking Status: Never smoker Second Hand Exposure: No; Do You Dip or Chew Tobacco: No; Hx Alcohol Use: No Hx Substance Use: No Preferred Language: Amharic Communication Ability: Effective Visual Impairment: Limited Optical Lathe Operator Required: No Beliefs That Will Affect Care: None marital status: Current Living Situation: Spouse Other Information That Helps Us Care for You: No Feels Safe at Home: Yes Safety Concerns: Feels Safe At This Time Assistive Devices: Glasses Review of Systems Review of Systems: All systems reviewed & are unremarkable except as noted in HPI & below Physical Exam Constitutional: WD/WN, vitals as above Eyes: PERRL, conjunctivae normal, anicteric sclerae ENMT: external ear and nose normal, oropharynx normal Respiratory: normal respiratory effort; no respiratory distress Auscultation: + crackles (fine bibasal); breath sounds present, no diminished lung sounds, no rales, no rhonchi and no wheezes Cardiovascular: Rate/Rhythm: regular rhythm and + tachycardic Heart Sounds: no murmur Extremities: normal capillary refill; no calf tenderness and no pedal edema Gastrointestinal (Abdomen): normal bowel sounds, soft, nontender, no hepatosplenomegaly Musculoskeletal: no cyanosis or clubbing, extremities motor strength 5/5 Skin: no rashes, warm and dry Neurologic: moves all extremities and awake; no focal motor deficits (no foot drop) and not confused Speech / Cognition: normal speech Motor/Sensory: + sensory deficit (reduced sensation from knees distally b/l equal) Cranial Nerves: + abnormal facial strength Psychiatric: Orientation: alert, oriented to person, oriented to place and oriented to time Genitourinary: no CVA tenderness Results & Data Results & Data Vital Signs (Past 12 Hours) Vital Signs Temp Pulse Resp BP Pulse Ox O2 Del Method 04/03/23 11:30 113 H 18 120/69 94 Room Air 04/03/23 11:00 117 H 16 126/82 90 Room Air 12/17/23 10:30 123 H 14 137/93 93 Room Air 04/03/23 10:00 117 H 14 130/70 92 Room Air 04/03/23 09:30 114 H 15 109/61 90 Room Air 04/03/23 09:26 37.1 C 117 H 13 137/83 93 Room Air 04/03/23 09:12 116 H Laboratory Results Abnormal lab results 04/03/23 04/03/23 04/03/23 Range/Units 09:20 09:43 09:55 RBC 4.10 L (4.70-6.10) M/uL Hgb 12.9 L (14.0-18.0) g/dl Hct 39.0 L (42.0-52.0) % RDW Std Deviation 53.5 H (36.4-46.3) fL RDW Coeff of Noe 15.2 H (11.5-14.5) % Plt Count 128 L (130-400) K/uL Lymph # (Auto) 0.44 L (1.20-3.40) K/uL [place] # (Auto) 1.23 H (0.11-0.59) K/uL VBG pH 7.42 H (7.36-7.41) Sodium 133 L (136-145) mmol/L Glucose 204 H (70-99(Fasting)) mg/dl POC Glucose (70-99) mg/dl Lactate 3.2 H* (0.4-2.0) mmol/L Magnesium 1.5 L (1.7-2.4) mg/dl Alkaline Phosphatase 31 L (34-104) U/L B-Natriuretic Peptide (0-100) pg/ml TSH 5.045 H (0.300-4.500) uIu/ml Urine Protein (Negative) Urine Glucose (UA) (Negative) Urine Ketones (Negative) Ur Epithelial Cells (0-5) /lpf Hyaline Casts (0-5) /lpf SARS-CoV-2 (PCR) DETECTED A* (NotDetected) 04/03/23 04/03/23 04/03/23 Range/Units 10:42 11:28 16:32 RBC (4.70-6.10) M/uL Hgb (14.0-18.0) g/dl Hct (42.0-52.0) % RDW Std Deviation (36.4-46.3) fL RDW Coeff of Noe (11.5-14.5) % Plt Count (130-400) K/uL Lymph # (Auto) (1.20-3.40) K/uL [place] # (Auto) (0.11-0.59) K/uL VBG pH (7.36-7.41) Sodium (136-145) mmol/L Glucose (70-99(Fasting)) mg/dl POC Glucose 190 H (70-99) mg/dl Lactate 2.1 H* (0.4-2.0) mmol/L Magnesium (1.7-2.4) mg/dl Alkaline Phosphatase (34-104) U/L B-Natriuretic Peptide (0-100) pg/ml TSH (0.300-4.500) uIu/ml Urine Protein 1+ H (Negative) Urine Glucose (UA) 2+ H (Negative) Urine Ketones 3+ H (Negative) Ur Epithelial Cells 10-20 H (0-5) /lpf Hyaline Casts 5-10 H (0-5) /lpf SARS-CoV-2 (PCR) (NotDetected) 04/03/23 04/03/23 Range/Units 19:54 19:58 RBC (4.70-6.10) M/uL Hgb (14.0-18.0) g/dl Hct (42.0-52.0) % RDW Std Deviation (36.4-46.3) fL RDW Coeff of Noe (11.5-14.5) % Plt Count (130-400) K/uL Lymph # (Auto) (1.20-3.40) K/uL [place] # (Auto) (0.11-0.59) K/uL VBG pH (7.36-7.41) Sodium (136-145) mmol/L Glucose (70-99(Fasting)) mg/dl POC Glucose 189 H (70-99) mg/dl Lactate (0.4-2.0) mmol/L Magnesium (1.7-2.4) mg/dl Alkaline Phosphatase (34-104) U/L B-Natriuretic Peptide 186 H (0-100) pg/ml TSH (0.300-4.500) uIu/ml Urine Protein (Negative) Urine Glucose (UA) (Negative) Urine Ketones (Negative) Ur Epithelial Cells (0-5) /lpf Hyaline Casts (0-5) /lpf SARS-CoV-2 (PCR) (NotDetected) Diagnostic Findings SINGLE VIEW CHEST CLINICAL HISTORY: Sepsis FINDINGS: An AP, portable, upright chest radiograph is compared to study dated 01/02/2019. Correlation is made with chest CT dated 12/04/2018 The heart is enlarged indenting atherosclerotic calcification of the thoracic aorta. There is mild pulmonary vascular congestion. Suspect trace pleural effusions. Dependent airspace opacities are noted at both lung bases. No pneumothorax is seen. The skeletal structures are osteopenic. The bony thorax is grossly intact. Arthritic change is noted in the shoulders and spine. Cholecystectomy clips are seen in the right upper quadrant. 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 IMPRESSION: 1. Cardiomegaly with pulmonary vascular congestion. 2. Suspect trace pleural effusions. 3. Dependent airspace opacities likely represent atelectasis. Correlate clinically. Medications Administered ER medications given: Normal saline 1 L bolus Cefepime 2 g IV Magnesium sulfate 1 g IV ECG Rate (beats per minute): 117 Rhythm: sinus tachycardia Findings: + nonspecific-ST abn and + prolonged QT (QTc 555 ms) Comparison ECG Date: from (December 05, 2018) Change: no significant change Code Status & VTE Plan Code Status Full VTE Prophylaxis Plan VTE Prophylaxis will be ordered: Yes PG Care Time/CCT Total # of Minutes Spent Total Time Spent with Patient: Total time spent is greater than 50% in coordination of care (as documented) at patient's floor/unit and/or counseling patient: Coding Level of Care Code 30328 INT INP/OBS CARE 2/55MIN Diagnoses COVID-19 U07.1 Ambulatory dysfunction R26.2 Hypomagnesemia E83.42 Type 2 diabetes mellitus E11.9 Seizure disorder G40.909 Tremor R25.1 GERD (gastroesophageal reflux disease) K21.9 Hypothyroid E03.9 Hyperlipidemia E78.5 BPH NOS w ur obs/LUTS N40.1
[2023-04-03 12:15] LABS: C Reactive Protein < 0.50 mg/dl (0-0.5); Creatine Kinase 60 U/L (30-223)
[2023-04-03 12:31] LABS: Thyroid Stimulating Hormone 5.045 uIu/ml (0.300-4.500)
[2023-04-03] MEDS ORDERED: DEXTROSE 50% 50 ML SYRINGE IV PRN (15:54)
[2023-04-03] MEDS ORDERED: GLUCAGON FOR INJ 1 MG VIAL SQ PRN (15:54)
[2023-04-03] MEDS ORDERED: CARBOHYDRATES FOR HYPOGLYCEMIA PO PRN (15:54)
[2023-04-03] MEDS ORDERED: GLUCOSE 40% GEL 15 GM TUBE PO PRN (15:54)
[2023-04-03] MEDS ORDERED: GLUCOSE 10 TAB/TUBE PO PRN (15:54)
[2023-04-03] MEDS: INSULIN ASPART PER UNIT CHARGE SC SCH ×2 (17:07→20:09)
[2023-04-03] MEDS ORDERED: MAGNESIUM SULFATE / D5W 1 GM/100 ML BAG IV ONE (19:45)
[2023-04-03] MEDS: DIVALPROEX EXTENDED RELEASE 500 MG TAB PO SCH (19:58)
[2023-04-03] MEDS: MULTIVITAMIN TAB PO SCH (19:59)
[2023-04-03] MEDS: NIRMATRELVIR/RITONAVIR 1 EA TAB PO SCH (20:00)
[2023-04-03] MEDS: TAMSULOSIN HCL 0.4 MG CAP PO SCH (20:00)
[2023-04-03] MEDS: ACETAMINOPHEN 325 MG TAB PO PRN (20:09)
[2023-04-03] MEDS: LANTUS PER UNIT CHARGE SQ SCH (20:10)
[2023-04-03] MEDS ORDERED: TAMSULOSIN HCL 0.4 MG CAP PO SCH (21:00)
[2023-04-04 06:21] LABS: Basophils # (auto) 0.01 K/uL (0.00-0.20); Basophils % (auto) 0.2 %; Hematocrit (blood only) 33.4 % (42.0-52.0); Hemoglobin 11.3 g/dl (14.0-18.0); Immature Granulocytes # (auto) 0.03 K/uL (0.01-0.20); Immature Granulocytes % (auto) 0.7 %; Lymphocytes # (auto) 0.75 K/uL (1.20-3.40); Lymphocytes % (auto) 17.8 %; Mean Corpuscular Hemoglobin 31.6 pg (25.0-34.0); Mean Corpuscular Hgb Conc 33.8 g/dL (32.0-36.0); Mean Corpuscular Volume 93.3 fL (80.0-100.0); Mean Platelet Volume 9.8 fL (9.4-12.4); Monocytes # (auto) 0.89 K/uL (0.11-0.59); Monocytes % (auto) 21.1 %; Neutrophils # (auto) 2.54 K/uL (1.40-6.50); Neutrophils % (auto) 60.2 %; Platelet Count 100 K/uL (130-400); RDW Coefficient of Variation 15.6 % (11.5-14.5); RDW Standard Deviation 53.7 fL (36.4-46.3); Red Blood Count 3.58 M/uL (4.70-6.10); White Blood Count 4.22 K/ul (4.8-10.8)
[2023-04-04] MEDS: LEVOTHYROXINE SODIUM 125 MCG TABLET PO SCH (06:31)
[2023-04-04 06:36] LABS: BUN Creatinine Ratio 20.8 (10-20); Calcium 7.8 mg/dl (8.6-10.3); Creatinine Clr Calc Pharmacy 71.3 ml/min; Est GFR (African American) 97.9 ml/min; Est GFR (Non-African American) 84.5 ml/min; Magnesium 1.9 mg/dl (1.7-2.4)
--- NOTE | 2023-04-04 07:48 | Hospitalist Progress Note ---
Date of Service April 04, 2023 Assessment & Plan (1) COVID-19: (2) Ambulatory dysfunction: (3) Hypomagnesemia: (4) Type 2 diabetes mellitus: (5) Seizure disorder: (6) Tremor: (7) GERD (gastroesophageal reflux disease): (8) Hypothyroid: (9) Hyperlipidemia: (10) BPH NOS w ur obs/LUTS: Felix Owens is a 87 M w/ PMH of GERD, seizures, tremors, hypothyroidism, pleomorphic cell sarcoma, pancreatitis, HLD, T2DM, BPH NOS w/ LUTS who presents for profound weakness, dry cough, and chills who was admitted for management of COVID-19 and hypomagnesemia. COVID-19 - Acute presentation of C19, fever onset 04/02 PM - No prior COVID infections - Lactate improved after IV fluids, additional IVF held given CXR changes - Continue Paxlovid BID for 5 days total (medications adjusted on admission) - Continue symptomatic control measures Tylenol PRN for fever Ambulatory dysfunction - Consideration given to pseudoclaudication (spinal stenosis) vs claudication (PVD) - Symptoms more consistent with pseudoclaudication from spinal stenosis given positional component - PT/OT recommending Inpatient Rehab, plan pending acute recovery from COVID-19 - Would consider outpatient Lumbar Spine XR for further evaluation of LBP if p ersistent Hypomagnesemia - Magnesium level 1.5 on admission, improved to 1.9 w/ Mag Sulfate 2g IV - Continue PO Mg supplementation Type 2 diabetes mellitus: - Hemoglobin A1c 7.7 (down from 8.2 in October 2022) - Sitagliptin/Metformin held on admission - Inpatient Mgmt: Lantus 5u BID Novolog SSI --Goal BSG Range: Low 110 mg/dL, High 140 mg/dL --Correction Factor: 45 mg/dL/unit --Carbohydrate ratio = 15 g/unit --BSGs ACHS if eating, q6h if npo --Adjust pending serial BSG's ACHS Seizure disorder/Tremor - Continue divalproex extended release 500 mg p.o. BID - No seizures since GERD (gastroesophageal reflux disease) - Continue Pantoprazole 40 mg PO QAM Hypothyroid: - Continue Levothyroxine 125 mcg PO daily Hyperlipidemia: - Atorvastatin held on admission given use of Paxlovid BPH NOS w ur obs/LUTS: - Switch dutasteride to finasteride due to interaction with Paxlovid - Reduced tamsulosin dosing as prescribed due to interaction with Paxlovid - Reduce Mirabegron to 50% outpatient dose due to interaction with Paxlovid VTE prophylaxis - Lovenox 40 mg subcu daily Diet - T2DM Disposition - MedSurg Admission and Anticipated Discharge Date Admission Date: April 03, 2023 Supervising Physician Co-Signing Physician Notes I personally examined the patient and verified all sargent points of history and exam, discussed case, and agree with decision making with Dr Kwan feeling weak, no other new complaints vitals noted nad heent nc at mmm breathing unlabored no accessory muscles no conversational dyspnea covid - seems to have mild covid pneumonia that appears to be improving - finish paxlovid, continue supportive care weakness - mostly deconditioning - given how abrupt. w/u for spinal stenosis further if not able to recover but given that he relates walking the stairs up till ~1-2 days prior to admission - suspect that with time/PT/OT he should hopefully improve. for rehab after dc otherwise as above Subjective 04/04: Patient was eating eggs on arrival to bedside this morning. He reports he is feeling better this morning prior to when he came in. He denies headache, shortness of breath, chest pain, abdominal pain, fever, chills, myalgia. ROS + cough, ongoing back pain. Lovell catheter in place. Review of Systems Review of Systems: As per HPI Physical Exam Physical Exam: General: No acute distress. Patient feels warm to the touch. HEENT: CHARLENE. Normal conjunctiva, anicteric sclera. Oropharynx normal. Respiratory: Basilar crackles on the left. Rest of lung exam clear to a uscultation. Cardiovascular: Tachycardic rate. Regular rhythm. No murmurs, gallops, or rubs. No pedal edema. Neuro: Alert and oriented x3. Results & Data Results & Data Vital Signs (Past 12 Hours) Vital Signs Temp Pulse Resp BP BP Pulse Ox O2 Del Method 04/03/23 21:39 37.5 C 95 H 18 116/69 92 Room Air 04/03/23 19:55 Room Air 04/03/23 19:52 38.1 C H 109 H 16 145/88 H 94 Room Air Diagnostic Findings Chest X-Ray 04/03/23 09:30 SINGLE VIEW CHEST CLINICAL HISTORY: Sepsis FINDINGS: An AP, portable, upright chest radiograph is compared to study dated 01/02/2019. Correlation is made with chest CT dated 12/04/2018 The heart is enlarged indenting atherosclerotic calcification of the thoracic aorta. There is mild pulmonary vascular congestion. Suspect trace pleural effusions. Dependent airspace opacities are noted at both lung bases. No pneumothorax is seen. The skeletal structures are osteopenic. The bony thorax is grossly intact. Arthritic change is noted in the shoulders and spine. Cholecystectomy clips are seen in the right upper quadrant. 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 IMPRESSION: 1. Cardiomegaly with pulmonary vascular congestion. 2. Suspect trace pleural effusions. 3. Dependent airspace opacities likely represent atelectasis. Correlate clinically. Resident Activity Tracking Resident Involvement: Resident Care Provided Care Provided: Adult [facility] Medicine
[2023-04-04 07:52] LABS: Estimated Average Glucose 174 mg/dl; Hemoglobin A1C 7.7 % (4.5-5.6)
[2023-04-04] MEDS: LANTUS PER UNIT CHARGE SQ SCH ×2 (08:05→21:14)
[2023-04-04] MEDS: INSULIN ASPART PER UNIT CHARGE SC SCH ×4 (08:06→21:13)
[2023-04-04] MEDS: ACETAMINOPHEN 325 MG TAB PO PRN (08:12)
[2023-04-04] MEDS: MULTIVITAMIN TAB PO SCH ×2 (08:13→20:55)
[2023-04-04] MEDS: DOCUSATE SODIUM 100 MG CAP PO SCH (08:13)
[2023-04-04] MEDS: PANTOprazole 40 MG TAB PO SCH (08:13)
[2023-04-04] MEDS: VIBEGRON 75 MG TAB PO SCH (08:13)
[2023-04-04] MEDS: CHOLECALCIFEROL 1,000 UNITS 25 MCG TAB PO SCH (08:14)
[2023-04-04] MEDS: DIVALPROEX EXTENDED RELEASE 500 MG TAB PO SCH ×2 (08:14→20:54)
[2023-04-04] MEDS: FINASTERIDE 5 MG TAB PO SCH (08:14)
[2023-04-04] MEDS: ENOXAPARIN INJ 40 MG/0.4 ML SYR SQ SCH (08:15)
[2023-04-04] MEDS: NIRMATRELVIR/RITONAVIR 1 EA TAB PO SCH ×2 (08:16→20:53)
[2023-04-04] MEDS ORDERED: NON-FORMULARY MEDICATION (Coenzyme Q10 [Co Q-10] 100 mg Capsule) PO SCH (09:00)
[2023-04-04] MEDS ORDERED: NIRMATRELVIR/RITONAVIR 1 EA TAB PO SCH (09:00)
[2023-04-04] MEDS ORDERED: ATORVASTATIN 20 MG TAB PO SCH (09:00)
--- NOTE | 2023-04-04 17:18 | Billing Data ---
Date of Service April 04, 2023 Coding Level of Care Code 71998 SUB INP/OBS CARE
--- NOTE | 2023-04-05 05:37 | Electrocardiogram Report ---
Test Reason : Blood Pressure : / mmHG Vent. Rate : 117 BPM Atrial Rate : 117 BPM P-R Int : 194 ms QRS Dur : 074 ms QT Int : 308 ms P-R-T Axes : 056 -14 059 degrees QTc Int : 430 ms Sinus tachycardia Nonspecific T wave abnormality Abnormal ECG When compared with ECG of 05-DEC-2018 14:04, No significant change Confirmed by Yariel Harden ([id number]) on 04/05/2023 5:37:48 AM Referred By: REFERRED SELF Confirmed By:Yariel Harden
[2023-04-05] MEDS: LEVOTHYROXINE SODIUM 125 MCG TABLET PO SCH (05:46)
--- NOTE | 2023-04-05 07:01 | Hospitalist Progress Note ---
Date of Service April 05, 2023 Assessment & Plan (1) COVID-19: (2) Ambulatory dysfunction: (3) Hypomagnesemia: (4) Type 2 diabetes mellitus: (5) Seizure disorder: (6) Tremor: (7) GERD (gastroesophageal reflux disease): (8) Hypothyroid: (9) Hyperlipidemia: (10) BPH NOS w ur obs/LUTS: Felix Owens is a 87 M w/ PMH of GERD, seizures, tremors, hypothyroidism, pleomorphic cell sarcoma, pancreatitis, HLD, T2DM, BPH NOS w/ LUTS who presents for profound weakness, dry cough, and chills who was admitted for management of COVID-19 and hypomagnesemia. COVID-19 - Acute presentation of C19, fever onset 04/02 PM - No prior COVID infections - Lactate improved after IV fluids, additional IVF held given CXR changes - Continue Paxlovid BID for 5 days total (medications adjusted on admission) - Continue symptomatic control measures Tylenol PRN for fever --- Continue Paxlovid and supportive measures PRN Ambulatory dysfunction - Consideration given to pseudoclaudication (spinal stenosis) vs claudication (PVD) - Symptoms more consistent with pseudoclaudication from spinal stenosis given positional component - PT/OT recommending Inpatient Rehab, plan pending acute recovery from COVID-19 - Would consider outpatient Lumbar Spine XR for further evaluation of LBP if persistent --- PT/OT recommending inpatient rehab, placement pending Hypomagnesemia - Magnesium level 1.5 on admission, improved to 1.9 w/ Mag Sulfate 2g IV - Continue PO Mg supplementation Type 2 diabetes mellitus: - Hemoglobin A1c 7.7 (down from 8.2 in October 2022) - Sitagliptin/Metformin held on admission - Inpatient Mgmt: Lantus 5u BID Novolog SSI --Goal BSG Range: Low 110 mg/dL, High 140 mg/dL --Correction Factor: 45 mg/dL/unit --Carbohydrate ratio = 15 g/unit --BSGs ACHS if eating, q6h if npo --Adjust pending serial BSG's ACHS Constipation - Miralax added PRN Seizure disorder/Tremor - Continue divalproex extended release 500 mg p.o. BID - No seizures since GERD (gastroesophageal reflux disease) - Continue Pantoprazole 40 mg PO QAM Hypothyroid: - Continue Levothyroxine 125 mcg PO daily Hyperlipidemia: - Atorvastatin held on admission given use of Paxlovid BPH NOS w ur obs/LUTS: - Switch dutasteride to finasteride due to interaction with Paxlovid - Reduced tamsulosin dosing as prescribed due to interaction with Paxlovid - Reduce Mirabegron to 50% outpatient dose due to interaction with Paxlovid VTE prophylaxis - Lovenox 40 mg subcu daily Diet - T2DM Disposition - MedSurg Admission and Anticipated Discharge Date Admission Date: April 03, 2023 Subjective 04/05: Patient awake at bedside this morning on arrival. Continues to report improvement from previous day. Denies fever, shaking chills, headache, shortness of breath, chest pain, nausea, vomiting, diarrhea. Remains afebrile since yesterday. Feels urge to have bowel movement this morning. Last bowel movement 5 days ago. Lovell catheter remains in place. Review of Systems Review of Systems: As per HPI Physical Exam Physical Exam: General: No acute distress. Patient feels warm to the touch. HEENT: PERRLA. Normal conjunctiva, anicteric sclera. Oropharynx normal. Respiratory: Basilar crackles on the left, minimally improved vs. yesterday. Rest of lung exam remains clear to auscultation. Cardiovascular: Tachycardic rate. Regular rhythm. No murmurs, gallops, or rubs. No pedal edema. Neuro: Alert and oriented x3. Results & Data Results & Data Vital Signs (Past 12 Hours) Vital Signs Temp Pulse Resp BP Pulse Ox O2 Del Method 04/05/23 06:23 36.7 C 87 18 138/85 96 Room Air 04/04/23 21:02 36.5 C 92 H 18 124/77 95 Room Air 04/04/23 20:55 Room Air Resident Activity Tracking Resident Involvement: Resident Care Provided Care Provided: Adult Hospital Medicine
[2023-04-05] MEDS: MULTIVITAMIN TAB PO SCH ×2 (08:06→19:56)
[2023-04-05] MEDS: ENOXAPARIN INJ 40 MG/0.4 ML SYR SQ SCH (08:06)
[2023-04-05] MEDS: DIVALPROEX EXTENDED RELEASE 500 MG TAB PO SCH ×2 (08:06→19:54)
[2023-04-05] MEDS: NIRMATRELVIR/RITONAVIR 1 EA TAB PO SCH ×2 (08:07→19:56)
[2023-04-05] MEDS: INSULIN ASPART PER UNIT CHARGE SC SCH ×4 (08:23→20:59)
[2023-04-05] MEDS: LANTUS PER UNIT CHARGE SQ SCH ×2 (08:23→21:00)
[2023-04-05] MEDS: PANTOprazole 40 MG TAB PO SCH (08:28)
[2023-04-05] MEDS: FINASTERIDE 5 MG TAB PO SCH (08:28)
[2023-04-05] MEDS: DOCUSATE SODIUM 100 MG CAP PO SCH (08:28)
[2023-04-05] MEDS: CHOLECALCIFEROL 1,000 UNITS 25 MCG TAB PO SCH (08:28)
[2023-04-05] MEDS: VIBEGRON 75 MG TAB PO SCH (08:28)
[2023-04-05] MEDS ORDERED: POLYETHYLENE (MIRALAX) 17 GM PACK PO PRN (10:50)
--- NOTE | 2023-04-05 17:55 | Billing Data ---
Date of Service April 05, 2023 Coding Level of Care Code 95205 SUB INP/OBS CARE
[2023-04-05] MEDS: TAMSULOSIN HCL 0.4 MG CAP PO SCH (19:55)
[2023-04-06] MEDS: LEVOTHYROXINE SODIUM 125 MCG TABLET PO SCH (05:37)
--- NOTE | 2023-04-06 06:49 | Hospitalist Progress Note ---
Date of Service April 06, 2023 Assessment & Plan (1) COVID-19: (2) Ambulatory dysfunction: (3) Hypomagnesemia: (4) Type 2 diabetes mellitus: (5) Seizure disorder: (6) Tremor: (7) GERD (gastroesophageal reflux disease): (8) Hypothyroid: (9) Hyperlipidemia: (10) BPH NOS w ur obs/LUTS: Felix Owens is a 87 M w/ PMH of GERD, seizures, tremors, hypothyroidism, pleomorphic cell sarcoma, pancreatitis, HLD, T2DM, BPH NOS w/ LUTS who presents for profound weakness, dry cough, and chills who was admitted for management of COVID-19 and hypomagnesemia. COVID-19 - Acute presentation of C19, fever onset 04/02 PM - No prior COVID infections - Lactate improved after IV fluids, additional IVF held given CXR changes - Continue Paxlovid BID for 5 days total (medications adjusted on admission) - Continue symptomatic control measures Tylenol PRN for fever --- Continue Paxlovid and supportive measures PRN Ambulatory dysfunction - Consideration given to pseudoclaudication (spinal stenosis) vs claudication (PVD) - Symptoms more consistent with pseudoclaudication from spinal stenosis given positional component - PT/OT recommending Inpatient Rehab, plan pending acute recovery from COVID-19 - Would consider outpatient Lumbar Spine XR for further evaluation of LBP if persistent --- PT/OT recommending inpatient rehab, placement pending Hypomagnesemia - Magnesium level 1.5 on admission, improved to 1.9 w/ Mag Sulfate 2g IV - Continue PO Mg supplementation Type 2 diabetes mellitus: - Hemoglobin A1c 7.7 (down from 8.2 in October 2022) - Sitagliptin/Metformin held on admission - Inpatient Mgmt: Lantus 5u BID Novolog SSI --Goal BSG Range: Low 110 mg/dL, High 140 mg/dL --Correction Factor: 45 mg/dL/unit --Carbohydrate ratio = 15 g/unit --BSGs ACHS if eating, q6h if npo --Adjust pending serial BSG's ACHS Constipation - Miralax added PRN Seizure disorder/Tremor - Continue divalproex extended release 500 mg p.o. BID - No seizures since GERD (gastroesophageal reflux disease) - Continue Pantoprazole 40 mg PO QAM Hypothyroid: - Continue Levothyroxine 125 mcg PO daily Hyperlipidemia: - Atorvastatin held on admission given use of Paxlovid BPH NOS w ur obs/LUTS: - Switch dutasteride to finasteride due to interaction with Paxlovid - Reduced tamsulosin dosing as prescribed due to interaction with Paxlovid - Reduce Mirabegron to 50% outpatient dose due to interaction with Paxlovid VTE prophylaxis - Lovenox 40 mg subcu daily Diet - T2DM Disposition - MedSurg Admission and Anticipated Discharge Date Admission Date: April 03, 2023 Subjective 04/05: Patient awake at bedside this morning on arrival. Continues to report improvement from previous day. Denies fever, shaking chills, headache, shortness of breath, chest pain, nausea, vomiting, diarrhea. Remains afebrile since yesterday. Feels urge to have bowel movement this morning. Last bowel movement 5 days ago. Lovell catheter remains in place. 04/06: Review of Systems Review of Systems: As per HPI Physical Exam Physical Exam: General: No acute distress. Patient feels warm to the touch. HEENT: PERRLA. Normal conjunctiva, anicteric sclera. Oropharynx normal. Respiratory: Basilar crackles on the left. Rest of lung exam clear to auscultation. Cardiovascular: Tachycardic rate. Regular rhythm. No murmurs, gallops, or rubs. No pedal edema. Neuro: Alert and oriented x3. Results & Data Results & Data Vital Signs (Past 12 Hours) Vital Signs Temp Pulse Resp BP Pulse Ox O2 Del Method 04/05/23 20:53 36.8 C 85 18 134/82 96 Room Air 04/05/23 20:20 Room Air
[2023-04-06] MEDS: INSULIN ASPART PER UNIT CHARGE SC SCH ×4 (09:10→21:06)
[2023-04-06] MEDS: ENOXAPARIN INJ 40 MG/0.4 ML SYR SQ SCH (09:18)
[2023-04-06] MEDS: CHOLECALCIFEROL 1,000 UNITS 25 MCG TAB PO SCH (09:20)
[2023-04-06] MEDS: DOCUSATE SODIUM 100 MG CAP PO SCH (09:20)
[2023-04-06] MEDS: DIVALPROEX EXTENDED RELEASE 500 MG TAB PO SCH ×2 (09:20→19:26)
[2023-04-06] MEDS: PANTOprazole 40 MG TAB PO SCH (09:20)
[2023-04-06] MEDS: FINASTERIDE 5 MG TAB PO SCH (09:20)
[2023-04-06] MEDS: VIBEGRON 75 MG TAB PO SCH (09:20)
[2023-04-06] MEDS: MULTIVITAMIN TAB PO SCH ×2 (09:20→19:26)
[2023-04-06] MEDS: NIRMATRELVIR/RITONAVIR 1 EA TAB PO SCH ×2 (09:21→19:25)
[2023-04-06] MEDS: LANTUS PER UNIT CHARGE SQ SCH ×2 (09:40→21:06)
--- NOTE | 2023-04-06 10:19 | Hospitalist Progress Note ---
Date of Service April 06, 2023 Assessment & Plan (1) COVID-19: (2) Ambulatory dysfunction: Plan Graciela is a 87 M w/ PMH of GERD, seizures, tremors, hypothyroidism, pleomorphic cell sarcoma, pancreatitis, HLD, T2DM, BPH NOS w/ LUTS who presents for profound weakness, dry cough, and chills who was admitted for management of COVID-19 and hypomagnesemia. COVID-19 - Acute presentation of C19, fever onset 04/02 PM - No prior COVID infections - Lactate improved after IV fluids, additional IVF held given CXR changes - Continue Paxlovid BID for 5 days total (medications adjusted on admission) - Continue symptomatic control measures Tylenol PRN for fever - appears to be the main cause of weakness Ambulatory dysfunction - Consideration given to pseudoclaudication (spinal stenosis) vs claudication (PVD) - Symptoms more consistent with pseudoclaudication from spinal stenosis given positional component - PT/OT recommending Inpatient Rehab, Stable for transfer if receiving facility is found - Would consider outpatient Lumbar Spine XR for further evaluation of LBP if persistent Hypomagnesemia - Magnesium level 1.5 on admission, improved to 1.9 w/ Mag Sulfate 2g IV - Continue PO Mg supplementation Type 2 diabetes mellitus: - Hemoglobin A1c 7.7 (down from 8.2 in October 2022) - Sitagliptin/Metformin held on admission - Inpatient Mgmt: Lantus 5u BID Novolog SSI --Goal BSG Range: Low 110 mg/dL, High 140 mg/dL --Correction Factor: 45 mg/dL/unit --Carbohydrate ratio = 15 g/unit --BSGs ACHS if eating, q6h if npo --Adjust pending serial BSG's ACHS glucoses have overall been acceptable Seizure disorder/Tremor - Continue divalproex extended release 500 mg p.o. BID - No seizures since GERD (gastroesophageal reflux disease) - Continue Pantoprazole 40 mg PO QAM Hypothyroid: - Continue Levothyroxine 125 mcg PO daily Hyperlipidemia: - Atorvastatin held on admission given use of Paxlovid BPH NOS w ur obs/LUTS: - Switched dutasteride to finasteride due to interaction with Paxlovid - Reduced tamsulosin dosing as prescribed due to interaction with Paxlovid - Reduce Mirabegron to 50% outpatient dose due to interaction with Paxlovid VTE prophylaxis - Lovenox 40 mg subcu daily Diet - T2DM Disposition - stable on medical, awaiting transfer to rehab or SNF with rehab emphasis Admission and Anticipated Discharge Date Admission Date: April 03, 2023 Subjective still weak, waiting on rehab. eating OK just doesn't like today's food as much - encouraged him to ask for oatmeal again since he liked that better, he doesn't want to cause people more work - reminded him we're here to take care of him and no one minds. still coughing, some sputum. Review of Systems Review of Systems: All systems reviewed & are unremarkable except as noted in HPI & below Physical Exam Physical Exam: gen aao pleasant nad but quite fatigued breathing unlabored coughing some. heent nc at mmm breathing unlabored no accessory muscles good effort skin no rashes no pallor or icterus Results & Data Results & Data Vital Signs (Past 12 Hours) Vital Signs Temp Pulse Resp BP Pulse Ox O2 Del Method 04/06/23 08:00 Room Air 04/06/23 07:52 97.5 F L 85 16 110/71 94 Room Air PG Care Time/CCT Total # of Minutes Spent Total Time Spent with Patient: Total time spent is greater than 50% in coordination of care (as documented) at patient's floor/unit and/or counseling patient: Coding Level of Care Code 35542 SUB INP/OBS CARE 2/35MIN Diagnoses COVID-19 U07.1 Ambulatory dysfunction R26.2
[2023-04-07] MEDS: LEVOTHYROXINE SODIUM 125 MCG TABLET PO SCH (06:01)
[2023-04-07] MEDS: ENOXAPARIN INJ 40 MG/0.4 ML SYR SQ SCH (08:35)
[2023-04-07] MEDS: FINASTERIDE 5 MG TAB PO SCH (08:35)
[2023-04-07] MEDS: DIVALPROEX EXTENDED RELEASE 500 MG TAB PO SCH ×2 (08:35→19:25)
[2023-04-07] MEDS: PANTOprazole 40 MG TAB PO SCH (08:36)
[2023-04-07] MEDS: VIBEGRON 75 MG TAB PO SCH (08:36)
[2023-04-07] MEDS: DOCUSATE SODIUM 100 MG CAP PO SCH (08:36)
[2023-04-07] MEDS: CHOLECALCIFEROL 1,000 UNITS 25 MCG TAB PO SCH (08:36)
[2023-04-07] MEDS: MULTIVITAMIN TAB PO SCH ×2 (08:37→19:26)
[2023-04-07] MEDS: NIRMATRELVIR/RITONAVIR 1 EA TAB PO SCH ×2 (08:37→19:24)
[2023-04-07] MEDS: LANTUS PER UNIT CHARGE SQ SCH ×2 (09:14→20:51)
[2023-04-07] MEDS: INSULIN ASPART PER UNIT CHARGE SC SCH ×4 (09:14→20:50)
--- NOTE | 2023-04-07 13:09 | Hospitalist Progress Note ---
Date of Service April 07, 2023 Assessment & Plan (1) COVID-19: (2) Ambulatory dysfunction: Felix Owens is a 87 M w/ PMH of GERD, seizures, tremors, hypothyroidism, pleomorphic cell sarcoma, pancreatitis, HLD, T2DM, BPH NOS w/ LUTS who presents for profound weakness, dry cough, and chills who was admitted for management of COVID-19 and hypomagnesemia. COVID-19 - Acute presentation of C19, fever onset 04/02 PM - Paxlovid BID for 5 days total (medications adjusted on admission) - Continue symptomatic control measures Tylenol PRN for fever - appears to be the main cause of weakness; appears to be doing better Ambulatory dysfunction - Consideration given to pseudoclaudication (spinal stenosis) vs claudication (PVD) - Symptoms more consistent with pseudoclaudication from spinal stenosis given positional component - PT/OT recommending Inpatient Rehab, Stable for transfer if receiving facility is found - Would consider outpatient Lumbar Spine XR for further evaluation of LBP/leg weakness if persistent - but showing progress Hypomagnesemia - Magnesium level 1.5 on admission, improved to 1.9 w/ Mag Sulfate 2g IV - Continue PO Mg supplementation Type 2 diabetes mellitus: - Hemoglobin A1c 7.7 (down from 8.2 in October 2022) - Sitagliptin/Metformin held on admission - Inpatient Mgmt: Lantus 5u BID Novolog SSI --Goal BSG Range: Low 110 mg/dL, High 140 mg/dL --Correction Factor: 45 mg/dL/unit --Carbohydrate ratio = 15 g/unit --BSGs ACHS if eating, q6h if npo --sugars have been reasonable Seizure disorder/Tremor - Continue divalproex extended release 500 mg p.o. BID - No seizures since GERD (gastroesophageal reflux disease) - Continue Pantoprazole 40 mg PO QAM Hypothyroid: - Continue Levothyroxine 125 mcg PO daily Hyperlipidemia: - Atorvastatin held on admission given use of Paxlovid BPH NOS w ur obs/LUTS: - Switched dutasteride to finasteride due to interaction with Paxlovid - Reduced tamsulosin dosing as prescribed due to interaction with Paxlovid - Reduce Mirabegron to 50% outpatient dose due to interaction with Paxlovid VTE prophylaxis - Lovenox 40 mg subcu daily Diet - T2DM Disposition - stable on medical, awaiting transfer to rehab or SNF with rehab emphasis Admission and Anticipated Discharge Date Admission Date: April 03, 2023 Subjective feeling weak but doing better. peer to peer for rehab denied, appears will have SNF approval. bed available hopefully in 1-2 days was able to get to chair and in and out of bathroom Review of Systems Review of Systems: All systems reviewed & are unremarkable except as noted in HPI & below Physical Exam Physical Exam: awake pleasant nad heent ncat mmm breathing unlabored no accessory muscles good effort skin no rashes no pallor or icterus neuro no focal deficits Results & Data Results & Data Vital Signs (Past 12 Hours) Vital Signs Temp Pulse Resp BP Pulse Ox O2 Del Method 04/07/23 08:30 Room Air 04/07/23 07:54 97.7 F 68 16 112/72 94 Room Air PG Care Time/CCT Total # of Minutes Spent Total Time Spent with Patient: Total time spent is greater than 50% in coordination of care (as documented) at patient's floor/unit and/or counseling patient: Coding Level of Care Code 54389 SUB INP/OBS CARE 2/35MIN Diagnoses COVID-19 U07.1 Ambulatory dysfunction R26.2
[2023-04-07] MEDS: TAMSULOSIN HCL 0.4 MG CAP PO SCH (19:25)
[2023-04-08] MEDS ORDERED: diphenhydrAMINE Capsule 25 MG CAP PO ONE (03:48)
[2023-04-08] MEDS: LEVOTHYROXINE SODIUM 125 MCG TABLET PO SCH (05:38)
[2023-04-08] MEDS: DOCUSATE SODIUM 100 MG CAP PO SCH (07:55)
[2023-04-08] MEDS: INSULIN ASPART PER UNIT CHARGE SC SCH (08:24)
[2023-04-08] MEDS: PANTOprazole 40 MG TAB PO SCH (08:27)
[2023-04-08] MEDS: DIVALPROEX EXTENDED RELEASE 500 MG TAB PO SCH (08:27)
[2023-04-08] MEDS: CHOLECALCIFEROL 1,000 UNITS 25 MCG TAB PO SCH (08:27)
[2023-04-08] MEDS: ENOXAPARIN INJ 40 MG/0.4 ML SYR SQ SCH (08:27)
[2023-04-08] MEDS: MULTIVITAMIN TAB PO SCH (08:27)
[2023-04-08] MEDS: VIBEGRON 75 MG TAB PO SCH (08:27)
[2023-04-08] MEDS: FINASTERIDE 5 MG TAB PO SCH (08:28)
[2023-04-08] MEDS: NIRMATRELVIR/RITONAVIR 1 EA TAB PO SCH (08:28)
[2023-04-08] MEDS: LANTUS PER UNIT CHARGE SQ SCH (08:39)
--- NOTE | 2023-04-08 10:22 | Discharge Summary ---
Date of Service April 08, 2023 Admission HPI Per Admitting Provider Graciela Jacob is an 87 year old male with ongoing bilateral lower extremity weakness who presents to the ER with much worse weakness over the last 2 days to the point he is unable to get around his house any more. Over the same time period he has developed a dry cough and had chills for the first time last night with fever this morning. He notes a sore throat for the last 1.5 weeks with decreased appetite and not drinking as much over this time frame. He denies any significant shortness of breath, sinus pain, ear ache, postnasal drip, chest pain, abdominal pain, nausea, vomiting, diarrhea or urinary symptoms. Difficult to get a good timeline from the patient and his regarding his bilateral lower extremity weakness as initially they feel this has been going on for the last 6-12 months. They report he went to [facility] for this but on review this was after his prior hospitalization in 2019 so I wonder whether it has been going on for much longer. They report [facility] recommended he uses a walker at that time but it was more for balance than weakness and he was able to get away with using a cane up until this year they requested a walker from their PCP. To their knowledge this bilateral lower extremity weakness has never been worked up. They are under neurology but no EMS/NCS study seen and they note they have never mentioned it to any of their doctors (although as noted earlier they said they requested a walker from their PCP). He notes improvement in the weakness with standing up straight. 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 Principal Diagnosis covid, deconditioning/weakness Discharge Exam gen aao pleasant nad heent nc at mmm breathing unlabored no accessory muscles good effort skin no rashes no pallor or icterus neuro no focal deficits Discharge Data Allergies Allergy/AdvReac Type Severity Reaction Status Date / Time No Known Allergies Allergy Verified 04/03/23 11:57 Consultations 04/03/23 11:51 ED Decision to Admit Stat Hospital Course (1) COVID-19: (2) Ambulatory dysfunction: Felix Owens is a 87 M w/ PMH of GERD, seizures, tremors, hypothyroidism, pleomorphic cell sarcoma, pancreatitis, HLD, T2DM, BPH NOS w/ LUTS who presents for profound weakness, dry cough, and chills who was admitted for management of COVID-19 and hypomagnesemia. COVID-19 - Acute presentation of C19, fever onset 12/16 PM - Paxlovid BID for 5 days total (medications adjusted on admission) - Continue symptomatic control measures Tylenol PRN for fever - appears to be the main cause of weakness; appears to be doing better but still requiring SNF/ongoing PT/OT ongoing support Ambulatory dysfunction - Consideration given to pseudoclaudication (spinal stenosis) vs claudication (PVD) - Symptoms more consistent with pseudoclaudication from spinal stenosis given positional component - PT/OT recommending Inpatient Rehab, Stable for transfer if receiving facility is found - Would consider outpatient Lumbar Spine XR for further evaluation of LBP/leg weakness if persistent - but showing progress and pretest prob of seeing DJD in 87yo high so would hold off so as to avoid overdiagnosis/overtreatment if he's getting better with time and therapy Hypomagnesemia - treated - most recent 1.9 Type 2 diabetes mellitus: - Hemoglobin A1c 7.7 (down from 8.2 in October 2022) Seizure disorder/Tremor - Continue divalproex extended release 500 mg p.o. BID - No seizures since GERD (gastroesophageal reflux disease) - Continue Pantoprazole 40 mg PO QAM Hypothyroid: - Continue Levothyroxine 125 mcg PO daily Hyperlipidemia: - Atorvastatin held on admission given use of Paxlovid BPH NOS w ur obs/LUTS: - Switched dutasteride to finasteride due to interaction with Paxlovid - Reduced tamsulosin dosing as prescribed due to interaction with Paxlovid - Reduce Mirabegron to 50% outpatient dose due to interaction with Paxlovid VTE prophylaxis - Lovenox 40 mg subcu daily Diet - T2DM Disposition - for SNF/rehab emphasis Total Time Total Time Spent Total Time Spent (In Minutes): <30 Discharge Plan Discharge Items Patient Disposition: Transfer Alf Fac Reason For Visit: COVID-19 Discharge Diagnosis: covid - improving. deconditioning/weakness from covid + age - improving but still requiring ongoing PT/OT and support Activity: Resume your previous activity Activity Comment: per PT/OT guidance Non-emergency contact: Primary Care Provider Call non-emergency contact if: you have any medication questions and your symptoms worsen Follow-up/Referrals: Balaji Jenkins [Primary Care Provider] - Diet: Regular Addtl Attending Provider Instructions: covid - no hypoxia. did have 5 days paxlovid. mostly symptom was the profound weakness - is showing improvement but still requiring PT/OT and support. has questionable hx of ?pseudoclaudication symptoms from admission - but since covid + deconditioning fit the clinical picture and he showed good improvement, did not work up further (particularly given pretest probability of radiographic abnormalities on Lspine of 87yo) - but if he "hits a ceiling" on progress especially if specific to leg weakness then could consider Lspine imaging Pending Studies at Discharge: No Stand-Alone Forms: My [facility] [employer] Skilled Items Patient informed of condition?: Yes DNR: No Discharge Level of Care: Skilled Communicable Disease: Yes (resolving covid (sx started ~04/01, test (+) 04/03)) Discharge Prognosis: Improving Lines: None Urinary Catheter: No Medications and DC Order Prescriptions: New Paxlovid 300 mg (150 mg x 2)-100 mg tablets,dose pack See Rx Instructions .ROUTE .COMPLEX Qty: 30 0RF Rx Instructions: take TWO 150 mg tablets of nirmatrelvir with ONE 100 mg tablet of ritonavir twice daily for 5 days Continued docusate sodium [Dulcolax Stool Softener (dss)] 100 mg capsule 100 mg PO QAM atorvastatin [Lipitor] 20 mg Tablet 20 mg PO QAM Qty: 0 cholecalciferol (vitamin D3) 2,000 unit Tablet 2,000 unit PO QAM Qty: 0 multivitamin Tablet 1 tab PO BID Qty: 0 levothyroxine [Synthroid] 125 mcg Tablet 125 mcg PO QAM Qty: 0 divalproex 500 mg tablet extended release 24 hr 500 mg PO BID 90 Days Qty: 180 3RF dutasteride 0.5 mg capsule 0.5 mg PO DAILY Qty: 90 3RF Myrbetriq 50 mg tablet extended release 24 hr 50 mg PO DAILY Qty: 90 3RF tamsulosin [Flomax] 0.4 mg capsule 0.4 mg PO HS risedronate 35 mg tablet 35 mg PO Q7D Rx Instructions: Tuesday Januvia 100 mg tablet 100 mg PO HS pantoprazole 20 mg tablet,delayed release (DR/EC) 20 mg PO QAM coenzyme Q10 [Co Q-10] 100 mg Capsule 100 mg PO QAM metformin 500 mg tablet extended release 24 hr 500 mg PO BID tavaborole 5 % solution with applicator 1 applic TOPICAL HS Discharge Orders: Discharge Order (Routine); Ordered 04/08/23 Ordered By: Jose Pereira Admission Data Admit Date/Time: 04/03/23 12:48 Attending Provider: Jose Pereira Admit Provider: Humphrey Babcock Primary Care Provider: Balaji Jenkins Other Providers: Humphrey Babcock; [facility]; [facility]; [place] Coding Level of Care Code 64882 IN/OBS DISCH 30 MIN/LESS Diagnoses COVID-19 U07.1 Ambulatory dysfunction R26.2
== END 2023-04-08 11:57 | DRG 179 ==
LOC: ED 09:05 → 3E 12:48 → SUATTDRO 12:48 → 3E 14:40

== ENCOUNTER 2024-01-07 17:06 | Inpatient (IN) ==
--- OUTSIDE RECORDS SUMMARY | 2024-01-07 17:11 | External Medical Summary | Continuity of Care Document ---
Author Name Unknown Organization [facility] [address] [place] [id number] Care Team Providers Care Medical Insurance Coder Name Role Phone Balaji Jenkins Primary Care Physician [phone] Encounter [facility] [id number] Date(s): 10/10/23 - 10/10/23 [facility] [address] [facility] [address] [facility] [address] [place] [address] [phone] Encounter Diagnosis Dysphagia(Discharge Diagnosis) - 10/10/23 Hypothyroid(Discharge Diagnosis) - 10/10/23 History of sarcoma(Discharge Diagnosis) - 10/10/23 Type 2 diabetes mellitus with mild nonproliferative diabetic retinopathy without macular edema, unspecified eye(Discharge Diagnosis) - 10/10/23 Heart murmur(Discharge Diagnosis) - 10/10/23 Dysphagia, unspecified(Final) - Hypothyroidism, unspecified(Final) - Personal history of malignant neoplasm of soft tissue(Final) - Type 2 diabetes mellitus with mild nonproliferative diabetic retinopathy without macular edema, unspecified eye(Final) - Cardiac murmur, unspecified(Final) - Discharge Disposition: Home or Self Care Attending Physician: MD Jenkins Michael P Allergies, Adverse Reactions, Alerts No Known Allergies Assessment and Plan Extracted from: Title:Office Visit Note Author:MD Jenkins Mic hael P Date:10/10/23 1.Dysphagia STATUS:Chronic stable. Previous visit:BA Swallow ordered last visit. Consider GI eval prn . Discussed multiple causes possible ---GI vs Neuro including Parkinson's. FU after BA swallow to consider next step in eval. 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 He has dysphagia daily-- mostly with solid. This liquids are easier to swallow. No fever, coughing. FU [facility] Re Zenkers in AUGUST 2021.His swallowing isbetterdue to resected Jamia in OCTOBER 2021. He has certain foods he is unableto eat. DATA:Labs/Tests reviewed. GOAL:Maintain/improve stability. PLAN:Continue current monitoring. . 2.Hypothyroid STATUS:Chronic stable. Previous visit:TSH therapeutic DATA:Labs/Tests reviewed.TSH=[id number] GOAL:Maintain/improve stability. PLAN:Continue current monitoring. Order TSH . 3.History of sarcoma STATUS:Chronic stable. Previous visit: Resected.Weekly FU with Dr. Kumar. Healing well--almost complete. DATA:Labs/Tests reviewed. GOAL:Maintain/improve stability. PLAN:Continue current monitoring. . 4.Type 2 diabetes mellitus with mild nonproliferative diabetic retinopathy without macular edema, unspecified eye STATUS:Chronic stable. Previous visit:He is on Januvia 25 mg daily and his last A1C in MAR 2021 was 8.5 --Check A1C today. At home his BS= 177-200 DATA:Labs/Tests reviewed. A1C= 7.4 i(04/09) GOAL:Maintain/improve stability. PLAN:Continue current monitoring. Labs due. A1C, CMP . 5.Heart murmur STATUS:Chronic stable. Previous visit: DATA:Labs/Tests reviewed. Finalized by Dr. Rigoberto Perdomo MD on 08/04/2021 09:41 AM Summary 1. Small, underfilled left ventricle. 2. [...] pressures. 9. No prior studies for comparison. GOAL:Maintain/improve stability. PLAN:Continue current monitoring. No valvular abnl or need for treatment . Summary: Medications: reviewed/changed/refilled _Completed Results:_Reviewed Labs:_A1C, CMP, TSH, Lipid Follow up visit: Return to clinic: _6 months AWV.andA1C, BMP, Other activities completed this visit: Education provided (discussion, questions, etc) _ Discussed: _ importance of Q6 mos FU and labs Coordinate care: Primary care and _ Time spent: Pre-visit planning: _ 9 Wecp-ea-yctg visit: _ 32 Total visit time: _ 41 *does not include time for AWV or procedure if applicable Immunizations Given and Recorded Vaccine Date Status [...] Medications Actonel 35 mg oral tablet Start: 07/07/23 8:50:00 AM EDT, 1 tab, PO, q7days, Disp# 13 tab, Refills: 3, Pharmacy: [facility] Start Date: 07/07/23 Stop Date: 07/01/24 Status: Ordered atorvastatin 20 mg oral tablet Start: 10/10/23 2:59:00 PM EDT, 1 tab, PO, Daily, Disp# 90 tab, Refills: 4, Pharmacy: [id number] Start Date: 10/10/23 Status: Ordered Colace 100 mg oral capsule Start: 07/15/20 10:46:00 AM EDT, 1 cap, PO, Daily, PRN: as needed for constipation Start Date: 07/15/20 Status: Ordered CoQ10 Start: 05/25/16 10:56:00 AM EST, 100mg daily Start Date: 05/25/16 Status: Ordered Depakote Start: 05/25/16 10:56:00 AM EST, 500 mg =, PO, Daily Start Date: 05/25/16 Status: Ordered dutasteride 0.5 mg oral capsule Start: 12/24/21 10:57:00 AM EDT, 1 cap, PO, Daily Start Date: 12/24/21 Status: Ordered Januvia 100 mg oral tablet Start: 07/07/23 8:50:00 AM EDT, 1 tab, PO, Daily, Disp# 90 tab, Refills: 3, Pharmacy: [facility] Start Date: 07/07/23 Stop Date: 07/01/24 Status: Ordered Kerydin 5% topical solution Start: 01/26/23 4:03:00 PM EDT, See Instructions, Disp# 10 mL, Refills: 5, Apply to affected toenails once per day for 6 months to 1 year Start Date: 01/26/23 Status: Ordered levothyroxine 125 mcg (0.125 mg) oral tablet Start: 07/07/23 8:50:00 AM EDT, 1 tab, PO, Daily, Disp# 90 tab, Refills: 3, Pharmacy: [facility] Start Date: 07/07/23 Status: Ordered MetFORMIN (Eqv-Glucophage XR) 500 mg oral tablet, extended release Start: 12/24/22 3:25:00 PM EDT, 1 tab, PO, bid, Disp# 180 tab, Refills: 3, Pharmacy: [facility] Start Date: 12/24/22 Stop Date: 12/19/23 Status: Ordered multivitamin Start: 05/25/16 10:56:00 AM EST, See Instructions, 1 daily Start Date: 05/25/16 Status: Ordered mupirocin 2% topical ointment Start: 08/04/23 11:03:00 AM EDT, 1 appl, topical, bid, Disp# 22 g, Refills: 1, Apply to affected areas on scalp twice daily for 1 month, Pharmacy: [facility] [id number] Start Date: 08/04/23 Stop Date: 10/03/23 Status: Ordered Myrbetriq 50 mg oral tablet, extended release Start: 02/09/22 2:13:00 PM EDT Start Date: 02/09/22 Status: Ordered One Touch Delica Plus (33G) Lancets Start: 10/10/23 2:59:00 PM EDT, See Instructions, Disp# 200 each, Refills: 2, Test Blood Sugars Twice a day E11.9, Note to Pharmacy: please fill 90 day supply, Pharmacy: [facility] [place] [id number] Start Date: 10/10/23 Status: Ordered One Touch Ultra 2 Glucose Monitor Start: 04/06/21 4:27:00 PM EST, See Instructions, Disp# 1 each, Refills: 0, CUrrent glucometer megan, Pharmacy: [facility] Start Date: 04/06/21 Status: Ordered One Touch Ultra Blue Test Strips Start: 10/10/23 2:59:00 PM EDT, See Instructions, Disp# 100 strip, Refills: 3, for use with glucometer to check blood glose levels. Diagnosis code E13.9 pt to check Blood glucose twice daily, Pharmacy: [facility] [id number] Start Date: 10/10/23 Status: Ordered Penlac Nail Lacquer 8% topical solution Start: 09/01/23 9:42:00 AM EDT, 1 appl, topical, Daily, Disp# 6.6 mL, Refills: 4, Pharmacy: [facility] [id number] Start Date: 09/01/23 Stop Date: 12/19/25 Status: Ordered Pepcid 20 mg oral tablet Start: 08/10/21 11:58:00 AM EDT, 1 tab, PO, bid, Disp# 180 tab, Refills: 3, Pharmacy: [facility] Start Date: 08/10/21 Stop Date: 08/05/22 Status: Ordered Protonix 20 mg oral delayed release tablet Start: 10/10/23 2:58:00 PM EDT, 1 tab, PO, Daily, Disp# 90 tab, Refills: 4, Pharmacy: [facility] [id number] Start Date: 10/10/23 Status: Ordered tamsulosin 0.4 mg oral capsule Start: 10/18/22 3:53:00 PM EDT, 1 cap, PO, Daily, Disp# 90 cap, Refills: 3, Pharmacy: [facility] Start Date: 10/18/22 Status: Ordered tavaborole 5% topical solution Start: 04/29/23 12:45:00 PM EST Start Date: 04/29/23 Status: Ordered triamcinolone 0.1% topical ointment Start: 08/04/23 11:05:00 AM EDT, 1 appl, topical, bid, Disp# 60 g, Refills: 1, Apply to affected albert on scalp and trunk twice daily, Pharmacy: [id number] Start Date: 08/04/23 Stop Date: 10/03/23 Status: Ordered Vitamin D3 Start: 05/25/16 10:57:00 AM EST, 2,000 Int_Unit =, PO, Daily Start Date: 05/25/16 Status: Ordered Mental Status 10/10/23 Barriers to Learning one year None evide nt Mandatory Health Literacy Documentation Yes Health Literacy Communication Barriers N ever Primary Language Norwegian Problem List Condition Confirmation Course Effective Dates Status H ealth Status Informant Weakness Confirmed Active Benign prostatic hyperplasia Confirmed Active Callus Confirmed Active Dysphagia Confirmed Active Epilepsy (disorder) Confirmed Active 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 Falls Confirmed Active Fracture, radius [...] without macular edema, unspecified eye Confirmed Active Diagnosis Diagnosis Type Effective Dates Health Status Clinical Service Informant Dysphagia Discharge Diagnosis 10/10/23 Non-Specified Hypothyroid Discharge Diagnosis 10/10/23 Non-Specified Heart murmur Discharge Diagnosis 10/10/23 Non-Specified History of sarcoma Discharge Diagnosis 10/10/23 Non-Specified Type 2 diabetes mellitus with mild nonproliferative diabetic retinopathy without macular edema, unspecified eye Discharge Diagnosis 10/10/23 Non-Specified Procedures Procedure Date Related Diagnosis Body Site Status Excision of cyst 04/2023 Complete d Shave biopsy and cauterization of skin 09/16/22 [...] 7normal examined duodenum, choledoncholithiasis - DR Inverso 8A sphinterotomy was perfomred. The biliary tree [...] esophagitis. 4) No tumor is seen. 10F/U [facility] Dr. Bowman 11Impression: 1. Choledocholithiasis with two [...] Cell CA Results Laboratory List Name Date Comprehensive Metabolic Panel (COMP META B PANEL) 10/10/23 Hemoglobin A1C (HEMOGLOBIN, A1C) 10/10/23 Lipid Profile (LIPOPROTEINS) 10/10/23 Thyroid Stimulating Hormone (TSH) 4 Most recent to oldest [Reference Range]: 1 eGFR CKD-EPI [>60 mL/min/1.73 m2] 88 mL/ min/1.73 m2 (10/10/23 3:17 PM) Estimated Average Glucose 186 mg/dL (10/10/23 3:17 PM) Non-HDL 67 mg/dL (10/10/23 3:17 PM) Estimated CrCl 70.54 mL/min (10/10/23 8:41 PM) Anion Gap [5-14 mmol/L] 13 mmol/L (10/10/23 3:17 PM) Alb [3.5-5.2 g/dL] 3.8 g/dL (10/10/23 3:17 PM) Alk Phos [40-130 unit/L] 43 unit/L 1 (10/10/23 3:17 PM) ALT [0-41 unit/L] 10 unit/L (10/10/23 3:17 PM) AST [0-40 unit/L] 13 unit/L (10/10/23 3:17 PM) BUN [6-23 mg/dL] 12 mg/dL (10/10/23 3:17 PM) Ca [8.4-10.2 mg/dL] 9.9 mg/dL (10/10/23 3:17 PM) Chol/HDL 3 (10/10/23 3:17 PM) Chol [<200 mg/dL] 96 mg/dL (10/10/23 3:17 PM) Cl- [98-107 mmol/L] 98 mmol/L (10/10/23 3:17 PM) HCO3 [22-29 mmol/L] 23 mmol/L (10/10/23 3:17 PM) Cret [0.70-1.30 mg/dL] 0.74 mg/dL (10/10/23 3:17 PM) HbA1c [<5.7 %] 8.1 % 2 *HI* (10/10/23 3:17 PM) Glu [74-109 mg/dL] 303 mg/dL 3 *HI* (10/10/23 3:17 PM) HDL [>40 mg/dL] 29 mg/dL *LOW* (10/10/23 3:17 PM) K [3.5-5.1 mmol/L] 4.2 mmol/L (10/10/23 3:17 PM) LDL Chol, Calculated [50-130 mg/dL] 32 m g/dL *LOW* (10/10/23 3:17 PM) Na [136-145 mmol/L] 134 mmol/L *LOW* (10/10/23 3:17 PM) T Bili [0.0-1.2 mg/dL] 0.3 mg/dL (10/10/23 3:17 PM) Prot [6.4-8.3 g/dL] 6.1 g/dL *LOW* (10/10/23 3:17 PM) TG [<150 mg/dL] 177 mg/dL *HI* (10/10/23 3:17 PM) TSH [0.30-4.20 uIU/mL] 0.80 uIU/mL (10/10/23 3:17 PM) 1Result Comment: Low levels of ALKP may indicate a deficiency in zinc, magnesium, or malnutritionbutcan also be an indicator of a rare genetic disease hypophosphatasia (HPP). 2Result Comment: ADA Recommended [place] Reference Range: Normal: <5.7% Prediabetes: 5.7-6.4% Diabetes: >6.4% 3Result Comment: ADA recommendation for FASTING Serum/Plasma Glucose: Normal: 70-100 mg/dL Prediabetes: 100-125 mg/dL Diabetes: 126 mg/dL or higher Vital Signs Most recent to oldest [Reference Range]: 1 Patient Weight 78.1 kg (10/10/23 2:40 PM) Heart Rate 100 bpm (10/10/23 2:40 PM) Respiratory Rate 12 br/min (10/10/23 2:40 PM) Blood Pressure 120/68mmHg (10/10/23 2:40 PM) Cuff Pulse Pressure 52 mmHg (10/10/23 2:40 PM) Social History Social History Type Response Smoking Status Never smoked cigaret zachary Sex Male FCM Outpt Note * MD Alice, Blaaji Benton: PERFORM Event Display: FCM Outpt Note Authored Date: [id number] Chief Complaint 6 month F/U requesting AWV History of Present Illness Most recent visitwith Dr. Jenkins: 07/31/2021 * This patient is followed longitudinally for chronic serious medical problems by Dr. Gonzales Jenkins. 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 Respiratory: No shortness of breath, No cough, No wheezing. Cardiovascular: No chest pain, No palpitations. Gastrointestinal: No nausea, No vomiting, No diarrhea, No abdominal pain. Neurologic:No numbness, No tingling, No headache. Physical Exam Vitals & Measurements HR:100(Monitored) RR:12 BP:120/68 SpO2:97% WT:78.1kg WT:78.100kg(Dosing) PHQ2 Data(Data Documented on:10/10/2023 14:40) Emotional health assessment NEGATIVE General: Alert and oriented, No acute distress. SCALP: Posterior scalp with healing scabbed area of sarcoma resectipn approx5 x 6 cm, dry and no discharge. Neck: Supple, Non-tender, No jugular venous distention, No lymphadenopathy, No thyromegaly. Respiratory: Lungs are clear to auscultation, Respirations are non-labored, Breath sounds are equal. Cardiovascular: Normal rate, Regular rhythm, No murmur, rubs or gallops. Gastrointestinal: Soft, Non-tender, Non-distended, Normal bowel sounds. Neurologic: Alert, Oriented, No focal deficits. Psychiatric: Cooperative, Appropriate mood & affect. Assessment/Plan 1.Dysphagia STATUS:Chronic stable. Previous visit:BA Swallow ordered last visit. Consider GI eval prn . Discussed multiple causes possible ---GI vs Neuro including Parkinson's. FU after BA swallow to consider next step in eval. 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 He has dysphagia daily-- mostly with solid. This liquids are easier to swallow. No fever, coughing. [place] [facility] [place].His swallowing isbetterdue to resected Zenkers in OCTOBER 2021. He has certain foods he is unableto eat. DATA:Labs/Tests reviewed. GOAL:Maintain/improve stability. PLAN:Continue current monitoring. . 2.Hypothyroid STATUS:Chronic stable. Previous visit:TSH therapeutic DATA:Labs/Tests reviewed.TSH=[id number] GOAL:Maintain/improve stability. PLAN:Continue current monitoring. Order TSH . 3.History of sarcoma STATUS:Chronic stable. Previous visit: Resected.Weekly FU with Dr. Kumar. Healing well--almost complete. DATA:Labs/Tests reviewed. GOAL:Maintain/improve stability. PLAN:Continue current monitoring. . 4.Type 2 diabetes mellitus with mild nonproliferative diabetic retinopathy without macular edema,unspecified eye STATUS:Chronic stable. Previous visit:He is on Januvia 25 mg daily and his last A1C in MAR 2021 was 8.5 --Check A1C today. At home his BS= 177-200 DATA:Labs/Tests reviewed. A1C= 7.4 i(04/09) GOAL:Maintain/improve stability. PLAN:Continue current monitoring. Labs due. A1C, CMP . 5.Heart murmur STATUS:Chronic stable. Previous visit: DATA:Labs/Tests reviewed. Finalized by Dr. Rigoberto Perdomo MD on 08/04/2021 09:41 AM Summary 1. Small, underfilled left ventricle. 2. [...] pressures. 9. No prior studies for comparison. GOAL:Maintain/improve stability. PLAN:Continue current monitoring. No valvular abnl or need for treatment . Summary: Medications: reviewed/changed/refilled _Completed Results:_Reviewed Labs:_A1C, CMP, TSH, Lipid Follow up visit: Return to clinic: _6 months AWV.andA1C, BMP, Other activities completed this visit: Education provided (discussion, questions, etc) _ Discussed: _ importance of Q6 mos FU and labs Coordinate care: Primary care and _ Time spent: Pre-visit planning: _ 9 Nagl-fg-xnfd visit: _ 32 Total visit time: _ 41 *does not include time for AWV or procedure if applicable Problem List/Past Medical History Ongoing Amalgam tattoo| Status: Inactive Balance disorder Benign prostatic hyperplasia Callus Chronic GERD Diabetic eye exam Dysphagia Epilepsy (disorder) Erectile dysfunction| Status: Inactive Erosive pustular dermatosis of scalp Falls Fracture, radius HDL measurement| Status: Inactive Heart murmur previously undiagnosed History of sarcoma Hypothyroid Malignant neoplasm of soft tissue (disorder) NONSPECIFIC REACTION TO TUBERCULIN SKIN TEST WITHOUT ACTIVE TUBERCULOSIS| Status: Inactive Osteopenia Overweight| Status: Inactive Positive colorectal cancer screening using Cologuard test 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 Tinea unguium TINNITUS Type 2 diabetes mellitus with mild nonproliferative diabetic retinopathy without macular edema, unspecified eye Urinary frequency Weakness Resolved Basal cell carcinoma Basal cell carcinoma Bullous pemphigoid Fracture, Colles, left, closed Hypothyroidism Pneumonia Polyp of colon Right ankle pain Procedure/Surgical History Excision of cyst| Service Date: 04/2023Shave biopsy and cauterization of skin| Service Date: 09/16/2022olonoscopy| Service Date: 06/23/2022[facility]' micrographic surgery| Service Date: 06/01/2022Shave biopsy of skin| Service Date: 04/29/2022iabetic retinal eye exam| Service Date: Electrodesiccation with curettage| Service Date: 01/07/2022Excision| Service Date: 01/07/2022have biopsy and cauterization of skin| Service Date: 12/24/2021[facility] micrographic surgery| Service Date: 11/25/2021have biopsy and cauterization of skin| Service Date: 10/06/2021ardiac echo| Service Date: 04/19/2022Barium swallow| Service Date: 04/13/2021have biopsy of skin| Service Date: 10/14/2020have biopsy of skin| Service Date: 1Diabetic retinal eyeexam| Service Date: 02/05/2020ENDO CHOLANGIOPANCREATOGRAPH| Service Date: 04/01/2017ERCP| Serv ice Date: 04/01/2017CT of abdomen and pelvis| Service Date: 03/30/2017Basal cell carcinoma| Service Date: 04/18/2015Cholecystectomy| Service Date: 07/08/2014Extracapsular cataract removalwith insertion of intraocular lens prosthesis (1 stage procedure), manual or mechanical technique (eg, irrigation and aspiration or phacoemulsification)| Service Date: 04/08/2014Extraction of after cataract by discission| Service Date: 02/21/2014rem lesion under left tongue| Service Date: 05/10/2012one density| Service Date: 03/30/2012colonoscopy| Service Date: 07/17/2008root canal 308| Service Date: 06/17/2007asal cell left shoulder| Service Date: 04/18/1976mammary gland removal| Service Date: 04/18/1974 ganglion cyst| Service Date: 04/18/1957 T & A| Service Date: 04/18/1939Mo surgerysizure disorder-Dr. Liceaiverticulectomy Medications atorvastatin(atorvastatin 20 mg oral tablet), 20 mg= 1 tab, PO, Daily, 4 refills cholecalciferol(Vitamin D3), 2000 Int_Unit, PO, Daily ciclopirox topical(Penlac Nail Lacquer 8% topical solution), 1 appl, topical, Daily, 4 refills diabetes supplies(One Touch Ultra Blue Test Strips), See Instructions, 3 refills diabetes supplies(One Touch Delica Plus (33G) Lancets), See Instructions, 2 refills diabetes supplies(One Touch Ultra 2 Glucose Monitor), See Instructions divalproex sodium(Depakote), 500 mg, PO, Daily docusate(Colace 100 mg oral capsule), 100 mg= 1 cap, PO, Daily, PRN dutasteride(dutasteride 0.5 mg oral capsule), 0.5 mg= 1 cap, PO, Daily famotidine(Pepcid 20 mg oral tablet), 20 mg= 1 tab, PO, bid, 3 refills levothyroxine(levothyroxine 125 mcg (0.125 mg) oral tablet), 125 mcg= 1 tab, PO, Daily, 3 refills metFORMIN(MetFORMIN (Eqv-Glucophage XR) 500 mg oral tablet, extended release), 500 mg= 1 tab, PO, bid, 3 refills mirabegron(Myrbetriq 50 mg oral tablet, extended release) multivitamin, See Instructions mupirocin topical(mupirocin 2% topical ointment), 1 appl, topical, bid, 1 refills pantoprazole(Protonix 20 mg oral delayed release tablet), 20 mg= 1 tab, PO, Daily, 4 refills risedronate(Actonel 35 mg oral tablet), 35 mg= 1 tab, PO, q7days, 3 refills SITagliptin(Januvia 100 mg oral tablet), 100 mg= 1 tab, PO, Daily, 3 refills tamSULOsin(tamsulosin 0.4 mg oral capsule), 0.4 mg= 1 cap, PO, Daily, 3 refills tavaborole topical(Kerydin 5% topical solution), See Instructions, 5 refills tavaborole topical(tavaborole 5% topical solution) triamcinolone topical(triamcinolone 0.1% topical ointment), 1 appl, topical, bid, 1 refills ubiquinone(CoQ10) Allergies NKA Social History Smoking Status Never smoked cigarettes Alcohol - No Risk Use:Current Type:Beer Frequency:1-2 times per year 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 [employer] Highest education:Some college Exercise - [...] the next year) OverDue Adult Influenza Vaccine due10/15/22and every 1year Medicare Annual Wellness Visit due02/11/23and every 1year Due Adult COVID-19 Vaccination due10/10/23Unknown Frequency Adult Social Determinants of Health Screening due10/10/23Unknown Frequency Diabetes Nephropathy Management due10/10/23Unknown Frequency Falls Plan of Care due10/10/23Unknown Frequency Due In Future Diabetes Management A1c not due until03/23/24and every 366day Diabetic Eye Exam not due until08/04/24and every 366day Satisfied(in the past 1 year) Satisfied Body Mass Index on12/24/22.Satisfied by CHUCHO Rahman Paul Diabetes Management A1c on03/23/23.Satisfied by Contributor_system, [employer] Diabetic Eye Exam on03/16/23.Satisfied by MAURISIO Gerard Lynnae Electronic Signature on File Electronically Reviewed/Signed by: Balaji Jenkins MD Author Signature Dt/Tm:10/10/2023 03:18 PM Department of Family Medicine [facility] Patient Care team information Care Team Personnel Name: MD Alice, Balaji Benton Position: Physician - Family Med Member Role: Primary Care Provider Address: Address: [address] [place] [address] [place] Name: MD Jared, Qamar Lucas Position: Physician - Pathologist/Derm Member Role: Lifetime Relationship Address: Address: [address] [place] [address] [place] Name: MD Charlie, Sulaiman Position: Physician - Family Med Member Role: Lifetime Relationship Address: Address: [address] [place] [address] [place] Name: Kateryna Dia Jason A Position: Pharmacist BCMA Member Role: Pharmacy - Lifetime Address: Address: [address] [address] [place] Care Team Related Persons Name: DAVID FRAZIER Address: [facility] [place] Address: home [address] [facility] [place] [id number] Name: DAVID FRAZIER Address: home [address] [facility] [address] [place] [address]
--- OUTSIDE RECORDS SUMMARY | 2024-01-07 17:11 | External Medical Summary | Continuity of Care Document ---
Author Name Unknown Organization [facility] [id number] Address [address] [place] [phone] Care Team Providers Care Mender Hand Name Role Phone Balaji Jenkins Primary Care Physician [phone] [facility] [id number] Date(s): 11/02/23 - 11/02/[address] [facility] [address] [employer] [facility] [address] [facility] [address] [place] [id number] Encounter Diagnosis Callus(Discharge Diagnosis) - 11/02/23 Tinea unguium(Discharge Diagnosis) - 11/02/23 Diabetes(Discharge Diagnosis) - 11/02/23 Discharge Disposition: Home or Self Care Attending Physician: LESLEY Ware Christina L Referring Physician: MD Jenkins Michael P Allergies, Adverse Reactions, Alerts No Known Allergies Assessment and Plan Extracted from: Title:Follow Up Visit Author:LESLEY Ware, Muna Nicole Date:11/02/23 1.Callus Not needed debridement 2.Tinea unguium -Patient unable to provide self care to toenails due todiabetes - verbal consent obtained for debridement -Recommend toenail debridement -Patient had toenails of bilateral digits 1-5 debrided using nail nippers to tolerance, minimal bleeding from left fourth toenail secondary to incurvation area cleaned with HibiclensBand-Aid applied -Patient instructed to use emery board to nails once per week -Patient had no ingrown toenails or infection noted -Patient is to follow up in 6months for treatment if needed in the future -Prescription for Kerydin given to patient per request 3.Diabetes Immunizations Given and Recorded Vaccine Date Status [...] q7days, Disp# 13 tab, Refills: 3, Pharmacy: [facility] Start Date: 07/07/23 Stop Date: 07/01/24 Status: Ordered atorvastatin 20 mg oral tablet Start: 10/10/23 2:59:00 PM EDT, 1 tab, PO, Daily, Disp# 90 tab, Refills: 4, Pharmacy: [id number] Start Date: 10/10/23 Status: Ordered Colace 100 [...] Daily, Disp# 90 tab, Refills: 3, Pharmacy: [facility] Start Date: 07/07/23 Stop Date: 07/01/24 Status: Ordered Kerydin 5% topical solution Start: 01/26/23 4:03:00 PM EDT, See Instructions, Disp# 10 mL, Refills: 5, Apply to affected toenails once per day for 6 months to 1 year Start Date: 01/26/23 Status: Ordered Kerydin 5% topical solution Start: 11/02/23 3:01:00 PM EDT, 1 appl, topical, Daily, Disp# 10 mL, Refills: 6, Apply to affected toenails once per day for 6 months Start Date: 11/02/23 Stop Date: 04/11/30 Status: Ordered levothyroxine 125 mcg (0.125 mg) oral tablet Start: 07/07/23 8:50:00 AM EDT, 1 tab, PO, Daily, Disp# 90 tab, Refills: 3, Pharmacy: [facility] Start Date: 07/07/23 Status: Ordered MetFORMIN (Eqv-Glucophage XR) 500 mg oral tablet, extended release Start: 12/24/22 3:25:00 PM EDT, 1 tab, PO, bid, Disp# 180 tab, Refills: 3, Pharmacy: [facility] Start Date: 12/24/22 Stop Date: 12/19/23 Status: Ordered multivitamin Start: 05/25/16 10:56:00 AM EST, See Instructions, 1 daily Start Date: 05/25/16 Status: Ordered mupirocin 2% topical ointment Start: 08/04/23 11:03:00 AM EDT, 1 appl, topical, bid, Disp# 22 g, Refills: 1, Apply to affected areas on scalp twice daily for 1 month, Pharmacy: [facility] [id number] Start Date: 08/04/23 Stop Date: 10/03/23 Status: Ordered Myrbetriq 50 mg oral tablet, extended release Start: 02/09/22 2:13:00 PM EDT Start Date: 02/09/22 Status: Ordered One Touch Delica Plus (33G) Lancets Start: 10/10/23 2:59:00 PM EDT, See Instructions, Disp# 200 each, Refills: 2, Test Blood Sugars Twice a day E11.9, Note to Pharmacy: please fill 90 day supply, Pharmacy: [facility] [id number] Start Date: 10/10/23 Status: Ordered One Touch Ultra 2 Glucose Monitor Start: 04/06/21 4:27:00 PM EST, See Instructions, Disp# 1 each, Refills: 0, CUrrent glucometer megan, Pharmacy: [facility] Start Date: 04/06/21 Status: Ordered One Touch Ultra Blue Test Strips Start: 10/10/23 2:59:00 PM EDT, See Instructions, Disp# 100 strip, Refills: 3, for use with glucometer to check blood glose levels. Diagnosis code E13.9 pt to check Blood glucose twice daily, Pharmacy: [facility] [id number] Start Date: 10/10/23 Status: Ordered Penlac Nail Lacquer 8% topical solution Start: 09/01/23 9:42:00 AM EDT, 1 appl, topical, Daily, Disp# 6.6 mL, Refills: 4, Pharmacy: [place] [id number] Start Date: 09/01/23 Stop Date: 12/19/25 Status: Ordered Pepcid 20 mg oral tablet Start: 08/10/21 11:58:00 AM EDT, 1 tab, PO, bid, Disp# 180 tab, Refills: 3, Pharmacy: [facility] Start Date: 08/10/21 Stop Date: 08/05/22 Status: Ordered Protonix 20 mg oral delayed release tablet Start: 10/10/23 2:58:00 PM EDT, 1 tab, PO, Daily, Disp# 90 tab, Refills: 4, Pharmacy: [facility] [id number] Start Date: 10/10/23 Status: Ordered tamsulosin 0.4 mg oral capsule Start: 10/18/22 3:53:00 PM EDT, 1 cap, PO, Daily, Disp# 90 cap, Refills: 3, Pharmacy: [facility] Start Date: 10/18/22 Status: Ordered tavaborole 5% topical solution Start: 04/29/23 12:45:00 PM EST Start Date: 04/29/23 Status: Ordered triamcinolone 0.1% topical ointment Start: 08/04/23 11:05:00 AM EDT, 1 appl, topical, bid, Disp# 60 g, Refills: 1, Apply to affected albert on scalp and trunk twice daily, Pharmacy: [id number] Start Date: 08/04/23 Stop Date: 10/03/23 Status: Ordered Vitamin D3 Start: 05/25/16 10:57:00 AM EST, 2,000 Int_Unit =, PO, Daily Start Date: 05/25/16 Status: Ordered Mental Status 11/02/23 Barriers to Learning one year None evide nt Mandatory Health Literacy Documentation Yes Health Literacy Communication Barriers N ever Primary Language Czech Problem List Condition Confirmation Course Effective Dates Status H ealth Status Informant Weakness Confirmed Active Benign prostatic hyperplasia Confirmed Active Callus Confirmed Active Diabetes Confirmed Active Dysphagia Confirmed Active Epilepsy (disorder) [...] Dates Health Status Cl inical Service Informant Tinea unguium Discharge Diagnosis 11/02/23 Non-Specified Callus Discharge Diagnosis 11/02/23 Non-Specified Diabetes Discharge Diagnosis 11/02/23 Non-Specified Procedures Procedure Date Related Diagnosis Body [...] "prominent antral fold" (biopsy): 1) Multiple benign stripsof antral mucosa with no pathologic Dx are seen. 2) The clinical Hx of a prominent antral fold is noted. 3) The clinical Hx of choledocolithiasis and pancreatitis is also noted. B) Esophagus, 39cm "rule out barretts" (biopsy): 1) Moderate chronic active esophagitis with benign glandular epithelium is seen. 2 Intestinal metaplasia, dysplasia and carcinoma are all not seen on levels x3. 3) The minue strips of stratified squamous epithelium identified in this case are simply too minute to assess for the presence or absence of chronic reflux esophagitis. 4) No tumor is seen. 10F/U [facility] Dr. Bowman 11Impression: 1. Choledocholithiasis with two [...] Event Display: Ortho Outpt Note Authored Date: [id number] Chief Complaint nail care Primary Care Provider MD Alice, Balaji Benton Subjective Patient is a very pleasant 88-year-old malelow risk diabetic last seen May 25, 2023 presenting today for care -No acute concerns -They are interested in using the topical Kerydin as opposed tothe ciclopirox explained to themthis can be more cost effectiveif using a good Rx couponthey noted verbalized understanding Review of Systems Diabetes Objective Physical Exam Problem focused bilateral feet: Dorsalis pedis pulse difficult to palpate secondary to mild swelling, posterior tibial pulse nonpalpable secondary toswelling. Bilateral lower extremity edema noted this is nonpitting. Feet have a coolness distally. Pedal hair is absent. Skin turgor is good to all distal extremities. Capillary refill time is less than 3 seconds to all digits. Monofilament test absent to distal extremities, light touchabsent to distal extremities, proprioception absent distal extremities. No open wounds or lesions on the feet. Skin is clean and dry. Interspaces clean dry and intact without maceration or breakdown No historyof amputations Toenails digits 1 through 5 ofbilateral feet with thickening greater than 1 mm, discoloration, elongation, subungual debris, painrecommend debridement Callus present submetatarsal 1 bilateral feet not needed debridement patient has been having topical medicineapplied which is a moisturizing lotionand has significantly improved the area. Assessment/Plan 1.Callus Not needed debridement 2.Tinea unguium -Patient unable to provide self care to toenails due todiabetes - verbal consent obtained for debridement -Recommend toenail debridement -Patient had toenails of bilateral digits 1-5 debrided using nail nippers to tolerance, minimal bleeding from left fourth toenail secondary to incurvation area cleaned with HibiclensBand-Aid applied -Patient instructed to use emery board to nails once per week -Patient had no ingrown toenails or infection noted -Patient is to follow up in 6months for treatment if needed in the future -Prescription for Kerydin given to patient per request 3.Diabetes Electronic Signature on File Electronically Reviewed/Signed by: Bel Ware DPM Author Signature Dt/Tm:11/02/2023 03:04 PM Division of Sports Medicine CLR Patient Care team information Care Team Personnel Name: MD Alice, Balaji Benton Position: Physician - Family Med Member Role: Primary Care Provider Address: Address: [address] [place] [address] [place] Name: MD Jared, Qamar Lucas Position: Physician - Pathologist/Derm Member Role: Lifetime Relationship Address: Address: [address] [place] [address] [place] Name: MD Charlie, [facility] Position: Physician - Family Med Member Role: Lifetime Relationship Address: Address: [address] [place] [address] [place] Name: Kateryna Dia Jason A Position: Pharmacist BCMA Member Role: Pharmacy - Lifetime Address: Address: [address] Care Team Related Persons Name: DAVID FRAZIER Address: [facility] Address: home [address] [place], [place] [phone] Name: DAVID FRAZIER Address: home [address] [facility] [address] [place] [address]
--- OUTSIDE RECORDS SUMMARY | 2024-01-07 17:12 | External Medical Summary | Continuity of Care Document ---
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 Discharge Disposition: Home or Self Care Attending [...] 35 mg oral tablet Start: 07/07/23 8:50:00 EDT, 1 tab, PO, q7days, Disp# 13 tab, Refills: 3, Pharmacy: [facility] Start Date: 07/07/23 Stop Date: 07/01/24 Status: Ordered atorvastatin 20 mg oral tablet Start: 10/18/22 15:53:00 EDT, 1 tab, PO, Daily, Disp# 90 tab, Refills: 3, Pharmacy: [facility] Start Date: 10/18/22 Status: Ordered Colace 100 mg oral capsule Start: 07/15/20 10:46:00 EDT, 1 cap, PO, Daily, PRN: as needed for constipation Start Date: 07/15/20 Status: Ordered CoQ10 Start: 05/25/16 10:56:00, 100mg daily Start Date: 05/25/16 Status: Ordered Depakote Start: 05/25/16 10:56:00, 500 mg =, PO, Daily Start Date: 05/25/16 Status: Ordered dutasteride 0.5 mg oral capsule Start: 12/24/21 10:57:00 EDT, 1 cap, PO, Daily Start Date: 12/24/21 Status: Ordered Januvia 100 mg oral tablet Start: 07/07/23 8:50:00 EDT, 1 tab, PO, Daily, Disp# 90 tab, Refills: 3, Pharmacy: [facility] Start Date: 07/07/23 Stop Date: 07/01/24 Status: Ordered Kerydin 5% topical solution Start: 01/26/23 16:03:00 EDT, See Instructions, Disp# 10 mL, Refills: 5, Apply to affected toenailsonce per day for 6 months to 1 year Start Date: 01/26/23 Status: Ordered levothyroxine 125 mcg (0.125 mg) oral tablet Start: 07/07/23 8:50:00 EDT, 1 tab, PO, Daily, Disp# 90 tab, Refills: 3, Pharmacy: [facility] Start Date: 07/07/23 Status: Ordered MetFORMIN (Eqv-Glucophage XR) 500 mg oral tablet, extended release Start: 12/24/22 15:25:00 EDT, 1 tab, PO, bid, Disp# 180 tab, Refills: 3, Pharmacy: [facility] Start Date: 12/24/22 Stop Date: 12/19/23 Status: Ordered multivitamin Start: 05/25/16 10:56:00, See Instructions, 1 daily Start Date: 05/25/16 Status: Ordered mupirocin 2% topical ointment Start: 08/04/23 11:03:00 EDT, 1 appl, topical, bid, Disp# 22 g, Refills: 1, Apply to affected areason scalp twice daily for 1 month, Pharmacy: [id number] Start Date: 08/04/23 Stop Date: 10/03/23 Status: Ordered Myrbetriq 50 mg oral tablet, extended release Start: 02/09/22 14:13:00 EDT Start Date: 02/09/22 Status: Ordered One Touch Delica (33G) Lancets Start: 08/11/16 11:22:00, See Instructions, Disp# 3 box, Refills: 3, for use with glucometer to check blood gluscose. Diagnosis code E13.9, Pharmacy: [facility] Start Date: 08/11/16 Status: Ordered One Touch Delica Plus (33G) Lancets Start: 01/19/22 11:38:00 EDT, See Instructions, Disp# 200 each, Refills: 2, Test Blood Sugars Twicea day E11.9, Note to Pharmacy: please fill 90 day supply, Pharmacy: [facility] Start Date: 01/19/22 Status: Ordered One Touch Ultra 2 Glucose Monitor Start: 08/11/16 11:22:00, See Instructions, Disp# 1 unit, Refills: 0, Use as instructed. Dx Code E13.9 - for use monitoring blood glucose levels, Pharmacy: [facility] Start Date: 08/11/16 Status: Ordered One Touch Ultra 2 Glucose Monitor Start: 04/06/21 16:27:00 EST, See Instructions, Disp# 1 each, Refills: 0, CUrrent glucometer lisake,Pharmacy: [facility] Start Date: 04/06/21 Status: Ordered One Touch Ultra Blue Test Strips Start: 01/19/22 11:38:00 EDT, See Instructions, Disp# 100 strip, Refills: 3, for use with glucometer to check blood glose levels. Diagnosis code E13.9 pt to check Blood glucose twice daily, Pharmacy:[facility] Start Date: 01/19/22 Status: Ordered Penlac Nail Lacquer 8% topical solution Start: 01/27/22 14:47:00 EDT, 1 appl, topical, Daily, Disp# 6.6 mL, Refills: 4, Pharmacy: [id number] Start Date: 01/27/22 Stop Date: 05/16/24 Status: Ordered Pepcid 20 mg oral tablet Start: 08/10/21 11:58:00 EDT, 1 tab, PO, bid, Disp# 180 tab, Refills: 3, Pharmacy: [facility] Start Date: 08/10/21 Stop Date: 08/05/22 Status: Ordered Protonix 20 mg oral delayed release tablet Start: 10/18/22 15:53:00 EDT, 1 tab, PO, Daily, Disp# 90 tab, Refills: 3, Pharmacy: [facility] Start Date: 10/18/22 Status: Ordered tamsulosin 0.4 mg oral capsule Start: 10/18/22 15:53:00 EDT, 1 cap, PO, Daily, Disp# 90 cap, Refills: 3, Pharmacy: [facility] Start Date: 10/18/22 Status: Ordered tavaborole 5% topical solution Start: 04/29/23 12:45:00 EST Start Date: 04/29/23 Status: Ordered triamcinolone 0.1% topical ointment Start: 08/04/23 11:05:00 EDT, 1 appl, topical, bid, Disp# 60 g, Refills: 1, Apply to affected albert on scalp and trunk twice daily, Pharmacy: [id number] Start Date: 08/04/23 Stop Date: 10/03/23 Status: Ordered Vitamin D3 Start: 05/25/16 10:57:00, 2,000 Int_Unit =, PO, Daily Start Date: 05/25/16 Status: Ordered Mental Status 08/04/23 Barriers to Learning one year None evide nt Mandatory Health Literacy Documentation Yes Health Literacy Communication Barriers N ever Primary Language Greenlandic Problem List Condition Confirmation Course Effective Dates Status H ealth Status Informant Weakness Confirmed Active Benign prostatic hyperplasia Confirmed Active Callus Confirmed Active Diabetes 1 Confirmed Active [...] Effective Dates Health Status Clinical Service Informant Erosive pustular dermatosis of scalp Discharge Diagnosis 08/04/23 Non-Specified History of sarcoma of soft tissue Discharge Diagnosis 08/06/23 History of squamous cell carcinoma of skin Discharge Diagnosis 08/06/23 Procedures Procedure Date Related Diagnosis Body Site [...] esophagitis. 4) No tumor is seen. 10F/U [facility] Dr. Bowman 11Impression: 1. Choledocholithiasis with [...] Member Role: Primary Care Provider Address: Address: [employer] Name: MD Jared, Qamar Lucas Position: Physician - Pathologist/Derm Member Role: Lifetime Relationship Address: Address: [address] [place] [address] [place] Name: MD Guerra Dongsheng Position: Physician - Family Med Member Role: Lifetime Relationship Address: Address: [address] [address] [place] Name: Kateryna Dia Jason A Position: Pharmacist BCMA Member Role: Pharmacy - Lifetime Address: Address: [address] [address] [place] Care Team Related Persons Name: DAVID FRAZIER Address: [place] Address: home [address] [place], [place] [phone] Name: DAVID FRAZIER Address: home [address] [facility] [address] [place] [address]
--- OUTSIDE RECORDS SUMMARY | 2024-01-07 17:12 | External Medical Summary | Continuity of Care Document ---
Author Name Unknown Organization [facility] [address] [id number] Care Team Providers Care Base Wad Operator Adjuster Name Role Phone Jenkins Balaji Chetan Primary Care Physician [phone] [id number] Date(s): 09/05/23 - 09/05/23 [facility] [address], [place] [id number] Encounter Diagnosis Actinic keratoses(Discharge Diagnosis) - 09/06/23 Erosive pustular dermatosis of scalp(Discharge Diagnosis) - 09/06/23 Discharge Disposition: Home or Self Care Attending Physician: MD Kumar Cassandra Allergies, Adverse Reactions, Alerts No Known Allergies Assessment and Plan Extracted from: Title:Dermatology Office Visit Note Author:Cheko sommer MD, Cassandra Date:09/05/23 1.Actinic keratoses - acute lesions present on exam today, diagnosis and natural course reviewed including risk of transformation to SCC, treatment with cryotherapy today Cryotherapy performed following verbal consent and allowing time for questions. Alternative therapies were discussed, and education on wound healing, risk of thermal injury, dyspigmentation, infection and scar formation were performed. Wound care instructions reviewed. 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, at goal with significant improvement over last 4 weeks - reviewed often chronic nature of condition with waxing and waning symptoms - continue triamcinolone 0.1% ointment up to BID PRN - continue mupirocin 2% ointment up to BID PRN F/u 4-6 months for skin exam, sooner with any concerns Immunizations Given and Recorded Vaccine Date Status [...] Disp# 13 tab, Refills: 3, Pharmacy: [facility] Start Date: 07/07/23 Stop Date: 07/01/24 Status: Ordered atorvastatin 20 mg oral tablet Start: 10/18/22 3:53:00 PM EDT, 1 tab, PO, Daily, Disp# 90 tab, Refills: 3, Pharmacy: [facility] Start Date: 10/18/22 Status: Ordered Colace [...] Disp# 90 tab, Refills: 3, Pharmacy: [facility] Start Date: 07/07/23 Stop Date: [...] Disp# 90 tab, Refills: 3, Pharmacy: [facility] Start Date: 07/07/23 Status: Ordered MetFORMIN (Eqv-Glucophage XR) 500 mg oral tablet, extended release Start: 12/24/22 3:25:00 PM EDT, 1 tab, PO, bid, Disp# 180 tab, Refills: 3, Pharmacy: [facility] Start Date: 12/24/22 Stop Date: 12/19/23 Status: Ordered multivitamin Start: 05/25/16 10:56:00 AM EST, See Instructions, 1 daily Start Date: 05/25/16 Status: Ordered mupirocin 2% topical ointment Start: 08/04/23 11:03:00 AM EDT, 1 appl, topical, bid, Disp# 22 g, Refills: 1, Apply to affected areas on scalp twice daily for 1 month, Pharmacy: [id number] Start Date: 08/04/23 Stop Date: 10/03/23 Status: Ordered Myrbetriq 50 mg oral tablet, extended release Start: 02/09/22 2:13:00 PM EDT Start Date: 02/09/22 Status: Ordered One Touch Delica (33G) Lancets Start: 08/11/16 11:22:00 AM EDT, See Instructions, Disp# 3 box, Refills: 3, for use with glucometer to check blood gluscose. Diagnosis code E13.9, Pharmacy: [facility] Start Date: 08/11/16 Status: Ordered One Touch Delica Plus (33G) Lancets Start: 01/19/22 11:38:00 AM EDT, See Instructions, Disp# 200 each, Refills: 2, Test Blood Sugars Twice a day E11.9, Note to Pharmacy: please fill 90 day supply, Pharmacy: [facility] Start Date: 01/19/22 Status: Ordered One Touch Ultra 2 Glucose Monitor Start: 08/11/16 11:22:00 AM EDT, See Instructions, Disp# 1 unit, Refills: 0, Use as instructed. Dx Code E13.9 - for use monitoring blood glucose levels, Pharmacy: [facility] Start Date: 08/11/16 Status: Ordered One Touch Ultra 2 Glucose Monitor Start: 04/06/21 4:27:00 PM EST, See Instructions, Disp# 1 each, Refills: 0, CUrrent glucometer broke, Pharmacy: [facility] Start Date: 04/06/21 Status: Ordered One Touch Ultra Blue Test Strips Start: 01/19/22 11:38:00 AM EDT, See Instructions, Disp# 100 strip, Refills: 3, for use with glucometer to check blood glose levels. Diagnosis code E13.9 pt to check Blood glucose twice daily, Pharmacy: [facility] Start Date: 01/19/22 Status: Ordered Penlac Nail Lacquer 8% topical solution Start: 09/01/23 9:42:00 AM EDT, 1 appl, topical, Daily, Disp# 6.6 mL, Refills: 4, Pharmacy: [facility] [id number] Start Date: 09/01/23 Stop Date: 12/19/25 Status: Ordered Pepcid 20 mg oral tablet Start: 08/10/21 11:58:00 AM EDT, 1 tab, PO, bid, Disp# 180 tab, Refills: 3, Pharmacy: [facility] Start Date: 08/10/21 Stop Date: 08/05/22 Status: Ordered Protonix 20 mg oral delayed release tablet Start: 10/18/22 3:53:00 PM EDT, 1 tab, PO, Daily, Disp# 90 tab, Refills: 3, Pharmacy: [facility] Start Date: 10/18/22 Status: Ordered tamsulosin 0.4 mg oral capsule Start: 10/18/22 3:53:00 PM EDT, 1 cap, PO, Daily, Disp# 90 cap, Refills: 3, Pharmacy: [facility] Start Date: 10/18/22 Status: Ordered tavaborole 5% topical solution Start: 04/29/23 12:45:00 PM EST Start Date: 04/29/23 Status: Ordered triamcinolone 0.1% topical ointment Start: 08/04/23 11:05:00 AM EDT, 1 appl, topical, bid, Disp# 60 g, Refills: 1, Apply to affected albert on scalp and trunk twice daily, Pharmacy: [id number] Start Date: 08/04/23 Stop Date: 10/03/23 Status: Ordered Vitamin D3 Start: 05/25/16 10:57:00 AM EST, 2,000 Int_Unit =, PO, Daily Start Date: 05/25/16 Status: Ordered Mental Status 09/05/23 Barriers to Learning one year None evide nt Mandatory Health Literacy Documentation Yes Health Literacy Communication Barriers N ever Primary Language Nauruan Problem List Condition Confirmation Course Effective Dates [...] Erosive pustular dermatosis of scalp Discharge Diagnosis 09/06/23 Non-Specified Actinic keratoses Discharge Diagnosis 09/06/23 Non-Specified Procedures Procedure Date Related Diagnosis Body [...] esophagitis. 4) No tumor is seen. 10F/U [facility] Dr. Bowman 11Impression: 1. Choledocholithiasis with two [...] Event Display: Dermatology Outpt Note Authored Date: Chief Complaint 4 week follow up for rosive pustular dermatosis of scalp. Symptoms resolved after 3 weeks of topicals prescribed at last visit. 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 Alternative therapies were discussed, and education on wound healing, risk of thermal injury, dyspigmentation, infection and scar formation were performed. Wound care instructions reviewed. 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, at goal with significant improvement over last 4 weeks - reviewed often chronic nature of condition with waxing and waning symptoms - continue triamcinolone 0.1% ointment up to BID PRN - continue mupirocin 2% ointment up to BID PRN F/u 4-6 months for skin exam, sooner with any concerns Problem List/Past Medical History Ongoing Amalgam tattoo| Status: Inactive Balance disorder Benign prostatic hyperplasia Callus Chronic GERD Diabetes Diabetic eye exam [...] using Cologuard test 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 PSA measurement| Status: Inactive Tinea unguium TINNITUS Type 2 diabetes mellitus with mild nonproliferative diabetic retinopathy without macular edema, unspecified eye Urinary frequency Weakness Resolved Basal cell carcinoma Basal cell carcinoma Bullous pemphigoid Fracture, Colles, left, closed Hypothyroidism Pneumonia Polyp of colon Right ankle pain Procedure/Surgical History Excision of cyst| Service Date: 04/2023Shave biopsy and cauterization of skin| Service Date: 09/16/2022olonoscopy| Service Date: 06/23/2022[facility]' micrographic surgery| Service Date: 06/01/2022Shave biopsy of skin| Service Date: 04/29/2022iabetic retinal eye exam| Service Date: Electrodesiccation with curettage| Service Date: 01/07/2022Excision| Service Date: 01/07/2022have biopsy and cauterization of skin| Service Date: 12/24/2021[facility] micrographic surgery| Service Date: 11/25/2021have biopsy and cauterization of skin| Service Date: 10/06/2021ardiac echo| Service Date: 2Barium swallow| Service Date: 04/13/2021have biopsy of skin| [...] Service Date: 03/30/2012colonoscopy| Service Date: 07/17/2008root canal 06/23| Service Date: 06/17/2007asal cell left shoulder| Service Date: 04/18/1976mammary gland removal| Service Date: 04/18/1974 ganglion cyst| Service Date: 04/18/1957 T & A| Service Date: 04/18/1939Mohs surgerysizure disorder-Dr. 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 [employer] Highest education:Some college Exercise - Regular [...] Name: deceassed, Age: 86 Years, Cause: CVA Electronic Signature on File Electronically Reviewed/Signed by: Audelia Kumar MD Author Signature Dt/Tm:09/05/2023 10:56 PM Department of Dermatology CS Patient Care team information Care Team Personnel Name: MD Alice, Balaji Benton Position: Physician - Family Med Member Role: Primary Care Provider Address: Address: [address] [place] [address] Name: MD Jared, Qamar Lucas Position: Physician - Pathologist/Derm Member Role: Lifetime Relationship Address: Address: [address] [place] [address] Name: MD Guerra Dongsheng Position: Physician - Family Med Member Role: Lifetime Relationship Address: Address: [address] [place] [address] Name: Kateryna Dia Jason A Position: Pharmacist BCMA Member Role: Pharmacy - Lifetime Address: Address: [address] Care Team Related Persons Name: DAVID FRAZIER Address: [place] Address: home [address] [place], [place] [id number] Name: DAVID FRAZIER Address: home [address] [facility] [address] [place] [address]
[2024-01-07 17:56] LABS: Albumin Globulin Ratio 1.9 (0.9-2); Albumin Level 4.3 gm/dl (3.4-5.0); BUN Creatinine Ratio 15.1 (10-20); Basophils # (auto) 0.02 K/uL (0.00-0.20); Basophils % (auto) 0.3 %; Bilirubin,Total 0.5 mg/dl (0.2-1.0); Calcium 9.7 mg/dl (8.6-10.3); Eosinophils # (auto) 0.06 K/uL (0.00-0.50); Est GFR (African American) 96.7 ml/min; Est GFR (Non-African American) 83.4 ml/min; Globulin 2.3 gm/dl (2.5-4.0); Hematocrit (blood only) 41.5 % (42.0-52.0); Hemoglobin 13.7 g/dl (14.0-18.0); Immature Granulocytes # (auto) 0.04 K/uL (0.01-0.20); Immature Granulocytes % (auto) 0.7 %; Lymphocytes # (auto) 0.47 K/uL (1.20-3.40); Lymphocytes % (auto) 8.1 %; Mean Corpuscular Hemoglobin 31.4 pg (25.0-34.0); Mean Corpuscular Volume 95.2 fL (80.0-100.0); Mean Platelet Volume 9.7 fL (9.4-12.4); Monocytes # (auto) 0.63 K/uL (0.11-0.59); Monocytes % (auto) 10.8 %; Neutrophils % (auto) 79.1 %; Platelet Count 138 K/uL (130-400); RDW Coefficient of Variation 14.7 % (11.5-14.5); RDW Standard Deviation 51.5 fL (36.4-46.3); Red Blood Count 4.36 M/uL (4.70-6.10); Total Protein 6.6 gm/dl (6.0-8.3); White Blood Count 5.82 K/ul (4.8-10.8)
--- NOTE | 2024-01-07 18:18 | Emergency Department Note ---
Impression & Plan COVID-19, Atrial tachycardia, Weakness, Acute hyponatremia ED Provider Note NAME: BRANDY FRAZIER AGE: 88 SEX: M : 1935 ARRIVES VIA: Ambulance INFORMANT: Patient ED PROVIDER(S): Jose Denise DO CHIEF COMPLAINT: weakness HPI: Patient is an 88-year-old male who presents to the ER for weakness. is positive for COVID and he started with a cough yesterday. He tested negative for COVID earlier today. He notes he is unable to get up and walk around. He denies any headache or change in vision. No chest pain or shortness of breath. He admits to a dry cough. No dysuria, urgency, or frequency. No other exacerbating or remitting factors. ADDITIONAL HISTORY OBTAINED: Per HPI Chronic Medical/Social Conditions Affecting Care: Per HPI PAST MEDICAL HISTORY:See Below PAST SURGICAL HISTORY:See Below FAMILY HISTORY:See Below SOCIAL HISTORY:See Below HOME MEDICATIONS:See Below ALLERGIES:See Below VITALS:See Below PHYSICAL EXAMINATION: GENERAL: Sitting up in bed, alert, with intermittent cough EYE EXAM: normal conjunctiva. PERRL and EOM's grossly intact. OROPHARYNX: no exudate, no erythema, lips, buccal mucosa, and tongue normal and mucous membranes are moist NECK: supple, no nuchal rigidity, no adenopathy, non-tender LUNGS: Clear to auscultation. Normal chest wall mechanics HEART: Tachycardic, S1 normal and S2 normal ABDOMEN: abdomen soft, non-tender, normo-active bowel sounds, no masses, no rebound or guarding. UPPER EXTREMITIES: upper extremities are grossly normal. LOWER EXTREMITIES: No pitting edema. NEURO EXAM: Oriented to person and place but not year, cranial nerves II-XII grossly intact, normal speech, no gross weakness of arms, no gross weakness of legs. MEDICAL DECISION MAKING: Patient is an 88-year-old male who presents ER with a past medical history of seizures, GERD, transaminitis and BPH for cough and weakness with inability to get around. He is found to be tachycardic with a heart rate in the 130s and a temp of 37.7. IV was established medicos obtained. Labs show no significant leukocytosis. Mild anemia at 13. BMP with mild hyponatremia 132. LFTs bilirubin was unremarkable. UA was clean. Positive for COVID. Chest x-ray was unremarkable. He was updated bedside. Discussed case with the hospitalist for further evaluation management treatment. Discussed with Pt concerning signs and symptoms to watch out for. Pt was instructed to follow up with their PCP and discussed with the patient their option to return to the ED at anytime for persistent or worsening symptoms. The appropriate anticipatory guidance and out- patient management, including indications for return to the emergency department, were explained at length to the patient and understood. Consults/Care Managements Discussions: Per [facility] Triage Nursing notes reviewed. Limited review of prior medical records performed Vital Signs: reviewed and remarkable for tachy Differential diagnosis: Differential diagnosis includes etiologies such as sepsis, UTI, pneumonia, metabolic, electrolyte abnormalities, cardiac sources, intracerebral event, toxicologic, neurological, as well as others were entertained. ER treatment provided: See below Diagnostics interpreted by me include EKG and cardiac monitoring as listed below: -Cardiac Monitoring: An order was placed for continuous cardiac monitoring. The monitor shows a rate of 120 with sinus rhythm. -ECG: Sinus tachycardia rate of 121 Left axis No PVCs QTc 576 -Laboratory studies:Interpreted by me as stated above in MDM and shown below. Imaging studies: Xrays: As interpreted by me: Portable AP upright 1 view of the chest shows no focal Lutrate CTs show: none Procedures:none Critical Care: None Past Med/Surg History Problem List (Updated 01/07/24 @ 21:45 by Jose Denise DO) Acute hyponatremia (Acute) Weakness (Acute) Atrial tachycardia (Acute) COVID-19 (Acute) Hypomagnesemia (Acute) COVID-19 (Acute) Ambulatory dysfunction (Acute) Generalized weakness (Acute) Tremor Incomplete emptying of bladder Encounter for pre-operative examination Seizure (Chronic) GERD (gastroesophageal reflux disease) (Acute) Hypothyroid (Chronic) Abdominal pain (Acute) Acute cholecystitis (Acute) 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) "Development of a skin lesion on the vertex of the scalp Tangential biopsy 08/25/2015 malignant spindle cell neoplasm, consistent with atypical fibroxanthoma Wide excision 09/05/2015 scar and residual spindle cell neoplasm Recurrent malignant spindle cell neoplasm, consistent with pleomorphic dermal sarcoma 04/27/2016 Wide local excision of pleomorphic cell sarcoma of the scalp with 2 centimeter margins, defect 7 x 12 cm, placement of graft 06/11/2016 Status post completion of radiation therapy 09/15/2016 he received 6000 cGy" On 07/13/16 13:14 Chantel Cassidy wrote "Development of a skin lesion on the vertex of the scalp Tangential biopsy 08/25/2015 malignant spindle cell neoplasm, consistent with atypical fibroxanthoma Wide excision 09/05/2015 scar and residual spindle cell neoplasm Recurrent malignant spindle cell neoplasm, consistent with pleomorphic dermal sarcoma 04/27/2016 Wide local excision of pleomorphic cell sarcoma of the scalp with 2 centimeter margins, defect 7 x 12 cm, placement of graft 06/11/2016" On 07/13/16 13:10 Chantel Cassidy wrote "Development of a skin lesion on the vertex of the scalp Tangential biopsy 08/25/2015 malignant spindle cell neoplasm, consistent with atypical fibroxanthoma Wide excision 09/05/2015 scar and residual spindle cell neoplasm Recurrent malignant spindle cell neoplasm, consistent with pleomorphic dermal sarcoma 04/27/2016 Wide local excision of pleomorphic cell sarcoma of the scalp with 2 separate meter margins, effect 7 x 12 cm, placement of graft 06/11/2016" Choledocholithiasis Pancreatitis Transaminitis (Acute) Open fracture of left distal radius (Acute) Falls Thoracic spine fracture (Acute) Left rib fracture (Acute) Left scapula fracture (Acute) Hyperlipidemia (Chronic) Type 2 diabetes mellitus (Chronic) Seizure disorder DVT prophylaxis Open fracture of wrist (Acute) Never a smoker (Acute) Urinary incontinence BPH NOS w ur obs/LUTS Elevated prostate specific antigen (PSA) Medical History Arthritis ASCVD (arteriosclerotic cardiovascular disease) CAD (coronary artery disease) Diabetes GERD (gastroesophageal reflux disease) GERD (gastroesophageal reflux disease) History of falling HLD (hyperlipidemia) HTN (hypertension) 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 Hypothyroidism Ribs, multiple fractures hx-after 1 fall in 2019 Scapula fracture hx Seizure disorder last seizure in 1989 Urinary incontinence Surgical History History of esophagogastroduodenoscopy (EGD) History of surgical removal of ganglion cyst Hx of basal cell carcinoma excision years ago Hx of bilateral cataract extraction Hx of colonoscopy Hx of excision of Zenker's diverticulum S/P cholecystectomy (~09/2016) September 2016 S/P ORIF (open reduction internal fixation) fracture (12/05/18) Left wrist 12/05/18 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 Family History Father Diabetes Stroke Mother Hypertension Stroke Grandmother Cancer Colorectal cancer Sister Cancer Breast cancer Social History Smoking Status: Never smoker Second Hand Exposure: No; Do You Dip or Chew Tobacco: No; Hx Alcohol Use: No Hx Substance Use: No Preferred Language: Macedonian Communication Ability: Effective Visual Impairment: Limited Household Refrigeration Mechanic Required: No Beliefs That Will Affect Care: None marital status: Current Living Situation: Spouse Feels Safe at Home: Yes Assistive Devices: Walker Allergies Allergies Allergy/AdvReac Type Severity Reaction Status Date / Time No Known Allergies Allergy Verified 04/03/23 11:57 Home Meds Home Medications Medication Instructions Recorded Confirmed atorvastatin 20 mg tablet (Lipitor) 20 mg PO QAM #0 tabs 07/05/14 08/24/23 cholecalciferol (vitamin D3) 50 2,000 unit PO QAM ##0 07/05/14 08/24/23 mcg (2,000 unit) tablet levothyroxine 125 mcg tablet 125 mcg PO QAM ##0 07/13/16 08/24/23 (Synthroid) multivitamin 1 tab PO BID #0 tabs 07/13/16 08/24/23 docusate sodium 100 mg capsule 100 mg PO QAM 07/05/18 08/24/23 (Dulcolax Stool Softener (docusate)) pantoprazole 20 mg tablet,delayed 20 mg PO QAM 12/04/18 08/24/23 release risedronate 35 mg tablet 35 mg PO Q7D 05/27/21 08/24/23 sitagliptin phosphate 100 mg 100 mg PO HS 08/26/21 08/24/23 tablet (Januvia) coenzyme Q10 100 mg capsule (Co 100 mg PO QAM 06/16/22 08/24/23 Q-10) metformin 500 mg tablet,extended 500 mg PO BID 12/17/23 05/08/24 release 24 hr tavaborole 5 % topical solution 1 applic topical HS 04/03/23 08/24/23 with applicator Previous Rx's Medication Instructions Recorded dutasteride 0.5 mg capsule 0.5 mg PO DAILY #90 caps 11/03/22 divalproex 500 mg tablet,extended 500 mg PO BID 90 days #180 tabs 09/06/23 release 24 hr mirabegron 50 mg tablet,extended 50 mg PO DAILY #90 tabs 10/11/23 release 24 hr (Myrbetriq) tamsulosin 0.4 mg capsule (Flomax) 0.4 mg PO HS #90 caps 10/11/23 Results & Data (ED) Vital Signs Vital Signs - 24 hr 01/07/24 17:11 01/07/24 17:54 01/07/24 18:01 Temperature 37.7 C H Temperature Source Oral Pulse Rate 119 H 122 H Respiratory Rate 20 12 Respiratory Effort / Characteristics Non-Labored Spontaneous Respiratory Depth Normal Respiratory Pattern Regular Blood Pressure 148/107 H 168/112 H Blood Pressure Mean 120 117 Pulse Oximetry 94 Oxygen Delivery Method Room Air Sepsis Recent Fever Within 48 Hours Yes Sepsis New/Unexplained Change in Mental Status N/A Sepsis Action Taken by Nursing No Action Required 01/07/24 18:01 01/07/24 18:03 01/07/24 18:06 Temperature Temperature Source Pulse Rate 121 H 124 H Respiratory Rate 21 Respiratory Effort / Characteristics Respiratory Depth Respiratory Pattern Blood Pressure 168/112 H Blood Pressure Mean 117 Pulse Oximetry Oxygen Delivery Method Sepsis Recent Fever Within 48 Hours Sepsis New/Unexplained Change in Mental Status Sepsis Action Taken by Nursing 01/07/24 20:00 01/07/24 20:24 01/07/24 20:30 Temperature Temperature Source Pulse Rate 121 H 122 H 122 H Respiratory Rate 21 22 17 Respiratory Effort / Characteristics Respiratory Depth Respiratory Pattern Blood Pressure 146/111 H 161/95 H Blood Pressure Mean 122 119 Pulse Oximetry 96 Oxygen Delivery Method Room Air Sepsis Recent Fever Within 48 Hours Sepsis New/Unexplained Change in Mental Status Sepsis Action Taken by Nursing 01/07/24 20:36 01/07/24 20:48 01/07/24 21:00 Temperature Temperature Source Pulse Rate 119 H 124 H Respiratory Rate 17 18 Respiratory Effort / Characteristics Respiratory Depth Respiratory Pattern Blood Pressure 145/93 H Blood Pressure Mean 110 Pulse Oximetry Oxygen Delivery Method Sepsis Recent Fever Within 48 Hours Sepsis New/Unexplained Change in Mental Status Sepsis Action Taken by Nursing 01/07/24 21:09 Temperature Temperature Source Pulse Rate 121 H Respiratory Rate 24 Respiratory Effort / Characteristics Respiratory Depth Respiratory Pattern Blood Pressure Blood Pressure Mean Pulse Oximetry Oxygen Delivery Method Sepsis Recent Fever Within 48 Hours Sepsis New/Unexplained Change in Mental Status Sepsis Action Taken by Nursing Laboratory Data 01/07/24 17:20 01/07/24 17:20 Lab Results 01/07/24 01/07/24 Range/Units 17:20 18:27 WBC 5.82 (4.8-10.8) K/ul RBC 4.36 L (4.70-6.10) M/uL Hgb 13.7 L (14.0-18.0) g/dl Hct 41.5 L (42.0-52.0) % MCV 95.2 (80.0-100.0) fL MCH 31.4 (25.0-34.0) pg MCHC 33.0 (32.0-36.0) g/dL RDW Std Deviation 51.5 H (36.4-46.3) fL RDW Coeff of Noe 14.7 H (11.5-14.5) % Plt Count 138 (130-400) K/uL MPV 9.7 (9.4-12.4) fL Immature Gran % (Auto) 0.7 % Neut % (Auto) 79.1 % Lymph % (Auto) 8.1 % Whitley % (Auto) 10.8 % Eos % (Auto) 1.0 % Baso % (Auto) 0.3 % Neut # (Auto) 4.60 (1.40-6.50) K/uL Lymph # (Auto) 0.47 L (1.20-3.40) K/uL Whitley # (Auto) 0.63 H (0.11-0.59) K/uL Eos # (Auto) 0.06 (0.00-0.50) K/uL Baso # (Auto) 0.02 (0.00-0.20) K/uL Immature Gran # (Auto) 0.04 (0.01-0.20) K/uL Sodium 132 L (136-145) mmol/L Potassium 4.0 (3.5-5.1) mmol/L Chloride 97 L (98-107) mmol/L Carbon Dioxide 26 (21-32) mmol/L Anion Gap 9 (3-11) BUN 11 (6-23) mg/dl Creatinine 0.73 (0.6-1.4) mg/dl Est Cr Clr Drug Dosing 69.0 ml/min Est GFR ( Amer) 96.7 ml/min Est GFR (Non-Af Amer) 83.4 ml/min BUN/Creatinine Ratio 15.1 (10-20) Glucose 261 H (70-99(Fasting)) mg/dl Calcium 9.7 (8.6-10.3) mg/dl Total Bilirubin 0.5 (0.2-1.0) mg/dl AST 17 (13-39) U/L ALT 18 (7-52) U/L Alkaline Phosphatase 49 (34-104) U/L Troponin I High Sens 3.1 (0-20) pg/ml Total Protein 6.6 (6.0-8.3) gm/dl Albumin 4.3 (3.4-5.0) gm/dl Globulin 2.3 L (2.5-4.0) gm/dl Albumin/Globulin Ratio 1.9 (0.9-2) Urine Color Yellow Urine Appearance Clear (Clear) Urine pH 7.0 (4.5-7.5) Ur Specific [place] 1.028 (1.000-1.030) Urine Protein Negative (Negative) Urine Glucose (UA) 3+ H (Negative) Urine Ketones 2+ H (Negative) Urine Blood Negative (Negative) Urine Nitrite Negative (Negative) Urine Bilirubin Negative (Negative) Urine Urobilinogen Negative (Negative) Ur Leukocyte Esterase Negative (Negative) SARS-CoV-2 (PCR) POSITIVE A (Negative) Influenza Type A (PCR) Negative (Neg) Influenza Type B (PCR) Negative (Neg) RSV (RT-PCR) Negative (Neg) Administered Medications Discontinued Medications Sodium Chloride (Nss) 1,000 mls @ 999 mls/hr IV .[id number] ONE Stop: 01/07/24 19:18 Last Infusion: 01/07/24 19:42 Dose: Infused Documented By: Admin: 01/07/24 18:26 Dose: 999 mls/hr Documented By: HUMBLE Imaging Data Radiologist's Impression: Chest X-Ray 01/07/24 17:39 XR chest 1V not portable HISTORY: 88 years-old Male cough acute cough COMPARISON: 04/03/2023 TECHNIQUE: AP view of the chest FINDINGS: Cardiomediastinal and hilar silhouettes are within normal limits. Atherosclerosis of the aorta. No pneumothorax, pleural effusion or pulmonary edema. Spondylitic spurring of the spine. IMPRESSION: No acute process. ACT 112: Negative or not required by law. The above report was generated using voice recognition software. It may contain grammatical, syntax or spelling errors. Electronically signed by: Jerardo Barlow M.D. 01/07/2024 6:57 PM Discharge Plan Visit Data Chief Complaint: Illness Stated Complaint: COVID+ ED Provider: Jose Denise Discharge Problem: COVID-19, Atrial tachycardia, Weakness, Acute hyponatremia Forms Stand Alone Forms: [facility] Prescriptions Prescriptions: No Action docusate sodium [Dulcolax Stool Softener (dss)] 100 mg capsule 100 mg PO QAM atorvastatin [Lipitor] 20 mg Tablet 20 mg PO QAM Qty: 0 cholecalciferol (vitamin D3) 2,000 unit Tablet 2,000 unit PO QAM Qty: 0 multivitamin Tablet 1 tab PO BID Qty: 0 levothyroxine [Synthroid] 125 mcg Tablet 125 mcg PO QAM Qty: 0 dutasteride 0.5 mg capsule 0.5 mg PO DAILY Qty: 90 3RF divalproex 500 mg tablet extended release 24 hr 500 mg PO BID 90 Days Qty: 180 3RF Myrbetriq 50 mg tablet extended release 24 hr 50 mg PO DAILY Qty: 90 3RF tamsulosin [Flomax] 0.4 mg capsule 0.4 mg PO HS Qty: 90 4RF risedronate 35 mg tablet 35 mg PO Q7D Rx Instructions: Tuesday Januvia 100 mg tablet 100 mg PO HS pantoprazole 20 mg tablet,delayed release (DR/EC) 20 mg PO QAM coenzyme Q10 [Co Q-10] 100 mg Capsule 100 mg PO QAM metformin 500 mg tablet extended release 24 hr 500 mg PO BID tavaborole 5 % solution with applicator 1 applic TOPICAL HS Referrals Referrals: Balaji Jenkins [Primary Care Provider] -
[2024-01-07] MEDS: SODIUM CHLORIDE 0.9% 1,000 ML IV ONE (18:26)
--- NOTE | 2024-01-07 18:58 | XRay Report ---
XR chest 1V not portable HISTORY: 88 years-old Male cough acute cough COMPARISON: 04/03/2023 TECHNIQUE: AP view of the chest FINDINGS: Cardiomediastinal and hilar silhouettes are within normal limits. Atherosclerosis of the aorta. No pn eumothorax, pleural effusion or pulmonary edema. Spondylitic spurring of the spine. IMPRESSION: No acute process. ACT 112: Negative or not required by law. The above report was generated using voice recognition software. It may contain grammatical, syntax o r spelling errors. Electronically signed by: Jerardo Barlow M.D. 01/07/2024 6:57 PM
[2024-01-07 19:04] LABS: Influenza A virus by PCR Negative (Neg); Influenza B virus by PCR Negative (Neg); RSV by PCR Negative (Neg); SARS CoV2 RNA(COVID-19) Ceph POSITIVE (Negative)
[2024-01-07 19:24] LABS: Appearance Urine Clear (Clear); Bilirubin Urine Negative (Negative); Blood Urine Negative (Negative); Color Urine Yellow; Glucose Urine UA 3+ (Negative); Ketones Urine 2+ (Negative); Leukocyte Esterase Urine Negative (Negative); Nitrite Urine Negative (Negative); Protein Urine Negative (Negative); Specific Gravity Urine 1.028 (1.000-1.030); Urobilinogen Urine Negative (Negative)
[2024-01-07 19:58] LABS: Troponin I High Sensitivity 3.1 pg/ml (0-20)
--- NOTE | 2024-01-07 21:35 | History & Physical Report ---
Date of Service January 07, 2024 Assessment & Plan (1) COVID-19: (2) Ambulatory dysfunction: (3) Generalized weakness: (4) Acute hyponatremia: (5) GERD (gastroesophageal reflux disease): (6) Type 2 diabetes mellitus: (7) Seizure disorder: (8) BPH NOS w ur obs/LUTS: Plan COVID-19 infection- Primary cause of generalized weakness and ambulatory dysfunction Patient remained with normal oxygenation, with pulse ox 94-96% on room air, but does have a mild nonproductive cough Will place on dexamethasone 6 mg IV now and every morning COVID precautions He was negative for flu and RSV Status post normal saline 1 L bolus from the ED Placed on LR at 125 mL/h x 1 L Patient has some underlying deconditioning, aggravated by this infection, may ultimately need PT OT assessment Seizure disorder- Continue divalproex Diabetes mellitus- Hold sitagliptin and metformin Placed on Accu-Cheks with NovoLog SSI Follow closely for worsening while on dexamethasone Hypothyroidism- Continue levothyroxine Check a TSH level BPH with LUTS- Continue mirabegron, dutasteride and tamsulosin UA is negative History of Present Illness Chief Complaint: The patient presents to the emergency department with complaint of feeling generally weak, and having difficulty walking due to severe fatigue. Primary Care Provider: Balaji Jenkins The patient is a 88-year-old male with a past medical history including BPH with LUTS causing incomplete bladder emptying, seizure disorder, GERD, hypothyroidism, pleomorphic cell sarcoma, hyperlipidemia, diabetes mellitus type 2, and history of falls. He began to feel generally weak and difficulty with walking, with a dry cough yesterday. His had recently tested positive for COVID, and he tested positive in the ED this evening. He denies any shortness of breath, or dyspnea on exertion. Allergies Allergy/AdvReac Type Severity Reaction Status Date / Time No Known Allergies Allergy Verified 01/07/24 22:37 Home Medications Medication Instructions Recorded Confirmed Type atorvastatin 20 mg tablet (Lipitor) 20 mg PO QAM #0 tabs 07/05/14 01/07/24 History cholecalciferol (vitamin D3) 50 2,000 unit PO QAM ##0 07/05/14 01/07/24 History mcg (2,000 unit) tablet levothyroxine 125 mcg tablet 125 mcg PO QAM ##0 07/13/16 01/07/24 History (Synthroid) multivitamin 1 tab PO BID #0 tabs 07/13/16 01/07/24 History docusate sodium 100 mg capsule 100 mg PO QAM 07/05/18 01/07/24 History (Dulcolax Stool Softener (docusate)) pantoprazole 20 mg tablet,delayed 20 mg PO QAM 12/04/18 01/07/24 History release risedronate 35 mg tablet 35 mg PO Q7D 05/27/21 01/07/24 History sitagliptin phosphate 100 mg 100 mg PO HS 08/26/21 01/07/24 History tablet (Januvia) coenzyme Q10 100 mg capsule (Co 100 mg PO QAM 06/16/22 01/07/24 History Q-10) dutasteride 0.5 mg capsule 0.5 mg PO DAILY #90 caps 11/03/22 01/07/24 Rx metformin 500 mg tablet,extended 500 mg PO BID 04/03/23 01/07/24 History release 24 hr tavaborole 5 % topical solution 1 applic topical HS 04/03/23 01/07/24 History with applicator divalproex 500 mg tablet,extended 500 mg PO BID 90 days #180 tabs 09/06/23 01/07/24 Rx release 24 hr mirabegron 50 mg tablet,extended 50 mg PO DAILY #90 tabs 10/11/23 01/07/24 Rx release 24 hr (Myrbetriq) tamsulosin 0.4 mg capsule (Flomax) 0.4 mg PO HS #90 caps 10/11/23 01/07/24 Rx Past Med/Surg History Problem List (Updated 01/07/24 @ 21:45 by Jose Denise DO) Acute hyponatremia (Acute) Weakness (Acute) Atrial tachycardia (Acute) COVID-19 (Acute) Hypomagnesemia (Acute) COVID-19 (Acute) Ambulatory dysfunction (Acute) Generalized weakness (Acute) Tremor Incomplete emptying of bladder Encounter for pre-operative examination Seizure (Chronic) GERD (gastroesophageal reflux disease) (Acute) Hypothyroid (Chronic) Abdominal pain (Acute) Acute cholecystitis (Acute) 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) "Development of a skin lesion on the vertex of the scalp Tangential biopsy 08/25/2015 malignant spindle cell neoplasm, consistent with atypical fibroxanthoma Wide excision 09/05/2015 scar and residual spindle cell neoplasm Recurrent malignant spindle cell neoplasm, consistent with pleomorphic dermal sarcoma 04/27/2016 Wide local excision of pleomorphic cell sarcoma of the scalp with 2 centimeter margins, defect 7 x 12 cm, placement of graft 06/11/2016 Status post completion of radiation therapy 09/15/2016 he received 6000 cGy" On 07/13/16 13:14 Chantel Cassidy wrote "Development of a skin lesion on the vertex of the scalp Tangential biopsy 08/25/2015 malignant spindle cell neoplasm, consistent with atypical fibroxanthoma Wide excision 09/05/2015 scar and residual spindle cell neoplasm Recurrent malignant spindle cell neoplasm, consistent with pleomorphic dermal sarcoma 04/27/2016 Wide local excision of pleomorphic cell sarcoma of the scalp with 2 centimete r margins, defect 7 x 12 cm, placement of graft 06/11/2016" On 07/13/16 13:10 Chantel Cassidy wrote "Development of a skin lesion on the vertex of the scalp Tangential biopsy 08/25/2015 malignant spindle cell neoplasm, consistent with atypical fibroxanthoma Wide excision 09/05/2015 scar and residual spindle cell neoplasm Recurrent malignant spindle cell neoplasm, consistent with pleomorphic dermal sarcoma 04/27/2016 Wide local excision of pleomorphic cell sarcoma of the scalp with 2 separate meter margins, effect 7 x 12 cm, placement of graft 06/11/2016" Choledocholithiasis Pancreatitis Transaminitis (Acute) Open fracture of left distal radius (Acute) Falls Thoracic spine fracture (Acute) Left rib fracture (Acute) Left scapula fracture (Acute) Hyperlipidemia (Chronic) Type 2 diabetes mellitus (Chronic) Seizure disorder DVT prophylaxis Open fracture of wrist (Acute) Never a smoker (Acute) Urinary incontinence BPH NOS w ur obs/LUTS Elevated prostate specific antigen (PSA) Medical History Arthritis ASCVD (arteriosclerotic cardiovascular disease) CAD (coronary artery disease) Diabetes GERD (gastroesophageal reflux disease) GERD (gastroesophageal reflux disease) History of falling HLD (hyperlipidemia) HTN (hypertension) 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 Hypothyroidism Ribs, multiple fractures hx-after 1 fall in 2019 Scapula fracture hx Seizure disorder last seizure in 1989 Urinary incontinence Surgical History History of esophagogastroduodenoscopy (EGD) History of surgical removal of ganglion cyst Hx of basal cell carcinoma excision years ago Hx of bilateral cataract extraction Hx of colonoscopy Hx of excision of Zenker's diverticulum S/P cholecystectomy (~09/2016) September 2016 S/P ORIF (open reduction internal fixation) fracture (12/05/18) Left wrist 12/05/18 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 Family History Father Diabetes Stroke Mother Hypertension Stroke Grandmother Cancer Colorectal cancer Sister Cancer Breast cancer Social History Smoking Status: Never smoker Second Hand Exposure: No; Do You Dip or Chew Tobacco: No; Hx Alcohol Use: Yes Alcohol type: beer Hx Substance Use: No Preferred Language: Estonian Communication Ability: Effective Visual Impairment: Limited Global Compensation Manager Required: No Beliefs That Will Affect Care: None marital status: Current Living Situation: Spouse Current Living Situation Comment: Living facility Feels Safe at Home: Yes Safety Concerns: Feels Safe At This Time Assistive Devices: Glasses and Walker Review of Systems Review of Systems: The patient denies chest pain, palpitations, shortness of breath, dyspnea on exertion, lower extremity swelling, sore throat, fevers, chills, sweats, nausea, vomiting, diarrhea , constipation, abdominal pain, pelvic pain, blood in urine or stool, dysuria, urinary frequency or urgency, lightheadedness, dizziness, headache, loss of consciousness, rash, abnormal bruising or bleeding, focal weakness, numbness or tingling in arms or legs, generalized arthralgias or myalgias, back or neck pain, or night sweats. The review of systems is otherwise negative other than for that already noted above, and at least 10 systems have been reviewed. Physical Exam Physical Exam: The patient is awake, alert and oriented 3, normocephalic and atraumatic, lying in bed and in no acute distress. HEENT--PERRL, EOMI, mucous membranes and oropharynx mildly dry. Neck--supple. No JVD. No bruits. Thyroid normal, trachea midline, no adenopathy. Heart--normal S1 and S2. No murmurs, rubs or gallops. Lungs--clear bilaterally, no respiratory distress, no accessory muscle use. Abdomen--normal bowel sounds and soft. Nontender. Nondistended, no hernias or masses, no organomegaly. Extremities-- No edema. Dermatologic--skin is mildly dry Neurologic--cranial nerves II through XII grossly intact. Rheumatologic--normal range of motion. Psychiatric--normal affect. Results & Data Results & Data Vital Signs (Past 12 Hours) Vital Signs Temp Pulse Resp BP Pulse Ox O2 Del Method 01/07/24 21:09 121 H 24 01/07/24 21:00 145/93 H 01/07/24 20:48 124 H 18 01/07/24 20:36 119 H 17 01/07/24 20:30 122 H 17 161/95 H 01/07/24 20:24 122 H 22 01/07/24 20:00 121 H 21 146/111 H 96 Room Air 01/07/24 18:06 124 H 21 01/07/24 18:03 121 H 01/07/24 18:01 168/112 H 01/07/24 18:01 168/112 H 01/07/24 17:54 122 H 12 01/07/24 17:11 37.7 C H 119 H 20 148/107 H 94 Room Air Laboratory Results Laboratory Results WBC 5.82 K/ul (4.8-10.8) 01/07/24 17:20 RBC 4.36 M/uL (4.70-6.10) L 01/07/24 17:20 Hgb 13.7 g/dl (14.0-18.0) L 01/07/24 17:20 Hct 41.5 % (42.0-52.0) L 01/07/24 17:20 MCV 95.2 fL (80.0-100.0) 01/07/24 17:20 MCH 31.4 pg (25.0-34.0) 01/07/24 17:20 MCHC 33.0 g/dL (32.0-36.0) 01/07/24 17:20 RDW Std Deviation 51.5 fL (36.4-46.3) H 01/07/24 17:20 RDW Coeff of Noe 14.7 % (11.5-14.5) H 01/07/24 17:20 Plt Count 138 K/uL (130-400) 01/07/24 17:20 MPV 9.7 fL (9.4-12.4) 01/07/24 17:20 Immature Gran % (Auto) 0.7 % 01/07/24 17:20 Neut % (Auto) 79.1 % 01/07/24 17:20 Lymph % (Auto) 8.1 % 01/07/24 17:20 [place] % (Auto) 10.8 % 01/07/24 17:20 Eos % (Auto) 1.0 % 01/07/24 17:20 Baso % (Auto) 0.3 % 01/07/24 17:20 Neut # (Auto) 4.60 K/uL (1.40-6.50) 01/07/24 17:20 Lymph # (Auto) 0.47 K/uL (1.20-3.40) L 01/07/24 17:20 [place] # (Auto) 0.63 K/uL (0.11-0.59) H 01/07/24 17:20 Eos # (Auto) 0.06 K/uL (0.00-0.50) 01/07/24 17:20 Baso # (Auto) 0.02 K/uL (0.00-0.20) 01/07/24 17:20 Immature Gran # (Auto) 0.04 K/uL (0.01-0.20) 01/07/24 17:20 Sodium 132 mmol/L (136-145) L 01/07/24 17:20 Potassium 4.0 mmol/L (3.5-5.1) 01/07/24 17:20 Chloride 97 mmol/L (98-107) L 01/07/24 17:20 Carbon Dioxide 26 mmol/L (21-32) 01/07/24 17:20 Anion Gap 9 (3-11) 01/07/24 17:20 BUN 11 mg/dl (6-23) 01/07/24 17:20 Creatinine 0.73 mg/dl (0.6-1.4) 01/07/24 17:20 Est Cr Clr Drug Dosing 69.0 ml/min 01/07/24 17:20 Est GFR ( Amer) 96.7 ml/min 01/07/24 17:20 Est GFR (Non-Af Amer) 83.4 ml/min 01/07/24 17:20 BUN/Creatinine Ratio 15.1 (10-20) 01/07/24 17:20 Glucose 261 mg/dl (70-99(Fasting)) H 01/07/24 17:20 Calcium 9.7 mg/dl (8.6-10.3) 01/07/24 17:20 Total Bilirubin 0.5 mg/dl (0.2-1.0) 01/07/24 17:20 AST 17 U/L (13-39) 01/07/24 17:20 ALT 18 U/L (7-52) 01/07/24 17:20 Alkaline Phosphatase 49 U/L (34-104) 01/07/24 17:20 Troponin I High Sens 3.1 pg/ml (0-20) 01/07/24 17:20 Total Protein 6.6 gm/dl (6.0-8.3) 01/07/24 17:20 Albumin 4.3 gm/dl (3.4-5.0) 01/07/24 17:20 Globulin 2.3 gm/dl (2.5-4.0) L 01/07/24 17:20 Albumin/Globulin Ratio 1.9 (0.9-2) 01/07/24 17:20 Urine Color Yellow 01/07/24 18:27 Urine Appearance Clear (Clear) 01/07/24 18:27 Urine pH 7.0 (4.5-7.5) 01/07/24 18:27 Ur Specific [place] 1.028 (1.000-1.030) 01/07/24 18:27 Urine Protein Negative (Negative) 01/07/24 18:27 Urine Glucose (UA) 3+ (Negative) H 01/07/24 18: Urine Ketones 2+ (Negative) H 01/07/24 18:27 Urine Blood Negative (Negative) 01/07/24 18: Urine Nitrite Negative (Negative) 01/07/24 18: Urine Bilirubin Negative (Negative) 01/07/24 18: Urine Urobilinogen Negative (Negative) 01/07/24 18:27 Ur Leukocyte Esterase Negative (Negative) 01/07/24 18:27 SARS-CoV-2 (PCR) POSITIVE (Negative) A 01/07/24 17:20 Influenza Type A (PCR) Negative (Neg) 01/07/24 17:20 Influenza Type B (PCR) Negative (Neg) 01/07/24 17:20 RSV (RT-PCR) Negative (Neg) 01/07/24 17:20 Impressions Chest X-Ray 01/07/24 17:39 XR chest 1V not portable HISTORY: 88 years-old Male cough acute cough COMPARISON: 04/03/2023 TECHNIQUE: AP view of the chest FINDINGS: Cardiomediastinal and hilar silhouettes are within normal limits. Atherosclerosis of the aorta. No pneumothorax, pleural effusion or pulmonary edema. Spondylitic spurring of the spine. IMPRESSION: No acute process. ACT 112: Negative or not required by law. The above report was generated using voice recognition software. It may contain grammatical, syntax or spelling errors. Electronically signed by: Jerardo Barlow M.D. 01/07/2024 6:57 PM Code Status & VTE Plan Code Status Full code VTE Prophylaxis Plan VTE Prophylaxis will be ordered: Yes PG Care Time/CCT Total # of Minutes Spent Total Time Spent with Patient: Total time spent is greater than 50% in coordination of care (as documented) at patient's floor/unit and/or counseling patient: Coding Level of Care Code 30540 INT INP/OBS CARE 3/75MIN Diagnoses COVID-19 U07.1 Ambulatory dysfunction R26.2 Generalized weakness R53.1 Acute hyponatremia E87.1 GERD (gastroesophageal reflux disease) K21.9 Type 2 diabetes mellitus E11.9 Seizure disorder G40.909 BPH NOS w ur obs/LUTS N40.1
[2024-01-07] MEDS: DEXAMETHASONE SOD INJ 4 MG/ML VIAL IV STA (22:28)
[2024-01-07] MEDS: LACTATED RINGER'S 1,000 ML IV STA (22:31)
[2024-01-07] MEDS ORDERED: GLUCOSE 10 TAB/TUBE PO PRN (23:56)
[2024-01-07] MEDS ORDERED: GLUCOSE 40% GEL 15 GM TUBE PO PRN (23:56)
[2024-01-07] MEDS ORDERED: GLUCAGON FOR INJ 1 MG VIAL SQ PRN (23:56)
[2024-01-07] MEDS ORDERED: CARBOHYDRATES FOR HYPOGLYCEMIA PO PRN (23:56)
[2024-01-07] MEDS ORDERED: ONDANSETRON INJ 2 MG/ML 2 ML VIAL IV PRN (23:56)
[2024-01-07] MEDS ORDERED: DEXTROSE 50% 50 ML SYRINGE IV PRN (23:56)
[2024-01-08] MEDS: DIVALPROEX EXTENDED RELEASE 500 MG TAB PO SCH (00:21)
--- NOTE | 2024-01-08 04:47 | Billing Data ---
Date of Service January 08, 2024 Coding Level of Care Code 06745 INT INP/OBS CARE
[2024-01-08 05:24] LABS: Basophils # (auto) 0.01 K/uL (0.00-0.20); Basophils % (auto) 0.2 %; Hematocrit (blood only) 35.4 % (42.0-52.0); Immature Granulocytes # (auto) 0.03 K/uL (0.01-0.20); Immature Granulocytes % (auto) 0.6 %; Lymphocytes # (auto) 0.65 K/uL (1.20-3.40); Lymphocytes % (auto) 12.4 %; Mean Corpuscular Hemoglobin 32.1 pg (25.0-34.0); Mean Corpuscular Hgb Conc 33.9 g/dL (32.0-36.0); Mean Corpuscular Volume 94.7 fL (80.0-100.0); Mean Platelet Volume 9.7 fL (9.4-12.4); Monocytes # (auto) 0.36 K/uL (0.11-0.59); Monocytes % (auto) 6.8 %; Neutrophils # (auto) 4.21 K/uL (1.40-6.50); Platelet Count 138 K/uL (130-400); RDW Coefficient of Variation 14.8 % (11.5-14.5); RDW Standard Deviation 52.1 fL (36.4-46.3); Red Blood Count 3.74 M/uL (4.70-6.10); White Blood Count 5.26 K/ul (4.8-10.8)
[2024-01-08 05:37] LABS: Albumin Level 3.5 gm/dl (3.4-5.0); Calcium 8.6 mg/dl (8.6-10.3); Creatinine Clr Calc Pharmacy 82.5 ml/min; Est GFR (African American) 104.1 ml/min; Est GFR (Non-African American) 89.8 ml/min; Magnesium 1.4 mg/dl (1.7-2.4); Phosphorus 3.5 mg/dl (2.5-4.9); Potassium 4.1 mmol/L (3.5-5.1)
[2024-01-08 05:51] LABS: Thyroid Stimulating Hormone 0.267 uIu/ml (0.300-4.500)
[2024-01-08 06:26] LABS: T4 Free Thyroxine 1.19 ng/dl (0.61-1.60)
[2024-01-08] MEDS: LEVOTHYROXINE SODIUM 125 MCG TABLET PO SCH (06:42)
[2024-01-08 07:19] LABS: Estimated Average Glucose 197 mg/dl; Hemoglobin A1C 8.5 % (4.5-5.6)
[2024-01-08] MEDS ORDERED: NON-FORMULARY MEDICATION (Coenzyme Q10 [Co Q-10] 100 mg Capsule) PO SCH (09:00)
[2024-01-08] MEDS: MAGNESIUM OXIDE 400 MG TAB PO SCH (09:13)
[2024-01-08] MEDS: CHOLECALCIFEROL 25 MCG (1000 UNITS) TAB PO SCH (09:13)
[2024-01-08] MEDS: ATORVASTATIN 20 MG TAB PO SCH (09:13)
[2024-01-08] MEDS: VIBEGRON 75 MG TAB PO SCH (09:14)
[2024-01-08] MEDS: ENOXAPARIN INJ 40 MG/0.4 ML SYR SQ SCH (09:14)
[2024-01-08] MEDS: FINASTERIDE 5 MG TAB PO SCH (09:14)
[2024-01-08] MEDS: MAGNESIUM SULFATE / D5W 1 GM/100 ML BAG IV ONE ×2 (09:17→21:42)
[2024-01-08] MEDS: dexAMETHasone 6 MG in SYRINGE 0 ML IV SCH (09:18)
--- NOTE | 2024-01-08 10:18 | Hospitalist Progress Note ---
Date of Service January 08, 2024 Assessment & Plan (1) COVID-19: (2) Ambulatory dysfunction: (3) Generalized weakness: (4) Acute hyponatremia: (5) GERD (gastroesophageal reflux disease): (6) Type 2 diabetes mellitus: (7) Seizure disorder: (8) BPH NOS w ur obs/LUTS: Plan 88-year-old male with past medical history of pleomorphic cell carcinoma, type 2 diabetes mellitus, seizure disorder, BPH, hypothyroidism who presented to the emergency room with history of fever, dry cough and generalized weakness with difficulty walking. His has tested positive for COVID. #COVID-19 infection #Generalized weakness with fatigue Patient with risk factors of cancer and type 2 diabetes mellitus Chest x-ray did not show any consolidation Overnight he was hypoxic and requiring oxygen Continue IV dexamethasone (day 2) Discussed remdesivir with patient including risks, benefits and side effects: Patient is agreeable to trying remdesivir Start IV remdesivir (day 1/5) Continue oxygen via nasal cannula to keep saturations greater than 92% COVID-19 isolation precautions PT/OT #Hyponatremia Likely related to poor oral intake from COVID-19 infection Status post IV fluids with improvement Nutrition consult for supplements Monitor sodium levels #Hypomagnesemia IV and oral magnesium replacement Monitor levels #Seizure disorder Continue Depakote #Type 2 diabetes mellitus A1c is 8.5 Hold oral hypoglycemics Start Lantus 10 units subcutaneous daily Accu-Cheks before every meal and nightly with sliding scale insulin coverage Monitor glycemic control especially since patient is on IV dexamethasone #BPH UA is negative Continue Flomax, finasteride and Vibegron #Hypothyroidism TSH is 0.267 Free T4 is 1.19 TSH appears slightly over suppressed but checked in setting of acute illness Continue levothyroxine 125 mcg daily Repeat TFTs in 4 to 6 weeks time as outpatient with follow-up with PCP CODE STATUS: Full code DVT prophylaxis: Lovenox 40 mg subcutaneous daily Await PT/OT recommendations for discharge planning. Care plan discussed with patient, nursing staff Admission and Anticipated Discharge Date Admission Date: January 07, 2024 Subjective Patient seen and examined H&P reviewed Labs reviewed Patient states he feels much better after eating breakfast Denies any chest pain or shortness of breath. Has a dry cough Patient states symptoms started a few days ago with fever and cough, also has COVID and she tested him for COVID which was weakly positive Patient denies any nausea, vomiting, diarrhea, Agus pain Patient states he ambulates with a walker at home He lives with his Review of Systems Review of Systems: As per HPI Physical Exam Physical Exam: General: No acute distress Psych: Awake and alert, oriented to place and person HEENT: Anicteric sclera, moist oral mucosa CVS: Regular rate and rhythm Lungs: Bilateral air entry, no wheezing noted Abdomen: Soft, nontender, no rebound, no guarding Ext: No lower extremity edema, no calf tenderness Neuro: No focal motor deficits noted Results & Data Results & Data Vital Signs (Past 12 Hours) Vital Signs Temp Pulse Pulse Resp BP BP Pulse Ox 01/08/24 09:12 88 20 125/78 95 01/08/24 05:36 87 18 124/74 95 01/08/24 03:48 90 18 115/56 L 95 01/08/24 03:00 91 H 18 110/65 01/08/24 01:30 106 H 18 125/81 94 01/08/24 01:01 110 H 20 145/95 H 93 01/08/24 00:34 01/08/24 00:34 36.9 C 115 H 24 142/99 H 96 01/08/24 00:30 114 H 18 140/103 H 94 01/07/24 23:30 115 H 18 142/94 H 96 01/07/24 23:00 119 H 22 143/89 H 93 O2 Del Method O2 Flow Rate 01/08/24 09:12 Nasal Cannula 2 01/08/24 05:36 01/08/24 03:48 01/08/24 03:00 01/08/24 01:30 01/08/24 01:01 01/08/24 00:34 Room Air 01/08/24 00:34 Room Air 01/08/24 00:30 01/07/24 23:30 01/07/24 23:00 Laboratory Results Laboratory Results - last 24 hr 01/07/24 01/07/24 01/08/24 17:20 18:27 04:59 WBC 5.82 5.26 RBC 4.36 L 3.74 L Hgb 13.7 L 12.0 L Hct 41.5 L 35.4 L MCV 95.2 94.7 MCH 31.4 32.1 MCHC 33.0 33.9 RDW Std Deviation 51.5 H 52.1 H RDW Coeff of Noe 14.7 H 14.8 H Plt Count 138 138 MPV 9.7 9.7 Immature Gran % (Auto) 0.7 0.6 Neut % (Auto) 79.1 80.0 Lymph % (Auto) 8.1 12.4 [place] % (Auto) 10.8 6.8 Eos % (Auto) 1.0 0.0 Baso % (Auto) 0.3 0.2 Neut # (Auto) 4.60 4.21 Lymph # (Auto) 0.47 L 0.65 L [place] # (Auto) 0.63 H 0.36 Eos # (Auto) 0.06 0.00 Baso # (Auto) 0.02 0.01 Immature Gran # (Auto) 0.04 0.03 Sodium 132 L 132 L Potassium 4.0 4.1 Chloride 97 L 100 Carbon Dioxide 26 24 Anion Gap 9 8 BUN 11 11 Creatinine 0.73 0.61 Est Cr Clr Drug Dosing 69.0 82.5 Est GFR ( Amer) 96.7 104.1 Est GFR (Non-Af Amer) 83.4 89.8 BUN/Creatinine Ratio 15.1 18.0 Glucose 261 H 244 H POC Glucose Estimat Average Glucose 197 Hemoglobin A1c 8.5 H Calcium 9.7 8.6 Phosphorus 3.5 Magnesium 1.4 L Total Bilirubin 0.5 AST 17 ALT 18 Alkaline Phosphatase 49 Troponin I High Sens 3.1 Total Protein 6.6 Albumin 4.3 3.5 Globulin 2.3 L Albumin/Globulin Ratio 1.9 TSH 0.267 L Free T4 1.19 Urine Color Yellow Urine Appearance Clear Urine pH 7.0 Ur Specific [place] 1.028 Urine Protein Negative Urine Glucose (UA) 3+ H Urine Ketones 2+ H Urine Blood Negative Urine Nitrite Negative Urine Bilirubin Negative Urine Urobilinogen Negative Ur Leukocyte Esterase Negative SARS-CoV-2 (PCR) POSITIVE A Influenza Type A (PCR) Negative Influenza Type B (PCR) Negative RSV (RT-PCR) Negative 01/08/24 08:41 WBC RBC Hgb Hct MCV MCH MCHC RDW Std Deviation RDW Coeff of Noe Plt Count MPV Immature Gran % (Auto) Neut % (Auto) Lymph % (Auto) [place] % (Auto) Eos % (Auto) Baso % (Auto) Neut # (Auto) Lymph # (Auto) [place] # (Auto) Eos # (Auto) Baso # (Auto) Immature Gran # (Auto) Sodium Potassium Chloride Carbon Dioxide Anion Gap BUN Creatinine Est Cr Clr Drug Dosing Est GFR ( Amer) Est GFR (Non-Af Amer) BUN/Creatinine Ratio Glucose POC Glucose 217 H Estimat Average Glucose Hemoglobin A1c Calcium Phosphorus Magnesium Total Bilirubin AST ALT Alkaline Phosphatase Troponin I High Sens Total Protein Albumin Globulin Albumin/Globulin Ratio TSH Free T4 Urine Color Urine Appearance Urine pH Ur Specific [place] Urine Protein Urine Glucose (UA) Urine Ketones Urine Blood Urine Nitrite Urine Bilirubin Urine Urobilinogen Ur Leukocyte Esterase SARS-CoV-2 (PCR) Influenza Type A (PCR) Influenza Type B (PCR) RSV (RT-PCR) Diagnostic Findings Chest X-Ray 01/07/24 17:39 XR chest 1V not portable HISTORY: 88 years-old Male cough acute cough COMPARISON: 04/03/2023 TECHNIQUE: AP view of the chest FINDINGS: Cardiomediastinal and hilar silhouettes are within normal limits. Atherosclerosis of the aorta. No pneumothorax, pleural effusion or pulmonary edema. Spondylitic spurring of the spine. IMPRESSION: No acute process. ACT 112: Negative or not required by law. The above report was generated using voice recognition software. It may contain grammatical, syntax or spelling errors. Electronically signed by: Jerardo Barlow M.D. 01/07/2024 6:57 PM PG Care Time/CCT Total # of Minutes Spent Total Time Spent with Patient: Total time spent is greater than 50% in coordination of care (as documented) at patient's floor/unit and/or counseling patient: Coding Level of Care Code 95921 SUB INP/OBS CARE 3/50MIN Diagnoses COVID-19 U07.1 Ambulatory dysfunction R26.2 Generalized weakness R53.1 Acute hyponatremia E87.1 GERD (gastroesophageal reflux disease) K21.9 Type 2 diabetes mellitus E11.9 Seizure disorder G40.909 BPH NOS w ur obs/LUTS N40.1
[2024-01-08] MEDS: INSULIN ASPART PER UNIT CHARGE SC SCH (10:23)
[2024-01-08] MEDS: PANTOprazole 40 MG TAB PO SCH (10:23)
[2024-01-08] MEDS: REMDESIVIR 200 MG in SODIUM CHLORIDE 0.9% 210 ML IV STA (11:48)
--- NOTE | 2024-01-08 12:20 | Electrocardiogram Report ---
Test Reason : Blood Pressure : */* mmHG Vent. Rate : 121 BPM Atrial Rate : 121 BPM P-R Int : 188 ms QRS Dur : 76 ms QT Int : 406 ms P-R-T Axes : 65 -24 67 degrees QTcB Int : 576 ms Sinus tachycardia Otherwise normal ECG When compared with ECG of 03-Apr-2023 09:11, No significant change was found Confirmed by Link Lovelace ([id number]) on 01/08/2024 12:19:51 PM Referred By: REFERRED SELF Confirmed By: Link Lovelace
[2024-01-08] MEDS: LANTUS PER UNIT CHARGE SQ SCH (14:37)
[2024-01-08] MEDS: TAMSULOSIN HCL 0.4 MG CAP PO SCH (21:40)
[2024-01-09 07:04] LABS: Basophils # (auto) 0.01 K/uL (0.00-0.20); Basophils % (auto) 0.2 %; Eosinophils # (auto) 0.04 K/uL (0.00-0.50); Eosinophils % (auto) 0.8 %; Hematocrit (blood only) 38.1 % (42.0-52.0); Hemoglobin 12.9 g/dl (14.0-18.0); Immature Granulocytes # (auto) 0.02 K/uL (0.01-0.20); Immature Granulocytes % (auto) 0.4 %; Lymphocytes # (auto) 1.66 K/uL (1.20-3.40); Lymphocytes % (auto) 33.8 %; Mean Corpuscular Hemoglobin 31.6 pg (25.0-34.0); Mean Corpuscular Hgb Conc 33.9 g/dL (32.0-36.0); Mean Corpuscular Volume 93.4 fL (80.0-100.0); Monocytes # (auto) 0.74 K/uL (0.11-0.59); Monocytes % (auto) 15.1 %; Neutrophils # (auto) 2.44 K/uL (1.40-6.50); Neutrophils % (auto) 49.7 %; Platelet Count 144 K/uL (130-400); RDW Coefficient of Variation 14.6 % (11.5-14.5); RDW Standard Deviation 50.1 fL (36.4-46.3); Red Blood Count 4.08 M/uL (4.70-6.10); White Blood Count 4.91 K/ul (4.8-10.8)
[2024-01-09 07:22] LABS: Albumin Globulin Ratio 1.6 (0.9-2); Albumin Level 3.6 gm/dl (3.4-5.0); BUN Creatinine Ratio 20.9 (10-20); Bilirubin,Total 0.4 mg/dl (0.2-1.0); Calcium 8.6 mg/dl (8.6-10.3); Creatinine Clr Calc Pharmacy 75.1 ml/min; Est GFR (African American) 100.1 ml/min; Est GFR (Non-African American) 86.4 ml/min; Globulin 2.3 gm/dl (2.5-4.0); Magnesium 2.1 mg/dl (1.7-2.4); Potassium 3.7 mmol/L (3.5-5.1); Total Protein 5.9 gm/dl (6.0-8.3)
[2024-01-09] MEDS: metFORMIN HCL 500 MG TAB PO SCH (09:10)
[2024-01-09] MEDS ORDERED: REMDESIVIR 100 MG in SODIUM CHLORIDE 0.9% 230 ML IV SCH (12:00)
--- NOTE | 2024-01-09 15:45 | Hospitalist Progress Note ---
Date of Service January 09, 2024 Assessment & Plan (1) COVID-19: Plan: Nasal swab positivity. No evidence of viral pneumonia. No indication for remdesivir or steroid therapy. Supportive care (2) Ambulatory dysfunction: Plan: Continue OT and PT while hospitalized (3) Generalized weakness: Plan: Continue OT and PT while hospitalized (4) Acute hyponatremia: Plan: Mild on admission. Asymptomatic. No clinical significance (5) Type 2 diabetes mellitus: Plan: Metformin has been restarted. Unfortunately, sitagliptin is not on our formulary. Basal insulin therapy has been discontinued since he is not on insulin at home. No indication for steroid therapy. ADA diet. Sliding scale coverage if needed (6) Seizure disorder: Plan: Stable. Continue current medical management Plan [facility] when [facility] finalized. Continue OT and PT while hospitalized Admission and Anticipated Discharge Date Admission Date: January 07, 2024 Subjective Alert and oriented. No distress. He is on room air. Admission chest x-ray is clear. No evidence of viral pneumonia. No indication for remdesivir or steroid therapy which have been discontinued. He is not on insulin therapy at home and Lantus has been discontinued. Metformin has been restarted. Unfortunately, sitagliptin is not on our formulary. Arrangements are being made for discharge to [facility] for a while before he can return home. I spoke to his , Sharonda, by phone and brought her up-to-date low magnesium on admission has been corrected to 2.1. Review of Systems 2 Review of Systems: Constitutionalno fever or chills ENTno blurred vision, no double vision, no epistaxis, no sore throat Respiratoryno cough, no wheezing, no shortness of breath Cardiacno palpitations, no chest pain, no syncope Kevin nausea, vomiting, diarrhea, melena, hematochezia GUno urinary retention, no urinary incontinence, no dysuria, no hematuria Musculoskeletalno joint pain, no muscle tenderness Skinno bruising, no rashes, no pruritus Neurono isolated weakness, no paresthesia, no weakness Psychno depression, no anxiety Physical Exam 2 Physical Exam: General-alert and oriented x3, no fever, no chills HEENT-head atraumatic and normocephalic, pupils equal and reactive to light, extraocular muscles intact Neck-no lymphadenopathy or thyromegaly, trachea midline Chest-clear to auscultation. No rales, wheezing or rhonchi Cardiac-regular rate and rhythm, normal S1 and S2 Abdomen-normal bowel sounds, no hepatosplenomegaly Extremities-no cyanosis, clubbing, or edema Neuro-cranial nerves II through XII intact, motor and sensory function within normal limits, strength symmetrical, no focal deficits Psych-normal affect, normal mood Results & Data Results & Data Vital Signs (Past 12 Hours) Vital Signs Temp Pulse Pulse Resp BP Pulse Ox O2 Del Method 01/09/24 15:39 36.5 C 87 16 154/67 H 97 Room Air 01/09/24 14:57 95 H 01/09/24 08:24 86 01/09/24 07:48 36.6 C 85 16 142/89 H 93 Room Air 01/09/24 07:27 Room Air 01/09/24 05:00 Nasal Cannula 01/09/24 03:49 36.4 C L 84 20 113/74 96 Nasal Cannula O2 Flow Rate 01/09/24 15:39 01/09/24 14:57 01/09/24 08:24 01/09/24 07:48 01/09/24 07:27 01/09/24 05:00 2 01/09/24 03:49 2 Laboratory Results 01/09/24 06:31 01/09/24 06:31 PG Care Time/CCT Total # of Minutes Spent Total Time Spent with Patient: Total time spent is greater than 50% in coordination of care (as documented) at patient's floor/unit and/or counseling patient: Coding Level of Care Code 16883 SUB INP/OBS CARE 3/50MIN Diagnoses COVID-19 U07.1 Ambulatory dysfunction R26.2 Generalized weakness R53.1 Acute hyponatremia E87.1 Type 2 diabetes mellitus E11.9 Seizure disorder G40.909
[2024-01-09] MEDS ORDERED: SITagliptin PHOSPHATE 100 MG TAB PO SCH (21:00)
[2024-01-09] MEDS: ACETAMINOPHEN 325 MG TAB PO PRN (22:12)
[2024-01-09] MEDS: MELATONIN 3 MG TAB PO PRN (22:14)
[2024-01-10 07:57] LABS: Basophils # (auto) 0.01 K/uL (0.00-0.20); Basophils % (auto) 0.2 %; Eosinophils # (auto) 0.02 K/uL (0.00-0.50); Eosinophils % (auto) 0.4 %; Hematocrit (blood only) 35.2 % (42.0-52.0); Hemoglobin 12.1 g/dl (14.0-18.0); Immature Granulocytes # (auto) 0.02 K/uL (0.01-0.20); Immature Granulocytes % (auto) 0.4 %; Lymphocytes # (auto) 2.04 K/uL (1.20-3.40); Lymphocytes % (auto) 37.7 %; Mean Corpuscular Hemoglobin 31.8 pg (25.0-34.0); Mean Corpuscular Hgb Conc 34.4 g/dL (32.0-36.0); Mean Corpuscular Volume 92.6 fL (80.0-100.0); Mean Platelet Volume 10.1 fL (9.4-12.4); Monocytes # (auto) 0.52 K/uL (0.11-0.59); Monocytes % (auto) 9.6 %; Neutrophils % (auto) 51.7 %; Platelet Count 132 K/uL (130-400); RDW Coefficient of Variation 14.8 % (11.5-14.5); RDW Standard Deviation 50.4 fL (36.4-46.3); White Blood Count 5.41 K/ul (4.8-10.8)
[2024-01-10 08:13] LABS: BUN Creatinine Ratio 34.3 (10-20); Calcium 8.3 mg/dl (8.6-10.3); Creatinine Clr Calc Pharmacy 75.1 ml/min; Est GFR (African American) 100.1 ml/min; Est GFR (Non-African American) 86.4 ml/min; Potassium 3.9 mmol/L (3.5-5.1)
[2024-01-10] MEDS: REMDESIVIR 100 MG in SODIUM CHLORIDE 0.9% 230 ML IV SCH (08:41)
[2024-01-10] MEDS: dexAMETHasone 6 MG in SYRINGE 0 ML IV SCH (09:12)
--- NOTE | 2024-01-10 15:49 | Hospitalist Progress Note ---
Date of Service January 10, 2024 Assessment & Plan (1) COVID-19: Plan: Presented with generalized weakness and hypoxia. Tested positive for COVID-19 Chest x-ray negative for pneumonia Was initially started on Decadron and it was discontinued yesterday-resume given that he did have hypoxia and pulse ox still 93% on room air Will also resume Remdesivir as this is beneficial to shorten the course of illness PT/OT evaluations are recommending rehab-awaiting rehab placement (2) Ambulatory dysfunction: Plan: Secondary to generalized weakness from viral illness Continue OT and PT while hospitalized (3) Acute hyponatremia: Plan: Mild on admission. Asymptomatic. No clinical significance and stable today at 135 No need for daily BMP (4) Type 2 diabetes mellitus: Plan: Metformin has been restarted. Unfortunately, sitagliptin is not on our formulary. Continue NovoLog and tighten down the range to 100-1 40. May need to add Lantus back on now that steroids are resumed Will follow blood sugars Diabetic diet (5) Seizure disorder: Plan: Stable. Continue current medical management with Depakote Plan BPH-continue finasteride, tamsulosin. He is also on Myrbetriq GERD-continue PPI Hypothyroidism-TSH mildly low at 0.267 but in the setting of acute illness- follow as an outpatient continue home levothyroxine dose DVT prophylaxis-Lovenox SQ Disposition-medically stable for discharge, but awaiting placement at SNF. Downgrade from telemetry status Admission and Anticipated Discharge Date Admission Date: January 07, 2024 Subjective Patient is feeling very tired. No other significant complaints. Telemetry with normal sinus rhythm, PACs, PVCs, rates in the 70s to 110s Physical Exam Constitutional: WD/WN, vitals as above Respiratory: normal respiratory effort, lungs clear to auscultation Cardiovascular: RRR, no murmur, no edema Psychiatric: Orientation: alert, oriented x 3 and cooperative Affect: + labile affect Results & Data Results & Data Vital Signs (Past 12 Hours) Vital Signs Temp Pulse Pulse Resp BP Pulse Ox O2 Del Method 01/10/24 14:48 36.5 C 96 H 16 112/68 95 Room Air 01/10/24 14:42 78 01/10/24 08:21 78 01/10/24 07:55 36.5 C 82 16 100/65 93 Room Air 01/10/24 07:09 Room Air Laboratory Results CBC, BMP reviewed PG Care Time/CCT Total # of Minutes Spent Total Time Spent with Patient: Total time spent is greater than 50% in coordination of care (as documented) at patient's floor/unit and/or counseling patient: Coding Level of Care Code 71700 SUB INP/OBS CARE 2/35MIN Diagnoses COVID-19 U07.1 Ambulatory dysfunction R26.2 Acute hyponatremia E87.1 Type 2 diabetes mellitus E11.9 Seizure disorder G40.909
[2024-01-11] MEDS: DOCUSATE SODIUM 100 MG CAP PO SCH (08:20)
[2024-01-11] MEDS: POLYETHYLENE (MIRALAX) 17 GM PACK PO SCH (09:58)
--- NOTE | 2024-01-11 18:37 | Hospitalist Progress Note ---
Date of Service January 11, 2024 Assessment & Plan (1) COVID-19: Plan: Presented with generalized weakness and hypoxia. Tested positive for COVID-19 Chest x-ray negative for pneumonia Mild hypoxia is now improved with being on Decadron-will continue and finish out a 5 to 10-day course Continue Remdesivir as this is beneficial to shorten the course of illness-today is day #3 PT/OT evaluations are recommending rehab-awaiting rehab placement With constipation-add MiraLAX and docusate (2) Ambulatory dysfunction: Plan: Secondary to generalized weakness from viral illness Continue OT and PT while hospitalized (3) Acute hyponatremia: Plan: Mild on admission. Asymptomatic. No clinical significance and stable at 135 No need for daily BMP (4) Type 2 diabetes mellitus: Plan: Metformin has been restarted. Unfortunately, sitagliptin is not on our formul sybil. Blood sugars are quite elevated again with resuming steroids Add Lantus 10 units at bedtime Continue NovoLog supplemental insulin Diabetic diet (5) Seizure disorder: Plan: Stable. No acute issues Continue current medical management with Depakote Plan BPH-continue finasteride, tamsulosin. He is also on Myrbetriq GERD-continue PPI Hypothyroidism-TSH mildly low at 0.267 but in the setting of acute illness- follow as an outpatient continue home levothyroxine dose DVT prophylaxis-Lovenox SQ Disposition-medically stable for discharge, but awaiting placement at SNF. I discussed his care with his on the phone on 01/10 Admission and Anticipated Discharge Date Admission Date: January 07, 2024 Subjective Patient has a dry cough. No bowel movement in several days. No other complaints except he has not been out of bed today. I discussed his care with his on the phone Physical Exam Constitutional: WD/WN, vitals as above Respiratory: normal respiratory effort, lungs clear to auscultation Cardiovascular: RRR, no murmur, no edema Skin: Large 5 to 6 cm in diameter scabbed over wound on posterior scalp Psychiatric: Orientation: alert, oriented x 3 and cooperative Affect: euthymic affect Results & Data Results & Data Vital Signs (Past 12 Hours) Vital Signs Temp Pulse Pulse Resp BP Pulse Ox O2 Del Method 01/11/24 17:49 Room Air 01/11/24 17:29 36.6 C 70 18 133/79 98 Room Air 01/11/24 15:59 36.6 C 80 18 98/62 L 94 Room Air 01/11/24 11:50 Room Air 01/11/24 08:31 36.4 C L 67 17 136/74 95 Room Air 01/11/24 07:20 69 Laboratory Results No labs to review PG Care Time/CCT Total # of Minutes Spent Total Time Spent with Patient: Total time spent is greater than 50% in coordination of care (as documented) at patient's floor/unit and/or counseling patient: Coding Level of Care Code 87618 SUB INP/OBS CARE 2/35MIN Diagnoses COVID-19 U07.1 Ambulatory dysfunction R26.2 Acute hyponatremia E87.1 Type 2 diabetes mellitus E11.9 Seizure disorder G40.909
[2024-01-11] MEDS: LANTUS PER UNIT CHARGE SQ SCH (21:58)
--- NOTE | 2024-01-12 12:24 | Hospitalist Progress Note ---
Date of Service January 12, 2024 Assessment & Plan (1) COVID-19: Plan: Presented with generalized weakness and hypoxia. Tested positive for COVID-19 Chest x-ray negative for pneumonia Mild hypoxia is now improved with being on Decadron-having insomnia-stop steroids Continue Remdesivir as this is beneficial to shorten the course of illness-today is day #4 Follow CMP in the morning PT/OT evaluations are recommending rehab-awaiting rehab placement With constipation now improving after adding MiraLAX and docusate (2) Ambulatory dysfunction: Plan: Secondary to generalized weakness from viral illness Continue OT and PT while hospitalized (3) Acute hyponatremia: Plan: Mild on admission. Asymptomatic. No clinical significance and stable at 135 Will check sodium level in the morning (4) Rash: Plan: Rash could be from COVID infection? It is mildly itchy. Could be a heat rash from being sweaty/hot in the bed Start hydrocortisone cream for antiitch but also for moisturizer Encouraged to get out of bed to chair Will follow (5) Type 2 diabetes mellitus: Plan: Metformin has been restarted. Unfortunately, sitagliptin is not on our formulary. Blood sugars are quite elevated again with resuming steroids and remain elevated Continue Lantus 10 units at bedtime just for tonight and then stop as steroids are being stopped after today's dose Tighten down NovoLog correction factor and carb coverage Diabetic diet (6) Seizure disorder: Plan: Stable. No acute issues Continue current medical management with Depakote Plan BPH-continue finasteride, tamsulosin. He is also on Myrbetriq GERD-continue PPI Hypothyroidism-TSH mildly low at 0.267 but in the setting of acute illness- follow as an outpatient continue home levothyroxine dose DVT prophylaxis-Lovenox SQ Disposition-medically stable for discharge, but awaiting placement at SNF-no bed [facility] available [facility] to at least Tuesday. I discussed his care with his at the bedside on 01/11 Admission and Anticipated Discharge Date Admission Date: January 07, 2024 Subjective Nursing noted a rash on the patient's back. He reports it is a little bit itchy. His reports it has been there for a couple of weeks since he got COVID. She said he had a similar rash when he had COVID last year. He otherwise complains of insomnia. Mild cough productive of clear sputum. No other concerns. He is very weak and could only take a couple of steps with PT today. Physical Exam Constitutional: WD/WN, vitals as above Respiratory: normal respiratory effort, lungs clear to auscultation Cardiovascular: RRR, no murmur, no edema Skin: + rash (Mid to lower back with 2-3 mm ma cular erythematous diffuse rash) Psychiatric: Orientation: alert, oriented x 3 and cooperative Affect: euthymic affect Results & Data Results & Data Vital Signs (Past 12 Hours) Vital Signs Temp Pulse Resp BP Pulse Ox O2 Del Method 01/12/24 09:53 Room Air 01/12/24 07:55 36.6 C 64 18 127/81 95 Room Air Laboratory Results No labs to review PG Care Time/CCT Total # of Minutes Spent Total Time Spent with Patient: Total time spent is greater than 50% in coordination of care (as documented) at patient's floor/unit and/or counseling patient: Coding Level of Care Code 10132 SUB INP/OBS CARE 1/25MIN Diagnoses COVID-19 U07.1 Ambulatory dysfunction R26.2 Acute hyponatremia E87.1 Rash R21 Type 2 diabetes mellitus E11.9 Seizure disorder G40.909
[2024-01-12] MEDS: HYDROCORTISONE 1% CRM 30 GM TUBE EXT SCH (13:54)
[2024-01-12] MEDS: MELATONIN 3 MG TAB PO SCH (21:20)
[2024-01-12] MEDS: ACETAMINOPHEN 325 MG TAB PO SCH (21:20)
[2024-01-13 07:02] LABS: Albumin Globulin Ratio 1.8 (0.9-2); Albumin Level 3.4 gm/dl (3.4-5.0); BUN Creatinine Ratio 24.6 (10-20); Bilirubin,Total 0.4 mg/dl (0.2-1.0); Calcium 9.1 mg/dl (8.6-10.3); Creatinine Clr Calc Pharmacy 77.5 ml/min; Est GFR (African American) 101.4 ml/min; Est GFR (Non-African American) 87.5 ml/min; Globulin 1.9 gm/dl (2.5-4.0); Total Protein 5.3 gm/dl (6.0-8.3)
--- NOTE | 2024-01-13 11:24 | Hospitalist Progress Note ---
Date of Service January 13, 2024 Assessment & Plan (1) COVID-19: Plan: Acute Presented with generalized weakness and hypoxia. Tested positive for COVID-19 Chest x-ray negative for pneumonia Mild hypoxia is now improved with being on Decadron-having insomnia-stop steroids Continue Remdesivir as this is beneficial to shorten the course of illness-today is day #5 CMP reviewed this AM, ALT 100, AST 29 and Alk phos 32 PT/OT evaluations are recommending rehab-awaiting rehab placement With constipation now improving after adding MiraLAX and docusate (2) Ambulatory dysfunction: Plan: Secondary to generalized weakness from viral illness Continue OT and PT while hospitalized (3) Acute hyponatremia: Plan: Mild on admission. Asymptomatic. No clinical significance. CMP reviewed and Na 133 this AM (4) Rash: Plan: Rash could be from COVID infection? It is mildly itchy. Could be a heat rash from being sweaty/hot in the bed Start hydrocortisone cream for antiitch but also for moisturizer Encouraged to get out of bed to chair (5) Type 2 diabetes mellitus: Plan: Metformin has been restarted. Unfortunately, sitagliptin is not on our formulary. Blood sugars are quite elevated again with resuming steroids and remain elevated Continue Lantus 10 units at bedtime just for tonight and then stop as steroids are being stopped after today's dose Tighten down NovoLog correction factor and carb coverage Diabetic diet BSG reviewed, fasting 166 this AM (6) Seizure disorder: Plan: Stable. No acute issues/seizure activity observed. Continue current medical management with Depakote Plan BPH-continue finasteride, tamsulosin. He is also on Myrbetriq GERD-continue PPI Hypothyroidism-TSH mildly low at 0.267 but in the setting of acute illness- follow as an outpatient continue home levothyroxine dose DVT prophylaxis-Lovenox SQ Disposition-medically stable for discharge, but awaiting placement at SNF-no bed is available [facility] to at least Tuesday. Continue inpatient stay until bed available. Admission and Anticipated Discharge Date Admission Date: January 07, 2024 Supervising Physician Co-Signing Physician Notes Attending Attestation - Chart reviewed, care plan d/w NOEL Velazquez. I agree w/ the sargent components of her documentation. ALT noted to be mildly elevated - could be COVID-related, could be Remdesivir- related. Either way recommend repeat within the next 48 hours. Other plans of care per Ms Velazquez. Humphrey Tejeda MD Subjective Graciela was seen today on morning rounds. He is currently resting comfortably in his room and offers no complaints. Denies chest pain or dyspnea. No cough and he is afebrile. He remains in isolation d/t COVID-19+. He wants to try and have a BM this morning. He denies n/v. Therapy recommending rehab which a bed will not be available until Tuesday at the earliest. Review of Systems 2 Review of Systems: All systems reviewed and are unremarkable except as noted in HPI and below. Denies fever, chills, fatigue, headache, nasal congestion, sore throat, cough, chest pain, shortness of breath, palpitations, orthopnea, PND, abdominal pain, n/v/d, constipation, dysuria, hematuria, frequency, back pain, joint pain or swelling, easy bruising or bleeding, skin lesions or rashes. Physical Exam 2 Physical Exam: GENERAL: 88 yo Well-developed, well-nourished elderly M. A&Ox3. NAD. LUNGS: Clear to auscultation bilaterally. No W/R/R. CARDIOVASCULAR: Regular rate and rhythm. ABDOMEN: Soft, non-tender and non-distended. BS normoactive x 4 quad. EXTREMITIES: No edema. Non-tender. Peripheral pulses +2/4. SKIN: Warm, dry, intact. Results & Data Results & Data Vital Signs (Past 12 Hours) Vital Signs Temp Pulse Resp BP Pulse Ox O2 Del Method 01/13/24 08:18 36.4 C L 63 18 150/75 H 96 Room Air Laboratory Results 01/10/24 07:12 01/13/24 06:13 PG Care Time/CCT Total # of Minutes Spent Total Time Spent with Patient: Total time spent is greater than 50% in coordination of care (as documented) at patient's floor/unit and/or counseling patient: 35 minutes Coding Level of Care Code 18889 SUB INP/OBS CARE 2/35MIN Diagnoses COVID-19 U07.1 Ambulatory dysfunction R26.2 Acute hyponatremia E87.1 Rash R21 Type 2 diabetes mellitus E11.9 Seizure disorder G40.909
--- NOTE | 2024-01-14 12:12 | Hospitalist Progress Note ---
Date of Service January 14, 2024 Assessment & Plan (1) COVID-19: Plan: Acute Presented with generalized weakness and hypoxia. Tested positive for COVID-19 Chest x-ray negative for pneumonia Mild hypoxia is now improved with being on Decadron-having insomnia-stop st eroids Completed 5-day course of Remdesivir PT/OT evaluations are recommending rehab-awaiting rehab placement With constipation now improving after adding MiraLAX and docusate (2) Ambulatory dysfunction: Plan: Secondary to generalized weakness from viral illness Continue OT and PT while hospitalized (3) Acute hyponatremia: Plan: Mild on admission. Asymptomatic. No clinical significance. CMP reviewed and Na 133 this AM (4) Rash: Plan: Rash could be from COVID infection? It is mildly itchy. Could be a heat rash from being sweaty/hot in the bed Start hydrocortisone cream for antiitch but also for moisturizer Encouraged to get out of bed to chair (5) Type 2 diabetes mellitus: Plan: Metformin has been restarted. Unfortunately, sitagliptin is not on our formulary. Blood sugars are quite elevated again with resuming steroids and remain elevated Continue Lantus 10 units at bedtime just for tonight and then stop as steroids are being stopped after today's dose Tighten down NovoLog correction factor and carb coverage Diabetic diet BSG reviewed, fasting 166 this AM (6) Seizure disorder: Plan: Stable. No acute issues/seizure activity observed. Continue current medical management with Depakote Plan BPH-continue finasteride, tamsulosin. He is also on Myrbetriq GERD-continue PPI Hypothyroidism-TSH mildly low at 0.267 but in the setting of acute illness- follow as an outpatient continue home levothyroxine dose DVT prophylaxis-Lovenox SQ Disposition-medically stable for discharge, but awaiting placement at SNF-no bed [facility] available [facility] to at least Tuesday. Continue inpatient stay until bed available. Admission and Anticipated Discharge Date Admission Date: January 07, 2024 Supervising Physician Co-Signing Physician Notes Attending Attestation - Chart reviewed, care plan d/w NOEL Velazquez. I agree w/ the sargent components of her documentation. ALT noted to be mildly elevated - could be COVID-related, could have been Remdesivir-related. Either way recommend repeat sometime this weekend. Dispo - SNF- hopefully 01/15. Humphrey Owens was seen today on morning rounds. He is currently resting comfortably in bed. Denies chest pain or dyspnea. He remains in isolation d/t COVID-19+ and endorses occasional mild cough with some sputum production. He denies n/v. Therapy recommending rehab which a bed will not be available until Tuesday at the earliest. Review of Systems Review of Systems: All systems reviewed and are unremarkable except as noted in HPI and below. Denies fever, chills, fatigue, headache, nasal congestion, sore throat, chest pain, shortness of breath, palpitations, orthopnea, PND, abdominal pain, n/v/d, constipation, dysuria, hematuria, frequency, back pain, joint pain or swelling, easy bruising or bleeding, skin lesions or rashes. Physical Exam Physical Exam: GENERAL: 88 yo Well-developed, well-nourished elderly M. A&Ox3. NAD. LUNGS: Clear to auscultation bilaterally. No W/R/R. CARDIOVASCULAR: Regular rate and rhythm. ABDOMEN: Soft, non-tender and non-distended. BS normoactive x 4 quad. : external condom cath in place EXTREMITIES: No edema. Non-tender. Peripheral pulses +2/4. SKIN: Warm, dry, intact. Results & Data Results & Data Vital Signs (Past 12 Hours) Vital Signs Temp Pulse Resp BP Pulse Ox O2 Del Method 01/14/24 09:57 Room Air 01/14/24 08:33 36.3 C L 77 20 100/61 95 Room Air PG Care Time/CCT Total # of Minutes Spent Total Time Spent with Patient: Total time spent is greater than 50% in coordination of care (as documented) at patient's floor/unit and/or counseling patient: 36 minutes Coding Level of Care Code 21872 SUB INP/OBS CARE 2/35MIN Diagnoses COVID-19 U07.1 Ambulatory dysfunction R26.2 Acute hyponatremia E87.1 Rash R21 Type 2 diabetes mellitus E11.9 Seizure disorder G40.909
--- NOTE | 2024-01-15 11:39 | Hospitalist Progress Note ---
Date of Service January 15, 2024 Assessment & Plan (1) COVID-19: Plan: Presented with generalized weakness and hypoxia. Tested positive for COVID-19 - Chest x-ray negative for pneumonia - Mild hypoxia is now improved with being on Decadron -having insomnia-stop steroids Completed 5-day course of Remdesivir PT/OT evaluations are recommending rehab-awaiting rehab placement With constipation now improving after adding MiraLAX and docusate stable on room air Slight bump in ALT - ?remdesivir vs viral infection AM CMP (2) Ambulatory dysfunction: Plan: Secondary to generalized weakness from viral illness Continue OT and PT while hospitalized (3) Acute hyponatremia: Plan: Mild on admission. Asymptomatic. No clinical significance. CMP reviewed and Na 133 (4) Rash: Plan: Rash could be from COVID infection? It is mildly itchy. Could be a heat rash from being sweaty/hot in the bed Start hydrocortisone cream for antiitch but also for moisturizer Encouraged to get out of bed to chair improving (5) Type 2 diabetes mellitus: Plan: Metformin has been restarted. Unfortunately, sitagliptin is not on our formulary. slight elevation of with steroids, which have been d/mariana sliding scale adjusted 01/13, BSG improving Plan Chronic stable medical conditions: * BPH-continue finasteride, tamsulosin. He is also on Myrbetriq * GERD-continue PPI * Hypothyroidism-TSH mildly low at 0.267 but in the setting of acute illness- follow as an outpatient continue home levothyroxine dose * Seizure disorder - continue Depakote DVT prophylaxis-Lovenox SQ Disposition-medically stable for discharge, but awaiting placement at SNF-[facility] at [facility]. Continue inpatient stay until bed available. Admission and Anticipated Discharge Date Admission Date: January 07, 2024 Supervising Physician Co-Signing Physician Notes Attending Attestation - Chart reviewed, care plan d/w NOEL Lopez. I agree w/ the sargent components of her documentation. ALT noted to be mildly elevated - could be COVID-related, could have been Remdesivir-related. Could even be related to depakote use. Either way recommend repeat in am tomorrow. Dispo - SNF. Humphrey Tejeda MD Subjective Patient seen sitting up in bed. does report productive cough. 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 No coughing while I am present CV: RRR, no murmur, Abd:soft non tender, Extremities: Moves all extremities, no edema Neuro: A&O x3, Results & Data Results & Data Vital Signs (Past 12 Hours) Vital Signs Temp Pulse Resp BP Pulse Ox O2 Del Method 01/15/24 10:16 Room Air 01/15/24 08:09 98.1 F 85 16 91/64 L 94 Room Air Laboratory Results POC glucose reviewed PG Care Time/CCT Total # of Minutes Spent Total Time Spent with Patient: Total time spent is greater than 50% in coordination of care (as documented) at patient's floor/unit and/or counseling patient: Coding Level of Care Code 78812 SUB INP/OBS CARE 2/35MIN Diagnoses COVID-19 U07.1 Ambulatory dysfunction R26.2 Acute hyponatremia E87.1 Rash R21 Type 2 diabetes mellitus E11.9
[2024-01-16 07:49] VITALS: RESP 18
[2024-01-16 08:50] LABS: Albumin Level 3.3 gm/dl (3.4-5.0); Bilirubin,Total 0.4 mg/dl (0.2-1.0)
[2024-01-16 08:56] LABS: Albumin Globulin Ratio 1.8 (0.9-2); BUN Creatinine Ratio 15.9 (10-20); Creatinine Clr Calc Pharmacy 79.9 ml/min; Est GFR (African American) 102.7 ml/min; Est GFR (Non-African American) 88.6 ml/min; Globulin 1.8 gm/dl (2.5-4.0); Total Protein 5.1 gm/dl (6.0-8.3)
--- NOTE | 2024-01-16 11:20 | Hospitalist Progress Note ---
Date of Service January 16, 2024 Assessment & Plan (1) COVID-19: Plan: Presented with generalized weakness and hypoxia. Tested positive for COVID-19. Chest x-ray negative for pneumonia. - Mild hypoxia improved after Decadron, which was discontinued due to insomnia - Completed 5-day course of Remdesivir - Constipation improved after adding MiraLAX and docusate - Stable on room air - PT/OT evaluations are recommending rehab - awaiting rehab placement - Slight bump in ALT - ?remdesivir vs viral infection -- resolved (2) Ambulatory dysfunction: Plan: Secondary to generalized weakness from viral illness Continue OT and PT while hospitalized (3) Acute hyponatremia: Plan: Mild on admission. Asymptomatic. No clinical significance. (4) Rash: Plan: Rash could be from COVID infection? It is mildly itchy. Could be a heat rash from being sweaty/hot in the bed - Start hydrocortisone cream for antiitch but also for moisturizer - Encouraged to get out of bed to chair Improving (5) Type 2 diabetes mellitus: Plan: Metformin has been restarted. Unfortunately, sitagliptin is not on our formulary. slight elevation of with steroids, which have been d/mariana sliding scale adjusted 01/13, BSG improving Plan Updated at bedside Chronic stable medical conditions: * BPH-continue finasteride, tamsulosin. He is also on Myrbetriq * GERD-continue PPI * Hypothyroidism-TSH mildly low at 0.267 but in the setting of acute illness- follow as an outpatient continue home levothyroxine dose * Seizure disorder - continue Depakote DVT prophylaxis-Lovenox SQ Disposition-medically stable for discharge, but awaiting placement at SNF at [facility]. Continue inpatient stay until bed available. Admission and Anticipated Discharge Date Admission Date: January 07, 2024 Supervising Physician Co-Signing Physician Notes Attending Attestation - Chart reviewed, care plan d/w NOEL Kennedy. I agree w/ the sargent components of her documentation. Humphrey Tejeda MD Subjective Patient seen and evaluated at bedside with his present. He reports that he had a "rough morning" due to poor sleep overnight. He notes that he was awake f rom [id number], then was able to fall back asleep for a few hours. He reports that he felt confused when he first woke up, but this is resolved at this time. He notes that he continues to have productive cough, with clear phlegm production. We discussed that we are still waiting on rehab placement. No additional complaints or concerns at this time. Physical Exam Physical Exam: General: No acute distress, nondiaphoretic, well-developed, well-nourished. Skin: Healing area from previous sarcoma on parietal region of head, without signs of infection. Macular rash noted on posterior trunk. Cardiac: Regular rate and rhythm without murmurs gallops or rubs. Pulm: Diminished breath sounds at bases bilaterally but otherwise clear to auscultation without wheezes, rales or rhonchi. No respiratory distress. 95% on room air. Abdominal: Soft, nontender, nondistended. Bowel sounds present. Neuro: A&O x3. No focal neurological deficits. Results & Data Results & Data Vital Signs (Past 12 Hours) Vital Signs Temp Pulse Resp BP Pulse Ox O2 Del Method 01/16/24 08:15 Room Air 01/16/24 07:48 97.9 F 84 18 124/79 95 Room Air Laboratory Results Reviewed chemistries PG Care Time/CCT Total # of Minutes Spent Total Time Spent with Patient: Total time spent is greater than 50% in coordination of care (as documented) at patient's floor/unit and/or counseling patient: Coding Level of Care Code 90263 SUB INP/OBS CARE 2/35MIN Diagnoses COVID-19 U07.1 Ambulatory dysfunction R26.2 Acute hyponatremia E87.1 Rash R21 Type 2 diabetes mellitus E11.9
[2024-01-17 07:51] VITALS: BP 114/73; PULSE 75; TEMP 97.7; O2SAT 94
[2024-01-17 07:58] LABS: Basophils # (auto) 0.02 K/uL (0.00-0.20); Basophils % (auto) 0.3 %; Eosinophils # (auto) 0.22 K/uL (0.00-0.50); Eosinophils % (auto) 3.8 %; Hematocrit (blood only) 34.7 % (42.0-52.0); Hemoglobin 11.8 g/dl (14.0-18.0); Immature Granulocytes # (auto) 0.11 K/uL (0.01-0.20); Immature Granulocytes % (auto) 1.9 %; Lymphocytes # (auto) 1.86 K/uL (1.20-3.40); Lymphocytes % (auto) 32.1 %; Mean Corpuscular Hemoglobin 31.7 pg (25.0-34.0); Mean Corpuscular Volume 93.3 fL (80.0-100.0); Monocytes # (auto) 0.61 K/uL (0.11-0.59); Monocytes % (auto) 10.5 %; Neutrophils # (auto) 2.97 K/uL (1.40-6.50); Neutrophils % (auto) 51.4 %; Platelet Count 149 K/uL (130-400); RDW Standard Deviation 51.5 fL (36.4-46.3); Red Blood Count 3.72 M/uL (4.70-6.10); White Blood Count 5.79 K/ul (4.8-10.8)
[2024-01-17] MEDS: MICONAZOLE NITRATE POWDER 85 GM EXT PRN (08:00)
[2024-01-17 08:14] LABS: Magnesium 1.6 mg/dl (1.7-2.4)
--- NOTE | 2024-01-17 09:03 | Hospitalist Progress Note ---
Date of Service January 17, 2024 Assessment & Plan (1) COVID-19: Plan: Presented with generalized weakness and hypoxia. Tested positive for COVID-19. Chest x-ray negative for pneumonia. Mild hypoxia improved after Decadron, which was discontinued due to insomnia. On melatonin HS for sleep Completed 5-day course of Remdesivir Constipation improved after adding MiraLAX and docusate Stable on room air Slight bump in ALT - ?remdesivir vs viral infection -- resolved PT/OT evaluations are recommending rehab - awaiting rehab placement 01/16 - dc isolation precautions today Mag 1.6 - 2gm IV replacement to be provided. Prior appears on PO supplementation, consider rx at dc B12 936 Lyme pending (2) Ambulatory dysfunction: Plan: Secondary to generalized weakness from viral illness Continue OT and PT while hospitalized (3) Acute hyponatremia: Plan: Mild on admission. Asymptomatic. No clinical significance. (4) Rash: Plan: Rash could be from COVID infection? It is mildly itchy. Could be a heat rash from being sweaty/hot in the bed - Start hydrocortisone cream for antiitch but also for moisturizer - Encouraged to get out of bed to chair Improving (5) Type 2 diabetes mellitus: Plan: Metformin has been restarted. Unfortunately, sitagliptin is not on our formulary. slight elevation of with steroids, which have been d/mariana sliding scale adjusted 01/13, BSG improving Plan Updated at bedside Chronic stable medical conditions: * BPH-continue finasteride, tamsulosin. He is also on Myrbetriq * GERD-continue PPI * Hypothyroidism-TSH mildly low at 0.267 but in the setting of acute illness- follow as an outpatient continue home levothyroxine dose * Seizure disorder - continue Depakote DVT prophylaxis-Lovenox SQ Disposition-medically stable for discharge, but awaiting placement at SNF at [facility]. Continue inpatient stay until bed available. Admission and Anticipated Discharge Date Admission Date: January 07, 2024 Results & Data Results & Data Vital Signs (Past 12 Hours) Vital Signs Temp Pulse Resp BP Pulse Ox O2 Del Method 01/17/24 07:51 36.5 C 75 18 114/73 94 Room Air 01/16/24 21:45 Room Air Laboratory Results 01/17/24 07:27 Mag 1.6 B12 936 Lyme pending PG Care Time/CCT Total # of Minutes Spent Total Time Spent with Patient: Total time spent is greater than 50% in coordination of care (as documented) at patient's floor/unit and/or counseling patient: Coding Diagnoses COVID-19 U07.1 Ambulatory dysfunction R26.2 Acute hyponatremia E87.1 Rash R21 Type 2 diabetes mellitus E11.9
[2024-01-17 09:25] LABS: BUN Creatinine Ratio 17.6 (10-20); Calcium 8.8 mg/dl (8.6-10.3); Est GFR (African American) 99.5 ml/min; Est GFR (Non-African American) 85.9 ml/min; Potassium 3.9 mmol/L (3.5-5.1)
--- NOTE | 2024-01-17 10:07 | Discharge Summary ---
Discharge Summary Date of Service January 17, 2024 Principal Dx & Hospital Course #1 = Principal Diagnosis (1) COVID-19: Presented with generalized weakness and hypoxia. Tested positive for COVID-19. Chest x-ray negative for pneumonia. Mild hypoxia improved after Decadron, which was discontinued due to insomnia. On melatonin HS for sleep Completed 5-day course of Remdesivir while in the hospital. Stable on ROOM AIR. Did have SLIGHT bump in ALT, ? remdesivir vs depakote vs other. NORMALIZED on repeat LFT. Lyme testing negative Maintained isolation precautions, encouraged incentive spirometer. Mag was 1.6 prior to dc and provided 2gm IV replacement as was low in the past and could consider daily supplementation given PPI therapy at baseline with prior lows as appears was on in the past. PT/OT consulted and recs for rehab, CM arranged transportation for [facility] Reported improvement in rash to groin w/ topical hydrocortisone and has needed steroid cream in the past. Continued rx for topical hydrocortisone at discharge. Outpt derm f/u as prior following. Constipation improved after adding MiraLAX and docusate and continue bowel regimen as needed. (2) Ambulatory dysfunction: Secondary to generalized weakness from viral illness Continue OT and PT while hospitalized (3) Acute hyponatremia: Mild on admission. Asymptomatic. No clinical significance. TSH low and can repeat TFT as outpatient as could be altered w/ recent COVID infection and remained on 125mcg daily synthroid (4) Rash: Rash could be from COVID infection? It is mildly itchy. Could be a heat rash from being sweaty/hot in the bed --> Started hydrocortisone cream for antiitch but also for moisturizer and as above used in the past and improving on exam and continued at [facility]. Lyme testing negative given ALT elevation for completeness (5) Type 2 diabetes mellitus: Metformin held on admission and restarted while inpatient. Continue sitagliptan at [facility] as not formulary. Did have bump in BSGs w/ steroids which have been discontinued and utilized SSI while inpatient Home meds continued at [facility] Outpt f/u Plan Chronic stable medical conditions: * BPH-continue finasteride, tamsulosin. Mybetriq as able/bring by family * GERD-continue PPI, on protonix 20mg daily. consider mag replacement as above * --> Hypomagnesemia: replacement ordered/normalized on repeat but added prior to dc and again low/replacement ordered and consideration to be on daily PO replacement in f/u discussions as appears was on in the past * Hypothyroidism-TSH mildly low at 0.267 but in the setting of acute illness- follow as an outpatient continue home levothyroxine dose * Seizure disorder - continued Depakote DVT prophylaxis-Lovenox SQ while inpatient Dispo: PT/OT recs for rehab/SNF and CM arranged transport for [facility] Notes For Next Care Provider Repeat TFT in 4-6 wks outpatient Consider derm ref if ongoing rash to groin but improving w/ topical steroid Encouraged ongoing incentive spirometer to prevent bacterial pneumonia but remained on room air. Consider mag replacement PO given ongoing PPI therapy/prior lows. Was given 2gm IV prior to dc for 1.6 Medication Changes From Visit Hydrocortisone topical BID to groin Admission HPI Per Admitting Provider The patient is a 88-year-old male with a past medical history including BPH with LUTS causing incomplete bladder emptying, seizure disorder, GERD, hypothyroidism, pleomorphic cell sarcoma, hyperlipidemia, diabetes mellitus type 2, and history of falls. He began to feel generally weak and difficulty with walking, with a dry cough yesterday. His had recently tested positive for COVID, and he tested positive in the ED this evening. He denies any shortness of breath, or dyspnea on exertion. Admission Exam Per Admitting Provider The patient is awake, alert and oriented 3, normocephalic and atraumatic, lying in bed and in no acute distress. HEENT--PERRL, EOMI, mucous membranes and oropharynx mildly dry. Neck--supple. No JVD. No bruits. Thyroid normal, trachea midline, no adenopathy. Heart--normal S1 and S2. No murmurs, rubs or gallops. Lungs--clear bilaterally, no respiratory distress, no accessory muscle use. Abdomen--normal bowel sounds and soft. Nontender. Nondistended, no hernias or masses, no organomegaly. Extremities-- No edema. Dermatologic--skin is mildly dry Neurologic--cranial nerves II through XII grossly intact. Rheumatologic--normal range of motion. Psychiatric--normal affect. Discharge Exam General: 88yo male sitting up in bed, NAD, ready for discharge Head w/ posterior region/healing sarcoma, no redness/drainage/signs of infection Resp: diminished in the bases but no w/c/r, on room air 98% CV: RRR, no significant m/r/g, no pitting edema/calf tenderness GI: +BS, soft/NT : no davdi, urinal at bedside MSK/Neuro: generalized weakness but nonfocal, answering questions appropriately, no slurred speech/facial droop Psych: AOx3, cooperative with exam Discharge Plan Discharge Items Patient Disposition: Transfer Residential Fac Reason For Visit: COVID, GENERALIZED WEAKNESS Discharge Diagnosis: COVID, Weakness Goals: You have been hospitalized for an acute medical problem. During your stay at [facility], we have made an effort to correct the problem that brought you to the hospital while keeping you as comfortable as possible. Medications were used to bring your condition under control and your discharge instructions will include directions for any medications you should take after leaving the hospital. Please make sure you see your Primary Care Provider as part of your follow up plan. Activity: As commented below Non-emergency contact: Primary Care Provider Call non-emergency contact if: you have any medication questions, your symptoms worsen, your pain is concerning for you and you have a fever Follow-up/Referrals: Balaji Jenkins [Primary Care Provider] - Diet: Carb Consistent or DM2 and Heart Healthy Addtl Attending Provider Instructions: You have been hospitalized for weakness and COVID and also found to have urinary tract infection. You completed treatment for COVID infection and xray was negative for pneumonia and you have remained on room air. Please continue incentive spirometry to help strengthen your lungs and prevent development of a pneumonia. Therapy evaluations were undertaken and arrangements made for [facility] at discharge. Please follow up with primary care in the next 7-10 days to monitor your progress after discharge. Please return to the ER with any increased shortness of breath, fevers, chest pain, or for any other symptoms concerning for you. It has been a pleasure being a part of the medical team providing for you while you have been in the hospital. Take care! Pending Studies at Discharge: No Stand-Alone Forms: My [facility] Skilled Items Patient informed of condition?: Yes DNR: No Discharge Level of Care: Skilled Communicable Disease: No Discharge Prognosis: Stable Lines: None Urinary Catheter: No Medications and DC Order Prescriptions: New hydrocortisone 1 % Ointment 1 applic EXT BID Qty: 28.35 0RF Continued docusate sodium [Dulcolax Stool Softener (dss)] 100 mg capsule 100 mg PO QAM atorvastatin [Lipitor] 20 mg Tablet 20 mg PO QAM Qty: 0 cholecalciferol (vitamin D3) 2,000 unit Tablet 2,000 unit PO QAM Qty: 0 multivitamin Tablet 1 tab PO BID Qty: 0 levothyroxine [Synthroid] 125 mcg Tablet 125 mcg PO QAM Qty: 0 divalproex 500 mg tablet extended release 24 hr 500 mg PO BID 90 Days Qty: 180 3RF Myrbetriq 50 mg tablet extended release 24 hr 50 mg PO DAILY Qty: 90 3RF tamsulosin [Flomax] 0.4 mg capsule 0.4 mg PO HS Qty: 90 4RF dutasteride 0.5 mg capsule 0.5 mg PO DAILY Qty: 90 3RF risedronate 35 mg tablet 35 mg PO Q7D Rx Instructions: Tuesday Januvia 100 mg tablet 100 mg PO HS pantoprazole 20 mg tablet,delayed release (DR/EC) 20 mg PO QAM coenzyme Q10 [Co Q-10] 100 mg Capsule 100 mg PO QAM metformin 500 mg tablet extended release 24 hr 500 mg PO BID tavaborole 5 % solution with applicator 1 applic TOPICAL HS Rx Instructions: to affected toenails Discharge Orders: Discharge Order (Routine); Ordered 01/17/24 Ordered By: Karlene Bell/Other Patient Handouts: Managing Type 2 Diabetes Admission Data Admit Date/Time: 01/07/24 21:35 Attending Provider: Delvin Verdugo Admit Provider: Gavin Arguello Primary Care Provider: Balaji Jenkins Other Providers: [facility]; Gavin Arguello Hospital Stay Data Consultations 01/07/24 20:35 ED Decision to Admit Stat Diagnostic Imagining Performed Chest X-Ray 01/07/24 17:39 XR chest 1V not portable HISTORY: 88 years-old Male cough acute cough COMPARISON: 04/03/2023 TECHNIQUE: AP view of the chest FINDINGS: Cardiomediastinal and hilar silhouettes are within normal limits. Atherosclerosis of the aorta. No pneumothorax, pleural effusion or pulmonary edema. Spondylitic spurring of the spine. IMPRESSION: No acute process. ACT 112: Negative or not required by law. The above report was generated using voice recognition software. It may contain grammatical, syntax or spelling errors. Electronically signed by: Jerardo Barlow M.D. 01/07/2024 6:57 PM Discharge Instructions Given to Patient (Per Discharging Provider) You have been hospitalized for weakness and COVID and also found to have urinary tract infection. You completed treatment for COVID infection and xray was negative for pneumonia and you have remained on room air. Please continue incentive spirometry to help strengthen your lungs and prevent development of a pneumonia. Therapy evaluations were undertaken and arrangements made for [facility] at discharge. Please follow up with primary care in the next 7-10 days to monitor your progress after discharge. Please return to the ER with any increased shortness of breath, fevers, chest pain, or for any other symptoms concerning for you. It has been a pleasure being a part of the medical team providing for you while you have been in the hospital. Take care! Supervising Physician Co-Signing Physician Notes The patient was not seen by me. The chart was reviewed. Case discussed with NOEL Price. Agree with assessment and plan Total Time Total Time Spent Total Time Spent (In Minutes): 40 Coding Level of Care Code 54755 INP/OBS DISCH >30 MIN Diagnoses COVID-19 U07.1 Ambulatory dysfunction R26.2 Acute hyponatremia E87.1 Rash R21 Type 2 diabetes mellitus E11.9
[2024-01-17] MEDS: MAGNESIUM SULFATE / D5W 1 GM/100 ML BAG IV SCH (10:38)
== END 2024-01-17 15:47 | DRG 178 ==
LOC: ED 17:06 → INTOOBSV 21:35 → SUATTDRO 21:35 → EDINP 21:35 → OBSVTOIN 21:35 → 2N 23:56 → 3E 01-11 17:32